=== PATIENT | female | born 1950 | race Caucasian/White ===

== ENCOUNTER → 2017-07-27 14:38 | Outpatient (CLI) | payer MEDICARE, BC, SELFPAY ==
--- NOTE | 2017-07-27 14:48 | XR_ITS ---
XR chest 2V HISTORY: ITS.REASON: ASTHMA,BRONCHITIS ORDERING PHYSICIAN: Nikia Jimenez PATIENT AGE: 66 years COMPARISON: 12/20/2016 FINDINGS: The cardiomediastinal silhouette and pulmonary vascularity are within normal limits. The lungs are clear without infiltrates, suspicious nodules, or pleural effusions. Calcified granuloma is present in the right lower lobe Mild lumbar scoliosis convex left. IMPRESSION: No change with no acute finding
== END ==
PROVIDERS: PCP Nurse Practitioner; Visit Provider Nurse Practitioner
DX: J45.909 Unspecified asthma, uncomplicated (principal)
CPT/HCPCS: 71046

== ENCOUNTER → 2018-07-05 14:35 | Outpatient (CLI) | payer MEDICARE, BC, SELFPAY ==
--- NOTE | 2018-07-05 14:43 | XR_ITS ---
XR knee LT 3V HISTORY: ITS.REASON: LT KNEE PAIN ORDERING PHYSICIAN: Nikia Jimenez PATIENT AGE: 67 years COMPARISON: None FINDINGS: No fracture or dislocation. No lytic or blastic change. Normal mineralization. No significant arthritic changes evident. There is a 4 mm calcific density in the posterior knee joint consistent with a loose body. IMPRESSION: Small loose body of the posterior knee joint otherwise negative
== END ==
PROVIDERS: PCP Nurse Practitioner; Visit Provider Nurse Practitioner
DX: M25.562 Pain in left knee (principal)
CPT/HCPCS: 73562

== ENCOUNTER → 2018-07-20 10:54 | Outpatient (CLI) | payer MEDICARE, BC, SELFPAY ==
--- NOTE | 2018-07-20 10:56 | MM_ITS ---
MM Dig screening mamm BI w/CAD ORDERING PHYSICIAN : Nikia Jimenez PATIENT AGE: 67 years GENDER: Female COMPARISON: Bilateral digital mammogram studies from June [id number] left mammogram from September 2015 INDICATION: ITS.Routine screening. No hormones. No new complaints. Noncontributory family history. TECHNIQUE: Standard CC and MLO images were obtained. R2 CAD reviewed. FINDINGS: Moderate density heterogeneous breast parenchymal pattern RIGHT BREAST: No discrete new areas of significant concern.. Previously seen area of density towards the superior breast again noted and similar to multiple previous studies thus continued follow-up adequate LEFT BREAST:No new areas of significant concern Areas of asymmetric density on the left appears similar to studies dating back to 2016 specifically noted area of slightly more evident density at the deep central breast slightly towards 12:00 unchanged since 2015 & 2013. IMPRESSION: . No new findings of significant concern. Adequate stable breast. Bilateral follow-up one year recommended & to be emphasized/encouraged, especially given this moderately dense heterogeneous pattern which slightly decreases sensitivity of mammography BI-RADS Category: 2 Benign Finding(s) RECOMMENDED FOLLOW-UP: 1YR 1 YEAR FOLLOW-UP (A letter has been sent to the patient regarding results of the study.)
== END ==
PROVIDERS: PCP Nurse Practitioner; Visit Provider Nurse Practitioner
DX: Z12.31 Encounter for screening mammogram for malignant neoplasm of breast (principal)
CPT/HCPCS: 77067

== ENCOUNTER → 2019-01-23 14:11 | Outpatient (POV) | payer MEDICARE, BC, SELFPAY | PROVIDERS: Visit Provider Dermatology | DX: Z00.00 Encounter for general adult medical examination without abnormal findings (principal) ==

== ENCOUNTER → 2019-05-22 14:06 | Outpatient (POV) | payer MEDICARE, BC, SELFPAY ==
[2019-05-22 16:39] LABS: Basophils # 0.1 K/mm3 (0-0.2); Basophils % 1.1 % (0.1-2.0); Eosinophils # 0.8 K/mm3 (0.0-0.4); Eosinophils % 6.9 % (0.1-12.0); Hematocrit 42.1 % (37.0-47.0); Lymphocytes # 2.5 K/mm3 (0.7-4.5); Lymphocytes % 22.9 % (10-50); Mean Corpuscular HGB Conc 33.2 g/dL (31.8-35.4); Mean Corpuscular Hemoglobin 29.3 pg (27.0-31.2); Mean Corpuscular Volume 88.3 fl (81-99); Monocytes # 0.5 K/mm3 (0.1-1.0); Monocytes % 4.7 % (1.7-9.3); Neutrophils # 7.1 K/mm3 (1.8-7.8); Neutrophils % 64.5 % (37.0-80.0); Platelet Count 303 K/mm3 (142-424); Red Blood Count 4.77 M/mm3 (4.20-5.40); Red Cell Distribution Width 13.4 % (11.5-17.5)
[2019-05-22 19:06] LABS: Alanine Aminotransferase 25 U/L (12-78); Albumin Level 3.5 gm/dL (3.4-5.0); Albumin/Globulin Ratio 1.3 (1.1-1.8); Alkaline Phosphatase 106 U/L (46-116); Anion Gap 11.8 mEq/L (5-15); Aspartate Amino Transferase 23 U/L (15-37); Bilirubin,Total 0.5 mg/dL (0.2-1.0); Blood Urea Nitrogen 9 mg/dL (7-18); Calcium 9.2 mg/dL (8.5-10.1); Carbon Dioxide 31 mmol/L (21.0-32.0); Chloride 105 mmol/L (98-107); Creatinine,Serum 0.85 mg/dL (0.55-1.02); Estimated Glomerular Filt Rate 66 ml/min (>60); GFR (African American) 80 ML/MIN (>60); Globulin 2.7 gm/dl (1.3-3.2); Glucose 175 mg/dL (74-106); Potassium 3.8 mmoL/L (3.5-5.1); Sodium 144 mmol/L (136-145); Total Protein,Serum 6.2 gm/dL (6.4-8.2)
[2019-05-24 09:11] LABS: Hep A Ab, IgM Negative (Negative); Hepatitis B Core Antibody IgM Negative (Negative); Hepatitis B Surface Antigen Negative (Negative)
[2019-05-24 15:52] LABS: Hepatitis C Antibody 0.1 s/co ratio (0.0-0.9)
[2019-05-26 15:29] LABS: QuantiFERON-TB Gold Plus Negative (Negative)
== END ==
PROVIDERS: Visit Provider Dermatology
DX: L40.0 Psoriasis vulgaris (principal); Z79.899 Other long term (current) drug therapy; R10.11 Right upper quadrant pain
CPT/HCPCS: 36415; 80053; 80074; 85025; 86480

== ENCOUNTER → 2019-07-18 15:43 | Outpatient (CLI) | payer MEDICARE, BC, SELFPAY ==
--- NOTE | 2019-07-18 15:50 | CT_ITS ---
PROCEDURE: CT HEAD/BRAIN WO CON CLINICAL INDICATION: HEADACHE, DIZZINESS COMPARISON: HDWO CT HEAD W/O CONTRAST from 08/21/2013 TECHNIQUE: Axial images obtained. All CT scans at the facility use one or more dose reduction, viz: automated exposure control, ma/kV adjustment per patient size (including targeted exams where dose is matched to indication, i.e. head), or iterative reconstruction technique. FINDINGS: No midline shift, mass effect, intracranial hemorrhage, hydrocephalus, or extra-axial fluid collection is evident. There is some white matter hypodensity consistent with small test deck supervisor vessel ischemic gliotic disease. Lucencies along the midline of the occipital region of the calvarium are similar to previous exam likely due to dilated vascular channels. The calvarium otherwise has an unremarkable appearance. No sinus air-fluid level. There is mild mucosal thickening of sinusitis in the bilateral maxillary sphenoid and ethmoid sinuses. A 4 millimeter sclerotic focus in the posterior right ethmoid air cell is likely a benign osteoma. There is opacification of an inferior right mastoid air cell consistent with inflammatory/congestive etiology. IMPRESSION: No acute intracranial finding Mild sinusitis and inflammatory/congestive changes right mastoid air cell. Dictated by: Anibal Breaux 07/18/2019 16:22 Electronically signed by Anibal Breaux in [place] 07/18/2019 16:22
== END ==
PROVIDERS: PCP Nurse Practitioner; Visit Provider Nurse Practitioner
DX: R51 Headache (principal); R42 Dizziness and giddiness
CPT/HCPCS: 70450

== ENCOUNTER → 2019-08-21 15:40 | Outpatient (POV) | payer MEDICARE, BC, SELFPAY | PROVIDERS: PCP Nurse Practitioner; Visit Provider Physician Assistant | DX: Z00.00 Encounter for general adult medical examination without abnormal findings (principal) ==

== ENCOUNTER → 2020-01-11 10:06 | Outpatient (CLI) | payer MEDICARE, BC, SELFPAY ==
--- NOTE | 2020-01-11 10:08 | MM_ITS ---
PROCEDURE: MM DIG SCREENING MAMM BI W/CAD Digital Breast Tomosynthesis Included CLINICAL INDICATION: SCREENING There is no personal or family history of breast cancer COMPARISON: MG DMDXUL DIG MAMM-DX UNI-LT from 03/17/2016 MG DMSB DIG MAMM-SCREEN VIOLET W/CAD from 12/09/2016 MG [facility] MM Dig screening mamm BI w/CAD from 07/20/2018 TECHNIQUE: Standard CC and MLO images and 3D Tomosynthesis was obtained. R2 CAD reviewed. FINDINGS: Scattered fibroglandular densities are seen in both breast. There are 3 mole markers right breast and a single mole marker left breast. There is faint arterial calcification in each breast. There are a few of benign-appearing calcifications in each breast. There is no suspicious lesion and no suspicious microcalcifications. IMPRESSION: Moderately dense parenchymal pattern with no suspicious lesions seen BI-RAD Category: 2 Benign Finding(s) FOLLOW-UP: 1YR 1 Year Follow-up (A letter has been sent to the patient regarding results of the study.) Dictated by: Dr. Eleazar Villa MD 01/18/2020 10:20 Dr. Eleazar Villa MD in [place] 01/18/2020 10:20
== END ==
PROVIDERS: PCP Nurse Practitioner; Visit Provider Nurse Practitioner
DX: Z12.31 Encounter for screening mammogram for malignant neoplasm of breast (principal)
CPT/HCPCS: 77063; 77067

== ENCOUNTER → 2020-05-20 14:23 | Outpatient (POV) | payer MEDICARE, BC, SELFPAY ==
[2020-05-20 15:09] LABS: Basophils # 0.1 K/mm3 (0-0.2); Basophils % 1.4 % (0.1-2.0); Eosinophils # 0.7 K/mm3 (0.0-0.4); Eosinophils % 7.6 % (0.1-12.0); Hematocrit 45.6 % (37.0-47.0); Hemoglobin 15.3 g/dL (12.2-16.2); Lymphocytes % 33.3 % (10-50); Mean Corpuscular HGB Conc 33.5 g/dL (31.8-35.4); Mean Corpuscular Hemoglobin 29.7 pg (27.0-31.2); Mean Corpuscular Volume 88.6 fl (81-99); Mean Platelet Volume 7.5 fl (7.4-10.4); Monocytes # 0.5 K/mm3 (0.1-1.0); Monocytes % 5.1 % (1.7-9.3); Neutrophils # 4.8 K/mm3 (1.8-7.8); Neutrophils % 52.7 % (37.0-80.0); Platelet Count 301 K/mm3 (142-424); Red Blood Count 5.14 M/mm3 (4.20-5.40)
[2020-05-24 04:19] LABS: QuantiFERON-TB Gold Plus Negative (Negative)
== END ==
PROVIDERS: Visit Provider Dermatology
DX: L40.0 Psoriasis vulgaris (principal); Z79.899 Other long term (current) drug therapy
CPT/HCPCS: 36415; 85025; 86480

== ENCOUNTER → 2020-11-20 13:41 | Outpatient (CLI) | payer MEDICARE, BC, SELFPAY ==
--- NOTE | 2020-11-20 13:46 | CA_ITS ---
APPROVED REPORT Assistant Import Manager: Sonja Orozco RVT Laterality: Bilateral Study Quality: Good Indications: DIZZINESS Risk Factors Hypertension: Smoking Doppler Spectral Velocity Analysis ECA (R) 142.10/18.10 cm/s ECA (L) 125.60/12.80 cm/s dICA (R) 76.60/19.50 cm/s dICA (L) 58.90/16.70 cm/s Carisa (R) 237.40/23.90 cm/s Carisa (L) 105.10/17.90 cm/s pICA (R) 266.50/47.80 cm/s pICA (L) 144.80/38.40 cm/s dCCA (R) 39.60/10.70 cm/s dCCA (L) 49.90/13.30 cm/s pCCA (R) 52.40/10.70 cm/s pCCA (L) 44.50/11.60 cm/s Vert (R) 35.40/8.70 cm/s Vert (L) 36.60/5.70 cm/s ICA/CCA 6.74 ICA/CCA 2.90 Findings Study suggests 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 Study suggests 20-49% stenosis of the left internal cartoid artery. Diffcult exam r/t plaque shadowing. Antegrade flow seen bilateral vertebral arteries. 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 Study suggests 20-49% stenosis of the left internal cartoid artery. Diffcult exam r/t plaque shadowing. Antegrade flow seen bilateral vertebral arteries. Electronically signed by : Cm Epps MD 11/20/2020 16:15:01
--- NOTE | 2020-11-20 14:56 | MR_ITS ---
PROCEDURE: MR HEAD/BRAIN WO CON CLINICAL INDICATION: DIZZINESS Dizziness [id number]. Headache and blurred vision. Prior CT 12/15/18. Prior MR 01/14/14. COMPARISON: MR [facility] MRI-BRAIN W/WO from 01/14/2014 TECHNIQUE: Routine multiplanar multi echo sequences are performed without gadolinium enhancement. FINDINGS: No midline shift, mass effect, intracranial hemorrhage, or hydrocephalus. No evidence of acute infarction. The cerebellopontine angles, cerebellum, and brainstem have an unremarkable appearance. There are few scattered T2 white matter hyperintensities which are nonspecific. These have slightly increased in number. The pituitary, optic chiasm, corpus callosum, and craniocervical junction have an unremarkable appearance. Right mastoid effusion is noted. Fluid signal noted in the left aspect of the sphenoid sinus. Small amount fluid is present in the maxillary sinuses. Mild mucosal thickening involves the paranasal sinuses. The orbits have an unremarkable appearance IMPRESSION: No acute intracranial findings. There are nonspecific small T2 white matter hyperintensities. These have slightly increased in number since 01/14/2014. These are most commonly related to ischemic gliotic foci from microvascular disease. Migraine headache would be included in the differential diagnosis. Dictated by: Cm Epps MD 11/21/2020 08:50 Cm Epps MD in [place] 11/21/2020 08:50
== END ==
PROVIDERS: PCP Nurse Practitioner Family; Visit Provider Nurse Practitioner Family
DX: R42 Dizziness and giddiness (principal)
CPT/HCPCS: 70551; 93880

== ENCOUNTER → 2020-11-26 10:52 | Outpatient (CLI) | payer MEDICARE, BC, SELFPAY ==
--- NOTE | 2020-11-26 | CA_ITS ---
APPROVED REPORT Exam: Pharmacologic Technologist: ,, Ht: 5 ft 5 in Wt: 155 lbs BSA: 1.77 m2 HR: 57 bpm BP: 171/63 mmHg Medical History Medications: Aspirin,,,,, Metformin,,,,, Atorvastatin,,,,, INSULIN,,,,, Prozac,,,,, Lisoinpril-HCTZ,,,,, Stress Test Details Test: LEXISCAN HR Resting HR: 55 bpm Max Heart Rate (APMHR): 150.268559 bpm Max HR Achieved: 94 bpm Target HR (85% APMHR): 127.629177 bpm % of APMHR: 62.67 Recovery HR: 63 bpm BP Resting BP: 171/63 mmHg Max BP: 199/68 mmHg Recovery BP: 186.0/80.0 mmHg ECG Resting ECG: NSR, NS ST abn inferiorly, 1.6 second sinus pause Clinical Exercise duration: 04:00 min Highest Stage Achieved: Exercise capacity: 1.0 METs Stress ECG Conclusion Symptoms: SOA, nausea, malaise, AGUILAR. No CP. Arrhythmias/Ectopy: None ST-T Changes: Exaggeration of baseline abns and other NSST-T changes. Conclusion: Non-dx Lexiscan stress- Myoview images reported separately. HTN. Test Summary REST 05:02 . . 55 . 171/ 63 . . Stage 1 01:00 . . 78 . . . . Stage 2 01:00 . . 91 . 182/ 77 . . Stage 3 01:00 . . 77 . 181/ 74 . . Stage 4 01:00 . . 74 . 166/ 75 . Stop exercise at 04:00 RECOVERY 01:00 . . 69 . 163/ 72 . . RECOVERY 02:00 . . 61 . 163/ 72 . . RECOVERY 03:00 . . 68 . 163/ 72 . . RECOVERY 04:00 . . 65 . 191/ 66 . . RECOVERY 05:00 . . 63 . 199/ 68 . . RECOVERY 05:15 . . 61 . 199/ 68 . . Electronically signed by : Hipolito Ayala MD 11/27/2020 13:22:14
--- NOTE | 2020-11-26 10:52 | CA_ITS ---
APPROVED REPORT EXAM: Comprehensive 2D, Doppler, and color-flow Echocardiogram Vault Teller: Batsheva Gudino RDCS Ht: 5 ft 5 in Wt: 155lbs BSA: 1.77 BP: 148/75 mmHg Indications: CP,SOA,EX SMOKER,DM,HTN,HLP 2D Dimensions LVOT 1.54 cm (M/F) 1.5-2.5 M-Mode Dimensions RVDd 2.21 cm (0.9-2.6) LA Diam 3.30 cm (1.9-4.0) LVDd 3.57 cm (3.5-5.7) Ao Diam 2.58 cm (2.0-3.7) LVDs 1.89 cm (3.5-5.7) IVSd 1.18 cm (0.6-1.1) PWd 0.93 cm (0.6-1.1) EF (Teich) 79.40% FS 47.10% EDV (Teich) 53.30 mL ESV (Teich) 11.00 mL LV Diastology E Decel Time 140.00 (160-240 msec) E/A Ratio 1.1 MED E' 5.60 (< 7 cm/sec) E'/MED E' Ratio 12.25 (>14) LAT E' 8.40 (<10 cm/sec) E/LAT E' Ratio 8.17 (>14) Mitral Valve MV E Max Orlando. 69.00 (40-130 cm/s) MV A Velocity 63.00 (40-130 cm/s) E/A Ratio 1.10 MV Decel. Time 140.00 (160-240 ms) MV PHT 41.00 ms Tricuspid Valve TR P. Velocity 276.00 cm/s RAP Estimate 10.00 mmHg RVSP 40.50 mmHg Left Ventricle Left atrium is mildly enlarged, left ventricle is normal size, mild concentric left ventricular hypertrophy, visually estimated ejection fraction 55% with no regional wall motion abnormality, grade 1 diastolic dysfunction seen without tissue Doppler evidence of raise left atrial pressure. Right Ventricle Right atrium and right ventricle are mildly enlarged with normal contractility. Aortic Valve Aortic valve is minimally thickened and fibrosed, there is no aortic stenosis or aortic insufficiency. Mitral Valve Mitral valve leaflets are minimally thickened, there is mild mitral regurgitation. Tricuspid Valve Tricuspid valve grossly normal, there is mild tricuspid regurgitation, calculated right ventricular systolic pressure is 41 mmHg. Pulmonic Valve Pulmonic valve is poorly visualized. Great Vessels Aortic root is normal size. Inferior vena cava is not well visualized. Pericardium No significant pericardial effusion noted Conclusion 1. Biatrial enlargement, normal left ventricular size, mild concentric left ventricular hypertrophy, visually estimated ejection fraction 55% with no regional wall motion abnormality, grade 1 diastolic dysfunction seen without tissue Doppler evidence of raise left atrial pressure. 2. Mildly enlarged right ventricle with normal contractility. 3. Mild mitral and tricuspid regurgitation. Calculated right ventricular systolic pressure is 41 mmHg. 4. No significant pericardial effusion noted. Electronically signed by : Hipolito Ayala MD 11/27/2020 15:54:51
--- NOTE | 2020-11-26 11:33 | NM_ITS ---
APPROVED REPORT Exam: Nuclear Stress Test Indication: HTN, D.M., HYPERLIPIDEMIA, FM HX, C.P., SOB, SUNCOPE, ABN EKG Patient Location: Outpatient Stress Tech: [facility] Tech:Naida Che, ARRT RT (R)(N)(M) Ht: 5 ft 4 in Wt: 150 lbs Bra Size: C HR: 57 bpm BP: 171/63 mmHg BSA: 1.73 m2 BMI: 25.7 History: HTN, D.M., HYPERLIPIDEMIA, FM HX, C.P., SOB, SUNCOPE, ABN EKG Procedure: Patient received a 0.4 mg of intravenous Lexiscan, resting heart rate 57 bpm, resting blood pressure 171/63 mmHg, with Lexiscan maximum heart rate achived was 86 bpm which is Less than 85 % of the maximum predicted heart rate and blood pressure was 182/77 mmHg. With Lexiscan, patient denied any complaint of chest pain. Electrocardiogram Resting electrocardiogram showed sinus rhythm, with Lexiscan there is less than 1.[address] segment depression noted from the baseline EKG. The EKG portion of the Lexiscan is nondiagnostic. Cardiac Stress and Resting SPECT Images: Cardiac Stress and Resting SPECT images were obtained using technetium 99m Myoview 32.1 mCi stress and 10.22 mCi at rest. Gated SPECT for analysis of segmental wall motion and calculation of the ejection fraction also done. Prone images were also obtained. Cardiac stress and resting SPECT images show uniform myocardial activity without segmental perfusion abnormality, computer derived ejection fraction is 52% with no regional wall motion abnormality, right ventricle is normal size and contractility. However there is transient ischemic dilatation of the left ventricle seen, raising the concern for presence of balanced ischemia, other causes for transient ischemic dilatation includes hypertensive heart disease, elevated left ventricular end-diastolic pressure, microvascular disease and diabetes mellitus. Conclusion: 1. The EKG portion of the Lexiscan is nondiagnostic. 2. No scintigraphic evidence of reversible ischemia seen, computer derived ejection fraction is 52% with no regional wall motion abnormality, right ventricle is normal size and contractility, there is transient ischemic dilatation of the left ventricle seen, raising the concerns for presence of balanced ischemia. Other causes of transient ischemic dilatation includes hypertensive heart disease, elevated left ventricular end-diastolic pressure, microvascular disease and diabetes mellitus. 3. Abnormal Lexiscan Myoview study. Electronically signed by : Hipolito Ayala MD 11/27/2020 13:25:53
== END ==
PROVIDERS: PCP Nurse Practitioner Family; Visit Provider Nurse Practitioner Family
DX: R94.31 Abnormal electrocardiogram [ECG] [EKG] (principal)
CPT/HCPCS: 78452; 93017; 93306; A9502; J2785

== ENCOUNTER → 2020-12-10 13:53 | Outpatient (CLI) | payer MEDICARE, BC, SELFPAY ==
[2020-12-10 14:33] LABS: Basophils # 0.1 K/mm3 (0-0.2); Basophils % 1.3 % (0.1-2.0); Eosinophils # 0.6 K/mm3 (0.0-0.4); Eosinophils % 6.4 % (0.1-12.0); Hematocrit 41.4 % (37.0-47.0); Hemoglobin 13.8 g/dL (12.2-16.2); Lymphocytes # 3.1 K/mm3 (0.7-4.5); Lymphocytes % 31.6 % (10-50); Mean Corpuscular HGB Conc 33.4 g/dL (31.8-35.4); Mean Corpuscular Hemoglobin 29.9 pg (27.0-31.2); Mean Corpuscular Volume 89.7 fl (81-99); Mean Platelet Volume 7.8 fl (7.4-10.4); Monocytes # 0.4 K/mm3 (0.1-1.0); Monocytes % 4.2 % (1.7-9.3); Neutrophils # 5.5 K/mm3 (1.8-7.8); Neutrophils % 56.5 % (37.0-80.0); Platelet Count 285 K/mm3 (142-424); Red Blood Count 4.61 M/mm3 (4.20-5.40); Red Cell Distribution Width 13.7 % (11.5-17.5); White Blood Count 9.7 K/mm3 (4.8-10.8)
[2020-12-10 15:30] LABS: Anion Gap 16.7 mEq/L (5-15); Blood Urea Nitrogen 8 mg/dl (7-17); Calcium 9.3 mg/dl (8.4-10.2); Carbon Dioxide 25 mmol/L (22.0-30.0); Chloride 100 mmol/L (98-107); Estimated Glomerular Filt Rate 122 ml/min (>60); GFR (African American) 148 ML/MIN (>60); Glucose 224 mg/dl (74-100); Potassium 3.7 mmoL/L (3.5-5.1); Sodium 138 mmol/L (136-145)
== END ==
PROVIDERS: Visit Provider Nurse Practitioner Family
DX: E78.5 Hyperlipidemia, unspecified (principal); I10 Essential (primary) hypertension; I20.9 Angina pectoris, unspecified; I27.21 Secondary pulmonary arterial hypertension; I65.29 Occlusion and stenosis of unspecified carotid artery; R06.00 Dyspnea, unspecified; R07.9 Chest pain, unspecified; R42 Dizziness and giddiness; R94.30 Abnormal result of cardiovascular function study, unspecified; R94.31 Abnormal electrocardiogram [ECG] [EKG]; Z01.812 Encounter for preprocedural laboratory examination; Z20.822 Contact with and (suspected) exposure to COVID-19
CPT/HCPCS: 36415; 80048; 85025; U0003

== ENCOUNTER 2020-12-11 08:31 | Day surgery (SDC) | payer MEDICARE, BC, SELFPAY ==
[2020-12-11] VITALS (19 sets, daily range): BP systolic 138–192; BP diastolic 60–91; PULSE 63–95; RESP 13–19; TEMP 36.8; O2SAT 90–99; BMI 26.2
--- NOTE | 2020-12-11 07:07 | IR_ITS ---
APPROVED REPORT Patient Location: Outpatient PROCEDURES Left heart catheterization Left ventriculogram Selective coronary angiogram Bilateral selective vertebral artery angiogram Selective engagement of the right carotid artery Right internal carotid artery selective angiogram Right carotid artery intracerebral angiogram Selective engagement left carotid artery Left internal carotid artery selective angiogram Left carotid artery intracerebral angiogram INDICATION Carotid artery disease, Coronary artery disease, Symptomatic carotid disease, Preoperative evaluation Informed consent was obtained prior to the procedure. COMPLICATIONS None Estimated Blood Loss: Less than 10 mls TECHNIQUE One percent lidocaine was used to anesthetize the right groin. The right femoral artery was accessed via the Seldinger technique. A 4-Portuguese sheath was placed in the right femoral artery. The JL-4 and JR-4 catheter was also used to perform left heart catheterization left ventriculogram and selective coronary angiogram. The JR4 catheter was then used to perform bilateral carotid artery selective angiogram and bilateral vertebral artery angiogram. At the end of the procedure the apparatus was removed the patient was transferred to the postop holding area stable condition for sheath removal ANGIOGRAPHIC RESULTS The left main artery Normal The left anterior descending artery Has proximal 10 to 20% stenoses with mid vessel tortuosity and diffuse 10 to 20% stenosis The circumflex artery Is a large dominant vessel with a mid vessel 10% stenosis The right coronary artery Nondominant small normal The EUCEDA ventriculogram reveals Hyperdynamic 75% The left ventricular end-diastolic pressure 15 mmHg The right common carotid artery is widely patent and gives rise to an external and internal iliac artery. The right internal iliac artery is severely calcified with a stenosis of at least 90%. There are no intracerebral aneurysms or atherosclerotic disease The left common carotid artery is widely patent and gives rise to the left internal and external iliac artery. The left internal iliac artery has a complex calcified 80% stenosis with a ruptured plaque and contrast staining within the plaque. Distally there are no intracerebral aneurysms or atherosclerotic disease The right vertebral artery is widely patent into the basilar artery The left vertebral artery is widely patent into the basilar artery IMPRESSION Mild coronary disease as described above Hyperdynamic ventricle consistent with diastolic dysfunction and/or hypertensive heart disease Borderline elevated LVEDP Severe to critical bilateral internal carotid artery disease as described above PLAN 1. Based on the severe calcified nature of the bilateral internal carotid arteries with ruptured plaques and ulcerations I would recommend patient be started on aspirin and Plavix along with maintaining the high intensity statin 2. Patient will be referred to Dr. Stewart at [facility] for consideration of carotid endarterectomy Electronically signed by : Tyler Sanchez MD 12/12/2020 14:03:34
== END 2020-12-11 14:29 | disposition home or self-care (01) ==
LOC: CATHLAB 08:33
PROVIDERS: PCP Nurse Practitioner Family; Visit Provider Internal Medicine
DX: I65.23 Occlusion and stenosis of bilateral carotid arteries (principal); E78.5 Hyperlipidemia, unspecified; I25.118 Atherosclerotic heart disease of native coronary artery with other forms of angina pectoris; I27.21 Secondary pulmonary arterial hypertension; I25.83 Coronary atherosclerosis due to lipid rich plaque; I10 Essential (primary) hypertension; R06.00 Dyspnea, unspecified; R42 Dizziness and giddiness; R07.9 Chest pain, unspecified; R94.30 Abnormal result of cardiovascular function study, unspecified; R94.31 Abnormal electrocardiogram [ECG] [EKG]; Z79.4 Long term (current) use of insulin; E11.9 Type 2 diabetes mellitus without complications; Z79.899 Other long term (current) drug therapy
CPT/HCPCS: 36224; 36226; 99152; C1725; C1769; J1644; Q9967

== ENCOUNTER → 2020-12-26 10:01 | Outpatient (CLI) | payer MEDICARE, BC, SELFPAY ==
--- NOTE | 2020-12-26 10:01 | US_ITS ---
APPROVED REPORT Exam Type: Lower Extremity Segmental Pressures Cake Decorator: ADRIANE Adams Claudication: Rest Pain: Risk Factors Hypertension Hyperlipidemia Diabetes Current Smoker Findings Rt. KAMI: 1.03 Lt. KAMI: 1.04 Rt. TBI: 0.53 Lt. TBI: 0.73 Normal pulses and waveforms noted at all levels bilaterally. Conclusion Rt. KAMI: 1.03 Lt. KAMI: 1.04 Rt. TBI: 0.53 Lt. TBI: 0.73 Normal pulses and waveforms noted at all levels bilaterally. Normal appearing resting noninvasive lower extremity arterial study. Electronically signed by : Cm Epps MD 12/26/2020 16:54:52
== END ==
PROVIDERS: PCP Nurse Practitioner Family; Visit Provider Nurse Practitioner Family
DX: I73.9 Peripheral vascular disease, unspecified (principal)
CPT/HCPCS: 93923

== ENCOUNTER → 2021-03-04 12:48 | Outpatient (CLI) | payer MEDICARE, BC, SELFPAY ==
--- NOTE | 2021-03-04 12:51 | MM_ITS ---
PROCEDURE INFORMATION: Exam: MG Bilateral Screening 3D Mammography Exam date and time: 03/04/2021 12:51 PM Age: 70 years old Clinical indication: Encounter for screening mammogram for malignant neoplasm of breast TECHNIQUE: Imaging protocol: Bilateral screening tomosynthesis and 2D mammography including computer-aided detection (CAD) when performed. COMPARISON: 1. MG MM DIG SCREENING MAMM BI W/CAD 01/11/2020 10:33 AM 2. MG [facility] MM Dig screening mamm BI w/CAD 07/20/2018 11:08 AM FINDINGS: MAMMOGRAPHY: Breast composition: The breast tissue is heterogeneously dense, which may obscure small masses. Mass: None. Architectural distortion: None. Calcifications: No suspicious calcifications. Asymmetric density: None. Skin thickening: None. Axillary adenopathy: None. IMPRESSION: No mammographic evidence of malignancy. Annual screening is recommended unless otherwise clinically indicated. ASSESSMENT: BI-RADS Category 1: Negative
== END ==
PROVIDERS: PCP Nurse Practitioner Family; Visit Provider Nurse Practitioner Family
DX: Z12.31 Encounter for screening mammogram for malignant neoplasm of breast (principal)
CPT/HCPCS: 77063; 77067

== ENCOUNTER → 2021-04-07 14:41 | Outpatient (POV) | payer MEDICARE, BC, SELFPAY ==
[2021-04-10 03:36] LABS: QuantiFERON-TB Gold Plus Negative (Negative)
== END ==
PROVIDERS: Visit Provider Dermatology
DX: L40.0 Psoriasis vulgaris (principal); Z79.899 Other long term (current) drug therapy
CPT/HCPCS: 36415; 86480

== ENCOUNTER 2021-05-06 13:17 | Emergency (ER) | payer MEDICARE, BC, SELFPAY ==
[2021-05-06 14:24] VITALS: BP 0/0; PULSE 0; RESP 0; TEMP -17.7; TEMP 0
== END 2021-05-06 16:05 | disposition left against medical advice (07) ==
PROVIDERS: Emergency Provider Nurse Practitioner Family; PCP Nurse Practitioner Family
DX: Z53.21 Procedure and treatment not carried out due to patient leaving prior to being seen by health care provider (principal)

== ENCOUNTER → 2021-05-06 14:02 | Outpatient (CLI) | payer MEDICARE, BC, SELFPAY | PROVIDERS: Visit Provider Nurse Practitioner | DX: U07.1 COVID-19 (principal) | CPT/HCPCS: C9803; U0003; U0005 ==

== ENCOUNTER 2021-07-24 14:10 | Emergency (ER) | payer MEDICARE, BC, SELFPAY ==
[2021-07-24 14:11] VITALS: BP 159/85; PULSE 77; RESP 16; TEMP 36.8; O2SAT 98; BMI 26.4
--- NOTE | 2021-07-24 14:14 | HMH.EDABDPAI ---
ED Disposition Clinical Impression: Abdominal pain Qualifiers: Abdominal location: lower abdomen, unspecified Qualified Code(s): R10.30 - Lower abdominal pain, unspecified Disposition: Home, Self-Care Condition on Discharge: Fair Instructions: Acute Abdominal Pain, DI for Acute Abdominal Pain Additional Instructions: Please follow-up with your primary care physician in 2 to 3 days if you do not improve. Return to the emergency department immediately if you feel worse in any way. Prescriptions: Dicyclomine HCl [Bentyl 10mg capsule] 10 mg PO QID PRN #24 cap PRN Reason: Abdominal Distention Transmission Status: Pending to [facility] Referrals: Rosita Jordan APRN [Primary Care Provider] - - Critical Care Critical Care Time: No Attestation: On , the high probability of a clinically significant, sudden or life threatening deterioration of the following system(s) required my full and direct attention, intervention and personal management. The time I documented below is in addition to time spent performing reported procedures but includes the following listed in this critical care notation. Medical Decision Making - Medical Records Medical records reviewed: Yes: I reviewed the patient's medical records. - Bart Inquiry Pt receiving controlled substance: No Vital Signs: 07/24/21 14:11 Temperature 98.2 F Temperature Source Oral Pulse Rate [Radial] 77 Respiratory Rate 16 Blood Pressure [Right Arm] 159/85 H Blood Pressure Mean [Right Arm] 109 Blood Pressure Position [Right Arm] Sitting 02 Sat by Pulse Oximetry 98 Oxygen Delivery Method Room Air - Lab Data Lab results reviewed: Yes: I reviewed the patient's lab results. Lab Results 07/24/21 14:21: Urine Color Yellow, Urine Appearance Clear, Urine pH 6.0, Ur Specific Wendell >= 1.030, Urine Protein Negative, Urine Glucose (UA) Negative, Urine Ketones Trace, Urine Blood Negative, Urine Nitrate Negative, Urine Bilirubin Negative, Urine Urobilinogen 1.0, Ur Leukocyte Esterase Negative, Urine WBC Occasional, Ur Squamous Epith Cells Occasional, Urine Bacteria Trace, Urine Mucus 1+ 07/24/21 14:30: WBC 8.5, RBC 4.75, Hgb 14.4, Hct 42.8, MCV 90.1, MCH 30.4, MCHC 33.7, RDW 14.3, Plt Count 261, MPV 7.6, Neut % (Auto) 62.2, Lymph % (Auto) 28.0, Crane % (Auto) 4.4, Eos % (Auto) 4.0, Baso % (Auto) 1.3, Neut # (Auto) 5.3, Lymph # (Auto) 2.4, Crane # (Auto) 0.4, Eos # (Auto) 0.3, Baso # (Auto) 0.1 07/24/21 14:30: Sodium 137, Potassium 3.8, Chloride 102, Carbon Dioxide 25, Anion Gap 13.8, BUN 7, Creatinine 0.50 L, Estimated Creat Clear 57, Estimated GFR 122, Est GFR ( Amer) 147, Glucose 180 H, Calcium 8.7, Total Bilirubin 0.6, AST 38 H, ALT 37, Alkaline Phosphatase 120, Total Protein 6.5, Albumin 4.0, Globulin 2.5, Albumin/Globulin Ratio 1.6 Result diagrams: 07/24/21 14:30 07/24/21 14:30 - CT Data CT Scan: Abdomen, Pelvis Time Received: 16:[address] Reviewed: Yes: I have reviewed the patient's CT results, I have viewed the radiologist's interpretation Preliminary Findings: Normal/NAD Medical Decision Narrative: The patient's work-up in the emergency department not reveal any life-threatening or dangerous causes for the patient's lower abdominal pain. The urinalysis is normal. She does have some mild hyperglycemia consistent with his prior diagnosis of diabetes for which she takes Metformin. A CT of the abdomen did not show any inflammatory changes. There is some sludge in the gallbladder but the patient's symptoms are far away from the right upper quadrant. The patient can be safely discharged home in stable condition with instructions to follow-up with her primary care physician if her symptoms do not improve. She will be written for some Bentyl for antispasmodic effect. Abdominal Pain HPI - General Stated Complaint: pelvic and abdominal pain, vomiting Time Seen by Provider: 07/24/21 14:14 Mode of Arrival: Ambulatory Source of Information: [facility]
[2021-07-24 14:38] LABS: Basophils # 0.1 K/mm3 (0-0.2); Basophils % 1.3 % (0.1-2.0); Eosinophils # 0.3 K/mm3 (0.0-0.4); Hematocrit 42.8 % (37.0-47.0); Hemoglobin 14.4 g/dL (12.2-16.2); Lymphocytes # 2.4 K/mm3 (0.7-4.5); Mean Corpuscular HGB Conc 33.7 g/dL (31.8-35.4); Mean Corpuscular Hemoglobin 30.4 pg (27.0-31.2); Mean Corpuscular Volume 90.1 fl (81-99); Mean Platelet Volume 7.6 fl (7.4-10.4); Monocytes # 0.4 K/mm3 (0.1-1.0); Monocytes % 4.4 % (1.7-9.3); Neutrophils # 5.3 K/mm3 (1.8-7.8); Neutrophils % 62.2 % (37.0-80.0); Platelet Count 261 K/mm3 (142-424); Red Blood Count 4.75 M/mm3 (4.20-5.40); Red Cell Distribution Width 14.3 % (11.5-17.5); White Blood Count 8.5 K/mm3 (4.8-10.8)
[2021-07-24 14:46] LABS: Chloride 102 mmol/L (98-107); Potassium 3.8 mmoL/L (3.5-5.1); Sodium 137 mmol/L (136-145)
[2021-07-24 14:49] LABS: Alanine Aminotransferase 37 U/L (12-78); Albumin/Globulin Ratio 1.6 (1.1-1.8); Alkaline Phosphatase 120 U/L (38-126); Anion Gap 13.8 mEq/L (5-15); Aspartate Amino Transferase 38 U/L (14-36); Bilirubin,Total 0.6 mg/dl (0.2-1.3); Blood Urea Nitrogen 7 mg/dl (7-17); Calcium 8.7 mg/dl (8.4-10.2); Carbon Dioxide 25 mmol/L (22.0-30.0); Creatinine Clearance Estimated 57 mL/min (50-200); Estimated Glomerular Filt Rate 122 ml/min (>60); GFR (African American) 147 ML/MIN (>60); Globulin 2.5 g/dL (1.3-3.2); Glucose 180 mg/dl (74-100); Total Protein,Serum 6.5 g/dl (6.3-8.2)
[2021-07-24 15:01] LABS: Microscopic, Urine URINE MICROSCOPIC (MICROSCOPIC)
[2021-07-24 15:08] LABS: Appearance,Urine CLEAR (Clear); Bilirubin,Urine Negative (Negative); Blood, Urine Negative (Negative); Color,Urine YELLOW (Yellow); Glucose,Urine (UA) Negative (Negative); Ketones,Urine TRACE (Negative); Leukocyte Esterase,Urine Negative (Negative); Nitrate,Urine Negative (Negative); Protein,Urine Negative (Negative); Specific Gravity, Urine >= 1.030 (1.005-1.030)
--- NOTE | 2021-07-24 15:11 | CT_ITS ---
FINAL REPORT CLINICAL HISTORY: abdominal/pelvic pain, lower abd and pelvic pain, nausea, difficulty urinating COMPARISON: December 15, 2018 FINDINGS: Axial CT images of the abdomen and pelvis were obtained without intravenous contrast. Coronal reformatted images were also obtained.This study was performed with techniques to keep radiation doses as low as reasonably achievable (ALARA). Individualized dose reduction techniques using automated exposure control or adjustment of mA and/or kV according to the patient's size were employed. Abdomen: The lung bases are clear. There is no evidence of renal stone or hydronephrosis. There is a questionable small stones or sludge within the gallbladder. There is a small umbilical hernia containing fat. The liver, spleen and pancreas have an unremarkable, unenhanced appearance. No mass or adenopathy is seen. No inflammatory process is identified. There are moderate vascular calcifications. There are postoperative and degenerative changes of the spine. Pelvis: The appendix is not visualized. Images of the pelvis reveal no evidence of ureteral dilation or ureteral stone.No mass or abnormal fluid collection is identified. There is sigmoid diverticulosis without evidence of diverticulitis. There are postoperative changes from hysterectomy. There is a presumed subchondral cyst in the right superior acetabulum which is stable. IMPRESSION: No renal or ureteral stone, or hydronephrosis. Questionable small stones or sludge within the gallbladder. Consider right upper quadrant ultrasound. Presumed subchondral cyst in the right superior acetabulum which is stable. Reviewed, Interpreted and Dictated by Donavan Tejada III, MD Transcribed by Sheba Davis Authenticated by Donavan Tejada III, MD on 07/24/2021 04:30:42 PM [facility]
--- NOTE | 2021-07-24 15:22 | PC.NURSE ---
Pt. going to CT
[2021-07-24 15:25] LABS: Bacteria,Urine Trace /lpf; Mucus,Urine 1+ /lpf; Squamous Epithelial Cell,Urine Occasional #/hpf (0-5); WBC,Urine Occasional #/hpf (0-3)
--- NOTE | 2021-07-24 16:16 | PC.NURSE ---
contacted radiology to check on status of CT result; spoke nate Sifuentes. States the images are in a lock status with [facility] which she states means they have it locked soon to read it. updated ER on the above.
[2021-07-24 17:12] VITALS: BP 132/89; PULSE 78; RESP 16; TEMP 36.6; O2SAT 98
== END 2021-07-24 17:13 | disposition home or self-care (01) ==
PROVIDERS: Emergency Provider Emergency Medicine; PCP Nurse Practitioner Family
DX: E11.65 Type 2 diabetes mellitus with hyperglycemia (principal); I10 Essential (primary) hypertension; E78.5 Hyperlipidemia, unspecified; Z87.891 Personal history of nicotine dependence; Z88.2 Allergy status to sulfonamides; Z79.899 Other long term (current) drug therapy
CPT/HCPCS: 74176; 80053; 81001; 85025; 99284

== ENCOUNTER → 2021-07-28 15:06 | Outpatient (POV) | payer MEDICARE, BC, SELFPAY | PROVIDERS: Visit Provider Dermatology | DX: Z00.00 Encounter for general adult medical examination without abnormal findings (principal) ==

== ENCOUNTER → 2021-12-15 11:03 | Outpatient (CLI) | payer MEDICARE, BC, SELFPAY ==
[2021-12-15 11:37] LABS: Basophils # 0.1 K/mm3 (0-0.2); Basophils % 1.4 % (0.1-2.0); Eosinophils # 0.4 K/mm3 (0.0-0.4); Eosinophils % 4.9 % (0.1-12.0); Hematocrit 45.9 % (37.0-47.0); Hemoglobin 13.8 g/dL (12.2-16.2); Lymphocytes # 1.7 K/mm3 (0.7-4.5); Lymphocytes % 20.7 % (10-50); Mean Corpuscular HGB Conc 30.1 g/dL (31.8-35.4); Mean Platelet Volume 7.1 fl (7.4-10.4); Monocytes # 0.4 K/mm3 (0.1-1.0); Monocytes % 5.2 % (1.7-9.3); Neutrophils # 5.7 K/mm3 (1.8-7.8); Neutrophils % 67.8 % (37.0-80.0); Platelet Count 229 K/mm3 (142-424); Red Blood Count 4.93 M/mm3 (4.20-5.40); Red Cell Distribution Width 13.1 % (11.5-17.5); White Blood Count 8.3 K/mm3 (4.8-10.8)
[2021-12-15 12:49] LABS: Alanine Aminotransferase 29 U/L (12-78); Albumin Level 3.9 g/dl (3.5-5.0); Albumin/Globulin Ratio 1.6 (1.1-1.8); Alkaline Phosphatase 164 U/L (38-126); Anion Gap 11.2 mEq/L (5-15); Aspartate Amino Transferase 35 U/L (14-36); Bilirubin,Total 0.6 mg/dl (0.2-1.3); Blood Urea Nitrogen 9 mg/dl (7-17); Calcium 9.3 mg/dl (8.4-10.2); Carbon Dioxide 25 mmol/L (22.0-30.0); Chloride 103 mmol/L (98-107); Estimated Glomerular Filt Rate 99 ml/min (>60); GFR (African American) 119 ML/MIN (>60); Globulin 2.4 g/dL (1.3-3.2); Potassium 4.2 mmoL/L (3.5-5.1); Sodium 135 mmol/L (136-145); Total Protein,Serum 6.3 g/dl (6.3-8.2)
[2021-12-15 14:39] LABS: Glucose 452 mg/dl (74-100)
[2021-12-18 16:46] LABS: QuantiFERON-TB Gold Plus Negative (Negative)
== END ==
PROVIDERS: PCP Nurse Practitioner Family; Visit Provider Dermatology
DX: L40.0 Psoriasis vulgaris (principal); Z79.899 Other long term (current) drug therapy
CPT/HCPCS: 36415; 80053; 85025; 86480

== ENCOUNTER → 2022-02-08 10:26 | Outpatient (CLI) | payer MEDICARE, BC, SELFPAY ==
--- NOTE | 2022-02-08 10:37 | XR_ITS ---
FINAL REPORT CLINICAL HISTORY: ACUTE MIDLINE LOW BACK PAIN, INJURY OF LOW BACK, FINDINGS: LUMBAR SPINE 5 views of the lumbar spine were obtained. There is fusion from L3 to the upper pelvis. There is no evidence of fracture or dislocation. The vertebral alignment is normal. There are moderate degenerative changes. There are moderate vascular calcifications. IMPRESSION: Postoperative and degenerative changes with no acute bony abnormality. Reviewed, Interpreted and Dictated by Donavan Tejada III, MD Transcribed by Sheba Davis Authenticated and [facility]
== END ==
PROVIDERS: PCP Nurse Practitioner Family; Visit Provider Nurse Practitioner Family
DX: E11.9 Type 2 diabetes mellitus without complications (principal); M54.50 Low back pain, unspecified; S39.92XA Unspecified injury of lower back, initial encounter; Z79.4 Long term (current) use of insulin
CPT/HCPCS: 72110

== ENCOUNTER → 2022-02-16 14:52 | Outpatient (POV) | payer MEDICARE, BC, SELFPAY | PROVIDERS: Visit Provider Dermatology | DX: Z00.00 Encounter for general adult medical examination without abnormal findings (principal) ==

== ENCOUNTER → 2022-05-26 15:42 | Outpatient (CLI) | payer MEDICARE, BC, SELFPAY ==
--- NOTE | 2022-05-26 15:48 | MR_ITS ---
PROCEDURE INFORMATION: Exam: MR Lumbar Spine Without Contrast Exam date and time: 05/26/2022 3:55 PM Age: 71 years old Clinical indication: Low back pain; Prior surgery; Additional info: Acute midline back pain TECHNIQUE: Imaging protocol: Magnetic resonance imaging of the lumbar spine without contrast. COMPARISON: CARPET JACK/O MRI-L-SPINE W/O 10/07/2015 1:02 PM FINDINGS: Bones/joints: Partial lumbarization of S1 unchanged. There are posterior spinal fusion changes present from L3-S1 with bilateral rods and pedicle screws resulting in susceptibility artifact. Spinal alignment is near anatomic. The vertebral body heights are maintained. There is discectomy and spacer interposition L3-S1 levels. Mild loss of disc space height is seen above the fusion at L2-L3 with anterior osteophytes. No acute osseous injury. No suspicious marrow signal. Spinal cord: Visualized cord, conus medullaris and cauda equina are unremarkable without compression. L1-L2: No significant disc bulge or herniation. No severe spinal canal stenosis. No significant neural foraminal narrowing. L2-L3: L2-L3 diffuse disc bulging and degenerative facet arthritis causes moderate narrowing of the spinal canal which is progressive since the comparison study in 2015. The neural foramina are patent. Anteriorly there are Modic type 1 endplate degenerative changes present. L3-L4: L3-L4 discectomy changes and laminectomy. No residual stenosis after surgery. L4-L5: L4-L5 discectomy laminectomy changes. No spinal canal narrowing after surgery. The right neural foramen is mildly narrowed due to facet joint degenerative changes. L5-S1: L5-S1 discectomy laminectomy changes. No spinal canal stenosis after surgery. There is severe left and mild right neural foraminal stenosis which appears improved after surgery. Soft tissues: Unremarkable. IMPRESSION: Status post L3 to sacrum posterior spinal fusion discectomy and laminectomy changes. Spinal alignment is near anatomic. Progressive adjacent segment degenerative disc disease at L2-L3 with moderate spinal canal stenosis as described.
== END ==
PROVIDERS: PCP Nurse Practitioner Family; Visit Provider Nurse Practitioner Family
DX: M54.41 Lumbago with sciatica, right side (principal); M51.36 Other intervertebral disc degeneration, lumbar region; Z98.890 Other specified postprocedural states
CPT/HCPCS: 72148; 76376

== ENCOUNTER → 2022-07-06 13:11 | Outpatient (CLI) | payer MEDICARE, BC, SELFPAY ==
--- NOTE | 2022-07-06 13:14 | MM_ITS ---
PROCEDURE INFORMATION: Exam: MG Bilateral Screening 3D Mammography Exam date and time: 07/06/2022 1:18 PM Age: 71 years old Clinical indication: Screening examination TECHNIQUE: Imaging protocol: Bilateral Screening tomosynthesis and 2D mammography including computer-aided detection (CAD) when performed. COMPARISON: 1. MG MM DIG SCREENING MAMM BI W/CAD 03/04/2021 1:01 PM 2. MG MM DIG SCREENING MAMM BI W/CAD 01/11/2020 10:33 AM 3. MG SCBI MM Dig screening mamm BI w/CAD 07/20/2018 11:08 AM FINDINGS: MAMMOGRAPHY: Breast composition: The breasts are heterogeneously dense, which may obscure small masses. Mass: No suspicious masses. Architectural distortion: No suspicious distortion. Calcifications: No suspicious calcifications. Asymmetric density: None. Skin thickening: None. Axillary adenopathy: None. IMPRESSION: No mammographic evidence of malignancy. Annual screening is recommended unless otherwise clinically indicated. ASSESSMENT: BI-RADS Category 1: Negative
== END ==
PROVIDERS: PCP Nurse Practitioner Family; Visit Provider Nurse Practitioner Family
DX: Z12.31 Encounter for screening mammogram for malignant neoplasm of breast (principal)
CPT/HCPCS: 77063; 77067

== ENCOUNTER → 2022-07-29 13:40 | Outpatient (CLI) | payer MEDICARE, BC, SELFPAY ==
--- NOTE | 2022-07-29 13:51 | CA_ITS ---
FINAL REPORT TECHNIQUE: Color Doppler, duplex Doppler and celestin scale sonography of the bilateral neck arterial vasculature was performed. Velocities were measured in the carotid arteries. Stenosis evaluation based on the validated velocity criteria. CLINICAL HISTORY: EDWIN DIZZINESS FINDINGS: The peak systolic velocity of the right common carotid artery is 42 cm/s. The peak systolic velocity of the right internal carotid artery is 275 cm/s and end diastolic velocity 42 cm/s. The ICA/CCA ratio is 6.8. A moderate to large amount of plaque is present. The right external carotid artery is patent. The right vertebral artery is patent with antegrade flow. The peak systolic velocity of the left common carotid artery is 54 cm/s. The peak systolic velocity of the left internal carotid artery is 137 cm/s and end diastolic velocity 29 cm/s. The ICA/CCA ratio is 3.1. A small amount of plaque is present. The left external carotid artery is patent.The left vertebral artery is patent with antegrade flow. IMPRESSION: Greater than 70% stenosis on the right. Left than 50% stenosis on the left. Bilateral patent vertebral arteries with antegrade flow. If indicated, CTA or MRA could further evaluate. Reviewed, Interpreted and Dictated by Donavan Tejada III, MD Transcribed by Isabelle Peralta Authenticated and . [facility]
== END ==
PROVIDERS: PCP Nurse Practitioner Family; Visit Provider Nurse Practitioner Family
DX: I77.9 Disorder of arteries and arterioles, unspecified (principal); I65.21 Occlusion and stenosis of right carotid artery
CPT/HCPCS: 93880

== ENCOUNTER → 2022-09-23 07:44 | Outpatient (CLI) | payer MEDICARE, BC, SELFPAY ==
--- NOTE | 2022-09-23 07:49 | CT_ITS ---
FINAL REPORT CLINICAL HISTORY: C/o diarrhea, occasional lwr abd pain, abnormal weight loss and urinary hesitancy x 3-4 mos. Occasional smoker. FINDINGS: CT ABDOMEN AND PELVIS WITH CONTRAST TECHNIQUE: IV contrast enhanced exam COMPARISON: None . FINDINGS: ABDOMEN: Solid organs are unremarkable. There is questionable wall thickening of the gastric antrum versus poor distention. There is streak artifact from lumbar hardware, which mildly obscures the intra-abdominal contents. No focal mass is identified. PELVIS: The appendix is not visualized and may have been removed at the time of hysterectomy. No pelvic masses are seen. IMPRESSION: Solid organs unremarkable and no focal mass identified in the abdomen or pelvis. Questionable wall thickening of the gastric antrum versus poor distention. Gastritis not excluded. This study was performed using automated techniques to achieve radiation exposure as low as reasonably achievable Reviewed, Interpreted and Dictated by Radha Egan MD Transcribed by Antonella Schultz Authenticated and [facility]
--- NOTE | 2022-09-23 08:36 | MR_ITS ---
FINAL REPORT TECHNIQUE: Multiplanar MR without contrast CLINICAL HISTORY: DIZZINESS, WEIGHT LOSS. BLURRED VISION COMPARISON: 11/20/2020 FINDINGS: Diffusion sequences show no signal abnormality to indicate acute infarct. Scattered periventricular white matter signal changes are seen compatible with mild chronic ischemic gliotic disease. These changes are minimally worse than the prior examination of 11/2020. Mild generalized atrophy is present. No mass, hemorrhage or edema is seen. Ventricles are normal. Major vascular flow voids are intact. The pituitary is unremarkable and the optic chiasm is normal. Mild pansinusitis is present. IMPRESSION: 1. No mass, acute infarct or hydrocephalus 2. Atrophy and chronic ischemic white matter changes Reviewed, Interpreted and Dictated by Radha Egan MD Transcribed by Antonella Schultz Authenticated and [facility]
== END ==
PROVIDERS: PCP Nurse Practitioner Family; Visit Provider Nurse Practitioner Family
DX: R42 Dizziness and giddiness (principal); R63.4 Abnormal weight loss; R39.11 Hesitancy of micturition
CPT/HCPCS: 70551; 74177; Q9967

== ENCOUNTER → 2023-02-22 09:03 | Outpatient (CLI) | payer MEDICARE, BC, SELFPAY ==
[2023-02-22 18:03] LABS: Basophils # 0.1 K/mm3 (0-0.2); Basophils % 0.9 % (0.1-2.0); Eosinophils # 0.5 K/mm3 (0.0-0.4); Eosinophils % 7.8 % (0.1-12.0); Hematocrit 38.2 % (37.0-47.0); Hemoglobin 13.1 g/dL (12.2-16.2); Lymphocytes # 1.5 K/mm3 (0.7-4.5); Lymphocytes % 23.3 % (10-50); Mean Corpuscular HGB Conc 34.3 g/dL (31.8-35.4); Mean Corpuscular Hemoglobin 30.6 pg (27.0-31.2); Mean Corpuscular Volume 89.3 fl (81-99); Mean Platelet Volume 8.2 fl (7.4-10.4); Monocytes # 0.3 K/mm3 (0.1-1.0); Monocytes % 4.8 % (1.7-9.3); Neutrophils # 4.1 K/mm3 (1.8-7.8); Neutrophils % 63.3 % (37.0-80.0); Platelet Count 215 K/mm3 (142-424); Red Blood Count 4.28 M/mm3 (4.20-5.40); Red Cell Distribution Width 14.3 % (11.5-17.5); White Blood Count 6.4 K/mm3 (4.8-10.8)
[2023-02-22 18:21] LABS: Alanine Aminotransferase 23 U/L (12-78); Albumin Level 4.1 g/dl (3.5-5.0); Albumin/Globulin Ratio 1.7 (1.1-1.8); Alkaline Phosphatase 175 U/L (38-126); Anion Gap 15.1 mEq/L (5-15); Aspartate Amino Transferase 34 U/L (14-36); Bilirubin,Total 0.5 mg/dl (0.2-1.3); Blood Urea Nitrogen 8 mg/dl (7-17); Calcium 9.4 mg/dl (8.4-10.2); Carbon Dioxide 29 mmol/L (22.0-30.0); Chloride 95 mmol/L (98-107); Estimated Glomerular Filt Rate 98 ml/min (>60); GFR (African American) 119 ML/MIN (>60); Globulin 2.4 g/dL (1.3-3.2); Glucose 341 mg/dl (74-100); Magnesium 1.4 mg/dl (1.6-2.3); Potassium 4.1 mmoL/L (3.5-5.1); Sodium 135 mmol/L (136-145); Total Protein,Serum 6.5 g/dl (6.3-8.2)
== END ==
PROVIDERS: PCP Nurse Practitioner Family; Visit Provider Nurse Practitioner Family
DX: R10.9 Unspecified abdominal pain (principal); M54.9 Dorsalgia, unspecified; E83.42 Hypomagnesemia; G89.29 Other chronic pain
CPT/HCPCS: 80053; 83735; 85025

== ENCOUNTER → 2023-03-09 15:52 | Outpatient (CLI) | payer MEDICARE, BC, SELFPAY ==
[2023-03-09 17:05] LABS: Magnesium 1.4 mg/dl (1.6-2.3)
[2023-03-14 12:12] LABS: Alkaline Phosphatase 182 IU/L (44-121); Bone Fraction: 40 % (14-68); Intestinal Frac.: 14 % (0-18); Liver Fraction: 46 % (18-85)
== END ==
PROVIDERS: PCP Nurse Practitioner Family; Visit Provider Nurse Practitioner Family
DX: E83.42 Hypomagnesemia (principal); R74.8 Abnormal levels of other serum enzymes
CPT/HCPCS: 83735; 84075; 84080

== ENCOUNTER → 2023-03-23 07:17 | Outpatient (CLI) | payer MEDICARE, BC, SELFPAY ==
--- NOTE | 2023-03-23 07:27 | CT_ITS ---
FINAL REPORT CLINICAL HISTORY: LUMBAR RADICULOPATHY COMPARISON: None FINDINGS: Axial imaging of the lumbar spine was obtained without contrast. Sagittal and coronal reformatted images were also obtained and reviewed.This study was performed with techniques to keep radiation doses as low as reasonably achievable (ALARA). Individualized dose reduction techniques using automated exposure control or adjustment of mA and/or kV according to the patient's size were employed. Prior fusion L2-S1. Kyphoplasty at L2 and L3. There is no acute fracture. The vertebral alignment is normal. There is moderate degenerative change. There is no evidence of significant central canal stenosis. T12-L1: Left foraminal disc protrusion. Moderate left neuroforaminal narrowing. L1-2: Annular disc bulge and facet arthropathy. Mild bilateral neuroforaminal narrowing. L2-3: Fusion. Mild left neuroforaminal narrowing. L3-4: Fusion. Mild bilateral neuroforaminal narrowing. L4-5: Fusion. L4 laminectomies. Moderate bilateral neuroforaminal narrowing. L5-S1: Fusion. Moderate bilateral neuroforaminal narrowing. IMPRESSION: Multilevel degenerative change without acute bony abnormality. Disc protrusion at T12-L1. Reviewed, Interpreted and Dictated by Donavan Tejada III, MD Transcribed by Heidi Lemon Authenticated and [facility]
== END ==
PROVIDERS: PCP Nurse Practitioner Family; Visit Provider Nurse Practitioner
DX: M54.50 Low back pain, unspecified (principal); M54.16 Radiculopathy, lumbar region
CPT/HCPCS: 72131

== ENCOUNTER 2023-04-20 08:49 | Outpatient (CLI) | payer MEDICARE, BC, SELFPAY ==
[2023-04-20 20:51] LABS: Amphetamine/Metha Screen,Urine Negative ng/ml (<1000); Barbiturates Screen,Urine Negative ng/ml (<200); Benzodiazepines Screen,Urine Negative ng/ml (<200); Cannabinoid Screen,Urine Negative ng/ml (<50); Cocaine Screen,Urine Negative ng/ml (<300); Methadone Screen,Urine Negative ng/ml (<300); Opiate Screen,Urine Negative ng/ml (<300); Phencyclidine Screen,Urine Negative ng/ml (<25)
== END 2023-04-20 23:59 ==
LOC: LAB.DROPOF 04-21 08:50
PROVIDERS: PCP Nurse Practitioner Family; Visit Provider Nurse Practitioner Family
DX: R05.9 Cough, unspecified (principal); J02.9 Acute pharyngitis, unspecified; Z79.899 Other long term (current) drug therapy
CPT/HCPCS: 80307; 87070; 87635

== ENCOUNTER 2023-05-31 16:17 | Outpatient (POV) | payer MEDICARE, BC, SELFPAY | END 2023-05-31 23:59 | disposition home or self-care (01) | LOC: SC 16:18 | PROVIDERS: PCP Nurse Practitioner Family; Visit Provider Dermatology | DX: Z00.00 Encounter for general adult medical examination without abnormal findings (principal) ==

== ENCOUNTER 2023-07-06 16:49 | Outpatient (CLI) | payer MEDICARE, BC, SELFPAY ==
--- NOTE | 2023-07-06 16:58 | XR_ITS ---
PROCEDURE INFORMATION: Exam: XR Right Hip Exam date and time: 07/06/2023 5:02 PM Age: 72 years old Clinical indication: Hip pain; Right hip; Additional info: Right lateral hip pain TECHNIQUE: Imaging protocol: Radiologic exam of the right hip. Views: 2 or 3 views hip with pelvis when performed. COMPARISON: CT ABDOMEN PELVIS W CON 09/23/2022 8:15 AM FINDINGS: Bones/joints: There is no evidence of acute fracture or dislocation. There are moderate osteoarthritic degenerative changes in the right hip joint manifest by superolateral joint space narrowing, subchondral sclerosis, marginal osteophytes and subchondral cyst formation. Milder osteoarthritic degenerative changes involve the left hip. Mild degenerative changes also involve the sacroiliac and symphyseal pubic joints. Postoperative orthopedic hardware involving the lower lumbosacral spine is stable. Soft tissues: No significant soft tissue edema. No subcutaneous emphysema or radiopaque foreign bodies. Vasculature: There are a few benign phleboliths in the pelvis. Soft tissue calcifications in the gluteal regions bilaterally likely reflect injection granulomas. IMPRESSION: 1. No acute posttraumatic osseous injury. 2. Moderate osteoarthritis involving the right hip.
--- NOTE | 2023-07-06 16:58 | XR_ITS ---
PROCEDURE INFORMATION: Exam: XR Left Finger(s) Exam date and time: 07/06/2023 5:02 PM Age: 72 years old Clinical indication: Pain; Finger(s); Left; Additional info: Left thumb base swelling, pain TECHNIQUE: Imaging protocol: Radiologic exam of the left fingers. Views: Minimum 2 views. COMPARISON: No relevant prior studies available. FINDINGS: Bones/joints: There is no evidence of acute fracture or dislocation. Yaji-vi-dfjhyoou osteoarthritis involves the 1st carpal/metacarpal joint with joint space narrowing, subchondral sclerosis and marginal osteophytes. Mild osteoarthritic degenerative changes also involve the radiocarpal, distal radioulnar and intercarpal joints. Milder osteoarthritic degenerative changes also involve the 1st DIP and PIP joints. There is mild diffuse osteopenia. Soft tissues: No significant soft tissue edema. No subcutaneous emphysema or radiopaque foreign bodies. IMPRESSION: 1. No acute posttraumatic osseous injury. 2. Icfi-hs-nwkcdkyo osteoarthritis involving the 1st carpal/metacarpal joint.
== END 2023-07-06 23:59 ==
PROVIDERS: PCP Nurse Practitioner Family; Visit Provider Nurse Practitioner Family
DX: M25.551 Pain in right hip; M79.645 Pain in left finger(s)
CPT/HCPCS: 73140; 73502

== ENCOUNTER 2023-07-12 14:10 | Outpatient (CLI) | payer MEDICARE, BC, SELFPAY ==
[2023-07-12 14:56] LABS: Alanine Aminotransferase 33 U/L (12-78); Albumin Level 3.9 g/dl (3.5-5.0); Albumin/Globulin Ratio 1.7 (1.1-1.8); Alkaline Phosphatase 143 U/L (38-126); Anion Gap 13.8 mEq/L (5-15); Aspartate Amino Transferase 40 U/L (14-36); Bilirubin,Total 0.6 mg/dl (0.2-1.3); Blood Urea Nitrogen 12 mg/dl (7-17); Calcium 9.7 mg/dl (8.4-10.2); Carbon Dioxide 26 mmol/L (22.0-30.0); Chloride 102 mmol/L (98-107); Chol/HDL Ratio 3.8 (1-3.5); Cholesterol 161 mg/dl (140-200); Estimated Glomerular Filt Rate 82 ml/min (>60); GFR (African American) 99 ML/MIN (>60); Globulin 2.3 g/dL (1.3-3.2); Glucose 294 mg/dl (74-100); HDL Cholesterol 42 mg/dl (40-60); Potassium 3.8 mmoL/L (3.5-5.1); Sodium 138 mmol/L (136-145); Total Protein,Serum 6.2 g/dl (6.3-8.2); Triglycerides 294 mg/dl (30-150); Uric Acid 7.3 mg/dl (2.5-6.2); VLDL Cholesterol 59 mg/dL (0-40)
[2023-07-12 15:07] LABS: Direct LDL Cholesterol 79.26 mg/dL (100-129)
[2023-07-12 15:11] LABS: Erythrocyte Sedimentation Rate 28 mm/hr (0-30)
[2023-07-12 15:27] LABS: Thyroid Stimulating Hormone 2.01 uIU/mL (0.465-4.68)
[2023-07-12 15:31] LABS: Hemoglobin A1C 11.4 % (4.0-6.0)
[2023-07-13 11:13] LABS: RA Latex Turbid. <10.0 IU/mL (<14.0)
[2023-07-14 12:33] LABS: Antinuclear Antibodies, IFA Positive
[2023-07-21 11:29] LABS: Antinuclear Antibodies (ANA) Negative
== END 2023-07-12 23:59 ==
PROVIDERS: PCP Nurse Practitioner Family; Visit Provider Nurse Practitioner Family
DX: E11.69 Type 2 diabetes mellitus with other specified complication; Z79.4 Long term (current) use of insulin; M25.50 Pain in unspecified joint; R76.8 Other specified abnormal immunological findings in serum; Z79.899 Other long term (current) drug therapy
CPT/HCPCS: 80053; 80061; 82043; 83036; 84443; 84550; 85651; 86038; 86431

== ENCOUNTER 2023-07-21 08:56 | Outpatient (CLI) | payer MEDICARE, BC, SELFPAY ==
--- NOTE | 2023-07-21 08:57 | US_ITS ---
FINAL REPORT CLINICAL HISTORY: left upper lateral soft tissue mass COMPARISON: None FINDINGS: Sonographic images of the right upper quadrant were obtained. The pancreas is partially obscured.The liver has an unremarkable appearance. A gallstone is noted in the gallbladder. There is no evidence of biliary ductal dilatation.The common duct measures 4mm. There is right renal cortical thinning. There is a 3.6 cm ovoid isoechoic mass in the left lateral abdomen favored to represent a lipoma. IMPRESSION: Gallstone in the gallbladder. Left lateral abdominal mass, favor lipoma. Reviewed, Interpreted and Dictated by Donavan Tejada III, MD Transcribed by Heidi Lemon Authenticated and [facility]
== END 2023-07-21 23:59 ==
LOC: RAD 08:57
PROVIDERS: PCP Nurse Practitioner Family; Visit Provider Nurse Practitioner Family
DX: R19.00 Intra-abdominal and pelvic swelling, mass and lump, unspecified site (principal)
CPT/HCPCS: 76705

== ENCOUNTER 2023-08-09 14:40 | Outpatient (POV) | payer MEDICARE, BC, SELFPAY | END 2023-08-09 23:59 | disposition home or self-care (01) | LOC: SC 14:41 | PROVIDERS: PCP Nurse Practitioner Family; Visit Provider Dermatology | DX: Z00.00 Encounter for general adult medical examination without abnormal findings (principal) ==

== ENCOUNTER 2023-08-23 13:57 | Outpatient (POV) | payer MEDICARE, BC, SELFPAY | END 2023-08-23 23:59 | disposition home or self-care (01) | LOC: SC 13:58 | PROVIDERS: PCP Nurse Practitioner Family; Visit Provider Dermatology | DX: Z00.00 Encounter for general adult medical examination without abnormal findings (principal) ==

== ENCOUNTER 2023-09-16 07:26 | Outpatient (CLI) | payer MEDICARE, BC, SELFPAY ==
--- NOTE | 2023-09-16 07:26 | CT_ITS ---
FINAL REPORT TECHNIQUE: Oral and IV contrast enhanced exam CLINICAL HISTORY: Abdominal pain, abdominal bloating, nausea FINDINGS: Abdomen: Lung bases are clear. The gallbladder is unremarkable. Liver has an unremarkable CT appearance. The spleen, pancreas and adrenal glands are unremarkable. Kidneys show no mass or obstruction. There is advanced calcified plaque disease, diffusely, of the aorta. No bowel obstruction or fluid collection is seen. Pelvis: The appendix is not visualized and was possibly removed at the time of hysterectomy.. Pelvic bowel loops are unremarkable. No fluid collection or adenopathy is seen. IMPRESSION: No bowel obstruction, ascites, or significant inflammatory changes. Reviewed, Interpreted and Dictated by Radha Egan MD Transcribed by Vaishali Ruiz Authenticated and [facility]
[2023-09-16 07:59] LABS: Blood Urea Nitrogen 16 mg/dl (7-17); Estimated Glomerular Filt Rate 70 ml/min (>60); GFR (African American) 85 ML/MIN (>60)
[2023-09-16] MEDS: IOPAMIDOL-370 (76%);100ML BOTTLE 75 ML IV (08:43)
[2023-09-16] MEDS: SODIUM CHLORIDE 0.9% 10ML SYR (RAD ONLY) 10 ML IV (08:43)
== END 2023-09-16 23:59 | disposition home or self-care (01) ==
PROVIDERS: PCP Nurse Practitioner Family; Visit Provider Nurse Practitioner Family
DX: R10.30 Lower abdominal pain, unspecified (principal); R11.0 Nausea; R14.0 Abdominal distension (gaseous); R10.9 Unspecified abdominal pain
CPT/HCPCS: 36415; 74177; 82565; 84520; Q9967

== ENCOUNTER 2023-11-21 17:20 | Outpatient (CLI) | payer MEDICARE, BC, SELFPAY ==
[2023-11-21 17:33] LABS: Basophils # 0.1 K/mm3 (0-0.2); Basophils % 1.1 % (0.1-2.0); Eosinophils # 0.4 K/mm3 (0.0-0.4); Eosinophils % 3.9 % (0.1-12.0); Hematocrit 41.2 % (37.0-47.0); Hemoglobin 13.3 g/dL (12.2-16.2); Lymphocytes # 2.7 K/mm3 (0.7-4.5); Lymphocytes % 28.3 % (10-50); Mean Corpuscular HGB Conc 32.3 g/dL (31.8-35.4); Mean Corpuscular Hemoglobin 29.3 pg (27.0-31.2); Mean Corpuscular Volume 90.8 fl (81-99); Mean Platelet Volume 8.1 fl (7.4-10.4); Monocytes # 0.5 K/mm3 (0.1-1.0); Monocytes % 5.1 % (1.7-9.3); Neutrophils # 5.8 K/mm3 (1.8-7.8); Neutrophils % 61.5 % (37.0-80.0); Platelet Count 300 K/mm3 (142-424); Red Blood Count 4.54 M/mm3 (4.20-5.40); White Blood Count 9.4 K/mm3 (4.8-10.8)
[2023-11-21 19:18] LABS: Alanine Aminotransferase 31 U/L (12-78); Albumin Level 3.9 g/dl (3.5-5.0); Albumin/Globulin Ratio 1.6 (1.1-1.8); Alkaline Phosphatase 117 U/L (38-126); Anion Gap 13.8 mEq/L (5-15); Aspartate Amino Transferase 37 U/L (14-36); Bilirubin,Total 0.5 mg/dl (0.2-1.3); Blood Urea Nitrogen 6 mg/dl (7-17); Calcium 9.6 mg/dl (8.4-10.2); Carbon Dioxide 26 mmol/L (22.0-30.0); Chloride 106 mmol/L (98-107); Estimated Glomerular Filt Rate 61 ml/min (>60); GFR (African American) 74 ML/MIN (>60); Globulin 2.5 g/dL (1.3-3.2); Glucose 114 mg/dl (74-100); Potassium 3.8 mmoL/L (3.5-5.1); Sodium 142 mmol/L (136-145); Total Protein,Serum 6.4 g/dl (6.3-8.2)
== END 2023-11-21 23:59 | disposition home or self-care (01) ==
LOC: LAB.DROPOF 17:21
PROVIDERS: PCP Nurse Practitioner Family; Visit Provider Nurse Practitioner Family
DX: R10.9 Unspecified abdominal pain (principal); R35.0 Frequency of micturition; R14.0 Abdominal distension (gaseous)
CPT/HCPCS: 80053; 85025; 87086

== ENCOUNTER 2023-12-15 13:48 | Outpatient (POV) | payer MEDICARE, BC, SELFPAY ==
--- NOTE | 2023-12-15 14:40 | A.OFFVIS_ITS ---
HPI Data of Consult Patient: new to practice Consult date: 12/15/23 Requesting Physician: Dolores Viveros APRN Primary Care Provider: Rosita Jordan APRN Consult Narrative Reason for consult: Low back pain, right hip pain, lower left leg numbness History of present illness: Ms. Henry is a 72 year old female who presents today as a new patient. She is a referral from Fariba Jordan's office. Today she rates her pain an 8 out of 10. Patient states her pain is primarily across her low back and does states she also has right hip pain and then on her lower left leg she has numbness from her knee down to her ankle. Patient states all of this has been going on for years except the hip pain really started last year after her last surgery. Patient has a total of 3 prior back surgeries including lumbar fusion. Patient states that her last surgery made no improvement. She does states she has a history of falls on top of it. Patient describes her pain as a aching, throbbing pain that is severe and constant and does interfere with her ability perform activities of daily living such as cooking and cleaning. Patient states that she has no quality of life and cannot do anything due to the pain. She states she is tired of the constant pain that is debilitating. Patient has tried injections in the past before her prior back surgeries and stated at that time they did not seem to help much. Patient does have a history of chiropractor therapy that she did when she was younger when she played sports fo r adjustments. Patient states that would give temporary relief. Patient has had physical therapy after her prior back surgeries and states that she noticed no additional improvement. Patient does try and stay active and move around and exercise on a daily basis however it can be very limited due to the worsening pain. Patient states that she has even gained weight due to the worsening pain. Patient does use a cane to help with ambulation. Patient is prescribed gabapentin and tramadol from an outside provider however she states this only gives temporary relief and takes the edge off. Patient is also on Flexeril however states that she has been on this for a while and does not really notice significant relief. Her Bart has been reviewed and is appropriate. CC: Dolores Viveros APRN [facility] Disclaimer: The information contained in this section may have been updated after the patient was seen, as this information can be updated by other users. Medical History (Updated 12/15/23 @ 14:44 by Dolores Viveros APRN) Right hip pain CAD (coronary artery disease) Type II diabetes mellitus HLD (hyperlipidemia) HTN (hypertension) Abnormal electrocardiography Dizziness Dyspnea Chest pain Surgical History (Updated 12/15/23 @ 14:44 by Dolores Viveros APRN) History of back surgery Family History (Updated 12/15/23 @ 14:42 by Lucille Mchugh RN) Other Unknown family medical history Social History Smoking Status: Former smoker years smoked: 5 second hand exposure: No alcohol intake: never substance use type: denies use current occupational status: retired Travel in the last 8 weeks: None household members: none housing: house current occupational exposures/hazards: No caffeine: Yes Review of Systems Review of Systems Review of systems:: pertinent systems reviewed and negative unless documented below Review of systems (narrative): Review of Systems: General: No recent weight changes, no fever, no sleep disturbances Respiratory: No cough, no shortness of air, no recurring pulmonary infections Cardiovascular/peripheral vascular: No chest pain, no palpitations, no edema, no shortness of breath Gastrointestinal: No new onset incontinence, normal bowel movements reported Genitourinary: No new onset incontinence Musculoskeletal: Low back pain, right hip pain, right lower leg numbness Psychiatric: [Normal mood/affect] Neurological: [Denies weakness in extremities], [denies balance issues] Meds Home Medications and Allergies Home Medications ?Medication ?Instructions ?Recorded ?Confirmed ?Type atorvastatin 80 mg tablet (Lipitor) 80 mg PO DAILY 90 days #90 tabs 12/21/22 11/21/23 Rx metformin 500 mg tablet 1,000 mg PO BID 12/21/22 11/21/23 History pen needle, diabetic 31 gauge x #1,200 ea 12/21/22 11/21/23 History 07/01 (TechLITE Pen Needle) pen needle, diabetic 32 gauge x #1,200 ea 12/21/22 11/21/23 History (BD Shweta 2nd Gen Pen Needle) cyclobenzaprine 10 mg tablet 10 mg PO TID PRN muscle spasm 30 02/22/23 11/21/23 Rx days #90 tabs ipratropium bromide 21 mcg (0.03 2 spray intranasal BID 03/09/23 11/21/23 History %) nasal spray clopidogrel 75 mg tablet (Plavix) 75 mg PO DAILY 90 days #90 tabs 07/06/23 11/21/23 Rx fluoxetine 40 mg capsule (Prozac) 40 mg PO DAILY gers 90 days #90 08/17/23 11/21/23 Rx caps amlodipine 5 mg tablet 5 mg PO DAILY 90 days #90 tabs 08/26/23 11/21/23 Rx lisinopril 20 1 tab PO DAILY bp 90 days #90 tabs 08/26/23 11/21/23 Rx mg-hydrochlorothiazide 12.5 mg tablet clonazepam 0.5 mg tablet 0.5 mg PO HS 30 days #30 tabs 11/21/23 11/21/23 Rx gabapentin 300 mg capsule 300 mg PO TID 30 days #90 caps 11/21/23 11/21/23 Rx insulin aspart 7 unit SQ TID 90 days #45 mL 11/21/23 11/21/23 Rx (niacinamide)(U-100) 100 unit/mL(3 mL) subcutaneous pen (Fiasp FlexTouch U-100 Insulin) insulin glargine 100 unit/mL (3 20 unit (0.2 mL) SQ DAILY #12 mL 11/21/23 11/21/23 Rx mL) subcutaneous pen (Basaglar KwikPen U-100 Insulin) nitrofurantoin 100 mg PO BID 10 days #20 caps 11/21/23 11/21/23 Rx monohydrate/macrocrystals 100 mg capsule (Macrobid) tramadol 50 mg tablet 50 mg PO BID PRN pain 30 days #60 11/21/23 11/21/23 Rx tabs insulin aspart U-100 100 unit/mL 3 unit (0.03 mL) SQ TID 90 days 11/28/23 Rx (3 mL) subcutaneous pen (Novolog #8.1 mL FlexPen U-100 Insulin aspart) New Prescriptions to Start Prescriptions: Allergies Allergy/AdvReac Type Severity Reaction Status Date / Time Sulfa (Sulfonamide Allergy Mild NA-NAUSEA/V Verified 11/21/23 15:59 Antibiotics) OMITING [SULFA (SULFONAMIDE ANTIBIOTICS)] Objective Narrative: Physical Exam: General: Alert and oriented x3, no acute distress, pleasant and cooperative Lungs: Respirations even and unlabored, symmetrical chest expansion Eyes: PERRL Musculoskeletal: Flexion and extension of lumbar [spine] somewhat guarded secondary to pain, [antalgic gait noted] Neurological: Speech clear, no gross sensory deficit Additional findings Additional findings: FINDINGS: Axial imaging of the lumbar spine was obtained without contrast. Sagittal and coronal reformatted images were also obtained and reviewed.This study was performed with techniques to keep radiation doses as low as reasonably achievable (ALARA). Individualized dose reduction techniques using automated exposure control or adjustment of mA and/or kV according to the patient's size were employed. Prior fusion L2-S1. Kyphoplasty at L2 and L3. There is no acute fracture. The vertebral alignment is normal. There is moderate degenerative change. There is no evidence of significant central canal stenosis. T12-L1: Left foraminal disc protrusion. Moderate left neuroforaminal narrowing. L1-2: Annular disc bulge and facet arthropathy. Mild bilateral neuroforaminal narrowing. L2-3: Fusion. Mild left neuroforaminal narrowing. L3-4: Fusion. Mild bilateral neuroforaminal narrowing. L4-5: Fusion. L4 laminectomies. Moderate bilateral neuroforaminal narrowing. L5-S1: Fusion. Moderate bilateral neuroforaminal narrowing. IMPRESSION: Multilevel degenerative change without acute bony abnormality. Disc protrusion at T12-L1. Reviewed, Interpreted and Dictated by Donavan Tejada III, MD Transcribed by Heidi Lemon Authenticated and [facility] Assessment and Plan *Assessment and plan (1) Degenerative disc disease, lumbar: Status: Acute Category: Medical Code(s): M51.36 - Other intervertebral disc degeneration, lumbar region (2) Right hip pain: Status: Acute Category: Medical Code(s): M25.551 - Pain in right hip (3) Chronic pain syndrome: Status: Acute Category: Medical Code(s): G89.4 - Chronic pain syndrome (4) History of lumbar fusion: Status: Acute Category: Surgical Code(s): Z98.1 - Arthrodesis status Plan Patient is experiencing worsening pain throughout her low back with limited range of motion. I did discuss with patient that she may benefit from intrathecal pain pump trial or additional injection therapy. Risk and benefits were discussed with the patient and she would like time to think on it. I did give her educational handouts on the intrathecal pump trial. I did discuss I will send in baclofen 10 mg 3 times daily with a 2-week supply of this medication. Patient will return to clinic in 2 weeks for reevaluation of symptoms and plan of care. Patient has been instructed to contact the clinic with any concerns before the next appointment. Dr. Seth has reviewed this note and agrees with this plan of care. This note was dictated using voice recognition software and make contain errors or omissions. All injections are used with Lidocaine or Bupivacaine and Depo Medrol.
[2023-12-15 14:41] VITALS: BP 154/60; PULSE 89; RESP 18; O2SAT 97; BMI 25.9
== END 2023-12-15 23:59 | disposition home or self-care (01) ==
PROVIDERS: PCP Nurse Practitioner Family; Visit Provider Nurse Practitioner Family
DX: M51.36 Other intervertebral disc degeneration, lumbar region (principal); M25.551 Pain in right hip; G89.4 Chronic pain syndrome; Z98.1 Arthrodesis status; Z73.89 Other problems related to life management difficulty; Z87.891 Personal history of nicotine dependence; I25.10 Atherosclerotic heart disease of native coronary artery without angina pectoris; I10 Essential (primary) hypertension; Z79.02 Long term (current) use of antithrombotics/antiplatelets; E11.9 Type 2 diabetes mellitus without complications; Z79.4 Long term (current) use of insulin
CPT/HCPCS: 99202; G0463

== ENCOUNTER 2024-01-04 14:33 | Outpatient (POV) | payer MEDICARE, BC, SELFPAY ==
--- NOTE | 2024-01-04 15:38 | A.OFFVIS_ITS ---
[facility] Disclaimer: The information contained in this section may have been updated after the patient was seen, as this information can be updated by other users. Medical History (Updated 12/15/23 @ 14:44 by Dolores Viveros APRN) Right hip pain CAD (coronary artery disease) Type II diabetes mellitus HLD (hyperlipidemia) HTN (hypertension) Abnormal electrocardiography Dizziness Dyspnea Chest pain Surgical History (Updated 12/15/23 @ 14:44 by Dolores Viveros APRN) History of back surgery Family History (Updated 12/15/23 @ 14:42 by Lucille Mchugh RN) Other Unknown family medical history Social History (Updated 12/15/23 @ 14:42 by Lucille Mchugh RN) Smoking Status: Former smoker years smoked: 5 second hand exposure: No alcohol intake: never substance use type: denies use current occupational status: retired Travel in the last 8 weeks: None household members: none housing: house current occupational exposures/hazards: No caffeine: Yes PM Subjective & Objective Subjective Subjective:: Patient is a pleasant 73-year-old female who presents today for follow-up. Today she rates her pain a 8 out of 10. Patient denies any new trauma or injury. Patient denies any new trauma or injury. She does state that she is just not feeling well today and feels like she has gotten sick and is hoping that it is not COVID. Patient at her last visit had discussed the pain pump option and she states right now she just got a lot on her plate and would like to hold off. Patient was prescribed baclofen 10 mg 3 times a day and she states this did really help her definitely sleep at night however during the day it did make her a little bit more drowsy. Her Bart has been reviewed and is appropriate. Review of Systems: General: No recent weight changes, no fever, no sleep disturbances Respiratory: No cough, no shortness of air, no recurring pulmonary infections Cardiovascular/peripheral vascular: No chest pain, no palpitations, no edema, no shortness of breath Gastrointestinal: No new onset incontinence, normal bowel movements reported Genitourinary: No new onset incontinence Musculoskeletal: Low back pain Psychiatric: [Normal mood/affect] Neurological: [Denies weakness in extremities], [denies balance issues] Pain at rest (0-10 scale): 8 Objective Objective:: Physical Exam: General: Alert and oriented x3, no acute distress, pleasant and cooperative Lungs: Respirations even and unlabored, symmetrical chest expansion Eyes: PERRL Musculoskeletal: Flexion and extension of lumbar [spine] somewhat guarded secondary to pain, [antalgic gait noted] Neurological: Speech clear, no gross sensory deficit Has patient had previous pain injection?: No Conservative treatment options previously tried: Home exercise plan Length of treatment: Longer than 6 weeks Meds Home Medications and Allergies Home Medications ?Medication ?Instructions ?Recorded ?Confirmed ?Type atorvastatin 80 mg tablet (Lipitor) 80 mg PO DAILY 90 days #90 tabs 12/21/22 12/15/23 Rx metformin 500 mg tablet 1,000 mg PO BID 12/21/22 12/15/23 History pen needle, diabetic 31 gauge x #1,200 ea 12/21/22 12/15/23 History 3/16 (TechLITE Pen Needle) pen needle, diabetic 32 gauge x #1,200 ea 12/21/22 12/15/23 History / (BD Shweta 2nd Gen Pen Needle) cyclobenzaprine 10 mg tablet 10 mg PO TID PRN muscle spasm 30 02/22/23 12/15/23 Rx days #90 tabs ipratropium bromide 21 mcg (0.03 2 spray intranasal BID 03/09/23 12/15/23 History %) nasal spray clopidogrel 75 mg tablet (Plavix) 75 mg PO DAILY 90 days #90 tabs 07/06/23 12/15/23 Rx fluoxetine 40 mg capsule (Prozac) 40 mg PO DAILY gers 90 days #90 08/17/23 12/15/23 Rx caps amlodipine 5 mg tablet 5 mg PO DAILY 90 days #90 tabs 08/26/23 12/15/23 Rx lisinopril 20 1 tab PO DAILY bp 90 days #90 tabs 08/26/23 12/15/23 Rx mg-hydrochlorothiazide 12.5 mg tablet clonazepam 0.5 mg tablet 0.5 mg PO HS 30 days #30 tabs 11/21/23 12/15/23 Rx gabapentin 300 mg capsule 300 mg PO TID 30 days #90 caps 11/21/23 12/15/23 Rx insulin aspart 7 unit SQ TID 90 days #45 mL 11/21/23 12/15/23 Rx (niacinamide)(U-100) 100 unit/mL(3 mL) subcutaneous pen (Fiasp FlexTouch U-100 Insulin) insulin glargine 100 unit/mL (3 20 unit (0.2 mL) SQ DAILY #12 mL 11/21/23 12/15/23 Rx mL) subcutaneous pen (Basaglar KwikPen U-100 Insulin) nitrofurantoin 100 mg PO BID 10 days #20 caps 11/21/23 12/15/23 Rx monohydrate/macrocrystals 100 mg capsule (Macrobid) tramadol 50 mg tablet 50 mg PO BID PRN pain 30 days #60 11/21/23 12/15/23 Rx tabs insulin aspart U-100 100 unit/mL 3 unit (0.03 mL) SQ TID 90 days 11/28/23 12/15/23 Rx (3 mL) subcutaneous pen (Novolog #8.1 mL FlexPen U-100 Insulin aspart) baclofen 10 mg tablet 10 mg PO TID #42 tabs 12/15/23 Rx New Prescriptions to Start Prescriptions: Allergies Allergy/AdvReac Type Severity Reaction Status Date / Time Sulfa (Sulfonamide Allergy Mild NA-NAUSEA/V Verified 11/21/23 15:59 Antibiotics) OMITING [SULFA (SULFONAMIDE ANTIBIOTICS)] Assessment and Plan *Assessment and plan (1) Degenerative disc disease, lumbar: Status: Acute Category: Medical Code(s): M51.36 - Other intervertebral disc degeneration, lumbar region (2) Chronic pain syndrome: Status: Acute Category: Medical Code(s): G89.4 - Chronic pain syndrome Plan I will send in a new prescription of baclofen 5 mg 3 times daily as needed and p suede a 30-day supply of this medication. Patient will return to clinic in 1 month for reevaluation of symptoms and plan of care. Patient has been instructed to contact the clinic with any concerns before the next appointment. Dr. Seth has reviewed this note and agrees with this plan of care. This note was dictated using voice recognition software and make contain errors or omissions. All injections are used with Lidocaine or Bupivacaine and Depo Medrol.
[2024-01-04 15:53] VITALS: BP 148/66; PULSE 69; RESP 16; O2SAT 100; BMI 27.4
== END 2024-01-04 23:59 | disposition home or self-care (01) ==
PROVIDERS: PCP Nurse Practitioner Family; Visit Provider Nurse Practitioner Family
DX: M51.36 Other intervertebral disc degeneration, lumbar region (principal); G89.4 Chronic pain syndrome; I25.10 Atherosclerotic heart disease of native coronary artery without angina pectoris; I10 Essential (primary) hypertension; Z87.891 Personal history of nicotine dependence; Z79.899 Other long term (current) drug therapy
CPT/HCPCS: 99212; G0463

== ENCOUNTER 2024-02-10 10:20 | Outpatient (POV) | payer MEDICARE, BC, SELFPAY ==
[2024-02-10 10:53] VITALS: BP 136/73; PULSE 95; RESP 18; O2SAT 93; BMI 26.6
--- NOTE | 2024-02-10 10:57 | EXP.PAIN.SOA ---
[facility] Disclaimer: The information contained in this section may have been updated after the patient was seen, as this information can be updated by other users. Medical History (Updated 12/15/23 @ 14:44 by Dolores Viveros APRN) Right hip pain CAD (coronary artery disease) Type II diabetes mellitus HLD (hyperlipidemia) HTN (hypertension) Abnormal electrocardiography Dizziness Dyspnea Chest pain Surgical History (Updated 12/15/23 @ 14:44 by Dolores Viveros APRN) History of back surgery Family History (Updated 12/15/23 @ 14:42 by Lucille Mchugh RN) Other Unknown family medical history Social History (Updated 12/15/23 @ 14:42 by Lucille Mchugh RN) Smoking Status: Former smoker years smoked: 5 second hand exposure: No alcohol intake: never substance use type: denies use current occupational status: other Travel in the last 8 weeks: None household members: none housing: house current occupational exposures/hazards: No caffeine: Yes PM Subjective & Objective Subjective Subjective:: Patient is a pleasant 73-year-old female who presents today for 1 month follow-up. Today she rates her pain a 5 out of 10. She does state that overall she is doing better at this visit than she was last visit. She states that the baclofen did really help and that she will still occasionally have pain in and around her low back that is worse with lifting and bending but right now it is manageable. Patient does state that she is going to see a specialist at on February 21 to follow-up regarding a carotid blockage on the right side. She states that they have been watching this for the last couple of years and initially she just went because she was having increased dizziness and headache. Patient states that she is wanting to make sure that he does not need to do anything before trying injection therapy or other interventions. Patient is currently managed with baclofen 5 mg 3 times daily as needed. She denies any side effects from this medication. Patient is prescribed clonazepam and tramadol from her PCP. Her Bart has been reviewed and is appropriate. Review of Systems: General: No recent weight changes, no fever, no sleep disturbances Respiratory: No cough, no shortness of air, no recurring pulmonary infections Cardiovascular/peripheral vascular: No chest pain, no palpitations, no edema, no shortness of breath Gastrointestinal: No new onset incontinence, normal bowel movements reported Genitourinary: No new onset incontinence Musculoskeletal: Low back pain Psychiatric: [Normal mood/affect] Neurological: [Denies weakness in extremities], [denies balance issues] Pain at rest (0-10 scale): 5 Objective Objective:: Physical Exam: General: Alert and oriented x3, no acute distress, pleasant and cooperative Lungs: Respirations even and unlabored, symmetrical chest expansion Eyes: PERRL Musculoskeletal: Flexion and extension of lumbar [spine] somewhat guarded secondary to pain, [antalgic gait noted] Neurological: Speech clear, no gross sensory deficit Has patient had previous pain injection?: No Conservative treatment options previously tried: Home exercise plan Length of treatment: Longer than 12 weeks Meds Home Medications and Allergies Home Medications ?Medication ?Instructions ?Recorded ?Confirmed ?Type atorvastatin 80 mg tablet (Lipitor) 80 mg PO DAILY 90 days #90 tabs 12/21/22 02/10/24 Rx metformin 500 mg tablet 1,000 mg PO BID 12/21/22 02/10/24 History pen needle, diabetic 31 gauge x #1,200 ea 12/21/22 02/10/24 History 3/16 (TechLITE Pen Needle) pen needle, diabetic 32 gauge x #1,200 ea 12/21/22 02/10/24 History / (BD Shweta 2nd Gen Pen Needle) cyclobenzaprine 10 mg tablet 10 mg PO TID PRN muscle spasm 30 02/22/23 02/10/24 Rx days #90 tabs ipratropium bromide 21 mcg (0.03 2 spray intranasal BID 03/09/23 02/10/24 History %) nasal spray clopidogrel 75 mg tablet (Plavix) 75 mg PO DAILY 90 days #90 tabs 07/06/23 02/10/24 Rx fluoxetine 40 mg capsule (Prozac) 40 mg PO DAILY gers 90 days #90 08/17/23 02/10/24 Rx caps amlodipine 5 mg tablet 5 mg PO DAILY 90 days #90 tabs 08/26/23 02/10/24 Rx lisinopril 20 1 tab PO DAILY bp 90 days #90 tabs 08/26/23 02/10/24 Rx mg-hydrochlorothiazide 12.5 mg tablet gabapentin 300 mg capsule 300 mg PO TID 30 days #90 caps 11/21/23 02/10/24 Rx insulin aspart 7 unit SQ TID 90 days #45 mL 11/21/23 02/10/24 Rx (niacinamide)(U-100) 100 unit/mL(3 mL) subcutaneous pen (Fiasp FlexTouch U-100 Insulin) insulin glargine 100 unit/mL (3 20 unit (0.2 mL) SQ DAILY #12 mL 11/21/23 02/10/24 Rx mL) subcutaneous pen (Basaglar KwikPen U-100 Insulin) nitrofurantoin 100 mg PO BID 10 days #20 caps 11/21/23 02/10/24 Rx monohydrate/macrocrystals 100 mg capsule (Macrobid) insulin aspart U-100 100 unit/mL 3 unit (0.03 mL) SQ TID 90 days 11/28/23 02/10/24 Rx (3 mL) subcutaneous pen (Novolog #8.1 mL FlexPen U-100 Insulin aspart) baclofen 10 mg tablet 10 mg PO TID #42 tabs 12/15/23 02/10/24 Rx baclofen 5 mg tablet 5 mg PO TID #90 tabs 01/04/24 02/10/24 Rx clonazepam 0.5 mg tablet 0.5 mg PO HS 30 days #30 tabs 01/24/24 02/10/24 Rx tramadol 50 mg tablet 50 mg PO BID PRN pain 30 days #60 01/24/24 02/10/24 Rx tabs baclofen 5 mg tablet 5 mg PO TID #90 tabs 02/02/24 02/10/24 Rx New Prescriptions to Start Prescriptions: Allergies Allergy/AdvReac Type Severity Reaction Status Date / Time Sulfa (Sulfonamide Allergy Mild NA-NAUSEA/V Verified 11/21/23 15:59 Antibiotics) OMITING [SULFA (SULFONAMIDE ANTIBIOTICS)] Assessment and Plan *Assessment and plan (1) Degenerative disc disease, lumbar: Status: Acute Category: Medical Code(s): M51.36 - Other intervertebral disc degeneration, lumbar region (2) Chronic pain syndrome: Status: Acute Category: Medical Code(s): G89.4 - Chronic pain syndrome Plan We will refill the patient's baclofen and provide a 3-month supply of this medication. Patient was counseled in future I do believe she benefit from a lumbar medial branch block. We will follow-up with this at future visits. Patient will return to clinic in 3 months for reevaluation of symptoms and plan of care. Patient was counseled if she needed us sooner than that she can always call and we can get her on the schedule. Patient acknowledges understanding. Patient has been instructed to contact the clinic with any concerns before the next appointment. Dr. Seth has reviewed this note and agrees with this plan of care. This note was dictated using voice recognition software and make contain errors or omissions. All injections are used with Lidocaine or Bupivacaine and Depo Medrol.
== END 2024-02-10 23:59 | disposition home or self-care (01) ==
PROVIDERS: PCP Nurse Practitioner Family; Visit Provider Nurse Practitioner Family
DX: G89.4 Chronic pain syndrome; M51.360 Other intervertebral disc degeneration, lumbar region with discogenic back pain only; Z87.891 Personal history of nicotine dependence; Z79.899 Other long term (current) drug therapy; Z79.02 Long term (current) use of antithrombotics/antiplatelets
CPT/HCPCS: 99212; G0463

== ENCOUNTER 2024-07-03 12:33 | Outpatient (CLI) | payer MEDICARE, BC, SELFPAY ==
--- NOTE | 2024-07-03 13:00 | CA_ITS ---
FINAL REPORT TECHNIQUE: Compression celestin scale and Doppler evaluation CLINICAL HISTORY: LLE edema and pain since last back surgery 10/22/22, Plavix, ASA 81mg FINDINGS: Femoral and popliteal veins show normal compressibility and flow. Visualized portion of the calf veins are patent by Doppler exam. IMPRESSION: No evidence of left lower extremity deep venous thrombosis Reviewed, Interpreted and Dictated by Radha Egan MD Transcribed by Heidi Lemon Authenticated and [facility]
[2024-07-03 14:13] LABS: Albumin Level 4.1 g/dl (3.5-5.0); Chloride 104 mmol/L (98-107); Sodium 139 mmol/L (136-145)
[2024-07-03 14:16] LABS: Alanine Aminotransferase 24 U/L (12-78); Albumin/Globulin Ratio 2.1 (1.1-1.8); Alkaline Phosphatase 124 U/L (38-126); Aspartate Amino Transferase 32 U/L (14-36); Bilirubin,Total 0.2 mg/dl (0.2-1.3); Blood Urea Nitrogen 4 mg/dl (7-17); Carbon Dioxide 30 mmol/L (22.0-30.0); Estimated Glomerular Filt Rate 82 ml/min (>60); GFR (African American) 99 ML/MIN (>60); Total Protein,Serum 6.1 g/dl (6.3-8.2)
[2024-07-03 14:17] LABS: Calcium 9.5 mg/dl (8.4-10.2); Chol/HDL Ratio 2.8 (1-3.5); Cholesterol 101 mg/dl (140-200); Glucose 291 mg/dl (74-100); HDL Cholesterol 36 mg/dl (40-60); Magnesium 1.3 mg/dl (1.6-2.3); Triglycerides 95 mg/dl (30-150); VLDL Cholesterol 19 mg/dL (0-40)
[2024-07-03 14:28] LABS: Direct LDL Cholesterol 47.18 mg/dL (100-129)
[2024-07-03 14:46] LABS: Thyroid Stimulating Hormone 3.15 uIU/mL (0.465-4.68)
[2024-07-03 14:48] LABS: Microalbumin/Creatinine Ratio 21.4
[2024-07-03 14:58] LABS: Creatinine,Urine Random 270 mg/dL (Not Estab.)
[2024-07-03 16:00] LABS: Hemoglobin A1C 8.3 % (4.0-6.0)
== END 2024-07-03 23:59 | disposition home or self-care (01) ==
PROVIDERS: PCP Nurse Practitioner Family; Visit Provider Nurse Practitioner Family
DX: M79.89 Other specified soft tissue disorders (principal); M79.662 Pain in left lower leg; E11.9 Type 2 diabetes mellitus without complications; Z79.4 Long term (current) use of insulin
CPT/HCPCS: 36415; 80053; 80061; 82043; 82570; 83036; 83735; 84443; 93971

== ENCOUNTER 2024-07-12 14:28 | Outpatient (CLI) | payer MEDICARE, BC, SELFPAY ==
--- NOTE | 2024-07-12 15:00 | MR_ITS ---
FINAL REPORT CLINICAL HISTORY: low back pain BACK PAIN PAST FEW MONTHS WITH RIGHT HIP PAIN HX OF 3 BACK SURGERIES LEFT KNEE TO ANKLE SWELLING 15 ML PROHANCE COMPARISON: CT of the lumbar spine 03/23/2023 FINDINGS: Multiplanar MR imaging of the lumbar spine was performed without and with contrast. There is extensive magnetic susceptibility artifact in the lumbar spine secondary to posterior fusion hardware from L2-S1. Kyphoplasty's have been performed at the L2 and L3 levels. There is an interbody fusion graft at the L2-3 level, as well as the L5-S1 level. The vertebral alignment is normal. There is no evidence of acute fracture. The conus is seen at approximately the L1 level and has an unremarkable appearance. T12-L1: No significant canal stenosis or neural foraminal narrowing is seen. L1-2: A small left paracentral disc protrusion/extrusion is noted, which extends inferiorly and mildly compromises the left lateral recess. This is best seen on image #8 of series 6 and image 12 of series 3. L2-3: No significant canal stenosis or neuroforaminal narrowing is seen. L3-4: Mild endplate hypertrophy is present, with mild bilateral neural foraminal narrowing. L4-5: Mild endplate hypertrophy is present. Visualization of the neural foramen is difficult at this level secondary to artifact, however there appears to be moderate bilateral neural foraminal narrowing. L5-S1: Moderate endplate hypertrophy is present, as well as an interbody fusion graft, severe left and moderate right neural foraminal narrowing. No abnormal contrast enhancement is identified. IMPRESSION: Exam is overall somewhat limited by posterior fusion hardware magnetic susceptibility artifact as described above. L1-2 left posterolateral disc protrusion/extrusion, that produces mild compromise of the left lateral recess. Lower lumbar multilevel degenerative change, most severe at the L5-S1 level, with severe left and moderate right neural foraminal narrowing. Reviewed, Interpreted and Dictated by Rogerio Andujar MD Transcribed by Antonella Schultz Authenticated and [facility]
[2024-07-12] MEDS: SODIUM CHLORIDE 0.9% 10ML SYR (RAD ONLY) 10 ML IV (15:57)
[2024-07-12] MEDS: GADOTERIDOL INJ 20ML SYRINGE 15 ML IV (15:57)
== END 2024-07-12 23:59 | disposition home or self-care (01) ==
LOC: RAD 14:29
PROVIDERS: PCP Nurse Practitioner Family; Visit Provider Nurse Practitioner Family
DX: M51.369 Other intervertebral disc degeneration, lumbar region without mention of lumbar back pain or lower extremity pain (principal); G89.4 Chronic pain syndrome; Z98.1 Arthrodesis status
CPT/HCPCS: 72158; A9576

== ENCOUNTER 2024-07-27 12:28 | Outpatient (CLI) | payer MEDICARE, BC, SELFPAY ==
--- NOTE | 2024-07-27 12:32 | XR_ITS ---
FINAL REPORT CLINICAL HISTORY: right hip pain post fall FINDINGS: Three views of the right hip demonstrate no acute fracture or dislocation. There are severe degenerative changes of the right hip. There are moderate degenerative changes of the left hip. Postoperative changes are seen in the lower lumbar spine and posterior pelvis. No acute soft tissue abnormality is seen. IMPRESSION: Severe degenerative changes. Reviewed, Interpreted and Dictated by Radha Egan MD Transcribed by Isabelle Peralta Authenticated and [facility]
== END 2024-07-27 23:59 | disposition home or self-care (01) ==
LOC: RAD 12:30
PROVIDERS: PCP Nurse Practitioner Family; Visit Provider Nurse Practitioner Family
DX: M25.551 Pain in right hip (principal)
CPT/HCPCS: 73502

== ENCOUNTER 2024-09-06 15:31 | Outpatient (CLI) | payer MEDICARE, BC, SELFPAY ==
--- NOTE | 2024-09-06 15:38 | XR_ITS ---
FINAL REPORT CLINICAL HISTORY: abd pain, probable renal stone FINDINGS: The visualized intestinal gas pattern appears normal without evidence to suggest obstruction. There are extensive surgical changes of the lumbosacral spine. No radiopaque renal stone is identified. Numerous pelvic calcifications are most likely phleboliths. IMPRESSION: No definite urinary tract stone. Reviewed, Interpreted and Dictated by Radha Egan MD Transcribed by Isabelle Peralta Authenticated and [facility]
[2024-09-06 16:49] LABS: Basophils # 0.1 K/mm3 (0-0.2); Basophils % 1.2 % (0.1-2.0); Eosinophils # 0.5 Kmm3 (0.0-0.4); Eosinophils % 4.4 % (0.1-12.0); Hematocrit 43.2 % (37.0-47.0); Immature Granulocytes # 0.03 10^3uL; Immature Granulocytes % 0.3 %; Lymphocytes # 2.7 K/mm3 (0.7-4.5); Lymphocytes % 25.9 % (10-50); Mean Corpuscular HGB Conc 32.4 g/dL (31.8-35.4); Mean Corpuscular Volume 86.4 fl (81-99); Monocytes # 0.5 K/mm3 (0.1-1.0); Monocytes % 5.2 % (1.7-9.3); Neutrophils # 6.5 K/mm3 (1.8-7.8); Nucleated Red Blood Cells # 0 10^3/uL; Nucleated Red Blood Cells % 0 %; Platelet Count 272 K/mm3 (142-424); Red Cell Distribution Width 13.6 % (11.5-17.5); Red Cell Distribution Width-SD 42.5 fL; White Blood Count 10.2 K/mm3 (4.8-10.8)
[2024-09-06 17:46] LABS: Albumin Level 4.2 g/dl (3.5-5.0); Chloride 105 mmol/L (98-107); Potassium 4.2 mmoL/L (3.5-5.1); Sodium 140 mmol/L (136-145)
[2024-09-06 17:48] LABS: Alanine Aminotransferase 19 U/L (12-78); Alkaline Phosphatase 125 U/L (38-126); Anion Gap 13.2 mEq/L (5-15); Aspartate Amino Transferase 30 U/L (14-36); Bilirubin,Total 0.7 mg/dl (0.2-1.3); Blood Urea Nitrogen 7 mg/dl (7-17); Carbon Dioxide 26 mmol/L (22.0-30.0); Estimated Glomerular Filt Rate 82 ml/min (>60); GFR (African American) 99 ML/MIN (>60)
[2024-09-06 17:49] LABS: Albumin/Globulin Ratio 1.8 (1.1-1.8); Calcium 9.6 mg/dl (8.4-10.2); Globulin 2.3 g/dL (1.3-3.2); Glucose 291 mg/dl (74-100); Magnesium 1.4 mg/dl (1.6-2.3); Total Protein,Serum 6.5 g/dl (6.3-8.2)
== END 2024-09-06 23:59 | disposition home or self-care (01) ==
LOC: LAB 15:33 → RAD 15:33
PROVIDERS: PCP Nurse Practitioner Family; Visit Provider Nurse Practitioner Family
DX: E83.42 Hypomagnesemia (principal); M54.50 Low back pain, unspecified; N39.0 Urinary tract infection, site not specified; R10.9 Unspecified abdominal pain; R53.83 Other fatigue; R31.9 Hematuria, unspecified; R14.0 Abdominal distension (gaseous); R10.30 Lower abdominal pain, unspecified; R30.0 Dysuria; R35.0 Frequency of micturition; R82.90 Unspecified abnormal findings in urine; R41.3 Other amnesia
CPT/HCPCS: 74018; 80053; 83735; 85025; 87086

== ENCOUNTER 2024-09-29 15:42 | Emergency (ER) | payer MEDICARE, BC, SELFPAY ==
--- OUTSIDE RECORDS SUMMARY | 2024-09-25 15:00 | XMS_ITS | Encounter Summary ---
Author Organization Healthcare Address [address] [place] [address] Care Team Providers Care Rear Admiral Name Role Phone Tyler Sanchez MD Unavailable [phone] Rosita Jordan APRN Primary Care Provider [phone] Reason for Referral * Consultation (Routine) - Authorized Specialty Diagnoses / Procedures Referred By Contac t Referred To Contact Infectious Diseases Diagnoses Nail lesion Mushtaq Arteaga MD [address] [address] Phone: tel: fax: Referral ID Status Reason Start Date Expiration Date Visits Requested Visits Authorized [id number] Authorized Specialty Services Required 09/28/2024 03/30/2026 1 1 Reason for Visit * Reason Comments Consult Possible melonma und er fingernal * Consultation (Routine) - Closed Specialty Diagnoses / Procedures Referred By Contact Referred To Contact Surgical Oncology / Hematology and Oncology Diagnoses Fingernail abnormalities Skyler Fallon MD [address] [place] [address] Phone: tel: fax:[phone] [facility] Multidisciplinary Oncology Clinic [address] [place] [address] Phone: tel: fax: Referral ID Status Reason Start Date Expiration Date V isits Requested Visits Authorized [id number] Closed Specialty Services Required 09/17/2024 03/19/2026 1 1 Encounter Details Date Type Department Care Team (Late st Contact Info) Description 09/25/2024 3:00 PM EDT Office Visit [facility] Multidisciplinary Oncology Clinic [address] [place] [address] Mushtaq Arteaga MD [address] [place] [address] Nail lesion (Primary Dx) Social History Tobacco Use Types Packs/Day Years Used Date Smoking Tobacco: Former Cigarettes 0.3 20 Smokeless Tobacco: Never Comments:Has quit smoking fo r about 1.5 years Alcohol Use Standard Drinks/Week Comments Not Currently 0 (1 standard drink = 0.6 oz pure alcohol) rarely 3 drinks or less per year PHQ-2 Answer Date Recorded Patient Health Questionnaire-2 Score 0 09/25/2024 Comments No Sex and Gender Information Value Date Recorded Sex Assigned at Not on file Legal Sex Female 8:01 PM EDT Gender Identity Not on file Sexual Orientation Not on file Occupation Industry Job Start Date Job End Date retired Not on file Not on file Not on file documented as of this encounter Last Filed Vital Signs Vital Sign Reading Time Taken Comments Blood Pressure 144/72 09/25/2024 3:35 PM EDT Pulse 71 09/25/2024 3:35 PM EDT Temperature 36.3 C (97.4 F) 09/25/2024 3:35 PM EDT Respiratory Rate 16 09/25/2024 3:35 PM EDT Oxygen Saturation 94% 09/25/2024 3:35 PM EDT Inhaled Oxygen Concentration - - Weight 72.2 kg (159 lb 2.8 oz) 09/25/2024 3:35 P M EDT Height - - Body Mass Index 27.32 02/22/2024 1:12 PM EST documented in this encounter Functional Status * Over the past 2 weeks, how often have you been bothered by any of the following problems? Question Answer Date of Assessment Author Little interest or pleasure in doing things Not at all 09/25/2024 3:37 PM EDT Malia Carlin Feeling down, depressed, or hopeless Not at all 09/25/2024 3:37 PM EDT Malia Carlin Patient Health Questionnaire -2 Score 0 09/25/2024 3:37 PM EDT Malia Carlin * Question Answer Date of Assessment Author Thoughts that you would be better off or hurting yourself in some way Not at all 09/25/2024 3:37 PM EDT Anika Carlin documented as of this encounter Miscellaneous Notes * Progress Notes - Ling Jaimes MD - 09/25/2024 3:00 PM EDT Images from the original note were not included. Subjective DOS: 09/25/2024 CC: Patient is seen in consultation from Skyler Fallon MD for possible subungual melanoma . HPI Patient is a 73 y/o female with PMHx significant for T2DM, HTN, CAD and carotid stenosis (on ASA/plavix) who presents in consultation for possible subungual melanoma. Patient states that she first noticed the discoloration in her left thumb a few weeks ago. She had just had a fall, and believed that she had injured her nail, however it did not go away. She saw dermatology, who suspected subungualmelanoma and referred her to surgical oncology. She denies prior history of melanoma or other malignancies. Skin Cancer Risk Factors: Normal reaction to the sun: deng, then tans History of blistering sunburns: No Natural hair color: blonde Eye color: blue UV tanning bed use: Yes, frequently as a young adult Sunscreen: No Tobacco Abuse: Yes, prior smoker, quit 2 years ago Immunosuppression: No ECO Life Expectancy: > 5 years TREATMENT HISTORY: -DIAGNOSIS: No pathologic diagnosis at this time Cancer Staging No matching staging information was found for the patient. --Medical Oncologist: Not yet assigned --Radiation Oncologist: Not yet assigned --Machine Silk Screen Printer: Skyler Fallon MD --Genetics: not indicated -TREATMENT: None PMHx: Past Medical History[1] PSHx: Surgical History[2] FHx: Family History[3] SHx: Social History[4] Employer: No address on file. Travel History Relevant International Travel History: Travel Screening Question Response Have you been in contact with someone who was sick? No / Unsure Do you have any of the following new or worsening symptoms? None of these Have you traveled internationally or domestically in the last month? No Travel History Travel since 08/25/24 No documented travel since 08/25/24 Relevant Domestic Travel History: N/A Immunizations Reviewed VACCINE / DOSE DATE DATE Flu 01/21/2016 01/18/2018 Tetanus Pneumovax 01/21/2016 Shingles Allergies Sulfa drugs Medications Current Medications[5] Review of Systems - Oncology A 14 point review of systems was completed and is negative except what is stated in HPI/interval history. Objective PE: Visit Vitals LMP (LMP Unknown) OB Status Hysterectomy Smoking Status Former Physical Exam Constitutional: General: She is not in acute distress. Appearance: She is not ill-appearing. HENT: Head: Normocephalic. Mouth/Throat: Mouth: Mucous membranes are moist. Pharynx: Oropharynx is clear. Eyes: Extraocular Movements: Extraocular movements intact. Conjunctiva/sclera: Conjunctivae normal. Cardiovascular: Rate and Rhythm: Normal rate. Pulmonary: Effort: Pulmonary effort is normal. No respiratory distress. Abdominal: General: Abdomen is flat. There is no distension. Musculoskeletal: General: No swelling or deformity. Skin: General: Skin is warm. Comments: Left thumb raised, brown lesion at the proximal nailbed. Biopsy performed Neurological: General: No focal deficit present. Mental Status: She is alert and oriented to person, place, and time. Psychiatric: Mood and Affect: Mood normal. Behavior: Behavior normal. Radiology: I personally and independently reviewed the patients imaging which showed: No relevant imaging to review Pathology: None Assessment/Plan Assessment/Plan: Patient is a 73 y.o. female presenting with left thumb lesion concerning for subungual melanoma. Noprior history of melanomas. 4mm punch biopsy of the nailbed performed today. See procedure note fordetails. Will call patient with biopsy results. Her chronic comorbid conditions that impact our treatment planning include: Hypertension (HTN) - reasonably well controlled, with a last BP of: BP Readings from Last 3 Encounters: 09/25/24 (!) 144/72 02/22/24 (!) 145/99 09/21/23 (!) 152/72 Diabetes (DM) - poorly controlled, with a last HbA1C of: No results found for requested labs withinlast 365 days. CAD Addendum: biopsy is consistent with onychomycosis. Referral placed to infectious disease for treatment. [1] Past Medical History: Diagnosis Date Carotid stenosis Chest tightness Diabetes mellitus (CMS/HCC) Dizziness Hyperlipidemia Hypertension SOB (shortness of breath) on exertion [2] Past Surgical History: Procedure Laterality Date BACK SURGERY x3 CARDIAC CATHETERIZATION 12/12/2019 [facility] SECTION, CLASSIC HYSTERECTOMY [3] Family History Problem Relation Name Age of Onset Dementia Mother Heart failure Father [4] Social History Tobacco Use Smoking status: Former Current packs/day: 0.25 Average packs/day: 0.3 packs/day for 20.0 years (5.0 ttl pk-yrs) Types: Cigarettes Smokeless tobacco: Never Tobacco comments: Has quit smoking for about 1.5 years Substance Use Topics Alcohol use: Not Currently Comment: rarely 3 drinks or less per year Drug use: Never [5] Current Outpatient Medications Medication Sig Dispense Refill amLODIPine (Norvasc) 5 MG tablet Take by mouth 1 (one) time each day. aspirin 81 MG EC tablet Take 1 tablet (81 mg) by mouth 1 (one) time each day. atorvastatin (Lipitor) 80 MG tablet 1 tablet (80 mg) 1 (one) time each day. Baclofen 5 MG tablet Take 1 tablet (5 mg) by mouth 3 (three) times a day. clonazePAM (KlonoPIN) 0.5 MG tablet Take 1 tablet (0.5 mg) by mouth 2 (two) times a day. Once at bedtime. clopidogrel (Plavix) 75 MG tablet 1 tablet (75 mg) 1 (one) time each day. Fiasp FlexTouch 100 UNIT/ML injection Inject 7 units before meals plus correction scale 1:50>150three times daily before meals, MDD 50 units 15 mL 5 FLUoxetine (PROzac) 40 MG capsule Take 0.5 capsules by mouth 1 (one) time each day. gabapentin (Neurontin) 300 MG capsule Take 1 capsule (300 mg) by mouth if needed. insulin glargine (Basaglar KwikPen) 100 UNIT/ML injection pen INJECT 20 UNITS UNDER THE SKIN ONCE DAILY. MAXIMUM DAILY DOSE IS 50 UNITS 15 mL 5 lisinopril-hydroCHLOROthiazide 20-12.5 MG tablet lisinopril 20 mg- hydrochlorothiazide 12.5 mg tablet Two times a day metFORMIN (Glucophage) 500 MG tablet Take 1 tablet (500 mg) by mouth 2 (two) times a day with meals. 180 tablet 3 methocarbamol (Robaxin) 500 MG tablet Take 1 tablet (500 mg) by mouth 3 (three) times a day. pen needle, diabetic (B-D UF III MINI PEN NEEDLES) 31G X 5 MM misc Inject 1-4x daily 200 each 11 traMADol (Ultram) 50 MG tablet Take 1 tablet (50 mg) by mouth every 6 (six) hours if needed for severe pain. No current facility-administered medications for this visit. Cosigned by Mushtaq Arteaga MD at 09/28/2024 10:56 AM EDT Associated attestation - Mushtaq Arteaga MD - 09/28/2024 10:56 AM EDT I saw and evaluated the patient with the resident/fellow. I discussed the case with the resident/fellow and agree with the findings and plan as documented. * Progress Notes - Ling Jaimes MD - 09/25/2024 3:00 PM EDTAssociated Order(s): Punch Biopsy Post-Procedure Diagnose(s): Nail lesion Patient ID: Marie Henry is a 73 y.o. female. Encounter Diagnosis Name Primary? Nail lesion Yes Punch Biopsy Date/Time: 09/25/2024 4:16 PM Performed by: Ling Jaimes MD Authorized by: Mushtaq Arteaga MD Consent: Consent obtained: Written Consent given by: Patient Risks, benefits, and alternatives were discussed: yes Risks discussed: Bleeding, infection, pain and poor cosmetic result Alternatives discussed: No treatment [place] protocol: Procedure explained and questions answered to patient or proxy's satisfaction: yes Relevant documents present and verified: yes Immediately prior to procedure, a time out was called: yes Patient identity confirmed: Verbally with patient, hospital-assigned identification number and arm band Indications: Indications: Nail lesion concerning for subungual melanoma Pre-procedure details: Procedure prep: alcohol. Preparation: Patient was prepped and draped in the usual sterile fashion Sedation: Sedation type: None Anesthesia: Anesthesia method: Nerve block Block location: Left thumb Block needle gauge: 25 G Block anesthetic: Lidocaine 1% w/o epi Block technique: The medial and lateral aspects of the thumb at the MCP joint were injected Block injection procedure: Anatomic landmarks identified, introduced needle and negative aspirationfor blood Block outcome: Anesthesia achieved Procedure specific details: The thumb was soaked in warm saline solution. The skin was sterilized with alcohol pad. A 4mm punchwas used to biopsy the nail bed lesion at the proximal aspect of the nail. The specimen was removedand placed into formalin. Hemostasis achieved with direct pressure and silver nitrate. A gauze and Coban dressing was applied. Hemostatic at conclusion. Post-procedure details: Procedure completion: Tolerated well, no immediate complications Cosigned by Mushtaq Arteaga MD at 09/28/2024 10:53 AM EDT Associated attestation - Mushtaq Arteaga MD - 09/28/2024 10:53 AM EDT I was present for the entirety of the procedure(s). documented in this encounter Plan of Treatment Upcoming Encounters Date Type Department Care Team (Late st Contact Info) Description 02/27/2025 1:00 PM EST Appointment [facility] [address] [facility] [address] [place] [address] 02/27/2025 2:30 PM EST Office Visit [facility] [place] [address] [facility] [place] [address] Feroz Elliott MD [address] [place] [address] Scheduled Referrals Name Type Priority Associated Diagnoses Order Schedule Ambulatory referral to Infectious Disease Outpatient Referral Routine Nail lesion Expected: 09/28/2024 (Approximate), Expires: 04/01/2026 documented as of this encounter Procedures Procedure Name Priority Date/Time Associated Diagnosis Comments SURGICAL PATHOLOGY EXAM Routine 09/25/2024 4:20 PM EDT Nail lesion PUNCH BIOPSY Routine 09/25/2024 4:16 PM EDT Nail lesion documented in this encounter Results * Surgical Pathology Exam (09/25/2024 4:20 PM EDT) Case Report Surgical Pathology Case: [id number] Authorizing Provider: Norma Sosa APRN Collected: 09/25/2024 1620 Ordering Location: [facility] Received: 09/26/2024 0807 [facility] Pathologist: Kierra Loomis MD Specimen: Hand, Digit Right, thumb 09/27/2024 2:13 PM EDT [facility] Final Diagnosis A. THUMBNAIL, BIOPSY: - ONYCHOMYCOSIS. - NAIL PLATE WITH ENTRAPPED PIGMENT-LADEN MACROPHAGES. - NO MALIGNANCY IDENTIFIED. 09/27/2024 2:13 PM EDT [facility] at 1413 EDT Clinical Information right hand thumb lesion L60.9 - Nail lesion [ICD-10-CM] 09/27/2024 2:13 PM EDT [facility] Gross Description A. THUMB Received in formalin labeled t humb , are 2 white-liu skin shaves that range from 0.4-0.5 cm in greatest dimension. Entirely submitted in cassette A1. Cold Time: 0 Sylvie B Pettey 09/27/2024 2:13 PM EDT [facility] Tissue Structure of digit of right hand / Unknown Non-blood Collection / Unknown 09/25/2024 4:20 PM EDT 09/26/2024 8:07 AM EDT Norma Sosa APRN LAB PATHOLOGY ORDERABLES Fin al Result [facility] [address] [place] [address] * PUNCH BIOPSY (09/25/2024 4:16 PM EDT) Narrative Mushtaq Arteaga MD - 09/25/2024 4:16 PM EDT Mushtaq Arteaga MD 09/28/2024 10:53 AM Punch Biopsy Date/Time: 09/25/2024 4:16 PM Performed by: Ling Jaimes MD Authorized by: Mushtaq Arteaga MD Consent: Consent obtained: Written Consent given by: Patient Risks, benefits, and alternatives were discussed: yes Risks discussed: Bleeding, infection, pain and poor cosmetic result Alternatives discussed: No treatment [place] protocol: Procedure explained and questions answered to patient or proxy's satisfaction: yes Relevant documents present and verified: yes Immediately prior to procedure, a time out was called: yes Patient identity confirmed: Verbally with patient, hospital-assigned identification number and arm band Indications: Indications: Nail lesion concerning for subungual melanoma Pre-procedure details: Procedure prep: alcohol. Preparation: Patient was prepped and draped in the usual sterile fashion Sedation: Sedation type: None Anesthesia: Anesthesia method: Nerve block Block location: Left thumb Block needle gauge: 25 G Block anesthetic: Lidocaine 1% w/o epi Block technique: The medial and lateral aspects of the thumb at the MCP joint were injected Block injection procedure: Anatomic landmarks identified, introduced needle and negative aspiration for blood Block outcome: Anesthesia achieved Procedure specific details: The thumb was soaked in warm saline solution. The skin was sterilized with alcohol pad. A 4mm punch was used to biopsy the nail bed lesion at the proximal aspect of the nail. The specimen was removed and placed into formalin. Hemostasis achieved with direct pressure and silver nitrate. A gauze and Coban dressing was applied. Hemostatic at conclusion. Post-procedure details: Procedure completion: Tolerated well, no immediate complications us Mushtaq Arteaga MD IN CLINIC/BEDSIDE ORDERABL ES Final Result documented in this encounter Visit Diagnoses Diagnosis Nail lesion- Primary documented in this encounter Additional Health Concerns Assessment Noted Time A fall risk assessment has been complete d for the patient 09/25/2024 3:37 PM EDT A Body Mass Index follow-up plan has been documented for the patient 09/28/2024 10:56 AM EDT documented as of this encounter Care Teams Rear Admiral Relationship Specialty Start Date End Date Rosita Jordan APRN [address] [place] [address] PCP - General 01/01/21 Tyler Sanchez MD [address] [facility] [address] [place], [place] [id number] Referring Physician 12/11/20 documented as of this encounter
[2024-09-29 15:49] VITALS: BP 182/70; PULSE 79; O2SAT 96
--- OUTSIDE RECORDS SUMMARY | 2024-09-29 15:51 | XMS_ITS | Encounter Summary ---
Author Organization [facility] Address [address] [id number] Care Team Providers Care Wash Driller Name Role Phone Tyler Sanchez MD Unavailable [phone] Rosita Jordan APRN Primary Care Provider [phone] Encounter Details Date Type Department Care Team ([facility] st Contact Info) Description 09/26/2024 Telephone [facility] [address] [place] [address] Mushtaq Arteaga MD [address] [address] Social History Tobacco Use Types Packs/Day Years [...] on file documented as of this encounter Miscellaneous Notes * Telephone Encounter - Charlie Lucille Claudia - 09/26/2024 11:28 AM EDT Patient Phone Message Reason for Call: Ms. Henry is calling to see if Dr. Burgess could give her something stronger than tylenol she said she had a biopsy yesterday and is in a lot of pain she said she was not able to sleep last night and pain is not any better today Best contact number and optimal time of day to reach caller: [phone] Note: Please do not reply to this message. Follow-up communication and further actions as a result of this message need to be communicated with the patient directly, if the patient is not active onMyChart. If the patient is active on MyChart, they will receive notification of the communication/outcome via MyChart. documented in this encounter Plan of Treatment Upcoming Encounters Date Type Department Care Team (Late st Contact Info) Description 02/27/2025 1:00 PM EST Appointment [facility] 800 [facility] [address] [place] [address] 02/27/2025 2:30 PM EST Office Visit [facility] [place] [address] [place] [address] Feroz Elliott MD [address] [place] [phone] documented as of this encounter Visit Diagnoses Not on filedocumented in this encounter Additional Health Concerns Assessment Noted Time A fall risk assessment has been complete d for the patient 09/25/2024 3:37 PM EDT A Body Mass Index follow-up plan has been documented for the patient 09/28/2024 10:56 AM EDT documented as of this encounter Care Teams Wash Driller Relationship Specialty Start Date End Date Rosita Jordan APRN [address] [place] [address] PCP - General 01/01/21 Tyler Sanchez MD [address] [facility] [address] [place] [address] Referring Physician 12/11/20 documented as of this encounter
--- OUTSIDE RECORDS SUMMARY | 2024-09-29 15:51 | XMS_ITS | Data Portability ---
Author Organization [facility] Address [address] [facility] [address] [place] [address] Care Team Providers Care Preschool Head Teacher Name Role Phone TOLEDO ROMANA Referring Provider Assessment Encounter Date Assessment Date Assessment LastModified by Organization Details LastModified Time 05/27/2022 05/27/2022 Imaging: L-spine MRI [facility] 05-26-2022 r adiology report and imaging reviewed by myself and Dr. Gill -L2-3 disc bulge, moderate stenosis Assessment and plan:Patient is a 71-year-old female who is taking Plavix for carotid stenosis ans is status post L3 to iliac to [place] [address] Gill presents today for midline coccyx pain and right lateral hip pain x 6m post fall. Findings of MRI correlate with patient's symptoms. We will further evaluate for instability with lumbar flexion-extension x-rays and lumbar CT without contrast to evaluate bony fusion And hardware of prior surgery. Dr. Gill offered a L2-3 PLIF extension. Patient has a walker at home and we discussed using walker to ambulate and prevent falls in the time being due to poor gait. We discussed risks of surgery and postsurgical restrictions. Patient would like to proceed with surgery and will speak with store lead. Patient will need a cardiac clearance due to carotid stenosis and is taking Plavix. Patient verbalized understanding of instructions and is agreeable to plan. [email or web address] Not available 05/28/2022 11:09:00 11/29/2022 11/29/2022 Mrs. Henry is a 71-year-old female status post L2-3 fusion extension. Her x-rays today look great. I plan on seeing her back in 2 to 3 months with repeat x-rays of the lumbar spine. She will continue to use her LSO for another month at least. I encouraged her to walk is much as possible. She will call if she has any further questions or concerns. I am going to refill her postop pain medication to [facility] in [place]. Not available 11/29/2022 13:31:19 03/07/2023 03/07/2023 ASSESSMENT: Ms. Henry is a 72-year-old female who returns to the office in follow-up extension of her lumbar fusion to L2-[address] Gill on 10/22/2022. She is accompanied by her friend, Cele. Her last office visit was November 29, 2022 and she reports at that time she was doing very well however over the last several weeks she has had significantly increased pain. She reports low back pain that radiates into her right hip and down the right lateral thigh across at her knee and into the top of her odonnell. She does report some pain into her left leg but not as severe as into her right. She has been using her back brace a lot but not on a daily basis as she says at times it is uncomfortable for her back to where it. She has tried heat and was given a prescription for tramadol from her PCP that she is taking in the morning and in the evening that she reports does help some. She was tearful throughout the interview as she reports that she had been doing very well and is concerned that there may be a significant problem given the amount of discomfort she is currently experiencing that started with no known cause. She does not report any bowel or bladder control issues. She is hopeful that something can be prescribed to help with the significant pain that she is experiencing as the tramadol does not provide her significant relief of her symptoms. IMAGING: Lumbar x-rays taken today at the clinic. I have reviewed the images personally however the radiologist report was not available. These reveal her instrumentation in stable position compared to her x-rays from 11/29/2022. Nurse practitioner visit Dr. Gill was unavailable at the time of her appointment. PLAN: Medrol Dosepak dispense 1 take as directed with no refills CT scan of the lumbar spine without contrast Lumbar MRI with and without contrast I spoke at length with Ms. Henry and her friend that it is normal to have these flareups occur after surgery and that she is only 4 months postop from her fusion extension. We will prescribe a steroid pack for her to take for the next several days. We did discuss that traditionally we would not continue prescribing pain medications after 3 months following surgery but I will discuss this with Dr. Gill. We also discussed it can take up to 12 months to get full resolution of her symptoms following a fusion and she is only 4 months postop. I will discuss this case with Dr. Gill when he is available in the office this afternoon to determine how he would like to move forward. Her and her friend verbalized understanding of these instructions and are agreeable with plan. They have no further questions or concerns at this time. They are satisfied with this plan of care. Dr. Gill did review Ms. Henry's updated x-rays and agree that these look stable compared to her previous x-rays with no signs of complications in her instrumentation. She does have straightening of her lumbar alignment but this was present preoperatively as well. He would like her to undergo a CT scan and an MRI of her lumbar spine for further evaluation of these worsening symptoms given how well she was feeling at her appointment in November. We will not be prescribing additional pain medication as she is over 3 months postop from her surgery. If she was to continue to need pain medication after completing the steroid pack we would need to refer her to pain management to evaluate and treat for medication management. I contacted Ms. Henry to let her know of the additional imaging that Dr. Gill would like her to complete and to notify us when she has completed the steroid pack to determine if we need to send a referral to pain management. She would like to have the imaging completed at [facility] as this is more convenient for her and she will bring a copy of the CD to our office for us to review the images. [email or web address] Not available 03/07/2023 16:24:14 Plan of Treatment Reminders Order Date Submit Date Provider Last Modified By Organization Details Last Modified Time Details Appointments None recorded. Lab None recorded. Referral None recorded. Procedures None recorded. Surgeries None recorded. Imaging None recorded. Medication Orders Medrol (Will) 4 mg tablets in a dose pack 023 023 [employer] #[id number], [address], [id number], 3 13:38:12 Patient TargetsNo targets recorded. Patient Instructions Encounter Date Encounter Id Patient Instructions Last Modified By Organization Details Last Modified Time 08/14/2018 [id number] Spent 15 total minutes with the patient today. Greater than 50% of this time was spent counseling/coordi nation of care as documented in my assessment and plan above. [email or web address] Not available 08/14/2018 13:35:52 Reason for Referral None Reported. Results Created Date Observation Date Name Description Value Unit Range Abnormal Flag Note LastModifiedBy Organization Detail LastModifiedTime 08/15/19 19 08/14/2018 XR, lumbo sacra l spine , 2 or [address] [address] Mansoor chirinos Name: GAYLA chirinos : [birth year] Mansoor chirinos Orderi ng Provid er: GREY GILL EXAM DATE: 2018 EXAM: XR LUMBAR AP/LAT CLINIC AL INFORM ATION: Postop erativ e. IMAGES PROVID ED: AP, latera l, and coned- down views of the lumbar spine. COMPAR MYNOR: None. FINDIN GS AND IMPRES AVELINO: Spinal fusion is noted at L3-S2 level with pedicu lar screws and connec ting rods. Surgic al hardwa re is satisf actori ly placed . No eviden ce of loosen ing or infect ion is seen. Other levels are normal . Interp reted By: Lanny Leary MD Electr onical ly Signed By: Lanny Leary MD on 019 2:22 PM [facility] Radiology [address], [phone], 09/04/2018 10:35:34 06/09/19 23 06/09/2022 CT, lumba r [facility] , [facility] [address] [place] [address] Patigertrude t Name: GAYLA chirinos : [birth year] Mansoor chirinos Orderi ng Provid er: MATTHE W DEBORAH EXAM DATE: 2022 EXAM: CT LUMBAR WITHOU T CONTRA ST HISTOR Y: 71-yea r-old female with low back pain and right hip pain. The patien t has had prior lumbar surger y. COMPAR MYNOR: Radiog raph dated 019 TECHNI QUE: 1 mm direct axial slices were obtain ed throug h the lumbar spine. Comput er-gen erated axial, sagitt al, and mcguire l recons tructi ons are also provid ed for interp retati on. FINDIN GS: There is transi tional anatom y at the lumbos acral juncti on with lumbar izatio n of the S1 verteb ral body. The patien t is status post discec gildardo, interb jennifer graft, bleach boiler packer ior fusion and kulwant ctomy from L3 throug h S1 with additi onal iliac screws in place. There is beam harden ing artifa ct from the pedicl e screws and bleach boiler packer ior fusion hardwa re. There is no eviden ce of loosen ing of the hardwa re. There is levocu rvatur e from L1 throug h L4, and mild dextro curvat ure from L4 throug h S1. There is mild bleach boiler packer ior listhe sis of L3 on L4. There is no eviden ce of fractu re. There is mild to modera te anteri or margin al osteop hytic spurri ng. No pathol ogic lesion is identi fied in the lumbar spine. T12-L1 : This interv ertebr al disc is normal in appear ance. L1-L2: There is a minima l disc bulge and minima l endpla te spurri ng. There is no centra l canal stenos is. There is no neural forami nal stenos is. L2-L3: There is a broad- based disc protru avelino, mild endpla te spurri ng and mild facet arthro mayra. There is mild centra l canal stenos is. There is minima l neural forami nal stenos is. L3-L4: There is prior fusion with residu al endpla te spurri ng. There is no centra l canal stenos is. There is mild bilate ral neural forami nal stenos is. L4-L5: There is prior fusion with residu al endpla te spurri ng. There is no centra l canal stenos is. There is mild bilate ral neural forami nal stenos is. L5-S1: There is prior fusion with endpla te spurri ng. There is no centra l canal stenos is. There is severe left and mild right neural forami nal stenos is. There are mild degene rative change s in the SI joints . IMPRES AVELINO: 1. The mansoor chirinos is status post PLIF from L3 throug h S1. There is no eviden ce of loosen ing of the hardwa re. 2. There is transi tional anatom y at the lumbos acral juncti on. 3. There is severe left and mild right neural forami nal narrow ing at L5-S1, mild neural forami nal narrow ing at L3-L4 and L4-L5, and mild centra l canal narrow ing at L2-L3. Interp reted By: Anel staples MD Electr onical ly Signed By: Anel staples MD on 023 1:55 PM [facility] Radiology [address], [place], [phone], 06/29/2022 14:16:55 06/09/19 23 06/09/2022 XR, lumbo sacra l spine , 2 or 3 view, bendi ng only [address] [place] [address] Mansoor chirinos Name: WHITNEYSEAN Holley CANALESToussaint : [birth year] Mansoor chirinos Orderi ng Provid er: GREY GILL EXAM DATE: 2022 EXAM: XR LUMBAR SPINE FLEX/E XT ONLY CLINIC AL INFORM ATION: Back pain. IMAGES PROVID ED: Latera l views of the lumbar spine in flexio n and extens ion. COMPAR MYNOR: None. FINDIN GS AND IMPRES AVELINO: Spinal fusion is noted at L3-S2 levels . Surgic al hardwa re is satisf actori ly. No abnorm al moveme nt is seen with extens ion. L2-L3 disc space shows approx imatel y 12 degree s angle in flexio n which disapp ears in extens ion, consis tent with angula r instab ility at L2-L3. No other signif icant abnorm ality is seen Interp reted By: Lanny Leary MD Electr onical ly Signed By: Lanny Leary MD on 023 2:58 PM [email or web address] [facility] Radiology [facility] [address] [place] [address], [phone], 06/29/2022 14:16:54 11/30/19 23 11/29/2022 XR, lumbo sacra l spine , 2 or 3 view [facility] [address] [place] [address] [place] [address] Patigertrude t Name: GAYLA chirinos : [birth year] Mansoor chirinos Orderi ng Provid er: GREY DUBOIST EXAM DATE: 2022 EXAM: XR LUMBAR AP/LAT CLINIC AL INFORM ATION: Postop erativ e. IMAGES PROVID ED: AP, latera l, and coned- down views of the lumbar spine. COMPAR MYNOR: None. FINDIN GS AND IMPRES AVELINO: Spinal fusion is noted at L2-S2 level. Surgic al hardwa re is satisf actori ly placed . No eviden ce of loosen ing or infect ion is seen. Minima l degene rative change s are seen at other levels . Interp reted By: Lanny Leary MD Electr onical ly Signed By: Lanny Leary MD on 023 1:56 PM [email or web address] [facility] Radiology [facility] [address] [place] [address], [phone], 12/16/2022 08:01:55 03/07/20 23 03/07/2023 XR, lumbo sacra l spine , compl ete [facility] [address] [place] [address] [place] [address] Mansoor t Name: AGYLA chirinos : [birth year] Mansoor chirinos Orderi ng Provid er: GREY DUBOIST EXAM DATE: 2022 EXAM: XR LUMBAR COMPLE TE WITH FLEX/E XT CLINIC AL INFORM ATION: Back pain. IMAGES PROVID ED: Comple te radiog raphic series of the lumbar spine with additi onal latera l views in flexio n and extens ion. COMPAR MYNOR: None. FINDIN GS AND IMPRES AVELINO: Kyphop lasty is seen at L2-L3 level. Spinal fusion is noted at L2-S2 and iliac levels . No abnorm al hardwa re moveme nt is seen in flexio n or extens ion. Degene rative change s are seen at other levels . There is no instab ility. Severe athero sclero tic calcif icatio ns of the abdomi nal aorta are seen withou t obviou s aneury sm. Interp reted By: Lanny Leary MD Electr onical ly Signed By: Lanny Leary MD on 2022 1:29 PM [email or web address] [facility] Radiology [address] [place], [phone], 03/28/2023 08:05:33 03/23/20 23 03/23/2023 CT, lumba r spine , w/o contr ast No observ ation record ed. [email or web address] [facility] (X-Ray) [address], [place], [address], 04/01/2023 16:59:23 05/30/19 24 05/26/2022 MRI, lumba r spine , w/o contr ast No observ ation record ed. [email or web address] [facility] (Scheduling) [address], [place], [address], 06/23/2023 09:50:03 08/17/19 25 07/12/2024 MRI, lumba r spine , w/o contr ast No observ ation record ed. BARCODE Not Available 2024 10:30:41 Result Notes Documentation Provider Name and Address Organization Details Recorded Time Xr, Lumbosacral Spine, 2 Or 3 View : [place] [id number] Patient Name: JENNIFER HENRY Patient : 1950 Patient Ordering Provider: OLGA GILL EXAM DATE: 08/14/2018 EXAM: XR LUMBAR AP/LAT CLINICAL INFORMATION: Postoperative. IMAGES PROVIDED: AP, lateral, and coned-down views of the lumbar spine. COMPARISON: None. FINDINGS AND IMPRESSION: Spinal fusion is noted at L3-S2 level with pedicular screws and connecting rods. Surgical hardware is satisfactorily placed. No evidence of loosening or infection is seen. Other levels are normal. Interpreted By: Corey Leary MD Rebecca Pennington [facility] 09/04/2018 10:35:35 Ct, Lumbar Spine, W/o Contrast : [place] [address] Patient Name: JENNIFER HENRY Patient : 1950 Patient Ordering Provider: OLGA GILL EXAM DATE: 06/09/2022 EXAM: CT LUMBAR WITHOUT CONTRAST HISTORY: 71-year-old female with low back pain and right hip pain. The patient has had prior lumbar surgery. COMPARISON: Radiograph dated 08/14/2018 TECHNIQUE: 1 mm direct axial slices were obtained through the lumbar spine. Computer-generated axial, sagittal, and coronal reconstructions are also provided for interpretation. FINDINGS: There is transitional anatomy at the lumbosacral junction with lumbarization of the S1 vertebral body. The patient is status post discectomy, interbody graft, posterior fusion and laminectomy from L3 through S1 with additional iliac screws in place. There is beam hardening artifact from the pedicle screws and posterior fusion hardware. There is no evidence of loosening of the hardware. There is levocurvature from L1 through L4, and mild dextrocurvature from L4 through S1. There is mild posterior listhesis of L3 on L4. There is no evidence of fracture. There is mild to moderate anterior marginal osteophytic spurring. No pathologic lesion is identified in the lumbar spine. T12-L1: This intervertebral disc is normal in appearance. L1-L2: There is a minimal disc bulge and minimal endplate spurring. There is no central canal stenosis. There is no neural foraminal stenosis. L2-L3: There is a broad-based disc protrusion, mild endplate spurring and mild facet arthropathy. There is mild central canal stenosis. There is minimal neural foraminal stenosis. L3-L4: There is prior fusion with residual endplate spurring. There is no central canal stenosis. There is mild bilateral neural foraminal stenosis. L4-L5: There is prior fusion with residual endplate spurring. There is no central canal stenosis. There is mild bilateral neural foraminal stenosis. L5-S1: There is prior fusion with endplate spurring. There is no central canal stenosis. There is severe left and mild right neural foraminal stenosis. There are mild degenerative changes in the SI joints. IMPRESSION: 1. The patient is status post PLIF from L3 through S1. There is no evidence of loosening of the hardware. 2. There is transitional anatomy at the lumbosacral junction. 3. There is severe left and mild right neural foraminal narrowing at L5-S1, mild neural foraminal narrowing at L3-L4 and L4-L5, and mild central canal narrowing at L2-L3. Interpreted By: Jason Singh MD [email or web address] 06/29/2022 14:16:55 Xr, Lumbosacral Spine, 2 Or 3 View, Bending Only : [facility] [address] [place] [address] Patient Name: JENNIFER HENRY Patient : 1950 Patient Ordering Provider: OLGA GILL EXAM DATE: 06/09/2022 EXAM: XR LUMBAR SPINE FLEX/EXT ONLY CLINICAL INFORMATION: Back pain. IMAGES PROVIDED: Lateral views of the lumbar spine in flexion and extension. COMPARISON: None. FINDINGS AND IMPRESSION: Spinal fusion is noted at L3-S2 levels. Surgical hardware is satisfactorily. No abnormal movement is seen with extension. L2-L3 disc space shows approximately 12 degrees angle in flexion which disappears in extension, consistent with angular instability at L2-L3. No other significant abnormality is seen Interpreted By: Corey Leary MD Diaz Bowling [facility] 06/29/2022 14:16:54 Xr, Lumbosacral Spine, 2 Or 3 View : [address] [address] Patient Name: JENNIFER HENRY Patient : 1950 Patient Ordering Provider: OLGA GILL EXAM DATE: 11/29/2022 EXAM: XR LUMBAR AP/LAT CLINICAL INFORMATION: Postoperative. IMAGES PROVIDED: AP, lateral, and coned-down views of the lumbar spine. COMPARISON: None. FINDINGS AND IMPRESSION: Spinal fusion is noted at L2-S2 level. Surgical hardware is satisfactorily placed. No evidence of loosening or infection is seen. Minimal degenerative changes are seen at other levels. Interpreted By: Corey Leary MD Char Bain [facility] 12/16/2022 08:01:55 Xr, Lumbosacral Spine, Complete : [address] [address] Patient Name: JENNIFER HENRY Patient : 1950 Patient Ordering Provider: OLGA GILL EXAM DATE: 03/07/2023 EXAM: XR LUMBAR COMPLETE WITH FLEX/EXT CLINICAL INFORMATION: Back pain. IMAGES PROVIDED: Complete radiographic series of the lumbar spine with additional lateral views in flexion and extension. COMPARISON: None. FINDINGS AND IMPRESSION: Kyphoplasty is seen at L2-L3 level. Spinal fusion is noted at L2-S2 and iliac levels. No abnormal hardware movement is seen in flexion or extension. Degenerative changes are seen at other levels. There is no instability. Severe atherosclerotic calcifications of the abdominal aorta are seen without obvious aneurysm. 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 3 08:02:40 Lumbosacr al radiculop athy 5657555 Active 2015 From Automated Load;Provi basilio: Olga Gill; atus: Active Not Available [facility] 6 03:15:57 Notes:Some problems listed i n Document: #[id number] could not be added to this patient's chart. Please review this document and add these problems to the patient's chart manually as needed. Problem Notes None recorded. Procedures Surgical History Date Name Laterality Status Provider Name and Address Organization Details Recorded Time 8 POSTERIOR LUMBAR INTERBODY FUSION, ADDITIONAL INTERSPACE (SURG) completed Rebecca Aditi [facility] 01/19/2018 11:15:41 Other completed [facility] 02/10/2017 15:08:32 Wrist arthroscopy/ricardo addie completed [facility] 02/10/2017 15:09:05 Back Surgery completed [facility] 02/10/2017 15:09:16 Imaging Results None recorded. Procedure Notes None recorded. Medical Equipment None Reported. Allergies Allergen ID Allergen Name Allergen Category Reaction Reaction Severity Criticality Documentation Date Start Date Code Code System Note Provider Name and Address Organization Details Recorded Time 232826 Substance with sulfonami de structure and antibacte rial mechanism of action (substanc e) medicatio n Not available Not available Not available 03/12/20162012 39392 8003 SNOMED Comme nt: Creat ed By: Clement dukesCre ated Date: 2012 2:37: 08 PM; Not Available [facility] 6 08:30:10 034191 shrimp allergeni c extract food Not available Not available Not available 10/28/20222022 81113 2 RxNorm Other react ions and sever ities : 'Naus ea And Vomit ing'. [facility] 3 08:02:39 Medications Name Sig Start Date Stop Date Status Note LastModified by Organization Details LastModified Time cyclobenz aprine 10 mg tablet Take 1 tablet 3 times a day by oral route. 2017 active Not Available Not Available Not Avai lable Percocet 7.5 mg-325 mg tablet Take 1 tablet 4 times a day by oral route as needed. 2017 active Not Available Not Available Not Avai lable Neurontin 300 mg capsule Take 1 tablet PO at bedtime x 2 days, then increase to BID x 2 days, then TID as tolerate d 2017 active Not Available Not Available Not Avai lable sulfasala zine 500 mg tablet Four times a day active Frequenc y: qid;Alt Frequenc y: as direct.; Medicati on Descript ion: sulfasal azine; Dosage:1 ; Route:or al; refills: 0 Not Available Not Available Not Available Glucophag e 500 mg tablet Two times a day active Duration : 30 days;Miky quency: bid;Medi cation Descript ion: metformi n; Dosage:1 ; Route:or al; refills: 0 Not Available Not Available Not Available lisinopri l 20 mg-hydroc hlorothia zide 12.5 mg tablet Two times a day active Frequenc y: bid;Medi cation Descript ion: hydrochl orothiaz olimpia-annabelle nopril; Dosage:1 ; Route:or al; refills: 0 Not Available Not Available Not Available Prozac 40 mg capsule Daily active Frequenc y: daily;Me dication Descript ion: fluoxeti ne; Dosage:1 ; Route:or al; refills: 0 Not Available Not Available Not Available tizanidin e 4 mg tablet Take 1 tablet every 6 hours by oral route as needed. 2018 active Not Available Not Available Not Avai lable Kenalog 0.1 % topical cream Two times a day active Duration : 30 days;Ins truction s: apply to affected area;Miky quency: bid;Medi cation Descript ion: triamcin olone topical; Dosage:a s directed ; Route:to pical; refills: 0; Quantity :15 cream Not Available Not Available Not Available Medrol (Will) 4 mg tablets in a dose pack Take 1 dose pk by oral route. 2022 active Not Available Not Available Not Avai lable clonazepa m 0.5 mg tablet Every night at bedtime active Duration : 10 days;Miky quency: qhs;Medi cation Descript ion: clonazep am; Route:or al; refills: 0 Not Available Not Available Not Available Lantus U-100 Insulin 100 unit/mL subcutane ous solution active Instruct ions: 20 units a=bid;Me dication Descript ion: insulin glargine ; Route:pires bcutaneo us; refills: 0 Not Available Not Available Not Available tramadol 50 mg tablet Take 1 tablet 3 times a day by oral route as needed. 2017 active Not Available Not Available Not Avai lable meloxicam 7.5 mg tablet Take 1 tablet every day by oral route as needed. 10/20 completed Not Available Not Available Not Available Lipitor 40 mg tablet Every night at bedtime active Frequenc y: qhs;Medi cation Descript ion: atorvast atin; Dosage:1 ; Route:or al; refills: 0 Not Available Not Available Not Available Norvasc 5 mg tablet Daily active Frequenc y: daily;Me dication Descript ion: amlodipi ne; Dosage:1 ; Route:or al; refills: 0 Not Available Not Available Not Available diclofena c sodium 50 mg tablet,de layed release Three times a day 10/20 completed Frequenc y: tid;Medi cation Descript ion: diclofen ac; Dosage:1 ; Route:or al; refills: 0 Not Available Not Available Not Available [place] 10 mg-325 mg tablet Take 1 tablet 3 times a day by oral route as needed. 2022 active Not Available Not Available Not Avai lable [place] 7.5 mg-325 mg tablet Three times a day active Frequenc y: tid;Medi cation Descript ion: acetamin ophen-hy drocodon e; Route:or al; refills: 0; Quantity :6 tablet Not Available Not Available Not Available Percocet 5 mg-325 mg tablet Take 1 tablet 3 times a day by oral route as needed. 2022 active Not Available Not Available Not Avai lable diazepam 5 mg tablet Take 2 tablets by oral route as directed . 2022 active NDC: [id number] 0-61 Not Available Not Available Not Available [place]-3 active Medicati on Descript ion: omega-3 polyunsa turated fatty acids; Route:or al; refills: 0 Not Available Not Available Not Available Vitals Date Recorded Body weight Systolic blood pressure Diastolic blood pressure Provider Name and Address Organization Details Last Updated DateTime 05/27/2022 51315.59 g 142 mm[Hg] 78 mm[Hg] [facility] 05/27/2022 14:40:35 Date Recorded Body height Body mass index (BMI) Body weight Systolic blood pressure Diastolic blood pressure Provider Name and Address Organization Details Last Updated DateTime 08/14/2018 162.56 cm 26.6 kg/m2 99549.82 g 130 mm[Hg] 80 mm[Hg] Huong Lavell [facility] 9 13:34:01 Date Recorded Body height Body mass index (BMI) Body weight Systolic blood pressure Diastolic blood pressure Provider Name and Address Organization Details Last Updated DateTime 11/29/2022 162.56 cm 27.3 kg/m2 89222.19 g 132 mm[Hg] 72 mm[Hg] Huong Valenciaholz [facility] 13:17:10 Date Recorded Body height Body mass index (BMI) Body weight Provider Name and Address Organization Details Last Updated DateTime 03/07/2023 162.56 cm 27.3 kg/m2 08858.19 g Jasiel Albright Chandler [facility] 03/07/2023 12:13:56 Social History Question Answer Notes LastModified by Organizat ion Details LastModified Time Tobacco Smoking Status Former Smoker Huong Lavell [facility] 02/10/2017 15:08:22 What Was The Date Of Your Most Recent Tobacco Screening? 08/14/2018 Information n ot available 06/05/2019 Sex: Unknown Functional Status None recorded. Mental Status None recorded. Family History Relationship Description Onset Age of this Age Resolved Age Notes LastModified by Organization Details LastModified Time Unspecified Relation Alcoholism [email or web address] Not available 15:07:13 Unspecified Relation Hyperlipidem ia [email or web address] Not available 02/10 15:07:25 Unspecified Relation Osteoporosis [email or web address] Not available 1 15:07:38 Unspecified Relation Diabetes mellitus [email or web address] Not available 02/10 15:07:46 Unspecified Relation Myocardial infarction [email or web address] Not available 01/17 15:07:52 Unspecified Relation Heart disease [email or web address] Not available 02/10 15:08:01 Unspecified Relation Hypertensive disorder [email or web address] Not available 02/10 15:08:07 Unspecified Relation Cerebrovascu lar accident [email or web address] Not available 15:08:12 Medical History Condition Response Diabetes Y Arthritis Y Hypertension Y High Cholesterol Y Kidney Disease Y Gynecological HistoryNo gynecological history recorded. Obstetrics History GPAL:G 0 P 0 0 0 0 Past Encounters Encounter ID Performer Location Encounter Start Date Encounter Closed Date Diagnosis/Indication Diagnosis SNOMED-CT Code Diagnosis ICD10 Code Diagnosis Note [id number] OLGA GILL MD [facility] [address] [place] [address] 02/10/2017 14:52:36 02/14/2017 09:07:33 Spinal stenosis of lumbar region 43163199 M48.169 [id number] SHENA ANTONIO PA-C [facility] [address] [place] [address] 10/20/2017 13:08:19 10/24/2017 15:24:00 Spondylosis without myelopathy 15301433 M47.9 [id number] OLGA GILL MD [facility] [address] [place] [address] 11/28/2017 14:49:44 12/13/2017 20:36:03 Spondylolisthesis [id number] M43.10 Minutes spent reviewing images, discussing the diagnosis and coordinati ng care: 25 min [id number] OLGA GILL MD [facility] [address] [place] [address] 01/30/2018 08:57:05 02/02/2018 13:11:45 [id number] OLGA GILL MD [facility] [address] [place] [address] 02/20/2018 10:24:33 02/20/2018 14:12:19 Postoperative care [id number] Z48.89 [id number] GORDY PEARSON PA-C [facility] [address] [place] [address] 08/14/2018 13:03:59 08/15/2018 14:58:33 Postoperative care [id number] Z48.89 Mrs. Henry follows up from a L3 to iliac fusion performed on January 17, 2018. She is been progressin g well. She has been walking, but does continue to have some postoperat pascual pain. She has some residual numbness and tingling in her left lower extremity from her knee to her ankle. She has been suffering with the recent of her daughter, is tearful on today's exam. X-rays reviewed showing stable placement of the surgical hardware without evidence of complicati on. She was provided with a printed copy. Reassured her that she will take about a year for her nerves to heal after surgery, but she does describe possible perineal entrapment at the knee. She is to call if she would like to undergo a left lower extremity EMG/nerve conduction study at any time. She will follow-up with us as needed. The patient was seen and examined by Dr. Gill and myself. He agrees with the plan as stated above. [id number] ALESIA TUTTLE PA-C [facility] [address] [place] [address] 05/27/2022 14:23:25 05/29/2022 04:33:18 Sacral back pain [id number] M54.50 [id number] OLGA GILL MD SURGERY SCHEDULE [address] [place] [address] 10/29/2022 13:45:08 11/01/2022 14:32:41 [id number] OLGA GILL MD [facility] [address] [place] [address] 11/29/2022 13:07:32 11/30/2022 04:17:18 Postoperative care [id number] Z48.89 [id number] MICHAEL PENN, INFORMATION MANAGEMENT SPECIALIST [facility] [address] [place] [address] 03/07/2023 11:37:16 03/08/2023 05:09:10 Lumbar radiculopathy 435605962 M54.16 Lumbar spondylosis 05273 0009 M47.896 History of lumbar fusion [id number] 9106 Z98.1 Health Concerns Section Related Observation LastModified by Organization Detai ls LastModified Time None Recorded Concern Status LastModified by Organization Details LastModified Time None Recorded Advance Directives Directive None Recorded Payers Insurance Date Sequence Insurance Name Policy Number Policy Loco Covered Member ID Loco Member ID Guarantor Name 05/27/2022 2 [place] [id number] Jennifer Henry [id number] Jennifer Henry 05/27/2022 2 [place] [id number] Jennifer Henry [id number] Jennifer Henry 08/16/2024 1 [place] Jennifer Henry [id number] Jennifer Henry 08/16/2024 2 [place] [id number] Jennifer Henry [id number] Jennifer Henry Notes Date Note Type Note Provider Name and Address Organization Details Recorded Time 08/14/2018 text/html Mrs. Henry follow s up from a L3 to iliac fusion performed on January 17, 2018. She is been progressing well. She has been walking, but does continue to have some postoperative pain. She has some residual numbness and tingling in her left lower extremity from her knee to her ankle. She states this can be painful at times and cause her to fall. She has not been on gabapentin recently. She presents today with lumbar films. GORDY PEARSON PA-C [address] [place], [address], [facility] 08/14/2018 13:46:34 05/27/2022 text/html Patient is a 71-year-old female who is taking Plavix for carotid stenosis ans is status post L3 to iliac [place] [address] Gill presents today for midline saccral pain and right lateral hip pain.Patient states pain started about 6 months ago after a fall. Pain has progressively worsened and she has been taking tramadol for pain control. Pain worsens upon standing. Patient states that his pain has greatly affected her walking and ADLs. Patient has new MRI today. She denies lower extremity weakness, numbness, radicular pain, loss of bowel or bladder control and saddle anesthesia. ALESIA TUTTLE PA-C [address] [place], [address], [facility] 05/28/2022 11:09:46 11/29/2022 text/html Mrs. Henry is a 71-year-old female status post extension of fusion to L2-3. She presents today for first postoperative visit. She has been doing well with expected incisional pain. She has been using her brace as instructed. She has been walking with the assistance of a walker. OLGA GILL MD [address] [place], [address], [facility] 11/29/2022 13:34:19 03/07/2023 text/html Ms. Henry is a 72-year-old female who returns to the office in follow-up of her fusion extension to L2-[address] Gill on 10/22/2022. MICHAEL PENN, SHAHANA [address] [place], [address], [facility] 03/07/2023 16:25:15 OBGyn Episode No OBEpisode recorded.
--- OUTSIDE RECORDS SUMMARY | 2024-09-29 15:51 | XMS_ITS | Clinical Summary ---
Author Organization [facility] Address [address] [place] [address] Care Team Providers Care Under Baster Name Role Phone Tyler Sanchez MD Unavailable [phone] Rosita Jordan APRN Primary Care Provider [phone] Allergies Active Allergy Reactions Criticality Noted Date Comments Sulfa Drugs Rash Low 12/16/2020 Medications FLUoxetine (PROzac) 40 MG capsule Take 0.5 capsules by mouth 1 (one) time each day. 1 Active lisinopril-hydr oCHLOROthiazide 20-12.5 MG tablet lisinopril 20 mg-hydrochlorot hiazide 12.5 mg tablet Two times a day Active atorvastatin (Lipitor) 80 MG tablet 1 tablet (80 mg) 1 (one) time each day. 1 Active clopidogrel (Plavix) 75 MG tablet 1 tablet (75 mg) 1 (one) time each day. 1 Active aspirin 81 MG EC tablet Take 1 tablet (81 mg) by mouth 1 (one) time each day. Active clonazePAM (KlonoPIN) 0.5 MG tablet Take 1 tablet (0.5 mg) by mouth 2 (two) times a day. Once at bedtime. Active traMADol (Ultram) 50 MG tablet Take 1 tablet (50 mg) by mouth every 6 (six) hours if needed for severe pain. Active amLODIPine (Norvasc) 5 MG tablet Take by mouth 1 (one) time each day. Active methocarbamol (Robaxin) 500 MG tablet Take 1 tablet (500 mg) by mouth 3 (three) times a day. 3 Active gabapentin (Neurontin) 300 MG capsule Take 1 capsule (300 mg) by mouth if needed. 4 Active metFORMIN (Glucophage) 500 MG tabletIndicatio ns:Type 2 diabetes mellitus with hyperglycemia, with long-term current use of insulin (CMS/HCC) Take 1 tablet (500 mg) by mouth 2 (two) times a day with meals. 180 tablet 3 4 Active Fiasp FlexTouch 100 UNIT/ML injectionIndica tions:Type 2 diabetes mellitus with hyperglycemia, with long-term current use of insulin (CMS/HCC) Inject 7 units before meals plus correction scale 1:50>150 three times daily before meals, MDD 50 units 15 mL 5 4 Active pen needle, diabetic (B-D UF III MINI PEN NEEDLES) 31G X 5 MM miscIndications :Type 2 diabetes mellitus with hyperglycemia, with long-term current use of insulin (CMS/HCC) Inject 1-4x daily 200 each 11 4 Active insulin glargine (Basaglar KwikPen) 100 UNIT/ML injection pen INJECT 20 UNITS UNDER THE SKIN ONCE DAILY. MAXIMUM DAILY DOSE IS 50 UNITS 15 mL 5 4 Active Baclofen 5 MG tablet Take 1 tablet (5 mg) by mouth 3 (three) times a day. 4 Active Active Problems Problem Noted Date Diagnosed Date Nail lesion 09/28/2024 ASCVD (arteriosclerotic cardiovascular disease) 02/22/2024 Overweight (BMI 25.0-29.9) 12/18/2020 Bilateral carotid artery disease 12/16/2020 Hypertension 12/16/2020 Hyperlipidemia 12/16/2020 Diabetes 12/16/2020 Biatrial enlargement 12/16/2020 Pulmonary artery hypertension 12/16/2020 Encounters Date Type Department Care Team Description 09/28/2024 Orders Only [facility] [address] [facility] [place] [address] Mushtaq Arteaga MD 09/26/2024 Telephone [facility] [address] [place] [address] Mushtaq Arteaga MD 09/25/2024 3:00 PM EDT Office Visit [facility] [address] [place] [address] Mushtaq Arteaga MD Nail lesion (Primary Dx) 09/25/2024 Travel 09/11/2024 Community [facility] [address] [place] [address] Skyler Fallon MD 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); Atypical nevus; Fungal infection of nail from Last 3 Months Immunizations Immunization Administration Dates Next Due Influenza, high-dose, quadrivalent 01/21/2016 Influenza, injectable, quadrivalent, preservativ e free 01/18/2018 Pneumococcal Polysaccharide PPV23 01/21/2016 Family History Medical History Relation Name Comments Heart failure Father Dementia Mother Relation Name Status Comments Father Mother Social History Tobacco Use Types Packs/Day Years Used Date Smoking Tobacco: Former Cigarettes 0.3 20 Smokeless Tobacco: Never Tobacco Cessation:Counseling Given: Not Answered Comments:Has quit smoking for about 1.5 years Alcohol Use Standard Drinks/Week [...] file Not on file Not on file Last Filed Vital Signs Vital Sign Reading [...] oz) 09/25/2024 3:35 P M EDT Height 162.6 cm (5' 4 ) 02/22/2024 1:12 PM EST Body Mass Index 27.32 02/22/2024 1:12 PM EST Plan of Treatment Upcoming Encounters Date Type Department Care Team (Late st Contact Info) Description 02/27/2025 1:00 PM EST Appointment [facility] [address] [place] [address] 02/27/2025 2:30 PM EST Office Visit [facility] [place] [address] [place] [address] Feroz Elliott MD [address] [place] [address] Health Maintenance Due Date Last Done Comments [facility]-Bone Density Scan 1950 [facility]-Diabetes: Hemoglobin A1C 1950 [facility]-Hepatitis C Screening 1950 [facility]-Medicare Annual Wellness (AWV) 1950 [facility]-/Child/Adol SDOH Screenings 1950 Diabetes: Dental Exam 12/25/1959 [facility]- SDOH Screenings 12/25/1967 [facility]-Adult SDOH Screenings 12/25/1967 [facility]-DTaP,Tdap,and Td Vaccines (1 - Tdap) 1968 [facility]-Zoster Vaccines (1 of 2) 1968 CT Colonography 1994 Colonoscopy 1994 FIT-DNA 1994 FIT 1994 FOBT 1994 Sigmoidoscopy 1994 [facility]-Colorectal Cancer Screening 1994 [facility]-Breast Cancer Screening 12/25/1999 [facility]-RSV Vaccine: 60+ Years or (1 - Risk 60-74 years 1-dose series) 2009 [facility]-Pneumococcal Vaccine: 50+ Years (2 of 2 - PCV) 01/20/2017 01/21/2016 [id number] Vaccine (3 - Moderna risk series) 07/23/2020 06/25/2020, 05/28/2020 [facility]-Influenza Vaccine (Season Ended) 2024 02/22/2023, 01/18/2018, 01/16/2018, Additional history exists [facility]-Depression Screening 09/25/2025 09/25/2024 [facility]-Obesity Intervention Completed 025, 02/22/2024, 09/21/2023, Additional history exists HPV Vaccines Aged Out No longer eligi ble based on patient's age to complete this topic [facility]-HIB Vaccines Aged Out No longer e ligible based on patient's age to complete this topic [facility]-Hepatitis A Vaccines Aged Out No longer eligible based on patient's age to complete this topic [facility]-IPV Vaccines Aged Out No longer e ligible based on patient's age to complete this topic [facility]-Rotavirus Vaccines Aged Out No lo nger eligible based on patient's age to complete this topic Procedures Procedure Name Priority Date/Time Associated Diagnosis Comments SURGICAL PATHOLOGY EXAM Routine 09/25/2024 4:20 PM EDT Nail lesion PUNCH BIOPSY Routine 09/25/2024 4:16 PM EDT Nail lesion from Last 3 Months Results * Surgical Pathology Exam (09/25/2024 4:20 PM EDT) Case Report Surgical Pathology Case: [id number] Authorizing Provider: Norma Sosa APRN Collected: 09/25/2024 1620 Ordering Location: [facility] Received: 09/26/2024 0807 Oncology Clinic Pathologist: Kierra [...] EDT Norma Sosa APRN LAB PATHOLOGY ORDERABLES Kalyan al Result Performing Organization Address City/State/[facility] Co de Phone Number [facility] [address] [place] [address] * PUNCH BIOPSY (09/25/2024 4:16 PM EDT) [...] poor cosmetic result Alternatives discussed: No treatment [place] protocol: Procedure explained and questions answered to [...] Procedure completion: Tolerated well, no immediate complications Mushtaq Arteaga MD IN CLINIC/BEDSIDE ORDERABL ES Final Result from Last 3 Months Insurance MEDICARE ANTH Care Teams Under Baster Relationship Specialty Start Date End Date Rosita Jordan APRN [address] [place] [address] PCP - General 01/01/21 Tyler Sanchez MD [address] [address] Referring Physician 12/11/20
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
--- OUTSIDE RECORDS SUMMARY | 2024-09-29 15:51 | XMS_ITS | Encounter Summary ---
Author Organization Healthcare Address [address] [id number] Care Team Providers Care Microwave Technician Name Role Phone Tyler Sanchez MD Unavailable [phone] Rosita Jordan APRN Primary Care Provider [phone] Encounter Details Date Type Department Care Team (Late Contact Info) Description 09/28/2024 Orders Only [facility] [address] [place] [address] Mushtaq Arteaga MD [address] [place] [address] Social History Tobacco Use Types Packs/Day [...] on file documented as of this encounter Plan of Treatment Upcoming Encounters Date Type Department Care Team (Late Contact Info) Description 02/27/2025 1:00 PM EST Appointment [facility] [address] [place] [address] 02/27/2025 2:30 PM EST Office Visit [facility] George [address] [place] [address] Feroz Elliott MD [address] [place] [address] documented as of this encounter Visit Diagnoses Not on filedocumented in this encounter Additional Health Concerns Assessment Noted Time A fall risk assessment has been complete d for the patient 09/25/2024 3:37 PM EDT A Body Mass Index follow-up plan has been documented for the patient 09/28/2024 10:56 AM EDT documented as of this encounter Care Teams Microwave Technician Relationship Specialty Start Date End Date Rosita Jordan APRN [address] [place] [address] PCP - General 01/01/21 Tyler Sanchez MD [address] [facility] [address] [place] [address] Referring Physician 12/11/20 documented as of this encounter
--- OUTSIDE RECORDS SUMMARY | 2024-09-29 15:51 | XMS_ITS | Encounter Summary ---
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); Atypical nevus; Fungal infection of nail Social History Tobacco Use Types Packs/Day Years Used Date Smoking Tobacco: Former Cigarettes 0.3 20 Smokeless Tobacco: Never Comments:Has quit smoking fo r about 1.5 years Alcohol Use Standard Drinks/Week Comments Not Currently 0 (1 standard drink = 0.6 oz pure alcohol) rarely 3 drinks or less per year PHQ-2 Answer Date Recorded Patient Health Questionnaire-2 Score 1 02/22/2024 Comments No Sex and Gender Information Value [...] EST Appointment [facility] [address] [facility] [address] [place] [address] 02/27/2025 2:30 PM EST Office Visit [facility] [place] [address] [place] [address] Feroz Elliott MD [address] [place] [address] documented as of this encounter Visit Diagnoses Diagnosis Malignant melanoma of nail bed (CMS/HCC)- Primary Atypical nevus Benign neoplasm of skin, site unspecified Fungal infection of nail Dermatophytosis of nail documented in this encounter Additional Health Concerns Assessment Noted Time A fall risk assessment has been complete d for the patient 02/22/2024 1:22 PM EST A Body Mass Index follow-up plan has been documented for the patient 02/22/2024 2:37 PM EST documented as of this encounter Care Teams Firearms Model Maker Relationship Specialty Start Date End Date Rosita Jordan APRN [address] [place] [address] PCP - General 01/01/21 Tyler Sanchez MD [address] [address] Referring Physician 12/11/20 documented as of this encounter
--- OUTSIDE RECORDS SUMMARY | 2024-09-29 15:51 | XMS_ITS | Encounter Summary ---
Author Organization Healthcare Address [facility] [place] [id number] Care Team Providers Care Extract Operator Name Role Phone Tyler Sanchez MD Unavailable [phone] Rosita Jordan APRN Primary Care Provider [phone] Encounter Details Date Type Department Care Team (Latest Contact Info) Description 09/25/2024 Travel Social History Tobacco Use Types Packs/Day Years [...] on file documented as of this encounter Functional Status * Over the [...] Anika Carlin documented as of this encounter Plan of Treatment Upcoming Encounters Date Type Department Care Team (Late st Contact Info) Description 02/27/2025 1:00 PM EST Appointment [facility] [address] [place] [address] 02/27/2025 2:30 PM EST Office Visit [facility] [place] [address] [place] [address] Feroz Elliott MD [address] [place] [address] documented as of this encounter Visit Diagnoses Not on filedocumented in this encounter Additional Health Concerns Assessment Noted Time A fall risk assessment has been complete d for the patient 09/25/2024 3:37 PM EDT A Body Mass Index follow-up plan has been documented for the patient 09/28/2024 10:56 AM EDT documented as of this encounter Care Teams Extract Operator Relationship Specialty Start Date End Date Rosita Jordan APRN [address] [place] [address] PCP - General 01/01/21 Tyler Sanchez MD [address] [address] Referring Physician 12/11/20 documented as of this encounter
--- OUTSIDE RECORDS SUMMARY | 2024-09-29 15:52 | XMS_ITS | Data Portability ---
Author Organization [place] - Dr. José Miguel Cortés, [facility], [employer] Address [address] [facility] [address] [place] [address] Assessment No assessment recorded. Plan of Treatment Reminders Order Date Submit Date Provider Last Modified By Organization Details Last Modified Time Details Appointments None recorded. Lab None recorded. Referral None recorded. Procedures None recorded. Surgeries None recorded. Imaging None recorded. Medication Orders ondansetro n 8 mg disintegra ting tablet 2018 019 INTERFACE [facility] [address], [id number], 9 11:30:24 clonazepam 0.5 mg tablet 2018 019 [email or web address] 39 [facility] [address], [id number], 9 11:45:12 metformin 500 mg tablet 2018 019 INTERFACE [facility] [address], [id number], 9 11:30:24 Levemir U-100 Insulin 100 unit/mL subcutaneo us solution 2018 019 INTERFACE [facility] [address], [id number], 9 11:30:23 Admelog SoloStar U-100 Insulin lispro 100 unit/mL subcutaneo us pen 2018 019 [email or web address] 39 [facility] [address], [id number], 9 15:08:32 azithromyc in 250 mg tablet 2018 INTERFACE [facility] [address], [id number], 9 11:30:26 atorvastat in 20 mg tablet 2018 INTERFACE [facility] [address], [id number], 9 11:30:23 lisinopril 20 mg-hydroch lorothiazi de 12.5 mg tablet 2018 INTERFACE [facility] [address], [id number], 9 11:30:26 amlodipine 5 mg tablet 2018 INTERFACE [facility] [address], [id number], 9 11:30:25 fluoxetine 40 mg capsule 2018 INTERFACE [facility] [address], [id number], 9 11:30:25 Patient TargetsNo targets recorded. Patient InstructionsNo instructions recorded. Reason for Referral None Reported. Problems Name Problem SNOMED Code Status Onset Date Resolution Date Notes Provider Name and Address Organization Details Recorded Time Hypertensive disorder 38350100 Active 2018 [place], [place] - Dr. José Miguel Cortés, [facility] 9 10:31:42 Type 2 diabetes mellitus 29100210 Active 2018 [place], [place] - Dr. José Miguel Cortés, [facility] 9 10:31:51 Depressive disorder 50838065 Active 2018 [place] k[place] - Dr. José Miguel Cortés, [facility] 9 11:25:20 Insomnia 498456332 Active 2018 [place] kim - Dr. José Miguel Cortés, [facility] 9 11:26:51 Benign essential hypertension 5633935 Active 2018 [place] kim - Dr. José Miguel Cortés, [facility] 9 11:26:54 Nausea 945961194 Active 2018 laz jessica, [place] - Dr. José Miguel Cortés, [facility] 9 11:29:12 Hypercholester olemia 60440693 Active [address] [facility] 9 11:29:14 Acute sinusitis 65660297 Active 2018 [place] k[place] - Dr. José Miguel Cortés, [facility] 9 11:29:47 Migraine 47591485 Active 2018 laz jessica, [place] - Dr. José Miguel Cortés, [facility] 9 15:00:16 Problem Notes None recorded. Procedures Surgical History Date Name Laterality Status Provider Name and Address Organization Details Recorded Time 04/18/19 10 [address]oscopy [address] [facility] [address] [address] [facility] 05/02/2018 10:28:07 04/18/18 95 [address] completed [facility] [address] [address] [facility] 05/02/2018 10:27:07 section completed [address] [facility] 05/02/2018 10:27:26 Imaging Results None recorded. Procedure Notes None recorded. Medical Equipment None Reported. Allergies No known drug allergies Medications Name Sig Start Date Stop Date Status Note LastModified by Organization Details LastModified Time fluoxetine 40 mg capsule Take 1 capsule every day by oral route for 90 days. 2018 active Not Available Not Available Not Avai lable metformin 500 mg tablet Take 2 tablets twice a day by oral route for 90 days. 2018 active Not Available Not Available Not Avai lable atorvastati n 20 mg tablet Take 1 tablet every day by oral route for 90 days. 2018 active Not Available Not Available Not Avai lable lisinopril 20 mg-hydrochl orothiazide 12.5 mg tablet Take 1 tablet every day by oral route for 90 days. 2018 active Not Available Not Available Not Avai lable azithromyci n 250 mg tablet TAKE 2 TABLETS (500 MG) BY ORAL ROUTE ONCE DAILY FOR 1 DAY THEN 1 TABLET (250 MG) BY ORAL ROUTE ONCE DAILY FOR 4 DAYS 2018 active Not Available Not Available Not Avai lable clonazepam 0.5 mg tablet Take 1 tablet every day by oral route at bedtime for 30 days. 2018 active Not Available Not Available Not Avai lable Zyrtec 10 mg tablet Take 1 tablet every day by oral route for 90 days. 2018 active Not Available Not Available Not Avai lable amlodipine 5 mg tablet Take 1 tablet every day by oral route for 90 days. 2018 active Not Available Not Available Not Avai lable butalbital- acetaminoph en-caffeine 50 mg-325 mg-40 mg tablet Take 1 tablet every 4 hours by oral route for 15 days. 2018 active Not Available Not Available Not Avai lable ondansetron 8 mg disintegrat ing tablet Place 1 tablet every 8 hours by transling ual route for 5 days. 2018 active Not Available Not Available Not Avai lable amoxicillin 875 mg-potassiu m clavulanate 125 mg tablet Take 1 tablet every 12 hours by oral route for 7 days. 2018 active Not Available Not Available Not Avai lable Novolog PenFill U-100 Insulin aspart 100 unit/mL subcutaneou s cartridg Inject subcutane ously per sliding scale 3 times a day 2018 active Not Available Not Available Not Avai lable Levemir U-100 Insulin 100 unit/mL subcutaneou s solution Inject 20 units twice a day by subcutane ous route for 90 days. 2018 active Not Available Not Available Not Avai lable Admelog SoloStar U-100 Insulin lispro 100 unit/mL subcutaneou s pen INJECT SUBCUTANE OUSLY PER SLIDING SCALE 3 TIMES DAILY 05/05 completed Not Available Not Available Not Available Vitals Date Recorded Heart rate Respiratory rate Body temperature Body weight Systolic blood pressure Diastolic blood pressure Provider Name and Address Organization Details Last Updated DateTime 9 113 /min 17 /min 98.1 [degF] 02300.8 4 g 139 mm[Hg] 90 mm[Hg] daniel Cortés, [facility] 9 10:35:44 Social History Question Answer Notes LastModified by Organizat ion Details LastModified Time Tobacco Smoking Status Former [facility]oker Not [facility] 03:15:16 Marital Status Informat ion not available 05/02/2018 What Was The Date Of Your Most Recent Tobacco Screening? 05/02/2018 [id number] Information not available 02/12/2020 At What Age Did You Start Smoking Tobacco? 34 [id number] Information not available 02/12/2020 How Many Years Have You Smoked Tobacco? 24 [id number] Information not available 02/12/2020 Sex: Unknown Functional Status Question Answer Note LastModified by Organizat ion Details LastModified Time What is your level of alcohol consumption? Occasional [id number] Information not available 02/12/2020 Are you currently employed? No [id number] Information not available 02/12/2020 What is your occupation? retired [id number] Information not available 02/12/2020 Mental Status None recorded. Family History Relationship Description Onset Age of this Age Resolved Age Notes LastModified by Organization Details LastModified Time Unspecified Relation Depressive disorder [email or web address] Not available 10:29:36 Unspecified Relation Type 2 diabetes mellitus [email or web address] Not available 10:29:49 Unspecified Relation Hypertensive disorder [email or web address] Not available 10:30:00 Unspecified Relation Osteoarthrit is [email or web address] Not available 10:30:13 Unspecified Relation Alzheimer's disease [email or web address] Not available 10:30:22 Unspecified Relation Coronary arterioscler osis [email or web address] Not available 10:30:36 Unspecified Relation Hypercholest erolemia [email or web address] Not available 10:31:14 Father Cerebrovascu lar accident [email or web address] Not available 05/02/2018 10:31:23 Medical History Condition Response Hives or Eczema N Coronary Artery Disease N Other N Gout N High Blood Pressure Y Back trouble N Blood Diseases N Respiratory Problem - Other N Kidney Stones N Hyperthyroidism N Blood Transfusion N Urinary Incontinence N Veneral Disease N ADD N Depression Y COPD N Prostate Problems N Migraine Headaches N Sinusitis N Anxiety Disorder N Hemorrhoids N Muscle, Joint, or Bone Problems N Obesity N Vision or Eye Problems N Arthritis Y Infertility N Polyps N IBS N Stroke N Varicosities N Polio N Fibromyalgia N Headaches N other neurological condition N Kidney Disease N RSV N Heart Problems N Menorrhagia N Ear or Hearing Problems N Hospitalizations N Gallstones N Hypogonadism N Low Blood Sugar N Bleeding tendency N Acne N Skin Problems N Eating Disorder N MRSA exposure N Constipation N Bladder Problems Y Rheumatic Fever N Tuberculosis N AIDS/HIV N Asthma N Mitral Valve Prolapse N Hepatitis N Neuropathy N Pulmonary Embolism N Stomach Ulcer N Chronic Ear Infections N Chicken Pox N Autism Spectrum Disorder (ASD) N Thrombophilias N Hernia N Menopause N Lung Disease N Hypothyroidism N Glaucoma N Developmental or Behavioral Disorders N Defects or Inherited Disease N Breast Problem N Bipolar N Measles N Difficulty Swallowing N Cancer (type) N Breathing Problems N Anesthesia Complications N Skin Ulcer N Other Sleep Problem N Infectious [place] N Meniere's disease N Shingles N ADHD N Endometriosis N High Cholesterol N Liver Disease N Allergies/Hayfever N Mumps N Thyroid Problems N GI Problems N Allergic Reaction to Medications N Anemia N Diabetes (type) Y Mental Illness N Ovarian Cancer N Bedwetting N Seizures/Epilepsy N Congestive Heart Failure (CHF) N Insomnia N Eczema N Chronic Pain N Low Blood Pressure N Diverticulitis N Abuse/Domestic Violence N Chronic Back Pain N Epilepsy N Reflux/GERD N Sleep Apnea N Plasma transfusion N Heart Disease N Bronchitis N Pre-Eclampsia N Osteoporosis N Gynecological HistoryNo gynecological history recorded. Obstetrics History GPAL:G 0 P 0 0 0 0 Immunizations Vaccine Type Date Status Note Provider Nam e and Address Organization Details Recorded Time Influenza, high-dose, trivalent, PF 01/16/2018 completed [facility] [place], [place] - Dr. José Miguel Cortés, [facility] 05/02/2018 10:27:52 Past Encounters Encounter ID Performer Location Encounter Start Date Encounter Closed Date Diagnosis/Indication Diagnosis SNOMED-CT Code Diagnosis ICD10 Code Diagnosis Note [id number] José Miguel Cortés, Main Office [address] [place] [address] 05/02/2018 10:03:12 05/03/2018 10:33:42 Type 2 diabetes mellitus 30869215 E11.37X1 Depressive disorder 3548 9007 F32.9 Insomnia 660110118 G47.0 0 Benign ess ential hypertension 9411384 I10 Hypercholesterolemia 136 29861 E78.00 Nausea 718125984 R11.0 Acute sinusitis 02808971 J01.90 Health Concerns Section Related Observation LastModified by Organization Detai ls LastModified Time None Recorded Concern Status LastModified by Organization Details LastModified Time None Recorded Advance Directives Directive None Recorded Payers Insurance Date Sequence Insurance Name Policy Number Policy Loco Covered Member ID Loco Member ID Guarantor Name 03/26/2020 1 [place] Marie Henry [id number] Marie Henry 05/03/2018 2 [place] [id number] Marie Henry [id number] Marie Henry 05/20/2018 2 [place] Marie Henry Notes Date Note Type Note Provider Name and Address Organization Details Recorded Time 05/02/2018 text/html Generic HPI TemplateReported bypatient.Notes:Patigertrude t is here for medication refills. [place] k[place] - Dr. José Miguel Cortés, [facility] 05/02/2018 12:47:31 OBGyn Episode No OBEpisode recorded.
--- OUTSIDE RECORDS SUMMARY | 2024-09-29 15:52 | XMS_ITS | Clinical Summary ---
Author Organization [facility] Address [address] [place] [id number] Care Team Providers Care Traffic Analyst Name Role Phone Unavailable Primary Care Provider Unavailabl e Allergies Active Allergy Reactions Criticality Noted Date Comments Shrimp Nausea And Vomiting 10/11/2022 Sulfa (Sulfonamide Antibiotics) Other (See Comments) Low 11/27/2012 Unsure of reaction - happened years ago and cannot recall Medications amLODIPine (NORVASC) 5 MG tablet Take 1 tablet (5 mg total) by mouth daily. 3 Active clonazePAM (KlonoPIN) 0.5 MG tablet Take 1 tablet (0.5 mg total) by mouth daily as needed Takes 1/2 tab at bedtime. 3 Active FLUoxetine (PROzac) 40 MG capsule Take 1 capsule (40 mg total) by mouth every morning. 3 Active insulin detemir U-100 (LEVEMIR) 100 unit/mL injection Inject 15 Units subcutaneously nightly. Active NovoLOG FlexPen U-100 Insulin 100 unit/mL (3 mL) InPn Inject 0.1 mLs (10 Units total) subcutaneously 3 (three) times daily. 3 Active metFORMIN (GLUCOPHAGE) 500 MG tablet Take 1 tablet (500 mg total) by mouth 2 (two) times daily. 3 Active lisinopril-hyd roCHLOROthiazi de (PRINZIDE,ZEST ORETIC) 20-12.5 mg per tablet Take 1 tablet by mouth 2 (two) times daily. 3 Active cetirizine (ZyrTEC) 10 MG tablet Take 1 tablet (10 mg total) by mouth daily. Active atorvastatin (LIPITOR) 80 MG tablet Take 1 tablet (80 mg total) by mouth nightly. Active oxyCODONE-acet aminophen (PERCOCET) 7.5-325 mg per tablet Take 1 tablet by mouth 4 (four) times daily as needed for Pain . Max Daily Amount: 4 tablets 50 tablet 3 Active aspirin 81 MG EC tablet Take 1 tablet (81 mg total) by mouth nightly RESTART 5 days POSTOP on 10/27/2022. 0 3 Active clopidogreL (PLAVIX) 75 mg tablet Take 1 tablet (75 mg total) by mouth daily RESTART 5 days POSTOP on 10/27/2022. 0 3 Active Active Problems Problem Noted Date Diagnosed Date Lumbar radiculopathy 10/22/2022 Diabetes 12/16/2020 Hyperlipidemia 12/16/2020 Hypertension 12/16/2020 Pulmonary artery hypertension 12/16/2020 Lumbosacral radiculopathy 12/01/2015 Family History Medical History Relation Name Comments Heart disease Father No Known Problem Mother Relation Name Status Comments Father Mother Social History Tobacco Use Types Packs/Day Years Used Date Smoking Tobacco: Some Days Cigarettes 1 10 Passive Smoke Exposure: Past Smokeless Tobacco: Never Tobacco Cessation:Ready to Q uit: Not Asked; Counseling Given: Not Answered Comments:Occasional cigarette now if stressed out Hx of regular use until 2019 Alcohol Use Standard Drinks/Week Comments Not Currently 0 (1 standard drink = 0.6 oz pur e alcohol) rarely a beer Humiliation, Afraid, Rape, and Kick questionnair e Answer Date Recorded Within the last year, have y ou been afraid of your partner or ex-partner? No 10/12/2022 Within the last year, have y ou been humiliated or emotionally abused in other ways by your partner or ex-partner? No Within the last year, have y ou been kicked, hit, slapped, or otherwise physically hurt by your partner or ex-partner? No 10/12/2022 Within the last year, have y ou been raped or forced to have any kind of sexual activity by your partner or ex-partner? No 10/12/2022 PHQ-2 Answer Date Recorded Patient Health Questionnaire-2 Score 2 10/12/2022 [facility] Intimate Partner Violence Answer Da te Recorded Within the last year, have y ou been afraid of your partner or ex-partner? No 10/12/2022 Within the last year, have y ou been humiliated or emotionally abused in other ways by your partner or ex-partner? No Within the last year, have y ou been kicked, hit, slapped, or otherwise physically hurt by your partner or ex-partner? No 10/12/2022 Within the last year, have y ou been raped or forced to have any kind of sexual activity by your partner or ex-partner? No 10/12/2022 Interpersonal Safety Answer Date Record ed Family or friends hurt you Not on file 05/06 Family or friends insult you Not on file Family or friends threaten you Not on file 0 05/06/2023 Family or friends scream or curse at you Not on file 05/06/2023 Housing Stability Answer Date Recorded Living situation today Not on file Living situation problems Not on file 2023 Food Insecurity Answer Date Recorded Food run out past 12 months Not on file 04/18 Food did not last past 12 months Not on file 05/06/2023 Employment Answer Date Recorded Help finding and keeping a job Not on file 0 05/06/2023 Family and Community Support Answer Adithya e Recorded Help with Day to Day Activities Not on file 05/06/2023 Feeling Lonely or Isolated Not on file 05/06 Educational Attainment Answer Date Cali rded Speak language other than Macedonian at home Not on file 05/06/2023 Want help with school or training Not on file 05/06/2023 Depression Answer Date Recorded PHQ-2 Risk Not on file 05/06/2023 Disabilities Answer Date Recorded Difficulty concentrating Not on file 024 Difficulty doing errands alone Not on file 0 05/06/2023 Substance Use Answer Date Recorded Used prescription meds for non-medical reasons N ot on file 05/06/2023 Used illegal drugs past 12 months Not on file 05/06/2023 Comments No Sex and Gender Information Value Date Recorded Sex Assigned at Not on file Legal Sex Female 3:28 PM CDT Gender Identity Not on file Sexual Orientation Not on file Last Filed Vital Signs Vital Sign Reading Time Taken Comments Blood Pressure 149/61 10/27/2022 2:35 PM EDT Pulse 76 10/27/2022 2:35 PM EDT Temperature 37.2 C (99 F) 10/27/2022 2:35 PM EDT Respiratory Rate 17 10/27/2022 2:35 PM EDT Oxygen Saturation 100% 10/27/2022 10:40 AM EDT Inhaled Oxygen Concentration - - Weight 72.6 kg (160 lb) 10/22/2022 12:15 PM EDT Height 162.6 cm (5' 4 ) 10/12/2022 3:11 PM EDT Body Mass Index 27.46 10/12/2022 3:11 PM EDT Plan of Treatment Health Maintenance Due Date Last Done Comments CT Colonography 1949 Colonoscopy 1949 Colorectal Cancer Screening 1949 DXA SCAN 1949 Diabetic Kidney Health Evaluation (KED) 1949 FOBT/FIT 1949 Fit-DNA (Cologuard) 1949 Sigmoidoscopy 1949 Diabetic Eye Exam 12/25/1959 Diabetic foot exam 12/25/1959 Depression Screening (12+) 1961 Hepatitis C Screening 12/25/1967 DTAP/TDAP/TD VACCINES (1 - Tdap) 1968 Breast Cancer Screening 1989 Shingles Vaccine (Zoster) (1 of 2) 12/25/1999 Respiratory Syncytial Virus (RSV) Adult or (1 - Risk 60-74 years 1-dose series) 2009 Medicare Initial AWV G0438 07/19/2011 Pneumococcal 50+ years (2 of 2 - PCV) 01/20/201708/2015 Hemoglobin A1C 10/12/2022 Tobacco Cessation Counseling and Screening (12+) 10/25/2023 10/24/2022 COVID-19 VACCINE (3 - season) 12/18/202301/2021, 05/28/2020 Falls Risk Screening 04/18/2024 Influenza Vaccine (Season Ended) 2024 01/21/20 16, 01/21/2016 Medical Devices Implanted Type Area Chlorine Cells Operator Device Identifier Shelf Expiration Date Model / Serial / Lot Cage T/Plif 10mm [id number] - [id number] Implanted:Qty: 1 on 10/22/2022 by Tyler Gill MD at [facility] IMPLANTS N/A: Spine Lumbar J &J:DEPUY:DEPUY SPINE [id number] / / [id number] Bone Vivigen Frmble Cell 10cc Bl-1600-003 - [id number] Implanted:Qty: 1 on 10/22/2022 by Tyler Gill MD at [facility] IMPLANTS N/A: Spine Lumbar LIFENET:LIFENET TRANSPLANT SRV 09/17/2023 BL-1600-0 03 / [id number] / Scr Spne Radhames Fix Fen 5x50mm - - [id number] Implanted:Qty: 2 on 10/22/2022 by Tyler Gill MD at [facility] IMPLANTS N/A: Spine Lumbar J &J:DEPUY:DEPUY SPINE 5 50 / 50 / Jordin Conn Expedium 200mm Ti 1796-76-555 - [id number] Implanted:Qty: 1 on 10/22/2022 by Tyler Gill MD at [facility] IMPLANTS N/A: Spine Lumbar J &J:DEPUY:DEPUY SPINE -5 55 / 5 55 / Mis Ambar Ply Scrw Set Ti - [id number] Implanted:Qty: 4 on 10/22/2022 by Tyler Gill MD at [facility] IMPLANTS N/A: Spine Lumbar J &J:DEPUY:DEPUY SPINE 15-0 00 / 15-0 00 / Cement Spinal Confidence 2839-10-000 - [id number] Implanted:Qty: 1 on 10/22/2022 by Tyler Gill MD at [facility] IMPLANTS N/A: Spine Lumbar J &J:DEPUY:DEPUY SPINE 07/16/2024 2839-10-0 00 / / [id number] Bone Putty Stimulan 5cc 620-005 - [id number] Implanted:Qty: 1 on 10/22/2022 by Tyler Gill MD at [facility] IMPLANTS N/A: Spine Lumbar BIOCOMPOSITES 09/15/2025 620-005 / / [id number] Connector End 5.5x5.5 1797-77-555 - [id number] Implanted:Qty: 1 on 10/22/2022 by Tyler Gill MD at [facility] IMPLANTS N/A: Spine Lumbar J &J:DEPUY:DEPUY SPINE 17977-5 55 / [id number] / Insurance MEDICARE PART [place] [address] [address] Advance Directives For more information, please contact: [phone] * Full Code (Latest Code Status on File) Date Activated Date Inactivated Comments 10/22/2022 11:49 AM 10/27/2022 6:34 PM
--- OUTSIDE RECORDS SUMMARY | 2024-09-29 15:52 | XMS_ITS | Encounter Summary ---
Author Organization Healthcare Address [address] [place] [address] Care Team Providers Care Piccolo Mechanic Name Role Phone Yair Donahue MD Primary Care Provider [phone] Tyler Sanchez MD Unavailable [phone] Rosita Jordan APRN Primary Care Provider [phone] Encounter Details Date Type Department Care Team (Late st Contact Info) Description 12/01/2020 Community [facility] [address] [place] [address] Rosita Jordan, STADIUM ATTENDANT [address] [place] [address] Bilateral carotid artery stenosis (Primary Dx) Social History Tobacco Use Types Packs/Day Years Used Date Smoking Tobacco: Never Assessed Comments Unknown Sex and Gender Information Value Date Recorded Sex Assigned at Not on file Legal Sex Female 8:01 PM EDT Gender Identity Not on file Sexual Orientation Not on file documented as of this encounter Plan of Treatment Upcoming Encounters Date Type Department Care Team (Late st Contact Info) Description 02/27/2025 1:00 PM EST Appointment [facility] [address] [place] [address] 02/27/2025 2:30 PM EST Office Visit [facility] [address] [place] [phone] Feroz Elliott MD [address] [place] [address] documented as of this encounter Visit Diagnoses Diagnosis Bilateral carotid artery stenosis- Primary Occlusion and stenosis of carotid artery without mention of cerebral infarction documented in this encounter Care Teams Piccolo Mechanic Relationship Specialty Start Date End Date Yair Donahue MD [address] [place] [address] PCP - General 08/29/20 12/31/20 Rosita Jordan APRN [address] [place] [address] PCP - General 01/01/21 Tyler Sanchez MD [address] [address] Referring Physician 12/11/20 documented as of this encounter
--- OUTSIDE RECORDS SUMMARY | 2024-09-29 15:52 | XMS_ITS | Referral Summary ---
Author Organization [facility] Address [address] [place] [address] Care Team Providers Care Business Continuity Coordinator Name Role Phone Unavailable Primary Care Provider [...] Pulmonary artery hypertension 12/16/2020 Lumbosacral radiculopathy 12/01/2015 Social History Tobacco Use Types Packs/Day Years [...] Date Cali rded Speak language other than Samoan at home Not on file 05/06/2023 Want [...] 10/12/2022 3:11 PM EDT Plan of Treatment Not on file Medical Devices Implanted Type Area Hazmat Tanker Driver Device Identifier Shelf Expiration Date Model / Serial / Lot Cage T/Plif 10mm [id number] - [id number] Implanted:Qty: 1 on 10/22/2022 by Tyler Gill MD at [facility] IMPLANTS N/A: Spine Lumbar J &J:DEPUY:DEPUY SPINE [id number] / / [id number] Bone Vivigen Frmble Cell 10cc Bl-1600-003 - [id number] Implanted:Qty: 1 on 10/22/2022 by Tyler Gill MD at [facility] IMPLANTS N/A: Spine Lumbar LIFENET:LIFENET TRANSPLANT SRV 09/17/2023 BL-1600-0 03 / [id number] / Scr Spne Radhames Fix Fen 5x50mm - [id number] Implanted:Qty: 2 on 10/22/2022 by Tyler Gill MD at [facility] IMPLANTS N/A: Spine Lumbar J &J:DEPUY:DEPUY SPINE 50 / 50 / Jordin Conn Expedium 200mm Ti -555 - [id number] Implanted:Qty: 1 on 10/22/2022 by Tyler Gill MD at [facility] IMPLANTS N/A: Spine Lumbar J &J:DEPUY:DEPUY SPINE 55 / 55 / Mis Ambar Ply Scrw Set Ti 1867-15-000 - [id number] Implanted:Qty: 4 on 10/22/2022 by Tyler Gill MD at [facility] IMPLANTS N/A: Spine Lumbar J &J:DEPUY:DEPUY SPINE 15-0 00 / 15-0 00 / Cement Spinal Confidence 2839-10-000 - [id number] Implanted:Qty: 1 on 10/22/2022 by Tyler Gill MD at [facility] IMPLANTS N/A: Spine Lumbar J &J:DEPUY:DEPUY SPINE 07/16/2024 2839-10-0 00 / / [id number] Bone Putty Stimulan 5cc 620-005 - [id number] Implanted:Qty: 1 on 10/22/2022 by Tyler Gill MD at [facility] IMPLANTS N/A: Spine Lumbar BIOCOMPOSITES 09/15/2025 620-005 / / [id number] Connector End 5.5x5.5 1797-77-555 - [id number] Implanted:Qty: 1 on 10/22/2022 by Tyler Gill MD at [facility] IMPLANTS N/A: Spine Lumbar J &J:DEPUY:DEPUY SPINE -5 55 / -5 55 / Insurance MEDICARE PART A B Advance Directives For more information, please contact: [phone] * Full Code (Latest Code Status on File) Date Activated Date Inactivated Comments 10/22/2022 11:49 AM 10/27/2022 6:34 PM
[2024-09-29 15:59] VITALS: BP 182/70; PULSE 76; RESP 18; TEMP 36.6; O2SAT 96; BMI 26.4
[2024-09-29 16:00] VITALS: BP 124/82; PULSE 83; O2SAT 97
--- NOTE | 2024-09-29 16:04 | HMH.EDGENADL ---
Discharge Plan Disposition Patient Disposition: Home, Self-Care Prescriptions Prescriptions: New doxycycline hyclate 100 mg capsule 100 mg PO BID 7 Days Qty: 14 0RF No Action fluoxetine 40 mg capsule 40 mg PO DAILY azelastine 137 mcg (0.1 %) spray,non-aerosol 2 spray intranasal BID Qty: 30 2RF Rx Instructions: administer into each nostril levocetirizine 5 mg tablet 5 mg PO DAILY Qty: 120 4RF Fiasp FlexTouch U-100 Insulin 100 unit/mL (3 mL) insulin pen 7 unit SQ TID 90 Days Qty: 45 3RF tramadol 50 mg tablet 50 mg PO Q6H PRN (Reason: pain disc protrusion) 30 Days Qty: 120 0RF clotrimazole-betamethasone 1-0.05 % cream 1 applic topical BID 14 Days Qty: 45 0RF clonazepam 0.5 mg tablet 0.25 mg PO HS Rx Instructions: administer 30 minutes before bedtime promethazine-DM 6.25-15 mg/5 mL syrup 5 ml PO Q4-6H PRN (Reason: cough) Qty: 118 0RF insulin glargine [Basaglar KwikPen U-100 Insulin] 100 unit/mL (3 mL) insulin pen 20 unit SQ DAILY Qty: 12 4RF (DME) pen needle, diabetic [BD Shweta 2nd Gen Pen Needle] 32 gauge x 5/32 needle See Rx Instructions .ROUTE .MEDSUPPLY Qty: 1200 0RF Rx Instructions: As directed (DME) pen needle, diabetic [TechLITE Pen Needle] 31 gauge x 3/16 needle See Rx Instructions .ROUTE .MEDSUPPLY Qty: 1200 0RF Rx Instructions: As directed amlodipine 5 mg tablet See Rx Instructions .ROUTE .COMPLEX Qty: 90 0RF Dose Instruction: TAKE 1 TABLET BY MOUTH DAILY Rx Instructions: TAKE 1 TABLET BY MOUTH DAILY atorvastatin 80 mg tablet See Rx Instructions .ROUTE .COMPLEX Qty: 90 0RF Dose Instruction: TAKE 1 TABLET BY MOUTH DAILY Rx Instructions: TAKE 1 TABLET BY MOUTH DAILY methocarbamol 500 mg tablet See Rx Instructions .ROUTE .COMPLEX Qty: 270 0RF Dose Instruction: TAKE 1 TABLET BY MOUTH THREE TIMES DAILY NEEDED FOR MUSCLE SPASM Rx Instructions: TAKE 1 TABLET BY MOUTH THREE TIMES DAILY NEEDED FOR MUSCLE SPASM magnesium oxide 400 mg magnesium tablet 400 mg PO DAILY Qty: 90 3RF clopidogrel 75 mg tablet See Rx Instructions .ROUTE .COMPLEX Qty: 90 0RF Dose Instruction: TAKE 1 TABLET BY MOUTH DAILY Rx Instructions: TAKE 1 TABLET BY MOUTH DAILY metformin 500 mg tablet 500 mg PO BID Qty: 180 1RF baclofen 5 mg tablet 5 mg PO TID Qty: 90 0RF Referrals Follow up/Referrals: Rosita Jordan APRN [Primary Care Provider, Medical] - See instructions Activity Restrictions/Add. Instructions Additional Instructions/Restrictions: Take Tylenol 1000 mg every 6 hours (4 times daily) and ibuprofen 400 mg every 6 hours (4 times daily) as needed with food and water to prevent GI upset and kidney damage. Doxycycline twice daily for 7 days. While taking doxycycline, limit sunlight exposure. It can cause severe sunburns even if you do not typically get sunburn. Be sure to wear hats, long sleeves, sunscreen if you are out in the sun for prolonged periods of time while taking doxycycline. Today, white blood cell count was normal, but markers of inflammation were mildly elevated (ESR 53, CRP 7.3) this likely represents the infection in the end of your thumb. Ultrasound demonstrated subungual abscess as well as fluid collection just proximal to nail plate under the eponychial fold. Both of these were drained. Follow-up with dermatology for further definitive management. Clinical Impressions Clinical Impression: Paronychia, Postoperative abscess Instructions Patient Instructions: DI for Skin Abscess Print Language Print Language: Beninese Discharge ED Provider: Leon Victoria General Adult HPI General Chief complaint: Skin/Abscess/Foreign Body Stated complaint: Sent by [facility] R Thumb Infection Time Seen by Provider: 09/29/24 15:46 History of Present Illness HPI narrative: Please note that above description of symptoms, in this electronic medical record under categorization of recalled from ER triage doctor by RN are reflective of an initial nursing assessment, however, is not reflective of my full history and physical exam that was personally taken and clarified. Consequentially, this preceding description of symptoms, which may include the patient's categorized chief complaint in the EMR, do not reflect my personal clinical impression, and the ultimate description of history of present illness and patient stated complaints should be deferred to this section of the note. Unless stated otherwise or congruent with this section of the note, additional signs, symptoms, or incongruence should be interpreted as inaccurate with my clinical impression. Related Data Home Medications ?Medication ?Instructions ?Recorded ?Confirmed fluoxetine 40 mg capsule 40 mg PO DAILY 07/24/24 09/06/24 clonazepam 0.5 mg tablet 0.25 mg PO HS 09/06/24 09/06/24 Previous Rx's ?Medication ?Instructions ?Recorded insulin glargine 100 unit/mL (3 20 unit (0.2 mL) SQ DAILY #12 mL 04/24/24 mL) subcutaneous pen (Basaglar KwikPen U-100 Insulin) pen needle, diabetic 31 gauge x #1,200 ea 04/24/2407/01 (TechLITE Pen Needle) pen needle, diabetic 32 gauge x #1,200 ea 04/24/24 (BD Shweta 2nd Gen Pen Needle) baclofen 5 mg tablet 5 mg PO TID #90 tabs 05/10/24 amlodipine 5 mg tablet See Rx Instructions .Route 05/23/24 .COMPLEX #90 tabs atorvastatin 80 mg tablet See Rx Instructions .Route 06/13/24 .COMPLEX #90 tabs azelastine 137 mcg (0.1 %) nasal 2 spray intranasal BID #30 mL 07/24/24 spray levocetirizine 5 mg tablet 5 mg PO DAILY #120 tabs 07/24/24 methocarbamol 500 mg tablet See Rx Instructions .Route 08/15/24 .COMPLEX #270 tabs clotrimazole-betamethasone 1 1 applic topical BID 2 weeks #45 08/27/24 %-0.05 % topical cream grams insulin aspart 7 unit SQ TID 90 days #45 mL 08/27/24 (niacinamide)(U-100) 100 unit/mL(3 mL) subcutaneous pen (Fiasp FlexTouch U-100 Insulin) tramadol 50 mg tablet 50 mg PO Q6H PRN pain disc 08/27/24 protrusion 30 days #120 tabs promethazine-DM 6.25 mg-15 mg/5 mL 5 ml PO Q4-6H PRN cough #118 mL 09/06/24 oral syrup magnesium oxide 400 mg PO DAILY #90 tabs 09/11/24 clopidogrel 75 mg tablet See Rx Instructions .Route 09/12/24 .COMPLEX #90 tabs metformin 500 mg tablet 500 mg PO BID #180 tabs 09/28/24 doxycycline hyclate 100 mg capsule 100 mg PO BID 7 days #14 caps 09/29/24 Allergies Allergy/AdvReac Type Severity Reaction Status Date / Time Sulfa (Sulfonamide Allergy Mild NA-NAUSEA/V Verified 09/29/24 16:07 Antibiotics) (SULFA OMITING (SULFONAMIDE ANTIBIOTICS)) [facility] Disclaimer: The information contained in this section may have been updated after the patient was seen, as this information can be updated by other users. Medical History (Updated 09/29/24 @ 17:35 by Leon Victoria MD) Chronic sinusitis Allergies Dizziness Hearing loss Ear pain Right hip pain CAD (coronary artery disease) Type II diabetes mellitus HLD (hyperlipidemia) HTN (hypertension) Abnormal electrocardiography Dizziness Dyspnea Chest pain Surgical History History of back surgery Family History Other Unknown family medical history Social History Smoking Status: Current every day smoker years smoked: 5 smoking status stop date: 10/2022 second hand exposure: No alcohol intake: never substance use type: denies use current occupational status: retired Travel in the last 8 weeks?: None household members: none housing: house current occupational exposures/hazards: No caffeine: Yes Have you lived/traveled outside US in past 30 days?: No Contact w/someone who lives/traveled outside US past 30 days?: No Exposure to someone with infectious disease in past 14 days?: No Do you have a fever (greater than 100.4 F or 38 C)?: No Have you tested positive for COVID-19?: No Exposed to someone with COVID-19 in past 14 days?: No Do you have a sore throat?: No Do you have a cough?: No Do you have any weakness?: No Do you have any diarrhea?: No Are you experiencing any unusual bleeding?: No Do you have any muscle aches/pain?: No Do you have any abdominal pain?: No Are you experiencing loss of taste or smell?: No Other Medical History Have you received the Flu Vaccine for this season: Yes Have you received the Pneumonia Vaccine: No ROS Obtained: Yes All systems reviewed & no additional complaints except as documented Physical Exam General General appearance: alert Head Head exam: atraumatic and normocephalic Eye Eye exam: Present normal appearance, PERRL and EOMI Neck Neck exam: Present normal inspection, full ROM and trachea midline Respiratory Respiratory exam: Absent respiratory distress, wheezes, stridor, accessory muscle use or prolonged expiratory phase Cardiovascular Cardiovascular exam: Present other (Pulses equal symmetric in upper and lower extremities) Abdominal Exam Abdominal exam: Present soft; Absent distention, tenderness or pulsatile mass Extremities Exam Extremities exam: Present other (erythema, swelling DIP to end of right thumb); Absent edema Neurological Exam Neurological exam: Present alert, oriented X3 and CN II-XII intact; Absent motor sensory deficit Skin Skin exam: Present warm and dry; Absent diaphoresis or erythema Medical Decision Making Medical Records Medical records reviewed: Yes I reviewed the patient's medical records. Screening: Per USPSTF and CDC recommendations, given the prevalence of disease in our region, it is our hospital?s policy to screen for HIV and viral Hepatitis for all patients aged 18 and over and those with ongoing risk factors. Bart Inquiry Pt receiving controlled substance: No Bart was queried for this patient: No Vital Signs: 09/29/24 15:49 09/29/24 15:59 09/29/24 16:00 Temperature 97.9 F Temperature Source Oral Pulse Rate 79 83 Pulse Rate [Left Radial] 76 Respiratory Rate 18 Blood Pressure 182/70 H 124/82 Blood Pressure [Left Arm] 182/70 H Blood Pressure Mean [Left Arm] 107 Blood Pressure Source [Left Arm] Automatic Cuff Blood Pressure Position [Left Arm] Sitting 02 Sat by Pulse Oximetry 96 96 97 Oxygen Delivery Method Room Air Room Air Room Air Lab Data Lab Results 09/29/24 16:10: WBC 10.0, RBC 4.61, Hgb 13.2, Hct 39.3, MCV 85.2, MCH 28.6, MCHC 33.6, RDW 13.4, Plt Count 264, MPV 9.4, Neut % (Auto) 59.5, Lymph % (Auto) 29.2, [place] % (Auto) 6.1, Eos % (Auto) 3.9, Baso % (Auto) 1.0, Neut # (Auto) 6.0, Lymph # (Auto) 2.9, [place] # (Auto) 0.6, Eos # (Auto) 0.4, Baso # (Auto) 0.1, ESR 53 H, Sodium 136, Potassium 4.1, Chloride 102, Carbon Dioxide 28, Anion Gap 10.1, BUN 12, Creatinine 0.80, Estimated Creat Clear 54, Estimated GFR 70, Est GFR ( Amer) 85, Glucose 225 H, Calcium 10.8 H, Total Bilirubin 0.8, AST 32, ALT 19, Alkaline Phosphatase 116, C-Reactive Protein 7.3 H, Total Protein 6.9, Albumin 4.1, Globulin 2.8, Albumin/Globulin Ratio 1.5 09/29/24 16:10 09/29/24 16:10 Orders (Tests/Meds): ED MEDICATIONS Discontinued Medications Generic Name Dose Route Start Last Admin Trade Name Freq PRN Reason Stop Dose Admin Bupivacaine HCl 15 mg 09/29/24 16:47 09/29/24 16:58 Bupivacaine 0.5% 30ml Vial IJ 09/29/24 16:48 15 mg ONCE ONE Administration Doxycycline Hyclate 100 mg 09/29/24 15:57 09/29/24 16:17 Doxycycline Hycl 100 Mg Tablet PO 09/29/24 15:58 100 mg ONCE ONE Administration Ketorolac Tromethamine 15 mg 09/29/24 15:56 09/29/24 16:17 Ketorolac 30mg/Ml Vial IV 09/29/24 15:57 15 mg ONCE ONE Administration Morphine Sulfate 4 mg 09/29/24 15:56 09/29/24 16:18 Morphine 4mg/Ml Syringe IV 09/29/24 15:57 4 mg ONCE ONE Administration Ondansetron HCl 4 mg 09/29/24 15:56 09/29/24 16:17 Ondansetron 4mg/2ml Vial IV 09/29/24 15:57 4 mg ONCE ONE Administration ORDERS Category Date Time Status POCUS Point of Care (ER Only) Stat Exams 09/29/24 15:56 Completed CBC w/Auto Diff [Complete Blood Count Auto Diff] Stat Lab 09/29/24 16:10 Completed CMP [Comprehensive Metabolic Panel] Stat Lab 09/29/24 16:10 Completed CRP [C-Reactive Protein] Stat Lab 09/29/24 16:10 Completed ESR [Erythrocyte Sedimentation Rate] Stat Lab 09/29/24 16:10 Completed Medical Decision Narrative: 73-year-old female presenting with right thumb pain. She states that she had a biopsy on her thumb done about 5 days prior to this by dermatology at the base of her nail plate out of concern for melanoma. Since that time, its become red, swollen, tender with any movement or any touch. Called office, they recommended she come to the emergency department out of concern for infection versus sepsis. Patient presents today. States that the pain is severe in intensity, 10 out of 10, especially when being touched or manipulated. No fevers or chills or systemic signs or symptoms. No drainage from the area. Patient does have a history of diabetes. History was obtained via conversation with patient and daughter. On arrival, patient hemodynamically stable, alert, oriented x4, appropriate, GCS 15, moving all extremities spontaneously, pupils equal and reactive to light. Full physical exam performed and significant for uncomfortable appearing female in no acute distress, she has erythematous, swollen, tender, warm dorsal aspect of her right thumb from the DIP onward. Biopsy site lower corner of nail plate also significantly tender. No obvious drainage on application of pressure. Patient largely intolerant to physical exam prior to numbing. Differential includes cellulitis, abscess, among others. Patient given Zofran, morphine, Toradol, doxycycline. Labs obtained. On independent interpretation, normal white count, but mildly elevated inflammatory markers. Digital nerve block was performed using bupivacaine 0.5%. Eponychial fold was elevated using a #10 scalpel and about 0.5 cc of fluid that was frankly purulent was expressed. Biopsy site was unroofed and approximately 2 cc of frankly purulent fluid was expressed with direct application of pressure. Deloculated and a little more fluid was obtained. Patient tolerated procedure well. Cleaned extensively and dressed with Xeroform dressing. Given patient presentation, workup, history, this most likely represents postoperative abscess, paronychia. Because patient at baseline without signs or symptoms of clinical decompensation, deemed appropriate for discharge. Results were relayed to patient who voiced understanding and were agreeable to outpatient management and follow up. I discussed my clinical impression with patient and answered all questions. At this time, the evidence for any other entities in the differential is insufficient to warrant any further testing or ED observation. This was explained as well. Advisory was given that persistent or worsening symptoms require further evaluation. I confirmed the understanding of this discussion. 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 Electronic carpet yarn winder operator of the spoken language may permit errors. Although I have reviewed the note, some errors may still exist. Procedures Abscess I/D Site: hand Side (if applicable): right Local Anesthetic: bupivacaine 0.5% Amount of anesthesia used (mL): 5 Technique: other (eponychial fold elevated with #10 scalpel, 0.5 CC purulent fluid expressed. biopsy site unroofed and deloculated, 2 CC fluid expressed.) Amount of fluid expressed (mL): 2.5 Irrigation: Yes Packing used?: none Limited Ultrasound Indication:: Limited soft tissue ultrasound Indication: Soft tissue swelling, redness, fluctuance after procedure Identified structures: Location: Right thumb musculoskeletal structures Findings: Cellulitis and abscess with associated subungual abscess Impression: Soft tissue and subungual abscess of the right thumb Images were saved to permanent archive The study was technically adequate Soft Tissue CPT Codes: CPT Neck: 95222-75 CPT Upper extremity: 91120-87 CPT Axilla: 89572-17 CPT Chest wall: 16744-34 CPT Breast: 71266-40-SX/LT (complete), 44851-49-DE/LT (limited), CPT Upper Back: 10917-36 CPT Lower Back: 84969-82 CPT Abdominal Wall: 70660-08 CPT Pelvic Wall: 30164-31 CPT Lower Extremity: 63351-41 CPT Other Soft Tissue: 41138-25 This study was performed by me, and I personally interpreted all images/videos. Based on my clinical judgement, these images were adequate and did not necessitate further imaging. Critical Care Critical Care Time Critical Care Time: No
[2024-09-29] MEDS: ONDANSETRON 4MG/2ML VIAL 4 MG IV (16:17)
[2024-09-29] MEDS: DOXYCYCLINE HYCL 100 MG TABLET PO (16:17)
[2024-09-29] MEDS: KETOROLAC 30MG/ML VIAL 15 MG IV (16:17)
[2024-09-29] MEDS: MORPHINE 4MG/ML SYRINGE 4 MG IV (16:18)
[2024-09-29 16:21] LABS: Basophils # 0.1 K/mm3 (0-0.2); Eosinophils # 0.4 Kmm3 (0.0-0.4); Eosinophils % 3.9 % (0.1-12.0); Hematocrit 39.3 % (37.0-47.0); Hemoglobin 13.2 g/dL (12.2-16.2); Immature Granulocytes # 0.03 10^3uL; Immature Granulocytes % 0.3 %; Lymphocytes # 2.9 K/mm3 (0.7-4.5); Lymphocytes % 29.2 % (10-50); Mean Corpuscular HGB Conc 33.6 g/dL (31.8-35.4); Mean Corpuscular Hemoglobin 28.6 pg (27.0-31.2); Mean Corpuscular Volume 85.2 fl (81-99); Mean Platelet Volume 9.4 fl (7.4-10.4); Monocytes # 0.6 K/mm3 (0.1-1.0); Monocytes % 6.1 % (1.7-9.3); Neutrophils % 59.5 % (37.0-80.0); Nucleated Red Blood Cells # 0 10^3/uL; Nucleated Red Blood Cells % 0 %; Platelet Count 264 K/mm3 (142-424); Red Blood Count 4.61 M/mm3 (4.20-5.40); Red Cell Distribution Width 13.4 % (11.5-17.5); Red Cell Distribution Width-SD 41.6 fL
[2024-09-29 16:26] LABS: Chloride 102 mmol/L (98-107)
[2024-09-29 16:27] LABS: Albumin Level 4.1 g/dl (3.5-5.0); Potassium 4.1 mmoL/L (3.5-5.1); Sodium 136 mmol/L (136-145)
[2024-09-29 16:29] LABS: Blood Urea Nitrogen 12 mg/dl (7-17); Creatinine Clearance Estimated 54 mL/min (50-200); Estimated Glomerular Filt Rate 70 ml/min (>60); GFR (African American) 85 ML/MIN (>60)
[2024-09-29 16:30] LABS: Alanine Aminotransferase 19 U/L (12-78); Albumin/Globulin Ratio 1.5 (1.1-1.8); Alkaline Phosphatase 116 U/L (38-126); Anion Gap 10.1 mEq/L (5-15); Aspartate Amino Transferase 32 U/L (14-36); Bilirubin,Total 0.8 mg/dl (0.2-1.3); Calcium 10.8 mg/dl (8.4-10.2); Carbon Dioxide 28 mmol/L (22.0-30.0); Globulin 2.8 g/dL (1.3-3.2); Glucose 225 mg/dl (74-100); Total Protein,Serum 6.9 g/dl (6.3-8.2)
[2024-09-29 16:35] LABS: C-Reactive Protein 7.3 mg/L (0-4)
[2024-09-29] MEDS: BUPIVACAINE 0.5% 30ML VIAL 15 MG IJ (16:58)
[2024-09-29 17:00] LABS: Erythrocyte Sedimentation Rate 53 mm/hr (0-30)
[2024-09-29 17:37] VITALS: BP 154/81; O2SAT 98
[2024-09-29 17:41] VITALS: BP 154/61; PULSE 62; RESP 20; TEMP 36.8; O2SAT 97
== END 2024-09-29 17:49 | disposition home or self-care (01) ==
PROVIDERS: Emergency Provider Emergency Medicine; PCP Nurse Practitioner Family
DX: L02.511 Cutaneous abscess of right hand (principal); L03.011 Cellulitis of right finger; T81.41XA Infection following a procedure, superficial incisional surgical site, initial encounter
CPT/HCPCS: 10060; 10061; 80053; 85025; 85651; 86140; 96374; 96375; 99284; J0665; J1885; J2270; J2405

== ENCOUNTER 2024-10-17 09:23 | Outpatient (CLI) | payer MEDICARE, BC, SELFPAY ==
--- OUTSIDE RECORDS SUMMARY | 2024-09-25 15:00 | XMS_ITS | Encounter Summary ---
Author Organization Healthcare Address [address] [place] [address] Care Team Providers Care Community Development Director Name Role Phone Tyler Sanchez MD Unavailable [phone] Rosita Jordan APRN Primary Care Provider [phone] Reason for Referral * Consultation (Routine) - Authorized Specialty Diagnoses / Procedures Referred By Contac t Referred To Contact Infectious Diseases Diagnoses Nail lesion Mushtaq Arteaga MD [address] [address] Phone: tel: fax: Referral ID Status Reason Start Date Expiration Date Visits Requested Visits Authorized [id number] Authorized Specialty Services Required 09/28/2024 03/30/2026 1 1 Reason for Visit * Reason Comments Consult Possible melonma und er fingernal * Consultation (Routine) - Closed Specialty Diagnoses / Procedures Referred By Contact Referred To Contact Surgical Oncology / Hematology and Oncology Diagnoses Fingernail abnormalities Skyler Fallon MD [address] [place] [address] Phone: tel: fax:[phone] [facility] Mult[facility] On[facility] [address] [place] [address] Phone: tel: fax: Referral ID Status Reason Start Date Expiration Date V isits Requested Visits Authorized [id number] Closed Specialty Services Required 09/17/2024 03/19/2026 1 1 Encounter Details Date Type Department Care Team (Late st Contact Info) Description 09/25/2024 3:00 PM EDT Office Visit [facility] Multidisciplinary Oncology Clinic [address] [place] [address] Mushtaq Arteaga MD [address] [place] [address] Nail lesion (Primary Dx) Social [...] yet assigned --Radiation Oncologist: Not yet assigned --Map Mounter: Skyler Fallon MD --Genetics: not indicated -TREATMENT: [...] Date BACK SURGERY x3 CARDIAC CATHETERIZATION 12/12/2019 [facility] SECTION, CLASSIC HYSTERECTOMY [3] Family History [...] poor cosmetic result Alternatives discussed: No treatment [place] protocol: Procedure explained and questions answered to [...] EST Appointment [facility] 800 [facility] [address] [place] [address] 02/27/2025 2:30 PM EST Office Visit [facility] [place] [address] [facility] [place] [address] Feroz Elliott MD [address] [place] [address] Scheduled Referrals Name Type Priority Associated Diagnoses [...] PM EDT) Case Report Surgical Pathology Case: [id number] Authorizing Provider: Norma Sosa APRN Collected: 09/25/2024 1620 Ordering Location: [facility] Received: 09/26/2024 0807 Oncology Clinic Pathologist: Kierra Loomis MD Specimen: Hand, Digit Right, thumb 09/27/2024 2:13 PM EDT [facility] Final Diagnosis A. THUMBNAIL, BIOPSY: - ONYCHOMYCOSIS. - NAIL PLATE WITH ENTRAPPED PIGMENT-LADEN MACROPHAGES. - NO MALIGNANCY IDENTIFIED. 09/27/2024 2:13 PM EDT [facility] at 1413 EDT Clinical Information right hand thumb lesion L60.9 - Nail lesion [ICD-10-CM] 09/27/2024 2:13 PM EDT [facility] Gross Description A. THUMB Received in formalin labeled t humb , are 2 white-liu skin shaves that range from 0.4-0.5 cm in greatest dimension. Entirely submitted in cassette A1. Cold Time: 0 Sylvie B Pettey 09/27/2024 2:13 PM EDT [facility] Tissue Structure of digit of right hand / Unknown Non-blood Collection / Unknown 09/25/2024 4:20 PM EDT 09/26/2024 8:07 AM EDT Norma Sosa APRN LAB PATHOLOGY ORDERABLES Fin al Result [facility] [address] [place] [address] * PUNCH BIOPSY (09/25/2024 4:16 PM EDT) [...] poor cosmetic result Alternatives discussed: No treatment [place] protocol: Procedure explained and questions answered to [...] documented as of this encounter Care Teams Community Development Director Relationship Specialty Start Date End Date Rosita Jordan APRN [address] [place] [address] PCP - General 01/01/21 Tyler Sanchez MD [address] [facility] [address] [place], [place] [id number] Referring Physician 12/11/20 documented as of this encounter
[2024-10-17 14:47] LABS: Hematocrit 43.5 % (37.0-47.0); Hemoglobin 14.0 g/dL (12.2-16.2); Immature Granulocytes % 0.5 %; Mean Corpuscular HGB Conc 32.2 g/dL (31.8-35.4); Mean Corpuscular Hemoglobin 28.7 pg (27.0-31.2); Mean Corpuscular Volume 89.1 fl (81-99); Nucleated Red Blood Cells % 0 %; Platelet Count 322 K/mm3 (142-424); Red Blood Count 4.88 M/mm3 (4.20-5.40); Red Cell Distribution Width-SD 43.1 fL; White Blood Count 12.7 K/mm3 (4.8-10.8)
[2024-10-17 14:55] LABS: Hemoglobin A1C 10.1 % (4.0-6.0)
[2024-10-17 15:23] LABS: Alanine Aminotransferase 22 U/L (12-78); Albumin Level 4.8 g/dl (3.5-5.0); Albumin/Globulin Ratio 1.8 (1.1-1.8); Alkaline Phosphatase 130 U/L (38-126); Anion Gap 17.0 mEq/L (5-15); Aspartate Amino Transferase 35 U/L (14-36); Bilirubin,Total 0.8 mg/dl (0.2-1.3); Blood Urea Nitrogen 9 mg/dl (7-17); Calcium 10.0 mg/dl (8.4-10.2); Carbon Dioxide 29 mmol/L (22.0-30.0); Chloride 97 mmol/L (98-107); Cholesterol 120 mg/dl (140-200); Creatinine,Serum 0.70 mg/dl (0.52-1.04); Estimated Glomerular Filt Rate 82 ml/min (>60); GFR (African American) 99 ML/MIN (>60); Globulin 2.7 g/dL (1.3-3.2); Glucose 82 mg/dl (74-100); HDL Cholesterol 44 mg/dl (40-60); Potassium 4.0 mmoL/L (3.5-5.1); Sodium 139 mmol/L (136-145); Total Protein,Serum 7.5 g/dl (6.3-8.2); Triglycerides 143 mg/dl (30-150)
--- OUTSIDE RECORDS SUMMARY | 2024-10-22 09:28 | XMS_ITS | Encounter Summary ---
Author Organization Healthcare Address [facility] [place] [id number] Care Team Providers Care County Home Demonstrator Name Role Phone Tyler Sanchez MD Unavailable [phone] Rosita Jordan APRN Primary Care Provider [phone] Encounter Details Date Type Department Care Team [...] Vascular Lab [address] [place] [id number] 02/27/2025 2:30 PM EST Office Visit [facility] [place] [address] [place] [address] Feroz Elliott MD [address] [place] [address] documented as of this encounter Visit Diagnoses Not on filedocumented in this encounter Additional Health Concerns Assessment Noted Time A fall risk assessment has been complete d for the patient 09/25/2024 3:37 PM EDT A Body Mass Index follow-up plan has been documented for the patient 09/28/2024 10:56 AM EDT documented as of this encounter Care Teams County Home Demonstrator Relationship Specialty Start Date End Date Rosita Jordan APRN [address] [place] [address] PCP - General 01/01/21 Tyler Sanchez MD [address] [address] Referring Physician 12/11/20 documented as of this encounter
--- OUTSIDE RECORDS SUMMARY | 2024-10-22 09:28 | XMS_ITS | Encounter Summary ---
Author Organization Healthcare Address [address] [place] [address] Care Team Providers Care Fuel Oil Truck Driver Name Role Phone Yair Donahue MD Primary Care Provider [phone] Tyler Sanchez MD Unavailable [phone] Rosita Jordan APRN Primary Care Provider [phone] Encounter Details Date Type Department Care Team (Late st Contact Info) Description 12/01/2020 Community [facility] [address] [place] [address] Rosita Jordan, ELECTRONICS SCALE TESTER [address] [place] [address] Bilateral carotid artery stenosis (Primary Dx) Social [...] EST Appointment [facility] [address] [facility] [address] [place] [address] 02/27/2025 2:30 PM EST Office Visit [facility] [place] [address] [facility] [place] [address] Feroz Elliott MD [address] [place] [address] documented as of this encounter Visit Diagnoses Diagnosis Bilateral carotid artery stenosis- Primary Occlusion and stenosis of carotid artery without mention of cerebral infarction documented in this encounter Care Teams Fuel Oil Truck Driver Relationship Specialty Start Date End Date Yair Donahue MD [address] [place] [id number] PCP - General 08/29/20 12/31/20 Rosita Jordan APRN [address] [place] [address] PCP - General 01/01/21 Tyler Sanchez MD [address] [address] Referring Physician 12/11/20 documented as of this encounter
--- OUTSIDE RECORDS SUMMARY | 2024-10-22 09:28 | XMS_ITS | Referral Summary ---
Author Organization [employer] ([place], [place], [place], [place]) Address [address] [place] [address] Care Team Providers Care Chancery Clerk Name Role Phone Unavailable Primary Care Provider [...] oz pur e alcohol) rarely a beer Food Insecurity Answer Date Recorded Food run [...] school or training Not on file 05/06/2023 Substance Use Answer Date Recorded Used [...] on file Medical Devices Implanted Type Area Night Clerk Auditor Device Identifier Shelf Expiration Date Model / Serial / Lot Cage T/Plif 10mm [id number] - [id number] Implanted:Qty: 1 on 10/22/2022 by Tyler Gill MD at [facility] IMPLANTS N/A: Spine Lumbar J &J:DEPUY:DEPUY SPINE [id number] / / [id number] Bone Vivigen Frmble Cell 10 Bl-1600-003 - [id number] Implanted:Qty: 1 on 10/22/2022 by Tyler Gill MD at [facility] IMPLANTS N/A: Spine Lumbar LIFENET:LIFENET TRANSPLANT SRV 09/17/2023 BL-1600-0 [id number] / Scr Spne Radhames Fix Fen 5x50mm -550 - [id number] Implanted:Qty: 2 on 10/22/2022 by Tylre Gill MD at [facility] IMPLANTS N/A: Spine Lumbar J &J:DEPUY:DEPUY SPINE 50 / 50 / Jordin Conn Expedium 200mm Ti 1797-76-555 - [id number] Implanted:Qty: 1 on 10/22/2022 by Tyler Gill MD at [facility] IMPLANTS N/A: Spine Lumbar J &J:DEPUY:DEPUY SPINE 1797-76-5 55 / [id number] 55 / Mis Ambar Ply Scrw Set Ti 1867-15-000 - [id number] Implanted:Qty: 4 on 10/22/2022 by Tyler Gill MD at [facility] IMPLANTS N/A: Spine Lumbar J &J:DEPUY:DEPUY SPINE -0 00 / -0 00 / Cement Spinal Confidence 2839-10-000 - [id number] Implanted:Qty: 1 on 10/22/2022 by Tyler Gill MD at [facility] IMPLANTS N/A: Spine Lumbar J &J:DEPUY:DEPUY SPINE 07/16/2024 2839-10-0 00 / / [id number] Bone Putty Stimulan 5cc 620-005 - [id number] Implanted:Qty: 1 on 10/22/2022 by Tyler Gill MD at [facility] IMPLANTS N/A: Spine Lumbar BIOCOMPOSITES 09/15/2025 620-005 / / [id number] Connector End 5.5x5.5 1797-77-555 - [id number] Implanted:Qty: 1 on 10/22/2022 by Tyler Gill MD at [facility] IMPLANTS N/A: Spine Lumbar J &J:DEPUY:DEPUY SPINE 77-5 55 / [id number] / Insurance MEDICARE PART A B [facility] SUPP Advance Directives For more information, please contact: [phone] * Full Code (Latest Code Status on File) Date Activated Date Inactivated Comments 10/22/2022 11:49 AM 10/27/2022 6:34 PM
--- OUTSIDE RECORDS SUMMARY | 2024-10-22 09:28 | XMS_ITS | Clinical Summary ---
Author Organization [employer] ([place], [place], [place], [place]) Address [address] [place] [address] Care Team Providers Care Rand Butting Machine Operator Name Role Phone Unavailable Primary Care Provider [...] Date Cali rded Speak language other than Lithuanian at home Not on file 05/06/2023 Want [...] 1950 Sigmoidoscopy 1949 Diabetic Eye Exam 12/25/1959 Depression Screening (12+) 1961 Hepatitis C [...] 05/28/2020 Falls Risk Screening 04/18/2024 Influenza Vaccine (#1) 2024 01/21/2016, 2015 Medical Devices Implanted Type Area Supervisor Show Operations Device Identifier Shelf Expiration Date Model / Serial / Lot Cage T/Plif 10mm [id number] - [id number] Implanted:Qty: 1 on 10/22/2022 by Tyler Gill MD at [facility] IMPLANTS N/A: Spine Lumbar J &J:DEPUY:DEPUY SPINE [id number] / / [id number] Bone Vivigen Frmble Cell 10 Bl-1600-003 - [id number] Implanted:Qty: 1 on 10/22/2022 by Tyler Gill MD at [facility] IMPLANTS N/A: Spine Lumbar LIFENET:LIFENET TRANSPLANT SRV 09/17/2023 BL-1600-0 03 / [id number] / Scr Spne Radhames Fix Fen 5x50mm -550 - [id number] Implanted:Qty: 2 on 10/22/2022 by Tyler Gill MD at [facility] IMPLANTS N/A: Spine Lumbar J &J:DEPUY:DEPUY SPINE -5 50 / 50 / Jordin Conn Expedium 200mm Ti 179-76-555 - [id number] Implanted:Qty: 1 on 10/22/2022 by Tyler Gill MD at [facility] IMPLANTS N/A: Spine Lumbar J &J:DEPUY:DEPUY SPINE -5 55 / -5 55 / Mis Ambar Ply Scrw Set Ti 1866--000 - [id number] Implanted:Qty: 4 on 10/22/2022 by Tyler Gill MD at [facility] IMPLANTS N/A: Spine Lumbar J &J:DEPUY:DEPUY SPINE 15-0 00 / 15-0 00 / Cement Spinal Confidence 2839-10-000 - [id number] Implanted:Qty: 1 on 10/22/2022 by Tyler Gill MD at [facility] IMPLANTS N/A: Spine Lumbar J &J:DEPUY:DEPUY SPINE 07/16/2024 2839-10-0 00 / / [id number] Bone Putty Stimulan [facility] 620-005 - [id number] Implanted:Qty: 1 on 10/22/2022 by Tyler Gill MD at [facility] IMPLANTS N/A: Spine Lumbar BIOCOMPOSITES 09/15/2025 620-005 / / [id number] Connector End 5.5x5.5 1797-77-555 - [id number] Implanted:Qty: 1 on 10/22/2022 by Tyler Gill MD at [facility] IMPLANTS N/A: Spine Lumbar J &J:DEPUY:DEPUY SPINE 17977-5 55 / 179-5 55 / Insurance MEDICARE PART A B Advance Directives For more information, please contact: [phone] * Full Code (Latest Code Status on File) Date Activated Date Inactivated Comments 10/22/2022 11:49 AM 10/27/2022 6:34 PM
--- OUTSIDE RECORDS SUMMARY | 2024-10-22 09:28 | XMS_ITS | Encounter Summary ---
Author Organization Healthcare Address [address] [place] [address] Care Team Providers Care Radiologic Technologist Name Role Phone Tyler Sanchez MD Unavailable [phone] Rosita Jordan PLODDING MACHINE OPERATOR Primary Care Provider [phone] Encounter Details Date Type Department Care Team (Latest Contact Info) Description 10/02/2024 Orders Only [facility] [address] [place] [address] Norma Sosa, PLODDING MACHINE OPERATOR [address] [place] [address] Onychomycosis of nail of digit of hand (Primary Dx) Social History Tobacco Use Types [...] encounter Miscellaneous Notes * Progress Notes - Norma Sosa APRN - 10/02/2024 2:40 PM EDT I called the patient to discuss her nail biopsy results which showed onychomycosis of the nail. I discussed with Dr. Burgess recommended referral to Infectious Disease. Patient states that she is having trouble with transportation and does not own the car, therefore it is very hard for her to get to [facility]. Patient stated that she has seen her house worker general already and has startedthe treatment with terbinafine 250 mg daily for 6 weeks. She has a follow-up appointment with her house worker general in 3 weeks. Patient will call us if she decides to make a visit to infectious disease or if her condition does not improve. documented in this encounter Plan of Treatment Upcoming Encounters Date Type Department Care Team (Late st Contact Info) Description 02/27/2025 1:00 PM EST Appointment [facility] [address] [facility] [address] [place] [address] 02/27/2025 2:30 PM EST Office Visit [facility] [place] [address] [place] [address] Feroz Elliott MD [address] [place] [address] documented as of this encounter Visit Diagnoses Diagnosis Onychomycosis of nail of digit of hand- Primary documented in this encounter Additional Health Concerns Assessment Noted Time A fall risk assessment has been complete d for the patient 09/25/2024 3:37 PM EDT A Body Mass Index follow-up plan has been documented for the patient 09/28/2024 10:56 AM EDT documented as of this encounter Care Teams Radiologic Technologist Relationship Specialty Start Date End Date Rosita Jordan APRN [address] [place] [address] PCP - General 01/01/21 Tyler Sanchez MD [address] [facility] [address] [place] [address] Referring Physician 12/11/20 documented as of this encounter
--- OUTSIDE RECORDS SUMMARY | 2024-10-22 09:28 | XMS_ITS | Data Portability ---
Author Organization [facility] ADMIN Address [address] [place] [address] Assessment No assessment recorded. Plan of Treatment Reminders Order Date Submit Date Provider Last Modified By Organization Details Last Modified Time Details Appointments None recorded. Lab urinalysis, dipstick 2022 023 [email or web address] [facility], [address] [facility], [address], [place], [address], 11:42:37 Referral None recorded. Procedures None recorded. Surgeries None recorded. Imaging None recorded. Medication Orders doxazosin 2 mg tablet 2022 023 [facility][id number], [address], [id number], 3 11:45:00 Flonase Allergy Relief 50 mcg/actuati on nasal spray,suspe nsion 2022 023 [id number], [address], [id number], 3 15:10:58 ipratropium bromide 21 mcg (0.03 %) nasal spray 2022 023 [email or web address][id number], [address], [id number], 3 11:12:28 Patient TargetsNo targets recorded. Patient Instructions Encounter Date Encounter Id Patient Instructions Last Modified By Organization Details Last Modified Time 10/06/2022 [id number] 1-Discussed findings with Ms. Henry and Dr. Polanco. 2-F/u with Dr. Polanco this date. 3-F/u hearing testing as directed. [email or web address] Not available 10/06/2022 11:05:43 Reason for Referral None Reported. Results Created Date Observation Date Name Description Value Unit Range Abnormal Flag Note LastModifiedBy Organization Detail LastModifiedTime 06/24/19 23 06/23/2022 urina lysis , dipst ick Leukocytes (reference range) negati ve Not Available [address], [address], 06/23/2022 14:45:47 06/24/19 23 06/23/2022 urina lysis , dipst ick Nitrite (reference range:) negati ve Not Available [address], [address], 06/23/2022 14:45:47 06/24/19 23 06/23/2022 urina lysis , dipst ick Urobilinogen (reference range) 0.2 Not Available [address], [address], 06/23/2022 14:45:47 06/24/19 23 06/23/2022 urina lysis , dipst ick Protein (reference range) negati ve Not Available [address], [address], 06/23/2022 14:45:47 06/24/19 23 06/23/2022 urina lysis , dipst ick pH (reference range 5-8.5) 7.5 Not Available [address], [address], 06/23/2022 14:45:47 06/24/19 23 06/23/2022 urina lysis , dipst ick Blood (reference range:) negati ve Not Available [address], [address], 06/23/2022 14:45:47 06/24/19 23 06/23/2022 urina lysis , dipst ick Specific [place] (reference range) 1.015 Not Available [address], [address], 06/23/2022 14:45:47 06/24/19 23 06/23/2022 urina lysis , dipst ick Ketone (reference range) trace Not Available [address], [address], 06/23/2022 14:45:47 06/24/19 23 06/23/2022 urina lysis , dipst ick Bilirubin (reference range) small Not Available [address], [address], 06/23/2022 14:45:47 06/24/19 23 06/23/2022 urina lysis , dipst ick Glucose (reference range) negati ve Not Available [address], [address], 06/23/2022 14:45:47 03/16/20 23 03/16/2023 urina lysis , dipst ick Leukocytes (reference range) negati ve Not Available [address], [address], 03/16/2023 11:19:44 03/16/20 23 03/16/2023 urina lysis , dipst ick Nitrite (reference range:) negati ve Not Available [address], [address], 03/16/2023 11:19:44 03/16/20 23 03/16/2023 urina lysis , dipst ick Urobilinogen (reference range) 0.2 Not Available [facility] [address] [place] [address] [address], [place], [address], 03/16/2023 11:19:44 03/16/20 23 03/16/2023 urina lysis , dipst ick Protein (reference range) negati ve Not Available [facility] [address] [place] [address] [address], [place], [address], 03/16/2023 11:19:44 03/16/2003/16/2023 urina lysis , dipst ick pH (reference range 5-8.5) 5.0 Not Available [facility] [address] [place] [address] [address], [place], [address], 03/16/2023 11:19:44 03/16/20 23 03/16/2023 urina lysis , dipst ick Blood (reference range:) negati ve Not Available [facility] [address] [place] [address] [address], [place], [address], 03/16/2023 11:19:44 03/16/2003/16/2023 urina lysis , dipst ick Specific [place] (reference range) 1.010 Not Available [facility] [address] [place] [address] [address], [place], [address], 03/16/2023 11:19:44 03/16/2003/16/2023 urina lysis , dipst ick Ketone (reference range) negati ve Not Available [facility] [address] [place] [address] [address], [place], [address], 03/16/2023 11:19:44 03/16/20 23 03/16/2023 urina lysis , dipst ick Bilirubin (reference range) negati ve Not Available [facility] [address] [place] [address] [address], [place], [address], 03/16/2023 11:19:44 03/16/20 23 03/16/2023 urina lysis , dipst ick Glucose (reference range) 2000+ Not Available [facility] [address] [facility] [address], [place], [address], 03/16/2023 11:19:44 03/16/20 23 03/16/2023 urina lysis , dipst ick Color (reference range: yellow-brown ) Yellow Not Available [facility] [address] [facility] [address], [place], [address], 03/16/2023 11:19:44 10/05/19 23 09/23/2022 CT, abdom en + pelvi s, w/ contr ast No observ ation record ed. [address] (Med Record) [address], [place], [address], 10/04/2022 15:40:55 10/07/19 23 09/23/2022 MRI, brain + brain stem, w/o contr ast No observ ation record ed. BARCODE Not Available 2022 10:22:37 10/07/19 23 10/06/2022 audio gram No observ ation record ed. [email or web address] Not Available 2022 13:30:16 Result Notes None recorded. Problems Name Problem SNOMED Code Status Onset Date Resolution Date Notes Provider Name and Address Organization Details Recorded Time Hypertensive disorder 67229954 Active 2022 BRADLEY Mendoza - LPNT [facility] [place] 3 12:58:14 Diabetes mellitus 14131859 Active 2022 BRADLEY Mendoza LPNT [facility] [place] 3 12:58:23 Kidney stone 44362467 Active 2022 BRADLEY Mendoza LPNT [facility] [place] 3 12:58:32 Dizziness 673930206 Active 2022 ARNOLD LIM, AUD [address] [facility], [place], [address] , [facility] & [place] 3 11:05:25 Problem Notes None recorded. Procedures Surgical History Date Name Laterality Status Provider Name and Address Organization Details Recorded Time 3 Urethral Dilation (female) completed Jaciel Torrez Jr, MD [address] [place] [address], [address], [place], [address], [facility] & [place] 07/16/2022 12:48:07 Imaging Results None recorded. Procedure Notes None recorded. Medical Equipment None Reported. Allergies Allergen ID Allergen Name Allergen Category Reaction Reaction Severity Criticality Documentation Date Start Date Code Code System Note Provider Name and Address Organization Details Recorded Time 42136 sulfameth oxazole / trimethop rim medicatio n Not available Not available Not available 01/04/2023 57730 RxNorm Sonja Grajeda NP, S [address] [facility], [place], [address], [facility] & [place] 3 11:05:05 Medications Name Sig Start Date [...] Updated DateTime 07/16/2022 162.56 cm 26.6 kg/m2 13067.82 g Praveena Papo [facility] & [place] 07/16/2022 11:41:34 Date Recorded Body height Body mass index (BMI) Body weight Body temperature Heart rate Systolic And Diastolic Provider Name and Address Organization Details Last Updated DateTime 3 162.56 cm 26 kg/m2 47781.8 8 g 97.3 [degF] 85 /min 124/83 mm[Hg] Jenna Davis [facility] & [place] 3 10:27:03 Date Recorded Body height Body mass index (BMI) Body weight Systolic And Diastolic Provider Name and Address Organization Details Last Updated DateTime 01/25/2023 162.56 cm 26.1 kg/m2 11376.04 g 120/68 mm[Hg] Jenna Davis [facility] [place] 01/25/2023 13:42:29 Date Recorded Body height Body mass index (BMI) Body weight Body temperature Systolic And Diastolic Provider Name and Address Organization Details Last Updated DateTime 03/16/2023 162.56 cm 27 kg/m2 73074.7 2 g 97.3 [degF] 186/84 mm[Hg] Loreta Melvin [facility] [place] 11:17:30 Social History None recorded. Functional Status [...] Time Father No current problems or disability [email or web address] Not available 11/2022 12:57:54 Mother No current problems or disability [email or web address] Not available 11/2022 12:57:54 Notes:Mother- Fathe r- Medical History Condition Response Diabetes Y Hearing Loss Y Hypertension Y Gynecological HistoryNo gynecological history recorded. Obstetrics History GPAL:G 0 P 0 0 0 0 Past Encounters Encounter ID Performer Location Encounter Start Date Encounter Closed Date Diagnosis/Indication Diagnosis SNOMED-CT Code Diagnosis ICD10 Code Diagnosis Note [id number] Jaciel Torrez Jr, MD [facility] [address] [address] 06/23/2022 12:51:16 06/23/2022 13:55:05 Nocturia 070564391 R35.1 Patient with increased lower urinary tract symptoms. She has a history of urethral stenosis and has benefitted from urethral dilations in the past. Unfortunat berenice we do not have any urethral dilators at the [facility] office today. I am going to place her on a 2 week course of Gemtesa for her symptoms and will bring her back in 2 weeks for dilation. [id number] Jaciel Torrez Jr, MD [facility] [place] [address] 07/16/2022 11:40:34 07/16/2022 11:55:20 Urethral stenosis 528518873 N35.82 patient with history of urethral stenosis. He is having lower urinary tract symptoms and has benefitted from urethral dilations in the past and requests urethral dilation today. Urethral dilation was performed under local anesthetic with a 22, 24, 26 and 28 Kyrgyz female sound. There was some mild resistance to passage. Patient tolerated the procedure well. Neosporin instilled afterwards she is return on an as-needed basis. [id number] Michelle Polanco MD [facility] [place] [address] 10/06/2022 10:12:39 10/06/2022 11:00:45 Dizziness and giddiness 136885911 R42 Explained to the patient given her upcoming back surgery we are limited in what we can do in regards to her dizziness as this involves maneuverin g that she couldn't tolerate at this time. Will get her an audiogram for further evaluation and baseline. Will follow up with her after her surgery, sooner if needed. [id number] FRANKIE ROMANO [facility] [address], [facility] [place] [address] 10/06/2022 10:50:58 10/06/2022 11:01:01 Dizziness 988143193 R42 [id number] Michelle Polanco MD [facility] [address], [facility] [place] [id number] 01/25/2023 13:19:07 01/25/2023 14:18:13 Dizziness 900323021 R42 Posterior rhinorrhea 758 28470 R09.82 Pleased with improvemen t on patient's dizziness. Would like for her to try flonase and ipratropiu m bromide to see if this alleviates her rhinorrhea . Should she not see any improvemen t in the next couple of months, I will see her back. Otherwise, I will see her back as needed. Anterior rhinorrhea 2772 [address]882 J34.89 [id number] Sonja Grajeda NP, S [facility] [address] [place] [address] 03/16/2023 11:00:41 03/16/2023 11:46:11 Slowing of urinary stream 08005212 R39.12 UA negative for infectionB ladder scan 18mlDiscus sed blood sugar management Start Doxazosin 2mg dailyRTC in 8 weeks for f/u of Doxazosin treatment Nocturia 447361065 R35.1 History of calculus of kidney 467734624 Z87.442 History of diabetes mellitus type 2 973822930 Z86.39 Long-term current use of anticoagulant 188433941 Z79.01 Increased frequency of urination 753550388 R35.0 Urgent denita marixa to urinate 54859539 R39.15 Health Concerns Section Related Observation LastModified by Organization Detai ls LastModified Time None Recorded Concern Status LastModified by Organization Details LastModified Time None Recorded Advance Directives Directive None Recorded Payers Insurance Date Sequence Insurance Name Policy Number Policy Loco Covered Member ID Loco Member ID Guarantor Name 11/05/2023 1 [place] Marie Henry [id number] Marie Henry 11/05/2023 2 [place] [id number] Marie Henry [id number] Marie Henry Notes Date Note Type [...] years with relief. Jaciel Torrez Jr, MD [address] [place] [address], [address], [place], [address], [facility] [place] [facility] [place] 07/16/2022 14:24:07 10/06/2022 text/html 71yo female in t he office today to discuss dizziness and [...] She will be following up with her educational therapy teacher soon. She is schedule for a revision back surgery in the next few weeks. It has been several years since having a hearing test. Michelle Polanco MD [address], [place], [address] 10/08/2022 09:42:51 10/06/2022 text/html Ms. Henry was see n today for an audiologic evaluation due to recent symptoms of dizziness/vertigo, aural fullness/pressure, and ear pain per Dr. Michelle Polanco MD. Ms. Henry denies any sense of hearing loss, drainage, tinnitus, and excessive noise exposure. Otoscopic inspection was unremarkable bilaterally. FRANKIE ROMANO [address], [place], [address], [facility] 10/06/2022 11:05:59 01/25/2023 text/html 72 yo here [...] nasal. Michelle Polanco MD [address], [place], [address], [facility] & [place] 01/25/2023 14:33:04 03/16/2023 text/html 72 yowf presents [...] has been followed per Dr. Sanchez. Sonja Grajeda NP, S [address] [facility], [place], [address], [facility] - [place] & [place] 03/16/2023 11:45:47 OBGyn Episode No OBEpisode recorded.
--- OUTSIDE RECORDS SUMMARY | 2024-10-22 09:28 | XMS_ITS | Encounter Summary ---
Author Organization Healthcare Address [address] [place] [address] Care Team Providers Care Cargo Service Agent Name Role Phone Tyler Sanchez MD Unavailable [phone] Rosita Jordan APRN Primary Care Provider [phone] Encounter Details Date Type Department Care Team (Late st Contact Info) Description 09/11/2024 Community [facility] [address] [place] [address] Skyler Fallon MD [address] [place] [address] Malignant melanoma of nail bed (CMS/HCC) (Primary [...] EST Appointment [facility] [address] [facility] [address] [place] [address] 02/27/2025 2:30 PM EST Office Visit [facility] [place] [address] [place] [address] Feroz Elliott MD [address] [place] [address] documented as of this encounter Visit Diagnoses [...] documented as of this encounter Care Teams Cargo Service Agent Relationship Specialty Start Date End Date Rosita Jordan APRN [address] [place] [address] PCP - General 01/01/21 Tyler Sanchez MD [address] [address] Referring Physician 12/11/20 documented as of this encounter
--- OUTSIDE RECORDS SUMMARY | 2024-10-22 09:28 | XMS_ITS | Encounter Summary ---
Author Organization Healthcare Address [address] [place] [id number] Care Team Providers Care Enrichment Assistant Name Role Phone Tyler Sanchez MD Unavailable [phone] Rosita Jordan APRN Primary Care Provider [phone] Encounter Details Date Type Department Care Team (Late st Contact Info) Description 09/28/2024 Orders Only [facility] [address] [place] [address] Mushtaq Arteaga MD [address] [facility] [address] [place] [address] Social History Tobacco Use Types [...] encounter Miscellaneous Notes * Progress Notes - Mushtaq Arteaga MD - 09/28/2024 9:00 AM EDT mario documented in this encounter Plan of Treatment Upcoming Encounters Date Type Department Care Team (Late st Contact Info) Description 02/27/2025 1:00 PM EST Appointment [facility] [address] [place] [address] 02/27/2025 2:30 PM EST Office Visit [facility] [place] [address] [place] [address] Feroz Elliott MD [address] [place] [address] documented as of this encounter Visit Diagnoses Not on filedocumented in this encounter Additional Health Concerns Assessment Noted Time A fall risk assessment has been complete d for the patient 09/25/2024 3:37 PM EDT A Body Mass Index follow-up plan has been documented for the patient 09/28/2024 10:56 AM EDT documented as of this encounter Care Teams Enrichment Assistant Relationship Specialty Start Date End Date Rosita Jordan APRN [address] [place] [address] PCP - General 01/01/21 Tyler Sanchez MD [address] [address] Referring Physician 12/11/20 documented as of this encounter
--- OUTSIDE RECORDS SUMMARY | 2024-10-22 09:28 | XMS_ITS | Data Portability ---
Author Organization [place] - Dr. José Miguel Cortés, [facility], [employer] Address [address] [facility] [address] [place] [address] Assessment No assessment recorded. Plan of Treatment Reminders Order Date Submit Date Provider Last Modified By Organization Details Last Modified Time Details Appointments None recorded. Lab None recorded. Referral None recorded. Procedures None recorded. Surgeries None recorded. Imaging None recorded. Medication Orders ondansetro n 8 mg disintegra ting tablet 2018 [address] [facility] [address], [id number], 9 11:30:24 clonazepam 0.5 mg tablet 2018 019 [email or web address] [facility] [address], [id number], 9 11:45:12 metformin 500 mg tablet 2018 [address] [facility] [address], [id number], 9 11:30:24 Levemir U-100 Insulin 100 unit/mL subcutaneo us solution 2018 [address] [facility] [address], [id number], 9 11:30:23 Admelog SoloStar U-100 Insulin lispro 100 unit/mL subcutaneo us pen 2018 019 [address] [facility] [address], [id number], 9 15:08:32 azithromyc in 250 mg tablet [address] [facility] [address], [id number], 9 11:30:26 atorvastat in 20 mg tablet [address] [facility] [address], [id number], 9 11:30:23 lisinopril 20 mg-hydroch lorothiazi de 12.5 mg tablet [address] [facility] [address], [id number], 9 11:30:26 amlodipine 5 mg tablet [address] [facility] [address], [id number], 9 11:30:25 fluoxetine 40 mg capsule [address] [facility] [address], [id number], 9 11:30:25 Patient TargetsNo targets recorded. Patient InstructionsNo instructions recorded. Reason for Referral None Reported. Problems Name Problem SNOMED Code Status Onset Date Resolution Date Notes Provider Name and Address Organization Details Recorded Time Hypertensive disorder 63001232 Active 2018 [place] - Dr. José Miguel Cortés, [facility] 9 10:31:42 Type 2 diabetes mellitus 41785094 Active 2018 [place] - Dr. José Miguel Cortés, [facility] 9 10:31:51 Depressive disorder 58775886 Active 2018 [place] kim - Dr. José Miguel Cortés, [facility] 9 11:25:20 Insomnia 966511049 Active [address] [facility] 9 11:26:51 Benign essential hypertension 7228326 Active [address] [facility] 9 11:26:54 Nausea 988630038 Active 2018 [place] kim - Dr. José Miguel Cortés, [facility] 9 11:29:12 Hypercholester olemia 10372728 Active [address] [facility] 9 11:29:14 Acute sinusitis 64518267 Active [address] [facility] 9 11:29:47 Migraine 11237902 Active [address] [facility] 9 15:00:16 Problem Notes None recorded. Procedures Surgical History Date Name Laterality Status Provider Name and Address Organization Details Recorded Time 04/18/19 [address] [place] [address] [facility] 05/02/2018 10:28:07 04/18/18 [address] [facility] 05/02/2018 10:27:07 [address] [address] [facility] 05/02/2018 10:27:26 Imaging Results None recorded. [...] Respiratory rate Body temperature Body weight Systolic And Diastolic Provider Name and Address Organization Details Last Updated DateTime 9 113 /min 17 /min 98.1 [degF] 66363.8 4 g 139/90 mm[Hg] daniel Cortés, [facility] 9 10:35:44 Social History Question Answer Notes LastModified by Organizat ion Details LastModified Time Tobacco Smoking Status [facility]oker Not [facility]/12[facility]2020 03:15:16 Marital Status [email or web address] Informat ion not available 05/02/2018 What Was The Date Of Your Most Recent Tobacco Screening? 05/02/2018 [id number] Information not available 02/12/2020 At What Age Did You Start Smoking Tobacco? 34 [id number] Information not available 02/12/2020 How Many Years Have You Smoked Tobacco? 24 [id number] Information not available 02/12/2020 Sex: Unknown Functional Status Question Answer Note LastModified by Organizat ion Details LastModified Time What is your level of alcohol consumption? Occasional [id number] Information not available 02/12/2020 Are you currently employed? No [id number] Information not available 02/12/2020 What is your occupation? retired [id number] Information not available 02/12/2020 Mental Status None recorded. Family History Relationship Description Onset Age of this Age Resolved Age Notes LastModified by Organization Details LastModified Time Unspecified Relation Depressive disorder [email or web address] Not available 10:29:36 Unspecified Relation Type 2 diabetes mellitus [email or web address] Not available 10:29:49 Unspecified Relation Hypertensive disorder [email or web address] Not available 10:30:00 Unspecified Relation Osteoarthrit is [email or web address] Not available 10:30:13 Unspecified Relation Alzheimer's disease [email or web address] Not available 10:30:22 Unspecified Relation Coronary arterioscler osis [email or web address] Not available 10:30:36 Unspecified Relation Hypercholest erolemia [email or web address] Not available 10:31:14 Father Cerebrovascu lar accident [email or web address] Not available 05/02/2018 10:31:23 Medical History Condition Response Hives or Eczema N Coronary Artery Disease N Other N Gout N High Blood Pressure Y Back trouble N Respiratory Problem - Other N Blood Diseases N Kidney Stones N Hyperthyroidism N Blood Transfusion N Urinary Incontinence N Veneral Disease N ADD N COPD N Depression Y Prostate Problems N Migraine Headaches N Sinusitis N Anxiety Disorder N Muscle, Joint, or Bone Problems N Hemorrhoids N Obesity N Vision or Eye Problems [...] Hepatitis N Neuropathy N Pulmonary Embolism N Chronic Ear Infections N Stomach Ulcer N Chicken Pox N Autism Spectrum Disorder (ASD) N Thrombophilias N Hernia N Menopause N Hypothyroidism N Glaucoma N Lung Disease N Developmental or Behavioral Disorders N Defects or Inherited Disease N Breast Problem N Bipolar N Measles N Difficulty Swallowing N Cancer (type) N Breathing Problems N Anesthesia Complications N Skin Ulcer N Infectious [place] N Other Sleep Problem N Meniere's disease N Shingles N ADHD N Endometriosis N High Cholesterol N Liver Disease N Allergies/Hayfever N Mumps N Thyroid Problems N GI Problems N Allergic Reaction to Medications N Anemia N Diabetes (type) Y Mental Illness N Ovarian Cancer N Bedwetting N Seizures/Epilepsy N Congestive Heart Failure (CHF) N Insomnia N Eczema N Chronic Pain N Abuse/Domestic Violence N Low Blood Pressure N Diverticulitis N Chronic Back Pain N Epilepsy N Reflux/GERD N Sleep Apnea N Bronchitis N Heart Disease N Plasma transfusion N Pre-Eclampsia N Osteoporosis N Gynecological HistoryNo gynecological history recorded. Obstetrics History GPAL:G 0 P 0 0 0 0 Immunizations Vaccine Type Date Status Note Provider Nam e and Address Organization Details Recorded Time Influenza, high-dose, trivalent, PF 01/16/2018 completed [facility] [place] - Dr. José Miguel Cortés, [facility] 05/02/2018 10:27:52 Past Encounters Encounter ID Performer Location Encounter Start Date Encounter Closed Date Diagnosis/Indication Diagnosis SNOMED-CT Code Diagnosis ICD10 Code Diagnosis Note [id number] José Miguel Cortés, Main Office [address] [facility] [place] [address] 05/02/2018 10:03:12 05/03/2018 10:33:42 Type 2 diabetes mellitus 86181034 E11.37X1 Depressive disorder 3548 9007 F32.9 Insomnia 484071417 G47.0 0 Benign ess ential hypertension 2842108 I10 Hypercholesterolemia 136 66421 E78.00 Nausea 051104418 R11.0 Acute sinusitis 54906269 J01.90 Health Concerns Section Related Observation LastModified by Organization Detai ls LastModified Time None Recorded Concern Status LastModified by Organization Details LastModified Time None Recorded Advance Directives Directive None Recorded Payers Insurance Date Sequence Insurance Name Policy Number Policy Loco Covered Member ID Loco Member ID Guarantor Name 03/26/2020 1 [place] Marie Henry [id number] Marie Henry 05/03/2018 2 [place] [id number] Marie Henry [id number] Marie Henry 05/20/2018 2 [place] Marie Henry Notes Date Note Type Note Provider Name and Address Organization Details Recorded Time 05/02/2018 text/html Generic HPI TemplateReported bypatient.Notes:Michelle t is here for medication refills. [place] kim - Dr. José Miguel Cortés, [facility] 05/02/2018 12:47:31 OBGyn Episode No OBEpisode recorded.
--- OUTSIDE RECORDS SUMMARY | 2024-10-22 09:28 | XMS_ITS | Encounter Summary ---
Author Organization [facility] Address [address] [id number] Care Team Providers Care Underwriting Director Name Role Phone Tyler Sanchez MD Unavailable [phone] Rosita Jordan APRN Primary Care Provider [phone] Encounter Details Date Type Department Care Team ([facility] st Contact Info) Description 09/26/2024 Telephone [facility] [address] [place] [address] Mushtaq Arteaga MD [address] [address] Social History Tobacco Use Types [...] encounter Miscellaneous Notes * Telephone Encounter - Lucille Guerra Claudia - 09/26/2024 11:28 AM EDT Patient [...] optimal time of day to reach caller: [phone] Note: Please do not reply to this [...] EST Appointment [facility] H Vascular Lab [address] [facility] [address] [place] [address] 02/27/2025 2:30 PM EST Office Visit [facility] [place] [address] [place] [address] Feroz Elliott MD 800 [place] [address] documented as of this encounter Visit Diagnoses Not on filedocumented in this encounter Additional Health Concerns Assessment Noted Time A fall risk assessment has been complete d for the patient 09/25/2024 3:37 PM EDT A Body Mass Index follow-up plan has been documented for the patient 09/28/2024 10:56 AM EDT documented as of this encounter Care Teams Underwriting Director Relationship Specialty Start Date End Date Rosita Jordan APRN [address] [place] [address] PCP - General 01/01/21 Tyler Sanchez MD [address] [facility] [address] [place] [address] Referring Physician 12/11/20 documented as of this encounter
--- OUTSIDE RECORDS SUMMARY | 2024-10-22 09:28 | XMS_ITS | Clinical Summary ---
Author Organization [facility] Address [address] [place] [address] Care Team Providers Care Administrative Assistant Coordinator Name Role Phone Tyler Sanchez MD Unavailable [phone] Rosita Jordan APRN Primary Care Provider [phone] Allergies Active Allergy Reactions Criticality Noted Date [...] Encounters Date Type Department Care Team Description 10/02/2024 Orders Only [facility] [address] [place] [address] Norma Sosa APRN Onychomycosis of nail of digit of hand (Primary Dx) 09/28/2024 Orders Only Pav CC Head, Neck & Respiratory [address] [facility], 2nd [place] [address] Mushtaq Arteaga MD 09/26/2024 Telephone [facility] [address] [place] [address] Mushtaq Arteaga MD 09/25/2024 3:00 PM EDT Office Visit [facility] [address] [place] [address] Mushtaq Arteaga MD Nail lesion (Primary Dx) 09/25/2024 Travel 09/11/2024 Community Orders Community Practice [address] [place] [address] Skyler Fallon MD Malignant melanoma of nail [...] Vascular Lab [address] [place] [address] 02/27/2025 2:30 PM EST Office Visit [facility] [place] [address] [place] [address] Feroz Elliott MD [address] [place] [address] Health Maintenance Due Date Last Done Comments [facility]-Bone Density Scan 1950 [facility]-Diabetes: Hemoglobin A1C 1950 [facility]-Hepatitis C Screening 1950 [facility]-Medicare Annual Wellness (AWV) 1950 [facility]-/Child/Adol SDOH Screenings [...] (2 of 2 - PCV) 01/20/2017 01/21/2016 [id number] Vaccine (3 - Moderna risk series) 07/23/2020 06/25/2020, 05/28/2020 [facility]-Influenza Vaccine (#1) 12/17/202402/223, 01/18/2018, 01/16/2018, Additional history exists [facility]-Depression Screening [...] PM EDT) Case Report Surgical Pathology Case: [id number] Authorizing Provider: Norma Sosa APRN Collected: 09/25/2024 1620 Ordering Location: [facility] Received: 09/26/2024 0807 Oncology Clinic Pathologist: Kierra Loomis MD Specimen: Hand, Digit Right, thumb 09/27/2024 2:13 PM EDT [facility] Final Diagnosis A. THUMBNAIL, BIOPSY: - ONYCHOMYCOSIS. - NAIL PLATE WITH ENTRAPPED PIGMENT-LADEN MACROPHAGES. - NO MALIGNANCY IDENTIFIED. 09/27/2024 2:13 PM EDT [facility] at 1413 EDT Clinical Information right hand thumb lesion L60.9 - Nail lesion [ICD-10-CM] 09/27/2024 2:13 PM EDT [facility] Gross Description A. THUMB Received in formalin labeled t humb , are 2 white-liu skin shaves that range from 0.4-0.5 cm in greatest dimension. Entirely submitted in cassette A1. Cold Time: 0 Sylvie Mendoza 09/27/2024 2:13 PM EDT [facility] Tissue Structure of digit of right hand / Unknown Non-blood Collection / Unknown 09/25/2024 4:20 PM EDT 09/26/2024 8:07 AM EDT us Norma Sosa APRN LAB PATHOLOGY ORDERABLES Fin al Result [facility] [address] [place] [address] * PUNCH BIOPSY (09/25/2024 4:16 PM EDT) Narrative Mushtaq Arteaga MD - 09/25/2024 4:16 PM EDT Mushtaq Artaega MD 09/28/2024 10:53 AM Punch Biopsy Date/Time: 09/25/2024 4:16 PM Performed by: Ling Jaimes MD Authorized by: Mushtaq Arteaga MD Consent: Consent obtained: Written Consent given by: Patient Risks, benefits, and alternatives were discussed: yes Risks discussed: Bleeding, infection, pain and poor cosmetic result Alternatives discussed: No treatment [place] protocol: Procedure explained and questions answered to [...] Result from Last 3 Months Insurance MEDICARE [facility] Care Teams Administrative Assistant Coordinator Relationship Specialty Start Date End Date Rosita Jrodan APRN [address] [place] [address] PCP - General 01/01/21 Tyler Sanchez MD [address] [place] [address] Referring Physician 12/11/20
== END 2024-10-17 23:59 | disposition home or self-care (01) ==
LOC: LAB.DROPOF 10-22 09:24
PROVIDERS: PCP Nurse Practitioner Family; Visit Provider Nurse Practitioner Family
DX: E11.69 Type 2 diabetes mellitus with other specified complication (principal); R41.3 Other amnesia; R35.0 Frequency of micturition; E78.2 Mixed hyperlipidemia; I10 Essential (primary) hypertension; R53.83 Other fatigue; Z79.4 Long term (current) use of insulin
CPT/HCPCS: 80053; 80061; 82043; 82570; 83036; 85025; 87086

== ENCOUNTER 2024-10-23 14:43 | Outpatient (CLI) | payer MEDICARE, BC, SELFPAY ==
--- OUTSIDE RECORDS SUMMARY | 2024-09-25 15:00 | XMS_ITS | Encounter Summary ---
Author Organization Healthcare Address [address] [place] [address] Care Team Providers Care Physician Extender Name Role Phone Tyler Sanchez MD Unavailable [phone] Rosita Jordan APRN Primary Care Provider [phone] Reason for Referral * Consultation (Routine) - Authorized Specialty Diagnoses / Procedures Referred By Contac t Referred To Contact Infectious Diseases Diagnoses Nail lesion Mushtaq Arteaga MD [address] [address] Phone: tel: fax: Referral ID Status Reason Start Date Expiration Date Visits Requested Visits Authorized [id number] Authorized Specialty Services Required 09/28/2024 03/30/2026 1 1 Reason for Visit * Reason Comments Consult Possible melonma und er fingernal * Consultation (Routine) - Closed Specialty Diagnoses / Procedures Referred By Contact Referred To Contact Surgical Oncology / Hematology and Oncology Diagnoses Fingernail abnormalities Skyler Fallon MD [address] [place] [address] Phone: tel:[phone] fax:[phone] [facility] Multidisciplinary Oncology Clinic [address] [place] [address] Phone: tel: fax: Referral ID Status Reason Start Date Expiration Date V isits Requested Visits Authorized [id number] Closed Specialty Services Required 09/17/2024 03/19/2026 1 1 Encounter Details Date Type Department Care Team (Late st Contact Info) Description 09/25/2024 3:00 PM EDT Office Visit [facility] Multidisciplinary Oncology Clinic [address] [place] [address] Mushtaq Arteaga MD [address] [place] [address] Nail lesion (Primary Dx) Social [...] yet assigned --Radiation Oncologist: Not yet assigned --Tariff Expert: Skyler Fallon MD --Genetics: not indicated -TREATMENT: [...] Date BACK SURGERY x3 CARDIAC CATHETERIZATION 12/12/2019 [facility] SECTION, CLASSIC HYSTERECTOMY [3] Family History [...] poor cosmetic result Alternatives discussed: No treatment [place] protocol: Procedure explained and questions answered to [...] EST Appointment [facility] [address] [facility] [address] [place] [address] 02/27/2025 2:30 PM EST Office Visit [facility] [place] [address] [facility] [place] [address] Feroz Elliott MD [address] [place] [address] Scheduled Referrals Name Type Priority Associated Diagnoses [...] PM EDT) Case Report Surgical Pathology Case: [id number] Authorizing Provider: Norma Sosa APRN Collected: 09/25/2024 1620 Ordering Location: [facility] Received: 09/26/2024 0807 Oncology Clinic Pathologist: Kierra Loomis MD Specimen: Hand, Digit Right, thumb 09/27/2024 2:13 PM EDT [facility] Final Diagnosis A. THUMBNAIL, BIOPSY: - ONYCHOMYCOSIS. - NAIL PLATE WITH ENTRAPPED PIGMENT-LADEN MACROPHAGES. - NO MALIGNANCY IDENTIFIED. 09/27/2024 2:13 PM EDT [facility] at 1413 EDT Clinical Information right hand thumb lesion L60.9 - Nail lesion [ICD-10-CM] 09/27/2024 2:13 PM EDT [facility] Gross Description A. THUMB Received in formalin labeled t humb , are 2 white-liu skin shaves that range from 0.4-0.5 cm in greatest dimension. Entirely submitted in cassette A1. Cold Time: 0 Sylvie B Pettey 09/27/2024 2:13 PM EDT [facility] Tissue Structure of digit of right hand / Unknown Non-blood Collection / Unknown 09/25/2024 4:20 PM EDT 09/26/2024 8:07 AM EDT Norma Sosa APRN LAB PATHOLOGY ORDERABLES Fin al Result [facility] [address] [place] [address] * PUNCH BIOPSY (09/25/2024 4:16 PM EDT) [...] poor cosmetic result Alternatives discussed: No treatment [place] protocol: Procedure explained and questions answered to [...] documented as of this encounter Care Teams Physician Extender Relationship Specialty Start Date End Date Rosita Jordan APRN [address] [place] [address] PCP - General 01/01/21 Tyler Sanchez MD [address] [facility] [address] [place], [place] [id number] Referring Physician 12/11/20 documented as of this encounter
--- OUTSIDE RECORDS SUMMARY | 2024-10-23 14:47 | XMS_ITS | Encounter Summary ---
Author Organization Healthcare Address [facility] [place] [id number] Care Team Providers Care Dredge Lever Operator Name Role Phone Tyler Sanchez MD Unavailable [phone] Rosita Jordan APRN Primary Care Provider [phone] Encounter Details Date Type Department Care Team [...] Vascular Lab [address] [place] [address] 02/27/2025 2:30 PM EST Office Visit [facility] [place] [address] [place] [address] Feroz Elliott MD [address] [place] [address] documented as of this encounter Visit Diagnoses Not on filedocumented in this encounter Additional Health Concerns Assessment Noted Time A fall risk assessment has been complete d for the patient 09/25/2024 3:37 PM EDT A Body Mass Index follow-up plan has been documented for the patient 09/28/2024 10:56 AM EDT documented as of this encounter Care Teams Dredge Lever Operator Relationship Specialty Start Date End Date Rosita Jordan APRN [address] [place] [address] PCP - General 01/01/21 Tyler Sanchez MD [address] [address] Referring Physician 12/11/20 documented as of this encounter
--- OUTSIDE RECORDS SUMMARY | 2024-10-23 14:47 | XMS_ITS | Encounter Summary ---
Author Organization [facility] Address [address] [id number] Care Team Providers Care Materials Director Name Role Phone Tyler Sanchez MD Unavailable [phone] Rosita Jordan APRN Primary Care Provider [phone] Encounter Details Date Type Department Care Team ([facility] st Contact Info) Description 09/26/2024 Telephone [facility] 800 [place] [address] Mushtaq Arteaga MD [address] [address] Social History Tobacco Use Types [...] optimal time of day to reach caller: [phone] Note: Please do not reply to this [...] EST Appointment [facility] 800 [facility] [address] [place] [address] 02/27/2025 2:30 PM EST Office Visit [facility] [place] [address] [place] [address] Feroz Elliott MD 800 [place] [address] documented as of this encounter Visit Diagnoses Not on filedocumented in this encounter Additional Health Concerns Assessment Noted Time A fall risk assessment has been complete d for the patient 09/25/2024 3:37 PM EDT A Body Mass Index follow-up plan has been documented for the patient 09/28/2024 10:56 AM EDT documented as of this encounter Care Teams Materials Director Relationship Specialty Start Date End Date Rosita Jordan APRN [address] [place] [address] PCP - General 01/01/21 Tyler Sanchez MD [address] [facility] [place] [address] Referring Physician 12/11/20 documented as of this encounter
--- OUTSIDE RECORDS SUMMARY | 2024-10-23 14:47 | XMS_ITS | Encounter Summary ---
Author Organization Healthcare Address [address] [id number] Care Team Providers Care Bottom Painter Name Role Phone Tyler Sanchez MD Unavailable [phone] Rosita Jordan APRN Primary Care Provider [phone] Encounter Details Date Type Department Care Team (Late st Contact Info) Description 09/28/2024 Orders Only Pav CC Head, Neck & Respiratory [address] [place] [address] Mushtaq Arteaga MD [address] [facility] [address] [place] [address] Social History Tobacco Use Types [...] Vascular Lab [address] [place] [address] 02/27/2025 2:30 PM EST Office Visit [facility] [place] [address] [place] [address] Feroz Elliott MD [address] [place] [address] documented as of this encounter Visit Diagnoses Not on filedocumented in this encounter Additional Health Concerns Assessment Noted Time A fall risk assessment has been complete d for the patient 09/25/2024 3:37 PM EDT A Body Mass Index follow-up plan has been documented for the patient 09/28/2024 10:56 AM EDT documented as of this encounter Care Teams Bottom Painter Relationship Specialty Start Date End Date Rosita Jordan APRN [address] [place] [address] PCP - General 01/01/21 Tyler Sanchez MD [address] [address] Referring Physician 12/11/20 documented as of this encounter
--- OUTSIDE RECORDS SUMMARY | 2024-10-23 14:47 | XMS_ITS | Encounter Summary ---
Author Organization Healthcare Address [address] [place] [address] Care Team Providers Care Raw Scales Operator Name Role Phone Tyler Sanchez MD Unavailable [phone] Rosita Jordan APRN Primary Care Provider [phone] Encounter Details Date Type Department Care Team (Late st Contact Info) Description 09/11/2024 Community [facility] [address] [place] [address] Skyler Fallon MD [address] [place] [address] Malignant melanoma of nail bed (CMS/HCC) (Primary [...] EST Appointment [facility] Lab 800 [facility] [address] [place] [address] 02/27/2025 2:30 PM EST Office Visit [facility] [place] [address] [place] [address] Feroz Elliott MD 800 [place] [address] documented as of this encounter Visit Diagnoses [...] documented as of this encounter Care Teams Raw Scales Operator Relationship Specialty Start Date End Date Rosita Jordan APRN [address] [place] [address] PCP - General 01/01/21 Tyler Sanchez MD [address] [address] Referring Physician 12/11/20 documented as of this encounter
--- OUTSIDE RECORDS SUMMARY | 2024-10-23 14:47 | XMS_ITS | Encounter Summary ---
Author Organization Healthcare Address [address] [place] [address] Care Team Providers Care Asphalt Heater Operator Name Role Phone Tyler Sanchez MD Unavailable [phone] Rosita Jordan SCHOOL COMMUNITY RELATIONS COORDINATOR Primary Care Provider [phone] Encounter Details Date Type Department Care Team (Latest Contact Info) Description 10/02/2024 Orders Only [facility] [address] [place] [address] Norma Sosa, SCHOOL COMMUNITY RELATIONS COORDINATOR [address] [place] [address] Onychomycosis of nail of digit of hand [...] very hard for her to get to [facility]. Patient stated that she has seen her emulsification operator already and has startedthe treatment with terbinafine 250 mg daily for 6 weeks. She has a follow-up appointment with her emulsification operator in 3 weeks. Patient will call us if she decides to make a visit to infectious disease or if her condition does not improve. documented in this encounter Plan of Treatment Upcoming Encounters Date Type Department Care Team (Late st Contact Info) Description 02/27/2025 1:00 PM EST Appointment [facility] V[facility] Lab 800 [facility] [address] [place] [address] 02/27/2025 2:30 PM EST Office Visit [facility] [place] [address] [place] [address] Feroz Elliott MD 800 [place] [address] documented as of this encounter Visit Diagnoses [...] documented as of this encounter Care Teams Asphalt Heater Operator Relationship Specialty Start Date End Date Rosita Jordan APRN [address] [place] [address] PCP - General 01/01/21 Tyler Sanchez MD [address] [facility] [address] [place] [address] Referring Physician 12/11/20 documented as of this encounter
--- OUTSIDE RECORDS SUMMARY | 2024-10-23 14:47 | XMS_ITS | Clinical Summary ---
Author Organization [facility] Address [address] [place] [address] Care Team Providers Care Lay Out Machine Operator Name Role Phone Tyler Sanchez MD Unavailable [phone] Rosita Jordan APRN Primary Care Provider [phone] Allergies Active Allergy Reactions Criticality Noted Date [...] Orders Only [facility] [address] [place] [address] Norma Sosa APRN Onychomycosis of nail of digit of hand (Primary Dx) 09/28/2024 Orders Only [facility] [address] [facility], [address]nd [place] [address] Mushtaq Arteaga MD 09/26/2024 Telephone [facility] [address] [place] [address] Mushtaq Arteaga MD 09/25/2024 3:00 PM EDT Office Visit [facility] [address] [place] [address] Mushtaq Arteaga MD Nail lesion (Primary Dx) 09/25/2024 Travel 09/11/2024 Community Orders Community Practice [address] [place] [address] Skyler Fallon MD Malignant melanoma of nail [...] Vascular Lab [address] [place] [address] 02/27/2025 2:30 PM EST Office Visit [facility] [place] [address] [place] [address] Feroz Elliott MD [address] [place] [address] Health Maintenance Due Date Last [...] (2 of 2 - PCV) 01/20/2017 01/21/2016 [id number] Vaccine (3 - Moderna risk series) 07/23/2020 [...] PM EDT) Case Report Surgical Pathology Case: [id number] Authorizing Provider: Norma Sosa APRN Collected: 09/25/2024 1620 Ordering Location: [facility] Received: 09/26/2024 0807 Oncology Clinic Pathologist: Kierra Loomis MD Specimen: Hand, Digit Right, thumb 09/27/2024 2:13 PM EDT [facility] Final Diagnosis A. THUMBNAIL, BIOPSY: - ONYCHOMYCOSIS. - NAIL PLATE WITH ENTRAPPED PIGMENT-LADEN MACROPHAGES. - NO MALIGNANCY IDENTIFIED. 09/27/2024 2:13 PM EDT [facility] at 1413 EDT Clinical Information right hand thumb lesion L60.9 - Nail lesion [ICD-10-CM] 09/27/2024 2:13 PM EDT [facility] Gross Description A. THUMB Received in formalin labeled t humb , are 2 white-liu skin shaves that range from 0.4-0.5 cm in greatest dimension. Entirely submitted in cassette A1. Cold Time: 0 Sylvie Mendoza 09/27/2024 2:13 PM EDT [facility] Tissue Structure of digit of right hand / Unknown Non-blood Collection / Unknown 09/25/2024 4:20 PM EDT 09/26/2024 8:07 AM EDT us Norma Sosa APRN LAB PATHOLOGY ORDERABLES Fin al Result [facility] [address] [place] [address] * PUNCH BIOPSY (09/25/2024 4:16 PM EDT) [...] poor cosmetic result Alternatives discussed: No treatment [place] protocol: Procedure explained and questions answered to [...] Result from Last 3 Months Insurance [facility]ICARE [facility] Care Teams Lay Out Machine Operator Relationship Specialty Start Date End Date Rosita Jordan APRN [address] [place] [address] PCP - General 01/01/21 Tyler Sanchez MD [address] [place] [address] Referring Physician 12/11/20
[2024-10-23 14:48] LABS: Microscopic, Urine URINE MICROSCOPIC (MICROSCOPIC)
--- OUTSIDE RECORDS SUMMARY | 2024-10-23 14:48 | XMS_ITS | Referral Summary ---
Author Organization [employer] ([place], [place], [place], [place]) Address [address] [place] [address] Care Team Providers Care Studio Producer Name Role Phone Unavailable Primary Care Provider [...] Date Cali rded Speak language other than Turkmen at home Not on file 05/06/2023 Want [...] on file Medical Devices Implanted Type Area Waybill Clerk Device Identifier Shelf Expiration Date Model / Serial / Lot Cage T/Plif 10mm [id number] - [id number] Implanted:Qty: 1 on 10/22/2022 by Tyler Gill MD at [facility] IMPLANTS N/A: Spine Lumbar J &J:DEPUY:DEPUY SPINE [id number] / / [id number] Bone Vivigen Frmble Cell 10 Bl-1600-003 - [id number] Implanted:Qty: 1 on 10/22/2022 by Tyler Gill MD at [facility] IMPLANTS N/A: Spine Lumbar LIFENET:LIFENET TRANSPLANT SRV 09/17/2023 BL-1600-0 [id number] / Scr Spne Radhames Fix Fen 5x50mm -550 - [id number] Implanted:Qty: 2 on 10/22/2022 by Tyler Gill MD at [facility] IMPLANTS N/A: Spine Lumbar J &J:DEPUY:DEPUY SPINE 50 / 50 / Jordin Conn Expedium 200mm Ti 1797-76-555 - [id number] Implanted:Qty: 1 on 10/22/2022 by Tyler Gill MD at [facility] IMPLANTS N/A: Spine Lumbar J &J:DEPUY:DEPUY SPINE 1797-76-5 55 / [id number] / Mis Ambar Ply Scrw Set Ti 1867-15-000 - [id number] Implanted:Qty: 4 on 10/22/2022 by Tyler Gill MD at [facility] IMPLANTS N/A: Spine Lumbar J &J:DEPUY:DEPUY SPINE -0 00 / -0 00 / Cement Spinal Confidence 2839-10-000 - [id number] Implanted:Qty: 1 on 10/22/2022 by Tyler Gill MD at [facility] IMPLANTS N/A: Spine Lumbar J &J:DEPUY:DEPUY SPINE 07/16/2024 2839-10-0 00 / / [id number] Bone Putty Stimulan 5cc 620-005 - [id number] Implanted:Qty: 1 on 10/22/2022 by Tyler Gill MD at [facility] IMPLANTS N/A: Spine Lumbar BIOCOMPOSITES 09/15/2025 620-005 / / [id number] Connector End 5.5x5.5 1797-77-555 - [id number] Implanted:Qty: 1 on 10/22/2022 by Tyler Gill MD at [facility] IMPLANTS N/A: Spine Lumbar J &J:DEPUY:DEPUY SPINE 77-5 55 / [id number] / Insurance MEDICARE PART A B [facility] SUPP Advance Directives For more information, please contact: [phone] * Full Code (Latest Code Status on File) Date Activated Date Inactivated Comments 10/22/2022 11:49 AM 10/27/2022 6:34 PM
--- OUTSIDE RECORDS SUMMARY | 2024-10-23 14:48 | XMS_ITS | Clinical Summary ---
Author Organization [email or web address] ([place], [place], [place], [place]) Address [address] [place] [address] Care Team Providers Care Degreasing Wheel Operator Name Role Phone Unavailable Primary Care [...] Date Cali rded Speak language other than Amharic at home Not on file 05/06/2023 Want [...] 01/21/2016, 2015 Medical Devices Implanted Type Area Informatics Spec Device Identifier Shelf Expiration Date Model / Serial / Lot Cage T/Plif 10mm [id number] - [id number] Implanted:Qty: 1 on 10/22/2022 by Tyler Gill MD at [facility] IMPLANTS N/A: Spine Lumbar J &J:DEPUY:DEPUY SPINE [id number] / / [id number] Bone Vivigen Frmble Cell 10 Bl-1600-003 - [id number] Implanted:Qty: 1 on 10/22/2022 by Tyler Gill MD at [facility] IMPLANTS N/A: Spine Lumbar LIFENET:LIFENET TRANSPLANT SRV 09/17/2023 BL-1600-0 03 / [id number] / Scr Spne Radhames Fix Fen 5x50mm -550 - [id number] Implanted:Qty: 2 on 10/22/2022 by Tyler Gill MD at [facility] IMPLANTS N/A: Spine Lumbar J &J:DEPUY:DEPUY SPINE -5 50 / 50 / Jordin Conn Expedium 200mm Ti 179-76-555 - [id number] Implanted:Qty: 1 on 10/22/2022 by Tyler Gill MD at [facility] IMPLANTS N/A: Spine Lumbar J &J:DEPUY:DEPUY SPINE -5 55 / -5 55 / Mis Ambar Ply Scrw Set Ti 1866--000 - [id number] Implanted:Qty: 4 on 10/22/2022 by Tyler Gill MD at [facility] IMPLANTS N/A: Spine Lumbar J &J:DEPUY:DEPUY SPINE 15-0 00 / 15-0 00 / Cement Spinal Confidence 2839-10-000 - [id number] Implanted:Qty: 1 on 10/22/2022 by Tyler Gill MD at [facility] IMPLANTS N/A: Spine Lumbar J &J:DEPUY:DEPUY SPINE 07/16/2024 2839-10-0 00 / / [id number] Bone Putty Stimulan [facility] 620-005 - [id number] Implanted:Qty: 1 on 10/22/2022 by Tyler Gill MD at [facility] IMPLANTS N/A: Spine Lumbar BIOCOMPOSITES 09/15/2025 620-005 / / [id number] Connector End 5.5x5.5 1797-77-555 - [id number] Implanted:Qty: 1 on 10/22/2022 by Tyler Gill MD at [facility] IMPLANTS N/A: Spine Lumbar J &J:DEPUY:DEPUY SPINE 17977-5 55 / [id number] / Insurance MEDICARE PART A B Advance Directives For more information, please contact: [phone] * Full Code (Latest Code Status on File) Date Activated Date Inactivated Comments 10/22/2022 11:49 AM 10/27/2022 6:34 PM
--- OUTSIDE RECORDS SUMMARY | 2024-10-23 14:48 | XMS_ITS | Encounter Summary ---
Author Organization [facility] Address [address] [place] [address] Care Team Providers Care Filer Metal Patterns Name Role Phone Yair Donahue MD Primary Care Provider [phone] Tyler Sanchez MD Unavailable [phone] Rosita Jordan APRN Primary Care Provider [phone] Encounter Details Date Type Department Care Team (Late st Contact Info) Description 12/01/2020 Community [facility] Community [facility] [address] [place] [address] Rosita Jordan, RESERVATIONS MANAGER [address] [place] [address] Bilateral carotid artery stenosis (Primary Dx) Social [...] EST Appointment [facility] [address] [facility] [address] [place] [address] 02/27/2025 2:30 PM EST Office Visit [facility] [place] [address] [facility] [place] [address] Feroz Elliott MD [address] [place] [address] documented as of this encounter Visit Diagnoses Diagnosis Bilateral carotid artery stenosis- Primary Occlusion and stenosis of carotid artery without mention of cerebral infarction documented in this encounter Care Teams Filer Metal Patterns Relationship Specialty Start Date End Date Yair Donahue MD [address] [place] [address] PCP - General 08/29/20 12/31/20 Rosita Jordan APRN [address] [place] [address] PCP - General 01/01/21 Tyler Sanchez MD [address] [address] Referring Physician 12/11/20 documented as of this encounter
--- NOTE | 2024-10-23 15:00 | US_ITS ---
FINAL REPORT CLINICAL HISTORY: gross hematuria FINDINGS: ULTRASOUND BLADDER WITH POST VOID RESIDUAL Bladder volumes were estimated based on 3 dimensional measurements, pre- and postvoid. Prevoid bladder volume: 55 mls Postvoid bladder volume: 3.5 mls Bilateral ureteral jets are visualized. IMPRESSION: Estimated bladder volumes as above with small postvoid residual . Reviewed, Interpreted and Dictated by Rogerio Andujar MD Transcribed by Heidi Lemon Authenticated and [facility]
[2024-10-23 15:06] LABS: Hematocrit 39.6 % (37.0-47.0); Hemoglobin 13.1 g/dL (12.2-16.2); Immature Granulocytes % 0.2 %; Mean Corpuscular HGB Conc 33.1 g/dL (31.8-35.4); Mean Corpuscular Hemoglobin 28.9 pg (27.0-31.2); Mean Corpuscular Volume 87.2 fl (81-99); Nucleated Red Blood Cells % 0 %; Platelet Count 241 K/mm3 (142-424); Red Blood Count 4.54 M/mm3 (4.20-5.40); Red Cell Distribution Width-SD 42.5 fL; White Blood Count 9.1 K/mm3 (4.8-10.8)
--- NOTE | 2024-10-23 15:15 | US_ITS ---
FINAL REPORT TECHNIQUE: Multiple sonographic images of the kidneys were obtained in the longitudinal and transverse planes. CLINICAL HISTORY: .GROSS HEMATURIA / ABD/PELVIC PAIN // PAINFUL URINATION FINDINGS: The right kidney measures 10.7 cm in lged-ze-bulz length. There is no hydronephrosis, mass or stone. Cortical echogenicity and cortical thickness are within normal limits. The left kidney measures 10.9 cm in fqbx-hd-ebog length. There is no hydronephrosis, mass or stone. Cortical echogenicity and cortical thickness are within normal limits. IMPRESSION: Morphologically normal kidneys bilaterally. Reviewed, Interpreted and Dictated by Rogerio Andujar MD Transcribed by Betty Vu Authenticated and [facility]
[2024-10-23 15:18] LABS: Alanine Aminotransferase 20 U/L (12-78); Albumin Level 4.4 g/dl (3.5-5.0); Albumin/Globulin Ratio 1.7 (1.1-1.8); Alkaline Phosphatase 118 U/L (38-126); Anion Gap 17.5 mEq/L (5-15); Aspartate Amino Transferase 31 U/L (14-36); Bilirubin,Total 0.4 mg/dl (0.2-1.3); Blood Urea Nitrogen 7 mg/dl (7-17); Calcium 9.3 mg/dl (8.4-10.2); Carbon Dioxide 28 mmol/L (22.0-30.0); Chloride 99 mmol/L (98-107); Creatinine,Serum 0.60 mg/dl (0.52-1.04); Estimated Glomerular Filt Rate 98 ml/min (>60); GFR (African American) 118 ML/MIN (>60); Globulin 2.6 g/dL (1.3-3.2); Glucose 269 mg/dl (74-100); Potassium 4.5 mmoL/L (3.5-5.1); Sodium 140 mmol/L (136-145); Total Protein,Serum 7.0 g/dl (6.3-8.2)
[2024-10-23 15:31] LABS: Color,Urine YELLOW (Yellow); Glucose,Urine (UA) Negative (Negative); Ketones,Urine TRACE (Negative); Leukocyte Esterase,Urine Negative (Negative); PH,Urine 5.5 (5.0-8.5); Protein,Urine 1+ (Negative); Urobilinogen,Urine 0.2 EU/dl (0.2)
[2024-10-23 15:39] LABS: Bilirubin,Urine Negative (Negative)
[2024-10-23 15:41] LABS: Specific Gravity, Urine 1.021 (1.005-1.030)
[2024-10-23 19:32] LABS: Bacteria,Urine 2+ /lpf; RBC,Urine TNTC #/hpf (0-3)
== END 2024-10-23 23:59 | disposition home or self-care (01) ==
LOC: RAD 14:45
PROVIDERS: PCP Nurse Practitioner Family; Visit Provider Nurse Practitioner Family
DX: R39.198 Other difficulties with micturition (principal); R31.0 Gross hematuria; R39.9 Unspecified symptoms and signs involving the genitourinary system
CPT/HCPCS: 36415; 76770; 76857; 80053; 81001; 85025; 87086

== ENCOUNTER 2024-11-02 19:00 | Emergency (ER) | payer MEDICARE, BC, SELFPAY ==
--- OUTSIDE RECORDS SUMMARY | 2024-09-25 15:00 | XMS_ITS | Encounter Summary ---
Author Organization Healthcare Address [address] [place] [address] Care Team Providers Care Admin Dir Name Role Phone Tylre Sanchez MD Unavailable [phone] Rosita Jordan APRN Primary Care Provider [phone] Reason for Referral * Consultation (Routine) - Authorized Specialty Diagnoses / Procedures Referred By Contac t Referred To Contact Infectious Diseases Diagnoses Nail lesion Mushtaq Arteaga MD [address] [address] Phone: tel: fax: Referral ID Status Reason Start Date Expiration Date Visits Requested Visits Authorized [id number] Authorized Specialty Services Required 09/28/2024 03/30/2026 1 1 Reason for Visit * Reason Comments Consult Possible melonma und er fingernal * Consultation (Routine) - Closed Specialty Diagnoses / Procedures Referred By Contact Referred To Contact Surgical Oncology / Hematology and Oncology Diagnoses Fingernail abnormalities Skyler Fallon MD [address] [place] [address] Phone: tel: fax:[phone] [facility] Multidisciplinary Oncology Clinic [address] [place] [address] Phone: tel: fax: Referral ID Status Reason Start Date Expiration Date V isits Requested Visits Authorized [id number] Closed Specialty Services Required 09/17/2024 03/19/2026 1 1 Encounter Details Date Type Department Care Team (Late st Contact Info) Description 09/25/2024 3:00 PM EDT Office Visit [facility] Multidisciplinary Oncology Clinic [address] [place] [address] Mushtaq Arteaga MD [address] [place] [address] Nail lesion (Primary Dx) Social [...] yet assigned --Radiation Oncologist: Not yet assigned --Store Consultant: Skyler Fallon MD --Genetics: not indicated -TREATMENT: [...] Date BACK SURGERY x3 CARDIAC CATHETERIZATION 12/12/2019 [facility] SECTION, CLASSIC HYSTERECTOMY [3] Family History Problem [...] poor cosmetic result Alternatives discussed: No treatment [place] protocol: Procedure explained and questions answered to [...] EST Appointment [facility] [address] [facility] [address] [place] [address] 02/27/2025 2:30 PM EST Office Visit [facility] [place] [address] [facility] [place] [address] Feroz Elliott MD [address] [place] [address] Scheduled Referrals Name Type Priority Associated Diagnoses [...] PM EDT) Case Report Surgical Pathology Case: [id number] Authorizing Provider: Norma Sosa APRN Collected: 09/25/2024 1620 Ordering Location: [facility] Received: 09/26/2024 0807 Oncology Clinic Pathologist: Kierra Loomis MD Specimen: Hand, Digit Right, thumb 09/27/2024 2:13 PM EDT [facility] Final Diagnosis A. THUMBNAIL, BIOPSY: - ONYCHOMYCOSIS. - NAIL PLATE WITH ENTRAPPED PIGMENT-LADEN MACROPHAGES. - NO MALIGNANCY IDENTIFIED. 09/27/2024 2:13 PM EDT [facility] at 1413 EDT Clinical Information right hand thumb lesion L60.9 - Nail lesion [ICD-10-CM] 09/27/2024 2:13 PM EDT [facility] Gross Description A. THUMB Received in formalin labeled t humb , are 2 white-liu skin shaves that range from 0.4-0.5 cm in greatest dimension. Entirely submitted in cassette A1. Cold Time: 0 Sylvie B Pettey 09/27/2024 2:13 PM EDT [facility] Tissue Structure of digit of right hand / Unknown Non-blood Collection / Unknown 09/25/2024 4:20 PM EDT 09/26/2024 8:07 AM EDT Norma Sosa APRN LAB PATHOLOGY ORDERABLES Fin al Result [facility] [address] [place] [address] * PUNCH BIOPSY (09/25/2024 4:16 PM EDT) [...] poor cosmetic result Alternatives discussed: No treatment [place] protocol: Procedure explained and questions answered to [...] Tolerated well, no immediate complications us Mushtaq Arteaag MD IN CLINIC/BEDSIDE ORDERABL ES Final Result [...] documented as of this encounter Care Teams Admin Dir Relationship Specialty Start Date End Date Rosita Jordan APRN [address] [place] [address] PCP - General 01/01/21 Tyler Sanchez MD [address] [facility] [address] [place], [place] [id number] Referring Physician 12/11/20 documented as of this encounter
[2024-11-02] VITALS (7 sets, daily range): BP systolic 153–208; BP diastolic 61–92; PULSE 66–77; RESP 16; TEMP 36.6–37.1; O2SAT 95–99; BMI 26.6
--- OUTSIDE RECORDS SUMMARY | 2024-11-02 20:06 | XMS_ITS | Encounter Summary ---
Author Organization Healthcare Address [facility] [place] [id number] Care Team Providers Care Provider Relations Representative Name Role Phone Tyler Sanchez MD Unavailable [phone] Rosita Jordan APRN Primary Care Provider [phone] Encounter Details Date Type Department Care Team [...] Vascular Lab [address] [place] [address] 02/27/2025 2:30 PM EST Office Visit [facility] [place] [address] [place] [address] Feroz Elliott MD [address] [place] [address] documented as of this encounter Visit Diagnoses Not on filedocumented in this encounter Additional Health Concerns Assessment Noted Time A fall risk assessment has been complete d for the patient 09/25/2024 3:37 PM EDT A Body Mass Index follow-up plan has been documented for the patient 09/28/2024 10:56 AM EDT documented as of this encounter Care Teams Provider Relations Representative Relationship Specialty Start Date End Date Rosita Jordan APRN [address] [place] [address] PCP - General 01/01/21 Tyler Sanchez MD [address] [address] Referring Physician 12/11/20 documented as of this encounter
--- OUTSIDE RECORDS SUMMARY | 2024-11-02 20:06 | XMS_ITS | Encounter Summary ---
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 [place] [address] Feroz Elliott MD [address] [place] [address] documented as of this encounter Visit Diagnoses [...] documented as of this encounter Care Teams Veneer Stock Grader Relationship Specialty Start Date End Date Rosita Jordan APRN [address] [place] [address] PCP - General 01/01/21 Tyler Sanchez MD [address] [address] Referring Physician 12/11/20 documented as of this encounter
--- OUTSIDE RECORDS SUMMARY | 2024-11-02 20:06 | XMS_ITS | Clinical Summary ---
Author Organization [facility] Address [address] [place] [address] Care Team Providers Care Director Music Name Role Phone Rosita Jordan APRN Primary Care Provider [phone] Social History Tobacco Use Types Packs/Day Years Used Date Smoking Tobacco: Never Assessed Abuse Screen Answer Date Recorded Unsafe at Home or Work/School Not on file Feels Threatened by Someone? Not on file 12/2022 Does Anyone Keep You from Co ntacting Others or Doint Things Outside the Home? Not on file 01/24/2023 Physical Sign of Abuse Present Not on file 1 Housing Stability Answer Date Recorded Current Living Arrangements Not on file 12/2022 Potentially Unsafe Housing Conditions Not on rommel e 01/24/2023 Family and Community Support Answer Adithya e Recorded Help with Day-to-Day Activities Not on file 01/24/2023 Lonely or Isolated Not on file 01/24/2023 Employment Answer Date Recorded Do you want help finding or keeping work or a ty b? Not on file 01/24/2023 Disabilities Answer Date Recorded Concentrating, Remembering, or Making Decisions Difficulty Not on file 01/24/2023 Doing Errands Independently Difficulty Not on fi le 01/24/2023 Education Answer Date Recorded Help with school or training? Not on file Preferred Language Not on file 01/24/2023 Comments Unknown Sex and Gender Information Value Date Recorded Sex Assigned at Not on file Legal Sex Female 12:43 PM EDT Gender Identity Not on file Sexual Orientation Not on file Plan of Treatment Health Maintenance Due Date Last Done Comments DXA SCAN 1949 TDAP/TD VACCINES (1 - Tdap) 1968 MAMMOGRAM 1989 COLOGUARD 1994 COLON CANCER SCREENING 5 YEAR SIGMOIDOSCOPY 1994 COLONOSCOPY 1994 [address] CANCER SCREENING 1994 CT COLONOGRAPHY 1994 FECAL OCCULT BLOOD TEST 1994 FIT Testing (1 year) 1994 Pneumococcal Vaccine 50+ (1 of 1 - PCV) 12/25/1999 ZOSTER VACCINE (1 of 2) 12/25/1999 ANNUAL PHYSICAL 08/13/2021 HEPATITIS C SCREENING 08/13/2021 COVID-19 Vaccine (1 - 2023- season) 2023 INFLUENZA VACCINE 01/16/2025 Insurance MEDICARE A & B [facility] Care Teams Director Music Relationship Specialty Start Date End Date Rosita Jordan APRN PCP - General Internal Medicine 08/27/21
--- OUTSIDE RECORDS SUMMARY | 2024-11-02 20:06 | XMS_ITS | Data Portability ---
Author Organization [facility] ADMIN Address [address] [place] [address] Assessment No assessment recorded. Plan of Treatment Reminders Order Date Submit Date Provider Last Modified By Organization Details Last Modified Time Details Appointments None recorded. Lab urinalysis, dipstick 2022 023 [email or web address] [facility], [address], [address], [place], [address], 11:42:37 Referral None recorded. Procedures None recorded. Surgeries None recorded. Imaging None recorded. Medication Orders doxazosin 2 mg tablet 2022 023 [place] [facility] #[id number], [address], [id number], 3 11:45:00 Flonase Allergy Relief 50 mcg/actuati on nasal spray,suspe nsion 2022 023 [address] [id number], [address], [id number], 3 15:10:58 ipratropium bromide 21 mcg (0.03 %) nasal spray 2022 023 [facility] #[id number], [address], [id number], 3 11:12:28 Patient TargetsNo targets recorded. Patient Instructions Encounter Date Encounter Id Patient Instructions Last Modified By Organization Details Last Modified Time 10/06/2022 [id number] 1-Discussed findings with Ms. Henry and Dr. Polanco. 2-F/u with Dr. Polanco this date. 3-F/u hearing testing as directed. [email or web address] Not available 10/06/2022 11:05:43 Reason for Referral None Reported. Results Created Date Observation Date Name Description Value Unit Range Abnormal Flag Note LastModifiedBy Organization Detail LastModifiedTime 06/24/19 23 06/23/2022 urina lysis , dipst ick Leukocytes (reference range) negati ve Not Available [address], [address], 06/23/2022 14:45:47 06/24/19 23 06/23/2022 urina lysis , dipst ick Nitrite (reference range:) negati ve Not Available [address], [address], 06/23/2022 14:45:47 06/24/19 23 06/23/2022 urina lysis , dipst ick Urobilinogen (reference range) 0.2 Not Available [address], [address], 06/23/2022 14:45:47 06/24/19 23 06/23/2022 urina lysis , dipst ick Protein (reference range) negati ve Not Available [address], [address], 06/23/2022 14:45:47 06/24/19 23 06/23/2022 urina lysis , dipst ick pH (reference range 5-8.5) 7.5 Not Available [address], [address], 06/23/2022 14:45:47 06/24/19 23 06/23/2022 urina lysis , dipst ick Blood (reference range:) negati ve Not Available [address], [address], 06/23/2022 14:45:47 06/24/19 23 06/23/2022 urina lysis , dipst ick Specific [place] (reference range) 1.015 Not Available [address], [address], 06/23/2022 14:45:47 06/24/19 23 06/23/2022 urina lysis , dipst ick Ketone (reference range) trace Not Available [address], [address], 06/23/2022 14:45:47 06/24/19 23 06/23/2022 urina lysis , dipst ick Bilirubin (reference range) small Not Available [address], [address], 06/23/2022 14:45:47 06/24/19 23 06/23/2022 urina lysis , dipst ick Glucose (reference range) negati ve Not Available [address], [address], 06/23/2022 14:45:47 03/16/20 23 03/16/2023 urina lysis , dipst ick Leukocytes (reference range) negati ve Not Available [address], [address], 03/16/2023 11:19:44 03/16/20 23 03/16/2023 urina lysis , dipst ick Nitrite (reference range:) negati ve Not Available [address], [address], 03/16/2023 11:19:44 03/16/20 23 03/16/2023 urina lysis , dipst ick Urobilinogen (reference range) 0.2 Not Available [facility] [address] [place] [address] [address], [place], [address], 03/16/2023 11:19:44 03/16/20 23 03/16/2023 urina lysis , dipst ick Protein (reference range) negati ve Not Available [facility] [address] [place] [address] [address], [place], [address], 03/16/2023 11:19:44 03/16/2003/16/2023 urina lysis , dipst ick pH (reference range 5-8.5) 5.0 Not Available [facility] [address] [place] [address] [address], [place], [address], 03/16/2023 11:19:44 03/16/20 23 03/16/2023 urina lysis , dipst ick Blood (reference range:) negati ve Not Available [facility] [address] [place] [address] [address], [place], [address], 03/16/2023 11:19:44 03/16/2003/16/2023 urina lysis , dipst ick Specific [place] (reference range) 1.010 Not Available [facility] [address] [place] [address] [address], [place], [address], 03/16/2023 11:19:44 03/16/2003/16/2023 urina lysis , dipst ick Ketone (reference range) negati ve Not Available [facility] [address] [place] [address] [address], [place], [address], 03/16/2023 11:19:44 03/16/20 23 03/16/2023 urina lysis , dipst ick Bilirubin (reference range) negati ve Not Available [facility] [address] [place] [address] [address], [place], [address], 03/16/2023 11:19:44 03/16/20 23 03/16/2023 urina lysis , dipst ick Glucose (reference range) 2000+ Not Available [facility] [address], [place], [address], 03/16/2023 11:19:44 03/16/20 23 03/16/2023 urina lysis , dipst ick Color (reference range: yellow-brown ) Yellow Not Available [facility] [address], [place], [address], 03/16/2023 11:19:44 10/05/19 23 09/23/2022 CT, abdom en + pelvi s, w/ contr ast No observ ation record ed. [address] (Med Record) [address], [place], [address], 10/04/2022 15:40:55 10/07/19 23 09/23/2022 MRI, brain + brain stem, w/o contr ast No observ ation record ed. [email or web address] Not Available 2022 10:22:37 10/07/19 23 10/06/2022 audio gram No observ ation record ed. [email or web address] Not Available 2022 13:30:16 Result Notes None recorded. Problems Name Problem SNOMED Code Status Onset Date Resolution Date Notes Provider Name and Address Organization Details Recorded Time Hypertensive disorder 39411746 Active 2022 BRADLEY Mendoza - LPNT [facility] [place] 3 12:58:14 Diabetes mellitus 75231061 Active 2022 BRADLEY Mendoza LPNT [facility] [place] 3 12:58:23 Kidney stone 30397391 Active 2022 BRADLEY Mendoza LPNT [facility] [place] 3 12:58:32 Dizziness 206628894 Active 2022 ARNOLD LIM, AUD [address] [facility], [place], [address] , [facility] & [place] 3 11:05:25 Problem Notes None recorded. Procedures Surgical History Date Name Laterality Status Provider Name and Address Organization Details Recorded Time 3 Urethral Dilation (female) completed Jaciel Torrez Jr, MD [address] [place] [address], [address], [place], [address], [facility] & [place] 07/16/2022 12:48:07 Imaging Results None recorded. Procedure Notes None recorded. Medical Equipment None Reported. Allergies Allergen ID Allergen Name Allergen Category Reaction Reaction Severity Criticality Documentation Date Start Date Code Code System Note Provider Name and Address Organization Details Recorded Time 73300 sulfameth oxazole / trimethop rim medicatio n Not available Not available Not available 01/04/2023 53930 RxNorm Sonja Grajeda NP, S [address] [facility], [place], [address], [facility] & [place] 3 11:05:05 Medications Name Sig Start Date [...] Updated DateTime 07/16/2022 162.56 cm 26.6 kg/m2 53764.82 g Praveena Papo [facility] & [place] 07/16/2022 11:41:34 Date Recorded Body height Body mass index (BMI) Body weight Body temperature Heart rate Systolic And Diastolic Provider Name and Address Organization Details Last Updated DateTime 3 162.56 cm 26 kg/m2 24216.8 8 g 97.3 [degF] 85 /min 124/83 mm[Hg] Jenna Davis [facility] & [place] 3 10:27:03 Date Recorded Body height Body mass index (BMI) Body weight Systolic And Diastolic Provider Name and Address Organization Details Last Updated DateTime 01/25/2023 162.56 cm 26.1 kg/m2 87799.04 g 120/68 mm[Hg] Jenna Davis [facility] & [place] 01/25/2023 13:42:29 Date Recorded Body height Body mass index (BMI) Body weight Body temperature Systolic And Diastolic Provider Name and Address Organization Details Last Updated DateTime 03/16/2023 162.56 cm 27 kg/m2 09162.7 2 g 97.3 [degF] 186/84 mm[Hg] Loreta Melvin [facility] & [place] 11:17:30 Social History None recorded. Functional Status [...] Time Father No current problems or disability [email or web address] Not available 11/2022 12:57:54 Mother No current problems or disability [email or web address] Not available 11/2022 12:57:54 Notes:Mother- Fathe r- Medical History Condition Response Diabetes Y Hearing Loss Y Hypertension Y Gynecological HistoryNo gynecological history recorded. Obstetrics History GPAL:G 0 P 0 0 0 0 Past Encounters Encounter ID Performer Location Encounter Start Date Encounter Closed Date Diagnosis/Indication Diagnosis SNOMED-CT Code Diagnosis ICD10 Code Diagnosis Note [id number] Jaciel Torrez Jr, MD [facility] [address] [address] 06/23/2022 12:51:16 06/23/2022 13:55:05 Nocturia 811991184 R35.1 Patient with increased lower urinary tract symptoms. She has a history of urethral stenosis and has benefitted from urethral dilations in the past. Unfortunat berenice we do not have any urethral dilators at the [facility] office today. I am going to place her on a 2 week course of Gemtesa for her symptoms and will bring her back in 2 weeks for dilation. [id number] aJciel Torrez Jr, MD [facility] [place] [address] 07/16/2022 11:40:34 07/16/2022 11:55:20 Urethral stenosis 861756054 N35.82 patient with history of urethral stenosis. He is having lower urinary tract symptoms and has benefitted from urethral dilations in the past and requests urethral dilation today. Urethral dilation was performed under local anesthetic with a 22, 24, 26 and 28 Iranian female sound. There was some mild resistance to passage. Patient tolerated the procedure well. Neosporin instilled afterwards she is return on an as-needed basis. [id number] Michelle Polanco MD [facility] [place] [address] 10/06/2022 10:12:39 10/06/2022 11:00:45 Dizziness and giddiness 289353669 R42 Explained to the patient given her upcoming back surgery we are limited in what we can do in regards to her dizziness as this involves maneuverin g that she couldn't tolerate at this time. Will get her an audiogram for further evaluation and baseline. Will follow up with her after her surgery, sooner if needed. [id number] FRANKIE ROMANO [facility] [address], [facility] [place] [id number] 10/06/2022 10:50:58 10/06/2022 11:01:01 Dizziness 096459967 R42 [id number] Michelle Polanco MD [facility] [address], [facility] [place] [id number] 01/25/2023 13:19:07 01/25/2023 14:18:13 Dizziness 697708186 R42 Posterior rhinorrhea 758 [address]1360 R09.82 Pleased with improvemen t on patient's dizziness. Would like for her to try flonase and ipratropiu m bromide to see if this alleviates her rhinorrhea . Should she not see any improvemen t in the next couple of months, I will see her back. Otherwise, I will see her back as needed. Anterior rhinorrhea 2772 [address]372 J34.89 [id number] Sonja Grajeda NP, S [facility] [address] [place] [address] 03/16/2023 11:00:41 03/16/2023 11:46:11 Slowing of urinary stream 60154127 R39.12 UA negative for infectionB ladder scan 18mlDiscus sed blood sugar management Start Doxazosin 2mg dailyRTC in 8 weeks for f/u of Doxazosin treatment Nocturia 717166350 R35.1 History of calculus of kidney 358938137 Z87.442 History of diabetes mellitus type 2 880100766 Z86.39 Long-term current use of anticoagulant 967888593 Z79.01 Increased frequency of urination 525870436 R35.0 Urgent denita marixa to urinate 54701525 R39.15 Health Concerns Section Related Observation LastModified by Organization Detai ls LastModified Time None Recorded Concern Status LastModified by Organization Details LastModified Time None Recorded Advance Directives Directive None Recorded Payers Insurance Date Sequence Insurance Name Policy Number Policy Loco Covered Member ID Loco Member ID Guarantor Name 11/05/2023 1 [place] Marie Henry [id number] Marie Henry 11/05/2023 2 [place] [id number] Marie Henry [id number] Marie Henry Notes Date Note Type [...] years with relief. 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 She is schedule for a revision back surgery in the next few weeks. It has been several years since having a hearing test. Michelle Polanco MD [address], [place], [address] 10/08/2022 09:42:51 10/06/2022 text/html Ms. Henry was see n today for an audiologic evaluation due to recent symptoms of dizziness/vertigo, aural fullness/pressure, and ear pain per Dr. Michelle Polanco MD. Ms. Henry denies any sense of hearing loss, drainage, tinnitus, and excessive noise exposure. Otoscopic inspection was unremarkable bilaterally. FRANKIE ROMANO [address], [place], [address], [facility] 10/06/2022 11:05:59 01/25/2023 text/html 72 yo [...] nasal. Michelle Polanco MD [address], [place], [address], [facility] & [place] 01/25/2023 14:33:04 03/16/2023 text/html 72 yowf presents [...] Dr. Sanchez. Sonja Grajeda NP, S [address] [facility], [place], [address], [facility] - [place] & [place] 03/16/2023 11:45:47 OBGyn Episode No OBEpisode recorded.
--- OUTSIDE RECORDS SUMMARY | 2024-11-02 20:06 | XMS_ITS | Clinical Summary ---
Author Organization [employer] ([place], [place], [place], [place]) Address [address] [place] [address] Care Team Providers Care Movie Theater Usher Name Role Phone Unavailable Primary Care Provider [...] Date Cali rded Speak language other than Bolivian at home Not on file 05/06/2023 Want [...] 01/21/2016, 2015 Medical Devices Implanted Type Area Wall Attendant Device Identifier Shelf Expiration Date Model / Serial / Lot Cage T/Plif 10mm [id number] - [id number] Implanted:Qty: 1 on 10/22/2022 by Tyler Gill MD at [facility] IMPLANTS N/A: Spine Lumbar J &J:DEPUY:DEPUY SPINE [id number] / / [id number] Bone Vivigen Frmble Cell 10 Bl-1600-003 - [id number] Implanted:Qty: 1 on 10/22/2022 by Tyler Gill MD at [facility] IMPLANTS N/A: Spine Lumbar LIFENET:LIFENET TRANSPLANT SRV 09/17/2023 BL-1600-0 03 / [id number] / Scr Spne Radhames Fix Fen 5x50mm -550 - [id number] Implanted:Qty: 2 on 10/22/2022 by Tyler Gill MD at [facility] IMPLANTS N/A: Spine Lumbar J &J:DEPUY:DEPUY SPINE -5 50 / 50 / Jordin Conn Expedium 200mm Ti 179-76-555 - [id number] Implanted:Qty: 1 on 10/22/2022 by Tyler Gill MD at [facility] IMPLANTS N/A: Spine Lumbar J &J:DEPUY:DEPUY SPINE -5 55 / -5 55 / Mis Ambar Ply Scrw Set Ti 1866--000 - [id number] Implanted:Qty: 4 on 10/22/2022 by Tyler Gill MD at [facility] IMPLANTS N/A: Spine Lumbar J &J:DEPUY:DEPUY SPINE 15-0 00 / 15-0 00 / Cement Spinal Confidence 2839-10-000 - [id number] Implanted:Qty: 1 on 10/22/2022 by Tyler Gill MD at [facility] IMPLANTS N/A: Spine Lumbar J &J:DEPUY:DEPUY SPINE 07/16/2024 2839-10-0 00 / / [id number] Bone Putty Stimulan [facility] 620-005 - [id number] Implanted:Qty: 1 on 10/22/2022 by Tyler Gill MD at [facility] IMPLANTS N/A: Spine Lumbar BIOCOMPOSITES 09/15/2025 620-005 / / [id number] Connector End 5.5x5.5 1797-77-555 - [id number] Implanted:Qty: 1 on 10/22/2022 by Tyler Gill MD at [facility] IMPLANTS N/A: Spine Lumbar J &J:DEPUY:DEPUY SPINE 17977-5 55 / 179-5 55 / Insurance MEDICARE PART A B Advance Directives For more information, please contact: [phone] * Full Code (Latest Code Status on File) Date Activated Date Inactivated Comments 10/22/2022 11:49 AM 10/27/2022 6:34 PM
--- OUTSIDE RECORDS SUMMARY | 2024-11-02 20:06 | XMS_ITS | Clinical Summary ---
Author Organization [facility] Address [address] [place] [address] Care Team Providers Care Material Man Name Role Phone Tyler Sanchez MD Unavailable [phone] Rosita Jordan APRN Primary Care Provider [phone] Allergies Active Allergy Reactions Criticality Noted Date [...] Orders Only [facility] [address] [place] [address] Norma Sosa APRN Onychomycosis of nail of digit of hand (Primary Dx) 09/28/2024 Orders Only [facility] [address] [facility], [address]nd [place] [address] Mushtaq Arteaga MD 09/26/2024 Telephone [facility] [address] [place] [address] Mushtaq Arteaga MD 09/25/2024 3:00 PM EDT Office Visit [facility] [address] [place] [address] Mushtaq Arteaga MD Nail lesion (Primary Dx) 09/25/2024 Travel 09/11/2024 Community Orders [facility] [address] [place] [address] Skyler Fallon MD Malignant melanoma of nail [...] [address] [place] [address] 02/27/2025 2:30 PM EST Office Visit [facility] [place] [address] [place] [address] Feroz Elliott MD [address] [place] [address] Health Maintenance Due Date Last [...] (2 of 2 - PCV) 01/20/2017 01/21/2016 [id number] Vaccine (3 - Moderna risk series) 07/23/2020 [...] PM EDT) Case Report Surgical Pathology Case: [id number] Authorizing Provider: Norma Sosa APRN Collected: 09/25/2024 1620 Ordering Location: [facility] Received: 09/26/2024 0807 Oncology Clinic Pathologist: Kierra Loomis MD Specimen: Hand, Digit Right, thumb 09/27/2024 2:13 PM EDT [facility] Final Diagnosis A. THUMBNAIL, BIOPSY: - ONYCHOMYCOSIS. - NAIL PLATE WITH ENTRAPPED PIGMENT-LADEN MACROPHAGES. - NO MALIGNANCY IDENTIFIED. 09/27/2024 2:13 PM EDT [facility] at 1413 EDT Clinical Information right hand thumb lesion L60.9 - Nail lesion [ICD-10-CM] 09/27/2024 2:13 PM EDT [facility] Gross Description A. THUMB Received in formalin labeled t humb , are 2 white-liu skin shaves that range from 0.4-0.5 cm in greatest dimension. Entirely submitted in cassette A1. Cold Time: 0 Sylvie eMndoza 09/27/2024 2:13 PM EDT [facility] Tissue Structure of digit of right hand / Unknown Non-blood Collection / Unknown 09/25/2024 4:20 PM EDT 09/26/2024 8:07 AM EDT us Norma Sosa APRN LAB PATHOLOGY ORDERABLES Fin al Result [facility] [address] [place] [address] * PUNCH BIOPSY (09/25/2024 4:16 PM EDT) [...] poor cosmetic result Alternatives discussed: No treatment [place] protocol: Procedure explained and questions answered to [...] Result from Last 3 Months Insurance MEDICARE [facility] Care Teams Material Man Relationship Specialty Start Date End Date Rosita Jordan APRN [address] [place] [address] PCP - General 01/01/21 Tyler Sanchez MD [address] [place] [address] Referring Physician 12/11/20
--- OUTSIDE RECORDS SUMMARY | 2024-11-02 20:06 | XMS_ITS | Encounter Summary ---
Author Organization Healthcare Address [address] [place] [address] Care Team Providers Care Slag Worker Name Role Phone Tyler Sanchez MD Unavailable [phone] Rosita Jordan GERENTOLOGICAL PHYSIOTHERAPIST Primary Care Provider [phone] Encounter Details Date Type Department Care Team (Latest Contact Info) Description 10/02/2024 Orders Only [facility] [address] [place] [address] Norma Sosa, GERENTOLOGICAL PHYSIOTHERAPIST [address] [place] [address] Onychomycosis of nail of digit of hand [...] very hard for her to get to [facility]. Patient stated that she has seen her drawer in already and has startedthe treatment with terbinafine 250 mg daily for 6 weeks. She has a follow-up appointment with her drawer in in 3 weeks. Patient will call us if she decides to make a visit to infectious disease or if her condition does not improve. documented in this encounter Plan of Treatment Upcoming Encounters Date Type Department Care Team (Late st Contact Info) Description 02/27/2025 1:00 PM EST Appointment [facility] [address] [facility] [address] [place] [address] 02/27/2025 2:30 PM EST Office Visit [facility] [place] [address] [place] [address] Feroz Elliott MD [address] [place] [address] documented as of this encounter Visit Diagnoses [...] documented as of this encounter Care Teams Slag Worker Relationship Specialty Start Date End Date Rosita Jordan APRN [address] [place] [address] PCP - General 01/01/21 Tyler Sanchez MD [address] [facility] [address] [place] [address] Referring Physician 12/11/20 documented as of this encounter
--- OUTSIDE RECORDS SUMMARY | 2024-11-02 20:06 | XMS_ITS | Data Portability ---
Author Organization [facility] Address [address] [place] [address] Care Team Providers Care Elevator Constructor Helper Name Role Phone ROMANA TOLEDO Referring Provider Assessment Encounter Date Assessment Date Assessment LastModified by Organization Details LastModified Time 05/27/2022 05/27/2022 Imaging: L-spine MRI [facility] 05-26-2022 radiology report and imaging reviewed by myself and [...] proceed with surgery and will speak with surgery aide. Patient will need a cardiac clearance due to carotid stenosis and is taking Plavix. Patient verbalized understanding of instructions and is agreeable to plan. Not available 05/28/2022 11:09:00 11/29/2022 11/29/2022 Mrs. [...] her postop pain medication to [facility] in [place]. Not available 11/29/2022 13:31:19 03/07/2023 03/07/2023 ASSESSMENT: [...] like to have the imaging completed at [facility] as this is more convenient for her and she will bring a copy of the CD to our office for us to review the images. [email or web address] Not available 03/07/2023 16:24:14 Plan of Treatment Reminders Order Date Submit Date Provider Last Modified By Organization Details Last Modified Time Details Appointments NEW PATIENT UROLOGY 2024 01:00P M JASON AGUILAR MD Not available Not available Not available Lab None recorded . Referral None recorded . Procedures None recorded . Surgeries None recorded . Imaging None recorded . Medication Orders Medrol (Will) 4 mg tablets in a dose pack 2022 023 MELV[id number], [address] [address] [place], [id number], 03/07/2023 13:38:12 Patient TargetsNo targets recorded. Patient Instructions Encounter Date Encounter Id Patient Instructions Last Modified By Organization Details Last Modified Time 08/14/2018 [id number] Spent 15 total minutes with the patient today. Greater than 50% of this time was spent counseling/coordi nation of care as documented in my assessment and plan above. [email or web address] Not available 08/14/2018 13:35:52 Reason for Referral None Reported. Results Created Date Observation Date Name Description Value Unit Range Abnormal Flag Note LastModifiedBy Organization Detail LastModifiedTime 08/15/1908/14/2018 XR, lumbo sacra l spine , 2 or [address] [place] [address] Patigertrude t Name: GAYLA chirinos : [birth year] 49 Patigertrude t Orderi ng Provid er: GREY GILL EXAM [...] Lanny Leary MD on 019 2:22 PM [facility] Radiology [facility] [address] [place] [address], [phone], 09/04/2018 10:35:34 06/09/19 23 06/09/2022 CT, lumba r spine , w/o contr ast [facility] [address] [place] [address] Patigertrude t Name: GAYLA chirinos : [birth year] 49 Patigertrude t Orderi ng Provid er: GREY Vinson DEBORAH EXAM DATE: 2022 EXAM: CT LUMBAR [...] status post discec gildardo, interb jennifer graft, laundry machine operator ior fusion and kulwant ctomy from L3 throug h S1 with additi onal iliac screws in place. There is beam harden ing artifa ct from the pedicl e screws and laundry machine operator ior fusion hardwa re. There is no eviden ce of loosen ing of the hardwa re. There is levocu rvatur e from L1 throug h L4, and mild dextro curvat ure from L4 throug h S1. There is mild laundry machine operator ior listhe sis of L3 on L4. [...] SI joints . IMPRES AVELINO: 1. The patigertrude t is status post PLIF from L3 throug [...] Anel staples MD on 023 1:55 PM [email or web address] [facility] Radiology [address], [address], 06/29/2022 14:16:55 06/09/19 23 06/09/2022 XR, lumbo sacra l spine , 2 or 3 view, bendi ng only [address] [address] Michelle chirinos Name: GAYLA chirinos : [birth year] 49 Patigertrude t Orderi ng Provid er: GREY GILL EXAM [...] Lanny Leary MD on 023 2:58 PM [email or web address] [facility] Radiology [facility] [address] [place] [address], [phone], 06/29/2022 14:16:54 11/30/1911/29/2022 XR, lumbo sacra l spine , 2 or 3 view [facility] [address] [place] [address] [place] [address] Patigertrude t Name: GAYLA chirinos : [birth year] 49 Patigertrude t Orderi ng Provid er: GREY GILL EXAM DATE: 2022 EXAM: XR LUMBAR AP/LAT [...] Lanny Leary MD on 023 1:56 PM [email or web address] [facility] Radiology [facility] [address] [place] [address], [phone], 12/16/2022 08:01:55 03/07/20 23 03/07/2023 XR, lumbo sacra l spine , compl ete [facility] [address] [place] [address] [place] [address] Patigertrude t Name: GAYLA chirinos : [birth year] 49 Patigertrude t Orderi ng Provid er: GREY Vinson DEBORAH EXAM DATE: 2022 EXAM: XR LUMBAR COMPLE [...] Lanny Leary MD on 2022 1:29 PM [facility] Radiology [facility] [address] [facility], [place], [address], 03/28/2023 08:05:33 03/23/20 23 03/23/2023 CT, lumba r spine , w/o contr ast No observ ation record ed. [email or web address] [facility] (X-Ray) [address] [place] [address] [address], [place], [address], 04/01/2023 16:59:23 05/30/19 24 05/26/2022 MRI, lumba r spine , w/o contr ast No observ ation record ed. [email or web address] [facility] (Scheduling) [address], [place], [address], 06/23/2023 09:50:03 08/17/19 25 07/12/2024 MRI, lumba r spine , w/o contr ast No observ ation record ed. BARCODE Not Available 2024 10:30:41 Result Notes Documentation Provider Name and Address Organization Details Recorded Time Xr, Lumbosacral Spine, 2 Or 3 View : [facility] [address] [place] [address] Patient Name: JENNIFER HENRY Patient : 1950 [...] Interpreted By: Corey Leary MD Rebecca [facility] 09/04/2018 10:35:35 Ct, Lumbar Spine, W/o Contrast : [address] [address] Patient Name: JENNIFER HENRY Patient : 1950 [...] L2-L3. Interpreted By: Jason Singh MD [facility] 06/29/2022 14:16:55 Xr, Lumbosacral Spine, 2 Or 3 View, Bending Only : [facility] [address] [place] [address] Patient Name: JENNIFER HENRY Patient : 1950 [...] is seen Interpreted By: Corey Leary MD [facility] 06/29/2022 14:16:54 Xr, Lumbosacral Spine, 2 Or 3 View : [address] [address] Patient Name: JENNIFER HENRY Patient : 1950 [...] are seen at other levels. Interpreted By: Croey Leary MD [facility] 12/16/2022 08:01:55 Xr, Lumbosacral Spine, Complete : [address] [address] Patient Name: JENNIFER HENRY Patient : 1950 [...] seen without obvious aneurysm. Interpreted By: Corey Laery MD [facility] 03/28/2023 08:05:33 Problems Name Problem SNOMED Code Status Onset Date Resolution Date Notes Provider Name and Address Organization Details Recorded Time Greater trochante nevin pain syndrome 0696052 Active 2015 From Automated Load;Provi basilio: Susana Crawford;Statu s: Active [facility] 3 08:02:40 Low back pain 347756438 Active 2015 From Automated Load;Provi basilio: Olga Gill; atus: Active [facility] 3 08:02:40 Lumbosacr al radiculop athy 3725296 Active 2015 From Automated Load;Provi basilio: Olga Gill;St atus: Active Not Available [facility] 6 03:15:57 Notes:Some problems listed i n Document: #[id number] could not be added to this patient's chart. Please review this document and add these problems to the patient's chart manually as needed. Problem Notes None recorded. Procedures Surgical History Date Name Laterality Status Provider Name and Address Organization Details Recorded Time 8 POSTERIOR LUMBAR INTERBODY FUSION, ADDITIONAL INTERSPACE (SURG) completed Rebecca Pennington [facility] 01/19/2018 11:15:41 Other completed [facility] 02/10/2017 15:08:32 Wrist arthroscopy/ricardo addie completed [facility] 02/10/2017 15:09:05 Back Surgery completed [facility] 02/10/2017 15:09:16 Imaging Results None recorded. Procedure Notes None recorded. Medical Equipment None Reported. Allergies Allergen ID Allergen Name Allergen Category Reaction Reaction Severity Criticality Documentation Date Start Date Code Code System Note Provider Name and Address Organization Details Recorded Time 174104 Substance with sulfonami de structure and antibacte rial mechanism of action (substanc e) medicatio n Not available Not available Not available 03/12/20162012 88679 8003 SNOMED Comme nt: Creat ed By: Clement Fatima ated Date: 2012 2:37: 08 PM; Not Available [facility] 6 08:30:10 785373 shrimp allergeni c extract food Not available Not available Not available 10/28/20222022 08783 2 RxNorm Other react ions and sever ities : 'Naus ea And Vomit ing'. Lien Maloney [facility] 3 08:02:39 Medications Name Sig Start [...] 0 Not Available Not Available Not Available [place] 10 mg-325 mg tablet Take 1 tablet 3 times a day by oral route as needed. 2022 active Not Available Not Available Not Avai lable [place] 7.5 mg-325 mg tablet Three times a [...] oral route as directed . 2022 active [facility]: [phone] 0-61 Not Available Not Available Not Available Mills-3 active Medicati on Descript ion: omega-3 polyunsa turated fatty acids; Route:or al; refills: 0 Not Available Not Available Not Available Vitals Date Recorded Body weight Systolic And Diastolic Provider Name and Address Organization Details Last Updated DateTime 05/27/2022 12526.59 g 142/78 mm[Hg] [facility] 05/27/2022 14:40:35 Date Recorded Body height Body mass index (BMI) Body weight Systolic And Diastolic Provider Name and Address Organization Details Last Updated DateTime 08/14/2018 162.56 cm 26.6 kg/m2 47860.82 g 130/80 mm[Hg] Huong Valenciaholz [facility] 08/14/2018 13:34:01 Date Recorded Body height Body mass index (BMI) Body weight Systolic And Diastolic Provider Name and Address Organization Details Last Updated DateTime 11/29/2022 162.56 cm 27.3 kg/m2 39923.19 g 132/72 mm[Hg] Huong Valenciaholz [facility] 11/29/2022 13:17:10 Date Recorded Body height Body mass index (BMI) Body weight Provider Name and Address Organization Details Last Updated DateTime 03/07/2023 162.56 cm 27.3 kg/m2 97426.19 g Jasiel Albright Chandler [facility] 03/07/2023 12:13:56 Social History Question Answer Notes LastModified by Organizat ion Details LastModified Time Tobacco Smoking Status Former Smoker Huong Valenciaholz [facility] 02/10/2017 15:08:22 What Was The Date Of [...] Response Diabetes Y Arthritis Y Hypertension Y Kidney Disease Y High Cholesterol Y Gynecological HistoryNo gynecological history recorded. Obstetrics History GPAL:G 0 P 0 0 0 0 Past Encounters Encounter ID Performer Location Encounter Start Date Encounter Closed Date Diagnosis/Indication Diagnosis SNOMED-CT Code Diagnosis ICD10 Code Diagnosis Note [id number] OLGA GILL MD [facility] [address] [place] [address] 0 02/10/2017 14:52:36 02/14/2017 09:07:33 Spinal stenosis of lumbar region 52695083 M48.307 [id number] SHENA ANTONIO PA-C [facility] [address] [place] [address] 0 10/20/2017 13:08:19 10/24/2017 15:24:00 Spondylosis without myelopathy 14005008 M47.9 [id number] OLGA GILL MD [facility] [address] [place] [address] 11/28/2017 14:49:44 12/13/2017 20:36:03 Spondylolisthesis 343466351 M43.10 Minutes spent reviewing images, discussing the diagnosis and coordinati ng care: 25 min [id number] OLGA GILL MD [facility] [address] [place] [address] 01/30/2018 08:57:05 02/02/2018 13:11:45 [id number] OLGA GILL MD [facility] [address] [place] [address] 02/20/2018 10:24:33 02/20/2018 14:12:19 Postoperative care 179585757 Z48.89 [id number] GORDY PEARSON PA-C [facility] [address] [place] [address] 08/14/2018 13:03:59 08/15/2018 14:58:33 Postoperative care 928548502 Z48.89 Mrs. Henry follows up from a [...] agrees with the plan as stated above. [id number] ALESIA TUTTLE PA-C [facility] [address] [place] [address] 05/27/2022 14:23:25 05/29/2022 04:33:18 Sacral back pain 27657834 M54.50 [id number] OLGA GILL MD SURGERY SCHEDULE [address] [place] [address] 10/29/2022 13:45:08 11/01/2022 14:32:41 [id number] OLGA GILL MD [facility] [address] [place] [address] 11/29/2022 13:07:32 11/30/2022 04:17:18 Postoperative care 172793579 Z48.89 [id number] MICHAEL PENN, WATER JET OPERATOR [facility] [address] [place] [address] 03/07/2023 11:37:16 03/08/2023 05:09:10 Lumbar radiculopathy 392652511 M54.16 Lumbar spondylosis 74862 0009 M47.896 History of lumbar fusion 0162580269 9106 Z98.1 Health Concerns Section Related Observation LastModified by Organization Detai ls LastModified Time None Recorded Concern Status LastModified by Organization Details LastModified Time None Recorded Advance Directives Directive None Recorded Payers Insurance Date Sequence Insurance Name Policy Number Policy Loco Covered Member ID Loco Member ID Guarantor Name 05/27/2022 2 [place] [id number] Jennifer Henry [id number] Jennifer Henry 05/27/2022 2 [place] [id number] Jennifer Henry [id number] Jennifer Henry 08/16/2024 1 [place] (MEDICARE) Jennifer Henry [id number] Jennifer Henry 08/16/2024 2 [place] [id number] Jennifer Henry [id number] Jennifer Henry Notes Date Note Type [...] with lumbar films. GORDY PEARSON PA-C [address] [place], [address], [facility] 08/14/2018 13:46:34 05/27/2022 text/html Patient is a [...] and saddle anesthesia. ALESIA TUTTLE PA-C [address] [place], [address], [facility] 05/28/2022 11:09:46 11/29/2022 text/html Mrs. Henry is a 71-year-old female status post extension of fusion to L2-3. She presents today for first postoperative visit. She has been doing well with expected incisional pain. She has been using her brace as instructed. She has been walking with the assistance of a walker. OLGA GILL MD [address] [place], [address], [facility] 11/29/2022 13:34:19 03/07/2023 text/html Ms. Henry is a 72-year-old female who returns to the office in follow-up of her fusion extension to L2-[address] Gill on 10/22/2022. MICHAEL PENN APRN [facility] [place], [address], [facility] 03/07/2023 16:25:15 OBGyn Episode No OBEpisode recorded.
--- OUTSIDE RECORDS SUMMARY | 2024-11-02 20:06 | XMS_ITS | Referral Summary ---
Author Organization [facility] ([place], [place], [place], [place]) Address [address] [place] [address] Care Team Providers Care Eyelet Riveter Name Role Phone Unavailable Primary Care Provider [...] Date Cali rded Speak language other than Mexican at home Not on file 05/06/2023 Want [...] on file Medical Devices Implanted Type Area Shuttle Filler Device Identifier Shelf Expiration Date Model / Serial / Lot Cage T/Plif 10mm [id number] - [id number] Implanted:Qty: 1 on 10/22/2022 by Tyler Gill MD at [facility] IMPLANTS N/A: Spine Lumbar J &J:DEPUY:DEPUY SPINE [id number] / / [id number] Bone Vivigen Frmble Cell 10 Bl-1600-003 - [id number] Implanted:Qty: 1 on 10/22/2022 by Tyler Gill MD at [facility] IMPLANTS N/A: Spine Lumbar LIFENET:LIFENET TRANSPLANT SRV 09/17/2023 BL-1600-0 [id number] / Scr Spne Radhames Fix Fen 5x50mm -550 - [id number] Implanted:Qty: 2 on 10/22/2022 by Tyler Gill MD at [facility] IMPLANTS N/A: Spine Lumbar J &J:DEPUY:DEPUY SPINE 50 / 50 / Jordin Conn Expedium 200mm Ti 1797-76-555 - [id number] Implanted:Qty: 1 on 10/22/2022 by Tyler Gill MD at [facility] IMPLANTS N/A: Spine Lumbar J &J:DEPUY:DEPUY SPINE 1797-76-5 55 / [id number] / Mis Ambar Ply Scrw Set Ti 1867-15-000 - [id number] Implanted:Qty: 4 on 10/22/2022 by Tyler Gill MD at [facility] IMPLANTS N/A: Spine Lumbar J &J:DEPUY:DEPUY SPINE -0 00 / -0 00 / Cement Spinal Confidence 2839-10-000 - [id number] Implanted:Qty: 1 on 10/22/2022 by Tyler Gill MD at [facility] IMPLANTS N/A: Spine Lumbar J &J:DEPUY:DEPUY SPINE 07/16/2024 2839-10-0 00 / / [id number] Bone Putty Stimulan 5cc 620-005 - [id number] Implanted:Qty: 1 on 10/22/2022 by Tyler Gill MD at [facility] IMPLANTS N/A: Spine Lumbar BIOCOMPOSITES 09/15/2025 620-005 / / [id number] Connector End 5.5x5.5 1797-77-555 - [id number] Implanted:Qty: 1 on 10/22/2022 by Tyler Gill MD at [facility] IMPLANTS N/A: Spine Lumbar J &J:DEPUY:DEPUY SPINE 77-5 55 / [id number] / Insurance MEDICARE PART A B [facility] SUPP Advance Directives For more information, please contact: [phone] * Full Code (Latest Code Status on File) Date Activated Date Inactivated Comments 10/22/2022 11:49 AM 10/27/2022 6:34 PM
--- OUTSIDE RECORDS SUMMARY | 2024-11-02 20:06 | XMS_ITS | Data Portability ---
Author Organization [place] - Dr. José Miguel Cortés, [facility], [employer] Address [address] [place] [address] Assessment No assessment recorded. Plan of Treatment Reminders Order Date Submit Date Provider Last Modified By Organization Details Last Modified Time Details Appointments None recorded. Lab None recorded. Referral None recorded. Procedures None recorded. Surgeries None recorded. Imaging None recorded. Medication Orders ondansetro n 8 mg disintegra ting tablet [address] [facility] [address], [id number], 9 11:30:24 clonazepam 0.5 mg tablet 2018 [address] [facility] [address], [id number], 9 11:45:12 metformin 500 mg tablet [address] [facility] [address], [id number], 9 11:30:24 Levemir U-100 Insulin 100 unit/mL subcutaneo us solution [address] [facility] [address], [id number], 9 11:30:23 Admelog SoloStar U-100 Insulin lispro 100 unit/mL subcutaneo us pen 2018 [address] [facility] [address], [id number], 9 15:08:32 azithromyc in 250 mg tablet [address] [facility] [address], [id number], 9 11:30:26 atorvastat in 20 mg tablet [address] [facility] [address], [id number], 9 11:30:23 lisinopril 20 mg-hydroch lorothiazi de 12.5 mg tablet [address] [facility] [address], [id number], 9 11:30:26 amlodipine 5 mg tablet [address] [facility] [address], [id number], 9 11:30:25 fluoxetine 40 mg capsule [address] [facility] [address], [id number], 9 11:30:25 Patient TargetsNo targets recorded. Patient InstructionsNo instructions recorded. Reason for Referral None Reported. Problems Name Problem SNOMED Code Status Onset Date Resolution Date Notes Provider Name and Address Organization Details Recorded Time Hypertensive disorder 64701506 Active 2018 [place] - Dr. José Miguel Cortés, [facility] 9 10:31:42 Type 2 diabetes mellitus 22372145 Active 2018 [place] - Dr. José Miguel Cortés, [facility] 9 10:31:51 Depressive disorder 86003505 Active 2018 [place] k[place] - Dr. José Miguel Cortés, [facility] 9 11:25:20 Insomnia 195361377 Active [address] [facility] 9 11:26:51 Benign essential hypertension 9942765 Active [address] [facility] 9 11:26:54 Nausea 357751502 Active 2018 [place] k[place] - Dr. José Miguel Cortés, [facility] 9 11:29:12 Hypercholester olemia 02797972 Active [address] [facility] 9 11:29:14 Acute sinusitis 34569988 Active [address] [facility] 9 11:29:47 Migraine 86831759 Active [address] [facility] 9 15:00:16 Problem Notes None recorded. Procedures Surgical History Date Name Laterality Status Provider Name and Address Organization Details Recorded Time 04/18/19 10 [address] [address] [facility] 05/02/2018 10:28:07 04/18/18 [address] [facility] 05/02/2018 10:27:[address] [facility] 05/02/2018 10:27:26 Imaging Results None recorded. Procedure [...] 9 113 /min 17 /min 98.1 [degF] 05364.8 4 g 139/90 mm[Hg] daniel Cortés, [facility] 9 10:35:44 Social History Question Answer Notes LastModified by Organizat ion Details LastModified Time Tobacco Smoking Status Former [facility]oker Not [facility]/12/2020 03:15:16 Marital Status [email or web address] Informat ion not available 05/02/2018 What Was The Date Of Your Most Recent Tobacco Screening? 05/02/2018 [id number] Information not available 02/12/2020 At What Age Did You Start Smoking Tobacco? 34 [id number] Information not available 02/12/2020 How Many Years Have You Smoked Tobacco? 24 [id number] Information not available 02/12/2020 Sex: Unknown Functional Status Question Answer Note LastModified by Organizat ion Details LastModified Time What is your level of alcohol consumption? Occasional [id number] Information not available 02/12/2020 Are you currently employed? No [id number] Information not available 02/12/2020 What is your occupation? retired [id number] Information not available 02/12/2020 Mental Status None recorded. Family History Relationship Description Onset Age of this Age Resolved Age Notes LastModified by Organization Details LastModified Time Unspecified Relation Depressive disorder [email or web address] Not available 10:29:36 Unspecified Relation Type 2 diabetes mellitus [id number] Not available 10:29:49 Unspecified Relation Hypertensive disorder [email or web address] Not available 10:30:00 Unspecified Relation Osteoarthrit is [email or web address] Not available 10:30:13 Unspecified Relation Alzheimer's disease [email or web address] Not available 10:30:22 Unspecified Relation Coronary arterioscler osis [id number] Not available 10:30:36 Unspecified Relation Hypercholest erolemia [id number] Not available 10:31:14 Father Cerebrovascu lar accident [email or web address] Not available 05/02/2018 10:31:23 Medical History Condition [...] N Thrombophilias N Hernia N Menopause N Glaucoma N Hypothyroidism N Lung Disease N Defects or Inherited Disease N Developmental or Behavioral Disorders N Bipolar N Breast Problem N Measles N Difficulty Swallowing N Cancer (type) N Anesthesia Complications N Breathing Problems N Skin Ulcer N Infectious [place] N Other Sleep Problem N Meniere's disease [...] N Chronic Pain N Abuse/Domestic Violence N Diverticulitis N Low Blood Pressure N Chronic Back Pain N Epilepsy N Reflux/GERD N Sleep Apnea N Plasma transfusion N Bronchitis N Heart Disease N Pre-Eclampsia N Osteoporosis N Gynecological HistoryNo gynecological history recorded. Obstetrics History GPAL:G 0 P 0 0 0 0 Immunizations Vaccine Type Date Status Note Provider Nam e and Address Organization Details Recorded Time Influenza, high-dose, trivalent, PF 01/16/2018 completed [place], [place] - Dr. José Miguel Cortés, [facility] 05/02/2018 10:27:52 Past Encounters Encounter ID Performer Location Encounter Start Date Encounter Closed Date Diagnosis/Indication Diagnosis SNOMED-CT Code Diagnosis ICD10 Code Diagnosis Note [id number] José Miguel Cortés, Main Office [address] [facility] [place] [address] 05/02/2018 10:03:12 05/03/2018 10:33:42 Type 2 diabetes mellitus 63875547 E11.37X1 Depressive disorder 3548 9007 F32.9 Insomnia 131845595 G47.0 0 Benign ess ential hypertension 6436119 I10 Hypercholesterolemia 136 99729 E78.00 Nausea 052434403 R11.0 Acute sinusitis 35297207 J01.90 Health Concerns Section Related Observation LastModified by Organization Detai ls LastModified Time None Recorded Concern Status LastModified by Organization Details LastModified Time None Recorded Advance Directives Directive None Recorded Payers Insurance Date Sequence Insurance Name Policy Number Policy Loco Covered Member ID Loco Member ID Guarantor Name 03/26/2020 1 [place] Marie Henry [id number] Marie Henry 05/03/2018 2 [place] [id number] Marie Henry [id number] Marie Henry 05/20/2018 2 [place] Marie Henry Notes Date Note Type Note Provider Name and Address Organization Details Recorded Time 05/02/2018 text/html Generic HPI TemplateReported bypatient.Notes:Michelle t is here for medication refills. [place] k[place] - Dr. José Miguel Cortés, [facility] 05/02/2018 12:47:31 OBGyn Episode No OBEpisode recorded.
--- OUTSIDE RECORDS SUMMARY | 2024-11-02 20:06 | XMS_ITS | Encounter Summary ---
Author Organization [facility] Address [address] [id number] Care Team Providers Care Chain Person Name Role Phone Tyler Sanchez MD Unavailable [phone] Rosita Jordan APRN Primary Care Provider [phone] Encounter Details Date Type Department Care Team ([facility] st Contact Info) Description 09/26/2024 Telephone [facility] [address] [place] [address] Mushtaq Arteaga MD [address] [address] Social History Tobacco Use Types [...] optimal time of day to reach caller: [phone] Note: Please do not reply to this [...] Lab [address] [facility] [address] [place] [address] 02/27/2025 2:30 PM EST Office Visit [facility] [place] [address] [place] [address] Feroz Elliott MD [address] [place] [address] documented as of this encounter Visit Diagnoses Not on filedocumented in this encounter Additional Health Concerns Assessment Noted Time A fall risk assessment has been complete d for the patient 09/25/2024 3:37 PM EDT A Body Mass Index follow-up plan has been documented for the patient 09/28/2024 10:56 AM EDT documented as of this encounter Care Teams Chain Person Relationship Specialty Start Date End Date Rosita Jordan APRN [address] [place] [address] PCP - General 01/01/21 Tyler Sanchez MD [address] [facility] [address] [place] [address] Referring Physician 12/11/20 documented as of this encounter
--- OUTSIDE RECORDS SUMMARY | 2024-11-02 20:06 | XMS_ITS | Encounter Summary ---
Author Organization Healthcare Address [address] [place] [address] Care Team Providers Care Supervisor Shop Name Role Phone Yair Donahue MD Primary Care Provider [phone] Tyler Sanchez MD Unavailable [phone] Rosita Jordan APRN Primary Care Provider [phone] Encounter Details Date Type Department Care Team (Late st Contact Info) Description 12/01/2020 Community [facility] [address] [place] [address] Rosita Jordan, SILVERSMITH APPRENTICE [address] [place] [address] Bilateral carotid artery stenosis (Primary Dx) Social [...] EST Appointment [facility] V[facility] [address] [facility] [address] [place] [address] 02/27/2025 2:30 PM EST Office Visit [facility] [place] [address] [facility] [place] [address] Feroz Elliott MD [address] [place] [address] documented as of this encounter Visit Diagnoses Diagnosis Bilateral carotid artery stenosis- Primary Occlusion and stenosis of carotid artery without mention of cerebral infarction documented in this encounter Care Teams Supervisor Shop Relationship Specialty Start Date End Date Yair Donahue MD [address] [place] [address] PCP - General 08/29/20 12/31/20 oRsita Jordan APRN [address] [place] [address] PCP - General 01/01/21 Tyler Sanchez MD [address] [address] Referring Physician 12/11/20 documented as of this encounter
--- OUTSIDE RECORDS SUMMARY | 2024-11-02 20:06 | XMS_ITS | Encounter Summary ---
Author Organization Healthcare Address [address] [id number] Care Team Providers Care Refueling Rampman Name Role Phone Tyler Sanchez MD Unavailable [phone] Rosita Jordan APRN Primary Care Provider [phone] Encounter Details Date Type Department Care Team (Late st Contact Info) Description 09/28/2024 Orders Only [facility] [address] [place] [address] Mushtaq Arteaga MD [address] [facility] [address] [place] [address] Social History Tobacco Use Types [...] Vascular Lab [address] [place] [address] 02/27/2025 2:30 PM EST Office Visit [facility] [address] [place] [address] Feroz Elliott MD [address] [place] [address] documented as of this encounter Visit Diagnoses Not on filedocumented in this encounter Additional Health Concerns Assessment Noted Time A fall risk assessment has been complete d for the patient 09/25/2024 3:37 PM EDT A Body Mass Index follow-up plan has been documented for the patient 09/28/2024 10:56 AM EDT documented as of this encounter Care Teams Refueling Rampman Relationship Specialty Start Date End Date Rosita Jordan APRN [address] [place] [address] PCP - General 01/01/21 Tyler Sanchez MD [address] [address] Referring Physician 12/11/20 documented as of this encounter
--- NOTE | 2024-11-02 20:20 | XR_ITS ---
PROCEDURE INFORMATION: Exam: XR Chest Exam date and time: 11/02/2024 8:59 PM Age: 73 years old Clinical indication: Shortness of breath; Additional info: Short of breath TECHNIQUE: Imaging protocol: Radiologic exam of the chest. Views: 1 view. Total images: 1 COMPARISON: CT ABDOMEN PELVIS W CON 11/02/2024 8:56 PM FINDINGS: Lungs: Unremarkable. No consolidation. No pulmonary vascular congestion or edema. Pleural spaces: Unremarkable. No pleural effusion. No pneumothorax. Heart/Mediastinum: Unremarkable. No cardiomegaly. No mediastinal widening or hilar enlargement. Vasculature: Mildly atherosclerotic aortic arch. Bones/joints: Partially visualized surgical hardware in the lumbar spine. Osteopenia. Mild degenerative changes thoracic spine. Moderate degenerative changes bilateral AC joints. IMPRESSION: No radiographically acute cardiopulmonary process.
--- NOTE | 2024-11-02 20:20 | CT_ITS ---
PROCEDURE INFORMATION: Exam: CT Abdomen And Pelvis With Contrast Exam date and time: 11/02/2024 8:56 PM Age: 73 years old Clinical indication: Abdominal pain; Additional info: Abdominal pain. Painful knot on left side. TECHNIQUE: Imaging protocol: Computed tomography of the abdomen and pelvis with contrast. Total images: 300 Radiation optimization: All CT scans at this facility use at least one of these dose optimization techniques: automated exposure control; mA and/or kV adjustment per patient size (includes targeted exams where dose is matched to clinical indication); or iterative reconstruction. Contrast material: ISOVUE; Contrast volume: 75 ml; Contrast route: IV; COMPARISON: CT ABDOMEN PELVIS W CON 09/16/2023 8:24 AM FINDINGS: Lungs: Minor bibasilar dependent atelectasis. Heart: Normal heart size. Diaphragm: Small sliding hiatal hernia. Liver: Normal. No mass. Gallbladder and biliary ducts: Punctate calcified gallstone. No secondary signs for acute cholecystitis. No bile duct dilatation. Pancreas: Normal. No ductal dilation. Spleen: Calcified splenic granuloma. No splenomegaly. Adrenal glands: Normal. No mass. Kidneys and ureters: No hydronephrosis, nephrolithiasis, or renal mass. 4 mm nonobstructing distal left ureteral calculus, axial image 89 series 3. Stomach and bowel: Unremarkable stomach and duodenum. No ileus or bowel obstruction. Small bowel appears within normal limits. Unremarkable terminal ileum. Mild sigmoid diverticulosis without acute diverticulitis. Unremarkable rectum. Appendix: Nonvisualized appendix. No secondary signs for appendicitis. Intraperitoneal space: No ascites. No free air. Vasculature: Severe atherosclerotic vascular disease. Nonaneurysmal abdominal aorta. Common origin of the celiac artery and superior mesenteric artery with moderate atherosclerotic stenosis. No downstream occlusion. Numerous pelvic phleboliths. Lymph nodes: Unremarkable. No enlarged lymph nodes. Urinary bladder: Partially collapsed bladder. No bladder stones. Reproductive: Status post hysterectomy. No pelvic mass. Bones/joints: Osteopenia. Extensive postsurgical changes of the lumbosacral spine. Severe degenerative changes lumbar spine. Vertebroplasty changes upper lumbar spine. Severe degenerative change right hip. Soft tissues: Diastasis of the rectus fascia. Small fat containing umbilical hernia. Calcified bilateral gluteal injection granulomas. Mild skin thickening anterior abdominal wall. No fluid collection or mass. IMPRESSION: 1. 4 mm nonobstructing distal left ureteral stone, axial image 89 series 3. No proximal hydronephrosis. 2. Mild sigmoid diverticulosis without acute diverticulitis. 3. Small fat containing umbilical hernia. 4. Additional chronic and incidental findings
--- NOTE | 2024-11-02 20:24 | ED_ITS ---
<Statement entered by Rebecca Levy DO - 11/03/24 01:53> I was consulted by the CHEY, and we discussed the complexity of problems being addressed. I approve the treatment and management plan for this patient's care in the emergency department, thus performing a substantial portion of the medical decision making. Rebecca Levy DO Discharge Plan Disposition Patient Disposition: Home, Self-Care Prescriptions Prescriptions: No Action mupirocin 2 % ointment kit 1 applic topical BID terbinafine-hydroxypr.chitosan 250-1 mg-% kit 1 ea miscellaneous BID tramadol 50 mg tablet 50 mg PO Q6H PRN (Reason: pain disc protrusion) 30 Days Qty: 120 0RF terbinafine HCl 250 mg tablet 250 mg PO DAILY Patient Comments: TAKE 1 TABLET BY MOUTH DAILY FOR 6 WEEKS Mounjaro 2.5 mg/0.5 mL pen injector 2.5 mg SQ WEEKLY 30 Days Qty: 2.5 0RF Rx Instructions: for 4 weeks insulin glargine [Basaglar KwikPen U-100 Insulin] 100 unit/mL (3 mL) insulin pen 20 unit SQ DAILY Qty: 12 4RF (DME) pen needle, diabetic [BD Shweta 2nd Gen Pen Needle] 32 gauge x 5/32 needle See Rx Instructions .ROUTE .MEDSUPPLY Qty: 1200 0RF Rx Instructions: As directed (DME) pen needle, diabetic [TechLITE Pen Needle] 31 gauge x 3/16 needle See Rx Instructions .ROUTE .MEDSUPPLY Qty: 1200 0RF Rx Instructions: As directed amlodipine 5 mg tablet See Rx Instructions .ROUTE .COMPLEX Qty: 90 0RF Dose Instruction: TAKE 1 TABLET BY MOUTH DAILY Rx Instructions: TAKE 1 TABLET BY MOUTH DAILY atorvastatin 80 mg tablet See Rx Instructions .ROUTE .COMPLEX Qty: 90 0RF Dose Instruction: TAKE 1 TABLET BY MOUTH DAILY Rx Instructions: TAKE 1 TABLET BY MOUTH DAILY magnesium oxide 400 mg magnesium tablet 400 mg PO DAILY Qty: 90 3RF clopidogrel 75 mg tablet See Rx Instructions .ROUTE .COMPLEX Qty: 90 0RF Dose Instruction: TAKE 1 TABLET BY MOUTH DAILY Rx Instructions: TAKE 1 TABLET BY MOUTH DAILY clonazepam 0.5 mg tablet 0.25 mg PO HS Qty: 30 1RF Rx Instructions: administer 30 minutes before bedtime metformin 1,000 mg tablet 1,000 mg PO BID Qty: 180 3RF insulin aspart U-100 [Novolog FlexPen U-100 Insulin] 100 unit/mL (3 mL) insulin pen 10 unit SQ TID Qty: 30 2RF baclofen 5 mg tablet 5 mg PO TID Qty: 90 0RF Referrals Follow up/Referrals: Kev Combs II, MD [Staff Physician, Gastroenterology] - See instructions Rosita Jordan APRN [Primary Care Provider, Medical] - See instructions Activity Restrictions/Add. Instructions Additional Instructions/Restrictions: Follow-up with your PCP for further workup. Also see Dr. Combs for a colonoscopy. Clinical Impressions Clinical Impression: Nausea and vomiting Instructions Patient Instructions: DI for Acute Abdominal Pain Print Language Print Language: Guinean Discharge ED Provider: Rebecca Levy Adult HPI General Chief complaint: Abdominal Pain Stated complaint: High sugar,dizzy,weak,bloating,pain,bloating Time Seen by Provider: 11/02/24 20:02 Mode of Arrival: Ambulatory Source of Information: Patient Description of Symptoms (Recalled from ER Triage Doc. by RN): C/o abdominal pain and bloating x [address] scan ordered next week. C/o dizziness, poor appetite and not feeling well and high glucose of 200-300. Reports started on uro on Tuesday History of Present Illness HPI narrative: 73-year-old female presents to the ED today for complaint of abdominal pain with bloating, weakness, dizziness and nausea. States that she did start Mounjaro last week on Tuesday. Says that she became weak after that. She started bloating more than usual. Her last A1c was 11. She does 2 types of insulin, metformin and now started Mounjaro to try to keep her sugar under control. She says she is struggling with UTIs and does not have an appointment with Susan until the end of this month. She says she just feels tired. Related Data Home Medications ?Medication ?Instructions ?Recorded ?Confirmed mupirocin 2 % ointment topical kit 1 applic topical BI D 10/17/24 11/02/24 terbinafine 250 mg oral 1 ea miscellaneous BID 10/1711/02/24 tablet-hydroxypropyl chitosan 1 % topical kit terbinafine HCl 250 mg tablet 250 mg PO DAILY 10/26/24 11/02/24 Previous Rx's ?Medication ?Instructions ?Recorded insulin glargine 100 unit/mL (3 20 unit (0.2 mL) SQ DA BESSIE #12 mL 04/24/24 mL) subcutaneous pen (Basaglar KwikPen U-100 Insulin) pen needle, diabetic 31 gauge x #1,200 ea 04/24/2407/01 (TechLITE Pen Needle) pen needle, diabetic 32 gauge x #1,200 ea 04/24/24 (BD Shweta 2nd Gen Pen Needle) baclofen 5 mg tablet 5 mg PO TID #90 tabs 5 amlodipine 5 mg tablet See Rx Instructions .Route 0 05/23/24 .COMPLEX #90 tabs atorvastatin 80 mg tablet See Rx Instructions .Route 0 06/13/24 .COMPLEX #90 tabs magnesium oxide 400 mg PO DAILY #90 tabs clopidogrel 75 mg tablet See Rx Instructions .Route 0 09/12/24 .COMPLEX #90 tabs clonazepam 0.5 mg tablet 0.25 mg (1/2 x 0.5 mg) PO HS #30 10/10/24 tabs tramadol 50 mg tablet 50 mg PO Q6H PRN pain disc 0 10/17/24 protrusion 30 days #120 tabs tirzepatide 2.5 mg/0.5 mL 2.5 mg (0.5 mL) SQ WEEKLY 30 days 10/26/24 subcutaneous pen injector #2.5 mL (Darian) insulin aspart U-100 100 unit/mL 10 unit (0.1 mL) SQ T ID #30 mL 10/29/24 (3 mL) subcutaneous pen (Novolog FlexPen U-100 Insulin aspart) metformin 1,000 mg tablet 1,000 mg PO BID #180 tabs Allergies Allergy/AdvReac Type Severity Reaction Status Date / Time Sulfa (Sulfonamide Allergy Mild NA-NAUSEA/V Verified 10/26/24 13:04 Antibiotics) (SULFA OMITING (SULFONAMIDE ANTIBIOTICS)) [facility] Disclaimer: The information contained in this section may have been updated after the patient was seen, as this information can be updated by other users. Medical History (Updated 11/02/24 @ 22:11 by Fariba Jimenez (ED), BOBBIN MARKER) Abdominal bloating Groin pain Flank pain Abdominal pain Patient left without being seen Acute bronchitis Acute pharyngitis Abscess of sternal region Nausea Dysuria Urinary tract infection Scalp lesion Postoperative abscess Dermatitis of left foot BOM (bilateral otitis media) Left flank pain Acute maxillary sinusitis Chronic sinusitis Allergies Dizziness Hearing loss Ear pain Right hip pain CAD (coronary artery disease) Type II diabetes mellitus HLD (hyperlipidemia) HTN (hypertension) Abnormal electrocardiography Dizziness Dyspnea Chest pain Surgical History History of back surgery Family History Other Unknown family medical history Social History Smoking Status: Never smoker years smoked: 5 smoking status stop date: 10/2022 second hand exposure: No alcohol intake: never substance use type: denies use current occupational status: retired Travel in the last 8 weeks?: None household members: none housing: house current occupational exposures/hazards: No caffeine: Yes Have you lived/traveled outside [place] in past 30 days?: No Contact w/someone who lives/traveled outside US past 30 days?: No Exposure to someone with infectious disease in past 14 days?: No Do you have a fever (greater than 100.4 F or 38 C)?: No Have you tested positive for COVID-19?: No Exposed to someone with COVID-19 in past 14 days?: No Do you have a sore throat?: No Do you have a cough?: No Do you have any weakness?: No Do you have any diarrhea?: No Are you experiencing any unusual bleeding?: No Do you have any muscle aches/pain?: No Do you have any abdominal pain?: No Are you experiencing loss of taste or smell?: No Other Medical History Have you received the Flu Vaccine for this season: Yes Have you received the Pneumonia Vaccine: No ROS Obtained: Yes Systems reviewed as appropriate & no additional complaints except as documented Constitutional Constitutional: Reports as per HPI Physical Exam General General appearance: alert, anxious and in distress Head Head exam: normocephalic Eye Eye exam: Present PERRL and EOMI ENT ENT exam: Present normal oropharynx and mucous membranes moist Neck Neck exam: Present full ROM and trachea midline Respiratory Respiratory exam: Present normal lung sounds bilaterally Cardiovascular Cardiovascular exam: Present regular rate, normal rhythm, normal heart sounds, +S1 and +S2 Abdominal Exam Abdominal exam: Present soft, distention, tenderness and normal bowel sounds Abdominal tenderness: Present diffuse Extremities Exam Extremities exam: Present normal inspection, full ROM and normal capillary refill Neurological Exam Neurological exam: Present alert, oriented X3 and normal gait Skin Skin exam: Present warm, dry and intact Medical Decision Making Medical Records Medical records reviewed: Yes I reviewed the patient's medical records. Screening: Per USPSTF and CDC recommendations, given the prevalence of disease in our region, it is our hospital?s policy to screen for HIV and viral Hepatitis for all patients aged 18 and over and those with ongoing risk factors. Bart Inquiry Pt receiving controlled substance: No Bart was queried for this patient: No Vital Signs: 11/02/24 20:07 11/02/24 20:15 11/02/24 20:31 Temperature 98.7 F Temperature Source Oral Pulse Rate 67 66 Pulse Rate [Right Brachial] 74 Respiratory Rate 16 16 Blood Pressure 159/82 H Blood Pressure [Right Arm] 189/77 H Blood Pressure Mean 107 Blood Pressure Mean [Right Arm] 114 Blood Pressure Source [Right Arm] Automatic Cuff Blood Pressure Position [Right Arm] Supine 02 Sat by Pulse Oximetry 98 98 99 Oxygen Delivery Method Room Air 11/02/24 21:31 11/02/24 21:47 11/02/24 22:01 Temperature Temperature Source Pulse Rate 77 68 68 Pulse Rate [Right Brachial] Respiratory Rate 16 16 16 Blood Pressure 208/92 H 195/75 H 153/61 H Blood Pressure [Right Arm] Blood Pressure Mean 130 115 113 Blood Pressure Mean [Right Arm] Blood Pressure Source [Right Arm] Blood Pressure Position [Right Arm] 02 Sat by Pulse Oximetry 96 95 95 Oxygen Delivery Method Lab Data Lab Results 11/02/24 20:07: WBC 8.2, RBC 4.62, Hgb 13.5, Hct 40.0, MCV 86.6, MCH 29.2, MCHC 33.8, RDW 13.3, Plt Count 248, MPV 9.5, Neut % (Auto) 52.9, Lymph % (Auto) 36.1, Dewitt % (Auto) 5.9, Eos % (Auto) 4.0, Baso % (Auto) 1.0, Neut # (Auto) 4.3, Lymph # (Auto) 2.9, Dewitt # (Auto) 0.5, Eos # (Auto) 0.3, Baso # (Auto) 0.1, Sodium 138, Potassium 4.1, Chloride 104, Carbon Dioxide 26, Anion Gap 12.1, BUN 9, Creatinine 0.60, Estimated Creat Clear 55, Estimated GFR 98, Est GFR ( Amer) 118, Glucose 230 H, Calcium 9.8, Magnesium 1.5 L, Total Bilirubin 0.4, AST 28, ALT 17, Alkaline Phosphatase 94, Troponin I < 0.01, Total Protein 6.6, Albumin 4.2, Globulin 2.4, Albumin/Globulin Ratio 1.8, Amylase 46, Lipase 46 11/02/24 20:07 11/02/24 20:07 Orders (Tests/Meds): ED MEDICATIONS Generic Name Dose Route Start Last Admin Trade Name Freq PRN Reason Stop Dose Admin Sodium Chloride 8 ml 11/02/24 20:19 Sodium Chloride 0.9% 10ml Vial IV 12/02/24 20:18 NEEDED PRN dilute pepcid Discontinued Medications Generic Name Dose Route Start Last Admin Trade Name Freq PRN Reason Stop Dose Admin Famotidine 20 mg 11/02/24 20:19 11/02/24 20:31 Famotidine 20mg/2ml Vial IV 11/02/24 20:20 20 mg ONCE ONE Administration Sodium Chloride 1,000 mls @ 999 mls/hr 11/02/24 20:19 11/02/24 20:31 Sod Chlor 0.9% 1000ml Bag IV 11/02/24 21:19 999 mls/hr .Q1H1M ONE Administration Iopamidol 75 ml 11/02/24 20:54 11/02/24 20:55 Iopamidol-370 (76%);100ml Bottle IV 11/02/24 20:55 75 ml ONCE ONE Administration Ondansetron HCl 4 mg 11/02/24 20:19 11/02/24 20:32 Ondansetron 4mg/2ml Vial IV 11/02/24 20:20 4 mg ONCE ONE Administration Sodium Chloride 10 ml 11/02/24 20:54 11/02/24 20:55 Sodium Chloride 0.9% 10ml Syr (Rad Only) IV 11/02/24 20:55 10 ml ONCE ONE Administration ORDERS Category Date Time Status CT abdomen pelvis w con Stat Cat Scan 11/02/24 20:20 Completed Chest XR -- portable [XR chest portable] Stat Exams 11/02/24 20:20 Completed Amylase Stat Lab 11/02/24 20:07 Completed CBC [Complete Blood Count Auto Diff] Stat Lab 11/02/24 20:07 Completed Comprehensive Metabolic Panel Stat Lab 11/02/24 20:07 Completed Lactic Acid Stat Lab 11/02/24 20:19 Ordered Lipase Stat Lab 11/02/24 20:07 Completed Magnesium Stat Lab 11/02/24 20:07 Completed Trop I [Troponin I] Stat Lab 11/02/24 20:07 Completed Troponin I Q3H Lab 11/02/24 23:30 Ordered Troponin I Q3H Lab 11/03/24 02:30 Ordered Urinalysis and Microscopic Stat Lab 11/02/24 20:19 Ordered HEART Score History (anamnesis): Slightly suspicious ECG: Normal Age: >65 years Risk factors: No known risk factors Troponin: </= normal limit HEART Score: 2 Medical Decision Narrative: patient is a 73-year-old female presenting to the emergency department for evaluation of bloating and abdominal pain. Patient is hemodynamically stable and nontoxic-appearing upon arrival, afebrile. Differential diagnosis includes side effects from Mounjaro, pancreatitis, gastritis, viral illness among others. Workup will be conducted with hematologic labs, specific imaging. Initial inventions include crystalloid bolus, analgesics. Initial workup reviewed by me hematologic labs are remarkable for no white count, elevated glucose. Imaging informally interpreted by me and remarkable for nothing acute. Formal imaging read remarkable for nothing acute. Please see formal radiology report for the read. Upon repeat evaluation patient's pain is improved. Patient will follow- up with primary care for further problems and concerns. She also has an appointment with Dr. Davis for chronic UTIs. Patient will be safe for discharge home. Critical Care Critical Care Time Critical Care Time: No
[2024-11-02 20:27] LABS: Hematocrit 40.0 % (37.0-47.0); Hemoglobin 13.5 g/dL (12.2-16.2); Immature Granulocytes % 0.1 %; Mean Corpuscular HGB Conc 33.8 g/dL (31.8-35.4); Mean Corpuscular Hemoglobin 29.2 pg (27.0-31.2); Mean Corpuscular Volume 86.6 fl (81-99); Nucleated Red Blood Cells % 0 %; Platelet Count 248 K/mm3 (142-424); Red Blood Count 4.62 M/mm3 (4.20-5.40); Red Cell Distribution Width-SD 41.9 fL; White Blood Count 8.2 K/mm3 (4.8-10.8)
[2024-11-02] MEDS: 0.9 % SODIUM CHLORIDE 1000ML 1,000 ML 999 ML IV (20:31)
[2024-11-02] MEDS: FAMOTIDINE 20MG/2ML VIAL 20 MG IV (20:31)
[2024-11-02] MEDS: ONDANSETRON 4MG/2ML VIAL 4 MG IV (20:32)
[2024-11-02 20:36] LABS: Alanine Aminotransferase 17 U/L (12-78); Albumin Level 4.2 g/dl (3.5-5.0); Albumin/Globulin Ratio 1.8 (1.1-1.8); Alkaline Phosphatase 94 U/L (38-126); Amylase 46 U/L (30-110); Anion Gap 12.1 mEq/L (5-15); Aspartate Amino Transferase 28 U/L (14-36); Bilirubin,Total 0.4 mg/dl (0.2-1.3); Blood Urea Nitrogen 9 mg/dl (7-17); Calcium 9.8 mg/dl (8.4-10.2); Carbon Dioxide 26 mmol/L (22.0-30.0); Chloride 104 mmol/L (98-107); Creatinine Clearance Estimated 55 mL/min (50-200); Creatinine,Serum 0.60 mg/dl (0.52-1.04); Estimated Glomerular Filt Rate 98 ml/min (>60); GFR (African American) 118 ML/MIN (>60); Globulin 2.4 g/dL (1.3-3.2); Glucose 230 mg/dl (74-100); Lipase 46 U/L (23-300); Magnesium 1.5 mg/dl (1.6-2.3); Potassium 4.1 mmoL/L (3.5-5.1); Sodium 138 mmol/L (136-145); Total Protein,Serum 6.6 g/dl (6.3-8.2)
--- NOTE | 2024-11-02 20:40 | ECG_ITS ---
APPROVED REPORT Exam: Resting ECG HR:60 bpm ECG Measurements Heart Rate 60 AXES WV 137 P 74 QRSd 83 QRS 11 QT 425 T 38 QTc 426 Conclusion Normal sinus rhythm at [address] or T wave changes concerning for ischemia Electronically signed by : Rebecca Levy, 11/03/2024 02:25:08
[2024-11-02 20:50] LABS: Troponin I < 0.01 ng/ml (0.00-0.034)
[2024-11-02] MEDS: IOPAMIDOL-370 (76%);100ML BOTTLE 75 ML IV (20:55)
[2024-11-02] MEDS: SODIUM CHLORIDE 0.9% 10ML SYR (RAD ONLY) 10 ML IV (20:55)
== END 2024-11-02 22:58 | disposition home or self-care (01) ==
PROVIDERS: Nurse Practitioner; Emergency Provider Student in an Organized Health Care Education/Training Program; PCP Nurse Practitioner Family
DX: R11.2 Nausea with vomiting, unspecified (principal); E11.9 Type 2 diabetes mellitus without complications; E78.5 Hyperlipidemia, unspecified; I10 Essential (primary) hypertension
CPT/HCPCS: 71045; 74177; 80053; 82150; 83690; 83735; 84484; 85025; 93005; 96361; 96374; 96375; 99285; J2405; J7030; Q9967

== ENCOUNTER 2025-01-21 09:09 | Outpatient (CLI) | payer MEDICARE, BC, SELFPAY ==
--- NOTE | 2025-01-21 09:15 | CT_ITS ---
FINAL REPORT TECHNIQUE: Thin section axial images were obtained from skull base to vertex without contrast. Coronal reconstruction images were obtained from the axial data. Exam was performed using dose reduction techniques such as automated exposure control, adjustment of the mA and kV according to patient size, and use of iterative reconstruction technique. CLINICAL HISTORY: Paresthesias right arm and hand, weak right hand COMPARISON: FINDINGS: There is no mass effect or midline shift. There is no hydrocephalus. There is no intracranial hemorrhage. The posterior fossa is without acute abnormality. The basilar cisterns are preserved. There is mucoperiosteal thickening of the bilateral maxillary sinuses and bilateral ethmoid air cells. No air-fluid levels are seen. No acute osseous abnormality is identified. IMPRESSION: No acute intracranial hemorrhage or acute infarct. Sinusitis, likely chronic. Reviewed, Interpreted and Dictated by Megan Pereira MD Transcribed by Betty Vu Authenticated and [facility]
--- OUTSIDE RECORDS SUMMARY | 2025-01-21 09:18 | XMS_ITS | Clinical Summary ---
Author Organization [employer] ([place], [place], [place], [place]) Address [address] [place] [address] Care Team Providers Care Fur Finisher Seamstress Name Role Phone Unavailable Primary Care Provider [...] Date Cali rded Speak language other than Croatian at home Not on file 05/06/2023 Want [...] 12/25/1967 DTAP/TDAP/TD VACCINES (1 - Tdap) 1968 Shingles Vaccine (Zoster) (1 of 2) 12/25/1999 Medicare Initial AWV G0438 07/19/2011 Pneumococcal 50+ years (2 of 2 - PCV) 01/20/201708/2015 Hemoglobin A1C 10/12/2022 Tobacco Cessation Counseling and Screening (12+) 10/25/2023 10/24/2022 Falls Risk Screening 04/18/2024 COVID-19 VACCINE (3 - season) 12/17/202401/2021, 05/28/2020 Influenza Vaccine (#1) 2024 01/21/2016, 2015 Respiratory Syncytial Virus (RSV) Adult or (1 - 1-dose 75+ series) 2024 Medical Devices Implanted Type Area Large Engine Assembler Device Identifier Shelf Expiration Date Model / Serial / Lot Cage T/Plif 10mm [id number] - [id number] Implanted:Qty: 1 on 10/22/2022 by Tlyer Gill MD at [facility] IMPLANTS N/A: Spine Lumbar J &J:DEPUY:DEPUY SPINE [id number] / / [id number] Bone Vivigen Frmble Cell 10cc -1600-003 - [id number] Implanted:Qty: 1 on 10/22/2022 by Tyler Gill MD at [facility] IMPLANTS N/A: Spine Lumbar LIFENET:LIFENET TRANSPLANT SRV 09/17/2023 BL-1600-0 03 / [id number] / Scr Spne Radhames Fix Fen 5x50mm 550 - [id number] Implanted:Qty: 2 on 10/22/2022 by Tyler Gill MD at [facility] IMPLANTS N/A: Spine Lumbar J &J:DEPUY:DEPUY SPINE 50 / 50 / Jordin Conn Expedium 200mm Ti [id number] - [id number] Implanted:Qty: 1 on 10/22/2022 by Tyler Gill MD at [facility] IMPLANTS N/A: Spine Lumbar J &J:DEPUY:DEPUY SPINE -5 55 / 5 55 / Mis Ambar Ply Scrw Set Ti - - [id number] Implanted:Qty: 4 on 10/22/2022 by Tyler Gill MD at [facility] IMPLANTS N/A: Spine Lumbar J &J:DEPUY:DEPUY SPINE -0 00 / 0 00 / Cement Spinal Confidence 2839-10-000 - [id number] Implanted:Qty: 1 on 10/22/2022 by Tyler Gill MD at [facility] IMPLANTS N/A: Spine Lumbar J &J:DEPUY:DEPUY SPINE 07/16/2024 2839-10-0 00 / / [id number] Bone Putty Stim[facility]an [facility] 620-005 - [id number] Implanted:Qty: 1 on 10/22/2022 by Tyler Gill MD at [facility] IMPLANTS N/A: Spine Lumbar BIOCOMPOSITES 09/15/2025 620-005 / / [id number] Connector End 5.5x5.5 1797-77-555 - [id number] Implanted:Qty: 1 on 10/22/2022 by Tyler Gill MD at [facility] IMPLANTS N/A: Spine Lumbar J &J:DEPUY:DEPUY SPINE 17977-5 55 / [id number] / Insurance MEDICARE PART A B [facility] Advance Directives For more information, please contact: [phone] * Full Code (Latest Code Status on File) Date Activated Date Inactivated Comments 10/22/2022 11:49 AM 10/27/2022 6:34 PM
--- OUTSIDE RECORDS SUMMARY | 2025-01-21 09:18 | XMS_ITS | Continuity of Care Document ---
Author Organization [facility] Laury roblero [facility] Address [address] [facility] [address] [place] [address] Care Team Providers Care Advice Clerk Name Role Phone ROMANA TOLEDO Primary Care Provider [phone] Assessment No assessment recorded. Plan of Treatment Reminders Order Date Submit Date Provider Last Modified By Organization Details Last Modified Time Details Appointments RECHECK 2024 03:00P M HOLLEY AGUILAR MD Not available Not available Not available Lab urinalysi s panel, auto 2024 025 [email or web address] [facility], [address], [place], [address], 01/05/2025 18:33:54 Referral None recorded. Procedures None recorded. Surgeries None recorded. Imaging None recorded. Medication Orders None recorded. Patient TargetsNo targets recorded. Patient InstructionsNo instructions recorded. Reason for Referral None Reported. Results Created Date Observation Date Name Description Value Unit Range Abnormal Flag Note LastModifiedBy Organization Detail LastModifiedTime 12/27/1912/26/2024 urina lysis panel , auto Unknown Analyte Clean Catch Not Available [facility] [address], [place], [address], 12/26/2024 13:13:02 12/27/1912/26/2024 urina lysis panel , auto Unknown Analyte Straw Not Available [facility] [address], [place], [address], 12/26/2024 13:13:02 12/27/1912/26/2024 urina lysis panel , auto Unknown Analyte Clear Not Available [facility] [address], [place], [address], 12/26/2024 13:13:02 12/27/1912/26/2024 urina lysis panel , auto Unknown Analyte 1.025 Not Available [facility] [address] [place] [address] [address], [place], [address], 12/26/2024 13:13:02 12/27/1912/26/2024 urina lysis panel , auto Unknown Analyte 1.003 - 1.030 Not Available [facility] [address], [place], [address], 12/26/2024 13:13:02 12/27/1912/26/2024 urina lysis panel , auto Unknown Analyte 5.0 Not Available [facility] [address], [place], [address], 12/26/2024 13:13:02 12/27/1912/26/2024 urina lysis panel , auto Unknown Analyte 5.0 - 8.0 Not Available [facility] [address] [place] [address] [address], [place], [address], 12/26/2024 13:13:02 12/27/1912/26/2024 urina lysis panel , auto Unknown Analyte 75 Alejandro/uL Not Available [facility] [address], [place], [address], 12/26/2024 13:13:02 12/27/1912/26/2024 urina lysis panel , auto Unknown Analyte Negati ve Not Available [facility] [address], [place], [address], 12/26/2024 13:13:02 12/27/1912/26/2024 urina lysis panel , auto Unknown Analyte Negati ve Not Available [facility] [address], [place], [address], 12/26/2024 13:13:02 12/27/1912/26/2024 urina lysis panel , auto Unknown Analyte Negati ve Not Available [facility] [address], [place], [address], 12/26/2024 13:13:02 12/27/1912/26/2024 urina lysis panel , auto Unknown Analyte 30 mg/dL Not Available [facility] [address], [place], [address], 12/26/2024 13:13:02 12/27/1912/26/2024 urina lysis panel , auto Unknown Analyte Negati ve Not Available [facility] [address], [place], [address], 12/26/2024 13:13:02 12/27/1912/26/2024 urina lysis panel , auto Unknown Analyte Normal Not Available [facility] [address], [place], [address], 12/26/2024 13:13:02 12/27/1912/26/2024 urina lysis panel , auto Unknown Analyte Normal Not Available [facility] [address], [place], [address], 12/26/2024 13:13:02 12/27/1912/26/2024 urina lysis panel , auto Unknown Analyte 15 mg/dL Not Available [facility] [address], [place], [address], 12/26/2024 13:13:02 12/27/1912/26/2024 urina lysis panel , auto Unknown Analyte Negati ve Not Available [facility] [address], [place], [address], 12/26/2024 13:13:02 12/27/1912/26/2024 urina lysis panel , auto Unknown Analyte 1 mg/dL Not Available [facility] [address], [place], [address], 12/26/2024 13:13:02 12/27/1912/26/2024 urina lysis panel , auto Unknown Analyte Normal Not Available [facility] [address], [place], [address], 12/26/2024 13:13:02 12/27/1912/26/2024 urina lysis panel , auto Unknown Analyte 1 mg/dL Not Available [facility] [address], [place], [address], 12/26/2024 13:13:02 12/27/19 25 12/26/2024 urina lysis panel , auto Unknown Analyte Negati ve Not Available [facility] [address], [place], [address], 12/26/2024 13:13:02 12/27/1912/26/2024 urina lysis panel , auto Unknown Analyte 50 Tal/uL Not Available [facility] [address], [place], [address], 12/26/2024 13:13:02 12/27/1912/26/2024 urina lysis panel , auto Unknown Analyte Negati ve Not Available [facility] [address], [place], [address], 12/26/2024 13:13:02 Result Notes None recorded. 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 Please review this document and add these problems to the patient's chart manually as needed. Problem Notes None recorded. Procedures Surgical History Date Name Laterality Status Provider Name and Address Organization Details Recorded Time 8 POSTERIOR LUMBAR INTERBODY FUSION, ADDITIONAL INTERSPACE (SURG) completed Rebecca Pennington [facility] 01/19/2018 11:15:41 Other completed [facility] 02/10/2017 15:08:32 Wrist arthroscopy/ricardo addie completed [facility] 02/10/2017 15:09:05 Back Surgery completed [facility] 02/10/2017 15:09:16 section completed Krista Vaughan [facility] 11/19/2024 14:49:13 Imaging Results None recorded. Procedure Notes None recorded. Medical Equipment None Reported. Allergies Allergen ID Allergen Name Allergen Category Reaction Reaction Severity Criticality Documentation Date Start Date Code Code System Note Provider Name and Address Organization Details Recorded Time 204991 Substance with sulfonami de structure and antibacte rial mechanism of action (substanc e) medicatio n Not available Not available Not available 03/12/20162012 79918 8003 SNOMED Comme nt: Creat ed By: Clement johnson;Cre ated Date: 2012 2:37: 08 PM; Not Available [facility] 6 08:30:10 875105 shrimp allergeni c extract food Not available Not available Not available 10/28/20222022 81900 2 RxNorm Other react ions and sever ities : 'Naus ea And Vomit ing'. [facility] 08:02:39 Medications Name Sig Start Date [...] 30 days;Ins truction s: apply to affected area;Mkiy quency: bid;Medi cation Descript ion: triamcin olone [...] 0 Not Available Not Available Not Available [place] 10 mg-325 mg tablet Take 1 tablet 3 times a day by oral route as needed. 2022 active Not Available Not Available Not Avai lable cefuroxim e axetil 500 mg tablet Take 1 tablet every 12 hours by oral route. 2024 active Not Available Not Available Not Avai lable [place] 7.5 mg-325 mg tablet Three times a [...] oral route as directed . 2022 active [facility]: 0904-588 0-61 Not Available Not Available Not Available [place]-3 active Medicati on Descript ion: omega-3 polyunsa turated fatty acids; Route:or al; refills: 0 Not Available Not Available Not Available Vitals Date Recorded Body height Body mass index (BMI) Body weight Provider Name and Address Organization Details Last Updated DateTime 12/26/2024 162.56 cm 26.6 kg/m2 43847.82 g Krista Vaughan [facility] 12/26/2024 13:15:35 Social History Question Answer Notes LastModified by Organizat ion Details LastModified Time Tobacco Smoking Status Former Smoker Huong Monte aracely, [facility] 02/10/2017 15:08:22 When Did You Quit Smoking? 1-5yearssince lastcigarette [email or web address] Information not available 11/19/2024 What Was The Date Of Your Most Recent Tobacco Screening? 11/19/2024 [email or web address] Information not available 11/19/2024 What Is Your Current Pack Years? 10packyears [email or web address] Information not available 11/19/2024 What Is Your Relationship Status? [email or web address] Information not available 11/19/2024 At What Age Did You Start Smoking Tobacco? 34 [email or web address] Information not available 11/19/2024 Has Tobacco Cessation Counseling Been Provided? No [email or web address] Information not available 11/19/2024 How Many Years Have You Smoked Tobacco? 20 [email or web address] Information not available 11/19/2024 Sex: Unknown Functional Status Question Answer Note LastModified by Organizat ion Details LastModified Time Do you use any illicit or recreational drugs? No [email or web address] Information not available 11/19/2024 Do you or have you ever used any other forms of tobacco or nicotine? Yes [email or web address] Information not available 11/19/2024 What is your level of alcohol consumption? None [email or web address] Information not available 11/19/2024 Do you or have you ever used smokeless tobacco? Never used smokeless tobacco [email or web address] Information not available 11/19/2024 Are you currently employed? No [email or web address] Information not available 11/19/2024 Mental Status None recorded. Family History Relationship Description Onset Age of this Age Resolved Age Notes LastModified by Organization Details LastModified Time Unspecified Relation Alcoholism [email or web address] Not available 2024 13:43:56 Unspecified Relation Hyperlipidem ia [email or web address] Not available 2024 13:43:56 Unspecified Relation Osteoporosis [email or web address] Not available 07/2024 13:43:56 Unspecified Relation Myocardial infarction [email or web address] Not available 11/19 13:43:56 Unspecified Relation Heart disease [email or web address] Not available 2024 13:43:56 Unspecified Relation Hypertensive disorder [email or web address] Not available 2024 13:43:56 Unspecified Relation Cerebrovascu lar accident [email or web address] Not available 07/2024 13:43:56 Brother Diabetes mellitus [email or web address] Not available 2024 14:49:28 Brother Type 2 diabetes mellitus [email or web address] Not available 2024 13:43:56 Brother Kidney stone [email or web address] Not availa ble 11/19/2024 13:43:56 Father Kidney stone [email or web address] Not availab le 11/19/2024 13:43:56 Medical History Condition Response Diabetes Y Arthritis Y Kidney Stones N High Cholesterol Y Urinary Tract Infection N If you get up at night to urinate, how m any times? N Hypertension Y Kidney Disease Y Do you get up at night to urinate? N Gynecological History Statement/Question Response # of Pregnancies 2 # of Births 2 Obstetrics History GPAL:G 0 P 0 0 0 0 Immunizations Vaccine Type Date Status Note Provider Nam e and Address Organization Details Recorded Time Influenza, high-dose, trivalent, PF 6 completed Not Available [facility] 12/26/2024 12:59:53 pneumococcal polysaccharide PPV23 6 completed Not Available [facility] 12/26/2024 12:59:53 Influenza, split virus, quadrivalent, PF 8 completed Not Available [facility] 12/26/2024 12:59:53 COVID-19, mRNA, LNP-S, PF, 100 mcg/0.5mL dose or 50 mcg/0.25mL dose 1 completed Not Available [facility] 12/26/2024 12:59:53 COVID-19, mRNA, LNP-S, PF, 100 mcg/0.5mL dose or 50 mcg/0.25mL dose 1 completed Not Available [facility] 12/26/2024 12:59:53 Influenza, high-dose, quadrivalent, PF 3 completed Not Available [facility] 12/26/2024 12:59:53 Past Encounters Encounter ID Performer Location Encounter Start Date Encounter Closed Date Diagnosis/Indication Diagnosis SNOMED-CT Code Diagnosis ICD10 Code Diagnosis IMO Codes Diagnosis Note [id number] HOLLEY AGUILAR MD [facility] [address] [place] [address] 12/26/2024 12:58:55 12/26/2024 13:53:00 Chronic cystitis 71229992 N30.20 35303 Plan as above follow-up 2 months, earlier if necessary Health Concerns Section Related Observation LastModified by Organization Detai ls LastModified Time None Recorded Concern Status LastModified by Organization Details LastModified Time None Recorded Payers Encounter Date Sequence Insurance Name Policy Number Policy Loco Covered Member ID Loco Member ID Guarantor Name 12/26/2024 1 [place] Marie Henry [id number] Marie Henry 12/26/2024 2 [place] [id number] Marie Henry [id number] Marie Henry Notes Date Note Type Note Provider Name and Address Organization Details Recorded Time 12/26/2024 text/html Patient is here to follow-up after initial visit 1 month ago. I had seen her for several years for chronic urethritis and urethral stenosis. At her last visit we placed her on cefuroxime for 1 month. She is completing her therapy and is considerably improved. She does not feel she needs dilation today. I suggest she complete her medication and follow-up in 2 months. HOLLEY AGUILAR MD [facility] [place], [address], [facility] 01/05/2025 18:34:30 OBGyn Episode No OBEpisode recorded.
--- OUTSIDE RECORDS SUMMARY | 2025-01-21 09:18 | XMS_ITS | Clinical Summary ---
[facility] Organization [facility] Address [address] [place] [address] Care Team Providers Care Carpenter'S Assistant Name Role Phone Rosita Jordan APRN Primary Care Provider [phone] Social History Tobacco Use Types Packs/Day Years [...] 1949 TDAP/TD VACCINES (1 - Tdap) 1968 COLOGUARD 1994 COLON CANCER SCREENING 5 YEAR SIGMOIDOSCOPY 1994 COLONOSCOPY 1994 [address] CANCER SCREENING 1994 CT COLONOGRAPHY 1994 FECAL OCCULT BLOOD TEST 1994 FIT Testing (1 year) 1994 Pneumococcal Vaccine 50+ (1 of 1 - PCV) 12/25/1999 ZOSTER VACCINE (1 of 2) 12/25/1999 ANNUAL PHYSICAL 08/13/2021 HEPATITIS C SCREENING 08/13/2021 INFLUENZA VACCINE 11/16/2024 COVID-19 Vaccine (1 - 2023-25 season) 2024 RSV Vaccine - Adults (1 - 1-dose 75+ series) 5 Insurance MEDICARE A & B [facility] Care Teams Carpenter'S Assistant Relationship Specialty Start Date End Date Rosita Jordan APRN PCP - General Internal Medicine 08/27/21
--- OUTSIDE RECORDS SUMMARY | 2025-01-21 09:18 | XMS_ITS | Clinical Summary ---
Author Organization [facility] Address [address] [place] [address] Care Team Providers Care Sewing Machine Repairer Name Role Phone Tyler Sanchez MD Unavailable [phone] Rosita Jordan APRN Primary Care Provider [phone] Allergies Active Allergy Reactions Criticality Noted Date [...] hyperglycemia, with long-term current use of insulin Take 1 tablet (500 mg) by mouth 2 (two) times a day with meals. 180 tablet 3 4 Active Fiasp FlexTouch 100 UNIT/ML injectionIndica tions:Type 2 diabetes mellitus with hyperglycemia, with long-term current use of insulin Inject 7 units before meals plus correction scale 1:50>150 three times daily before meals, MDD 50 units 15 mL 5 4 Active pen needle, diabetic (B-D UF III MINI PEN NEEDLES) 31G X 5 MM miscIndications :Type 2 diabetes mellitus with hyperglycemia, with long-term current use of insulin Inject 1-4x daily 200 each 11 4 [...] lesion 09/28/2024 ASCVD (arteriosclerotic cardiovascular disease) 02/22/2024 Bilateral carotid artery disease 12/16/2020 Hypertension 12/16/2020 Hyperlipidemia 12/16/2020 Diabetes 12/16/2020 Pulmonary artery hypertension 12/16/2020 Resolved Problems Problem Noted Date Diagnosed Date Resolved Date Overweight (BMI 25.0-29.9) 12/18/2020 0 01/06/2025 Biatrial enlargement 12/16/2020 025 Immunizations Immunization Administration Dates Next Due Influenza, [...] Lab [address] [facility] [address] [place] [address] 02/27/2025 2:30 PM EST Office Visit [facility] [place] [address] [facility] [place] [address] Feroz Elliott MD [address] [place] [address] Health Maintenance Due Date Last Done Comments [facility]-Bone Density Scan 1950 [facility]-Diabetes: Hemoglobin A1C 1949 [facility]-Hepatitis C Screening 1950 [facility]-Medicare Annual Wellness (AWV) 1950 [facility]-Infant/Child/Adol SDOH Screenings 1949 Diabetes: Dental Exam 12/25/1959 [facility]- SDOH Screenings 12/25/1967 [facility]-Adult SDOH Screenings 12/25/1967 [facility]-DTaP,Tdap,and Td Vaccines (1 - Tdap) 1968 [facility]-Zoster Vaccines (1 of 2) 1968 CT Colonography 1994 Colonoscopy 1994 FIT-DNA 1994 FIT 1994 FOBT 1994 Sigmoidoscopy 1994 [facility]-Colorectal Cancer Screening 1994 [facility]-Pneumococcal Vaccine: 50+ Years (2 of 2 - PCV) 01/20/2017 01/21/2016 [id number] Vaccine (3 - Moderna risk series) 07/23/2020 06/25/2020, 05/28/2020 [facility]-Influenza Vaccine (#1) 12/17/202402/22, 01/18/2018, 01/16/2018, Additional history exists [facility]-RSV Vaccine: 60+ Years or (1 - 1-dose 75+ series) 2024 [facility]-Depression Screening 09/25/2025 09/25/2024 [facility]-Obesity Intervention Completed [...] on patient's age to complete this [place] [address] ANTHE[employer] Care Teams Sewing Machine Repairer Relationship Specialty Start Date End Date Rosita Jordan APRN [address] [place] [address] PCP - General 01/01/21 Tyler Sanchez MD [address] [place] [address] Referring Physician 12/11/20
--- OUTSIDE RECORDS SUMMARY | 2025-01-21 09:18 | XMS_ITS | Referral Summary ---
Author Organization [employer] ([place], [place], [place], [place]) Address [address] [place] [address] Care Team Providers Care Paediatrician Name Role Phone Unavailable Primary Care Provider [...] Date Cali rded Speak language other than Niuean at home Not on file 05/06/2023 Want [...] on file Medical Devices Implanted Type Area Deputy K 9 Device Identifier Shelf Expiration Date Model / Serial / Lot Cage T/Plif 10mm [id number] - [id number] Implanted:Qty: 1 on 10/22/2022 by Tyler Gill MD at [facility] IMPLANTS N/A: Spine Lumbar J &J:DEPUY:DEPUY SPINE [id number] / / [id number] Bone Vivigen Frmble Cell 10 Bl-1600-003 - [id number] Implanted:Qty: 1 on 10/22/2022 by Tyler Gill MD at [facility] IMPLANTS N/A: Spine Lumbar LIFENET:LIFENET TRANSPLANT SRV 09/17/2023 BL-1600-0 [id number] / Scr Spne Radhames Fix Fen 5x50mm -550 - [id number] Implanted:Qty: 2 on 10/22/2022 by Tyler Gill MD at [facility] IMPLANTS N/A: Spine Lumbar J &J:DEPUY:DEPUY SPINE 50 / 50 / Jordin Conn Expedium 200mm Ti 1797-76-555 - [id number] Implanted:Qty: 1 on 10/22/2022 by Tyler Gill MD at [facility] IMPLANTS N/A: Spine Lumbar J &J:DEPUY:DEPUY SPINE 1797-76-5 55 / [id number] / Mis Ambar Ply Scrw Set Ti 1867-15-000 - [id number] Implanted:Qty: 4 on 10/22/2022 by Tyler Gill MD at [facility] IMPLANTS N/A: Spine Lumbar J &J:DEPUY:DEPUY SPINE -0 00 / -0 00 / Cement Spinal Confidence 2839-10-000 - [id number] Implanted:Qty: 1 on 10/22/2022 by Tyler Gill MD at [facility] IMPLANTS N/A: Spine Lumbar J &J:DEPUY:DEPUY SPINE 07/16/2024 2839-10-0 00 / / [id number] Bone Putty Stimulan 5cc 620-005 - [id number] Implanted:Qty: 1 on 10/22/2022 by Tyler Gill MD at [facility] IMPLANTS N/A: Spine Lumbar BIOCOMPOSITES 09/15/2025 620-005 / / [id number] Connector End 5.5x5.5 1797-77-555 - [id number] Implanted:Qty: 1 on 10/22/2022 by Tyler Gill MD at [facility] IMPLANTS N/A: Spine Lumbar J &J:DEPUY:DEPUY SPINE 77-5 55 / [id number] / Insurance MEDICARE PART A B [facility] SUPP Advance Directives For more information, please contact: [phone] * Full Code (Latest Code Status on File) Date Activated Date Inactivated Comments 10/22/2022 11:49 AM 10/27/2022 6:34 PM
--- OUTSIDE RECORDS SUMMARY | 2025-01-21 09:18 | XMS_ITS | Encounter Summary ---
Author Organization Healthcare Address [address] [place] [address] Care Team Providers Care Wind Turbine Installer Name Role Phone Yair Donahue MD Primary Care Provider [phone] Tyler Sanchez MD Unavailable [phone] Rosita Jordan APRN Primary Care Provider [phone] Encounter Details Date Type Department Care Team (Late st Contact Info) Description 12/01/2020 Community [facility] [address] [place] [address] Rosita Jordan, AGRISCIENCE TECHNOLOGY INSTRUCTOR [address] [place] [address] Bilateral carotid artery stenosis (Primary Dx) Social [...] EST Appointment [facility] [address] [facility] [address] [place] [address] 02/27/2025 2:30 PM EST Office Visit [facility]i Dewy Rose [address] [facility] [place] [address] Feroz Elliott MD [address] [place] [address] documented as of this encounter Visit Diagnoses Diagnosis Bilateral carotid artery stenosis- Primary Occlusion and stenosis of carotid artery without mention of cerebral infarction documented in this encounter Care Teams Wind Turbine Installer Relationship Specialty Start Date End Date Yair Donahue MD [address] [place] [address] PCP - General 08/29/20 12/31/20 Rosita Jordan APRN [address] [place] [address] PCP - General 01/01/21 Tyler Sanchez MD [address] [address] Referring Physician 12/11/20 documented as of this encounter
--- OUTSIDE RECORDS SUMMARY | 2025-01-21 09:18 | XMS_ITS | Encounter Summary ---
Author Organization Healthcare Address [address] [place] [address] Care Team Providers Care Oven Drier Tender Name Role Phone Tyler Sanchez MD Unavailable [phone] Rosita Jordan APRN Primary Care Provider [phone] Encounter Details Date Type Department Care Team (Late st Contact Info) Description 09/11/2024 [facility] [address] [place] [address] Skyler Fallon MD [address] [place] [address] Malignant melanoma of nail bed (CMS/HCC) (Primary [...] EST Appointment [facility] V[facility] Lab 800 [facility] [address] [place] [address] 02/27/2025 2:30 PM EST Office Visit [facility] [place] [facility] [address] [place] [address] Feroz Elliott MD [address] [place] [address] documented as of this encounter Visit Diagnoses [...] documented as of this encounter Care Teams Oven Drier Tender Relationship Specialty Start Date End Date Rosita Jordan APRN [address] [place] [address] PCP - General 01/01/21 Tyler Sanchez MD [address] [address] Referring Physician 12/11/20 documented as of this encounter
== END 2025-01-21 23:59 | disposition home or self-care (01) ==
LOC: RAD 09:10
PROVIDERS: PCP Internal Medicine; Visit Provider Internal Medicine
DX: J32.9 Chronic sinusitis, unspecified (principal); R20.2 Paresthesia of skin; R29.898 Other symptoms and signs involving the musculoskeletal system
CPT/HCPCS: 70450

== ENCOUNTER 2025-01-23 13:12 | Outpatient (CLI) | payer MEDICARE, BC, SELFPAY | END 2025-01-23 23:59 | disposition home or self-care (01) | LOC: LAB 13:17 | PROVIDERS: PCP Nurse Practitioner Family; Visit Provider Urology | DX: N39.0 Urinary tract infection, site not specified (principal) | CPT/HCPCS: 87086 ==

== ENCOUNTER 2025-02-07 15:30 | Emergency (ER) | payer MEDICARE, BC, SELFPAY ==
[2025-02-07] VITALS (9 sets, daily range): BP systolic 120–199; BP diastolic 64–89; PULSE 68–94; RESP 10–18; TEMP 36.7; O2SAT 96–100; BMI 25.7
--- NOTE | 2025-02-07 15:35 | ED_ITS ---
<Statement entered by Rebecca Levy DO - 02/09/25 00:27> I was consulted by the CHEY, and we discussed the complexity of problems being addressed. I approve the treatment and management plan for this patient's care in the emergency department, thus performing a substantial portion of the medical decision making. Rebecca Levy DO Discharge Plan Disposition Patient Disposition: Home, Self-Care Condition: Good Prescriptions Prescriptions: No Action mupirocin 2 % ointment kit 1 applic topical BID terbinafine-hydroxypr.chitosan 250-1 mg-% kit 1 ea miscellaneous BID Mounjaro 2.5 mg/0.5 mL pen injector 2.5 mg SQ WEEKLY 30 Days Qty: 2.5 0RF Rx Instructions: for 4 weeks fluconazole 150 mg tablet 150 mg PO Q3D Qty: 2 0RF hydrocodone-acetaminophen 5-325 mg tablet 1 tab PO Q8H PRN (Reason: pain) Qty: 60 0RF ofloxacin 0.3 % drops 10 drp otic (ear) DAILY 7 Days Qty: 10 1RF clonazepam 0.5 mg tablet 0.25 mg PO HS Qty: 30 1RF Rx Instructions: administer 30 minutes before bedtime (DME) pen needle, diabetic [BD Shweta 2nd Gen Pen Needle] 32 gauge x 5/32 needle See Rx Instructions .ROUTE .MEDSUPPLY Qty: 1200 0RF Rx Instructions: As directed (DME) pen needle, diabetic [TechLITE Pen Needle] 31 gauge x 3/16 needle See Rx Instructions .ROUTE .MEDSUPPLY Qty: 1200 0RF Rx Instructions: As directed magnesium oxide 400 mg magnesium tablet 400 mg PO DAILY Qty: 90 3RF clopidogrel 75 mg tablet See Rx Instructions .ROUTE .COMPLEX Qty: 90 0RF Dose Instruction: TAKE 1 TABLET BY MOUTH DAILY Rx Instructions: TAKE 1 TABLET BY MOUTH DAILY metformin 1,000 mg tablet 1,000 mg PO BID Qty: 180 3RF insulin aspart U-100 [Novolog FlexPen U-100 Insulin] 100 unit/mL (3 mL) insulin pen 10 unit SQ TID Qty: 30 2RF amlodipine 5 mg tablet See Rx Instructions .ROUTE .COMPLEX Qty: 90 0RF Dose Instruction: TAKE 1 TABLET BY MOUTH DAILY Rx Instructions: TAKE 1 TABLET BY MOUTH DAILY atorvastatin 80 mg tablet See Rx Instructions .ROUTE .COMPLEX Qty: 90 0RF Dose Instruction: TAKE 1 TABLET BY MOUTH DAILY Rx Instructions: TAKE 1 TABLET BY MOUTH DAILY insulin glargine [Basaglar KwikPen U-100 Insulin] 100 unit/mL (3 mL) insulin pen 20 unit SQ DAILY 90 Days Qty: 18 1RF baclofen 5 mg tablet 5 mg PO TID Qty: 90 0RF Referrals Follow up/Referrals: Rosita Jordan APRN [Primary Care Provider, Medical] - See instructions Activity Restrictions/Add. Instructions Additional Instructions/Restrictions: You were evaluated on an emergency basis. It is very important that you follow- up with your primary care provider and any specialist who we discussed within the next 2 days in order to better assess your health more comprehensively. For example, incidental findings on imaging or laboratory results that were performed today may be discovered, which do not require immediate medical care, but may impact your health in the future. If your symptoms worsen or persist, please return to the emergency department immediately for reassessment. Take all medications as prescribed. In queue for allowing me to participate in your health care, and I hope you feel better soon. Clinical Impressions Clinical Impression: Dysuria, Hypomagnesemia, Acute exacerbation of chronic low back pain Instructions Patient Instructions: Managing Chronic Low Back Pain Print Language Print Language: Argentine Discharge ED Provider: Rebecca Levy General Adult HPI General Chief complaint: Fever Stated complaint: back pain, chills, poss fever, pain when radiating Time Seen by Provider: 02/07/25 15:35 History of Present Illness HPI narrative: 74-year-old female dents emergency department complaints of back pain, body aches, chills, burning with urination. Reports that she has history of chronic back pain. Denies any recent injury to the area. States that the pain is like her usual pain only more intense. She reports taking hydrocodone for pain control. Patient reports that she had her bladder stretch by urology at [facility] on Tuesday. She has not contacted her urologist to inform him of her symptoms. Related Data Home Medications ?Medication ?Instructions ?Recorded ?Confirmed mupirocin 2 % ointment topical kit 1 applic topical BI D 10/17/24 01/28/25 terbinafine 250 mg oral 1 ea miscellaneous BID 10/1701/28/25 tablet-hydroxypropyl chitosan 1 % topical kit Previous Rx's ?Medication ?Instructions ?Recorded pen needle, diabetic 31 gauge x #1,200 ea 04/24/24/ (TechLITE Pen Needle) pen needle, diabetic 32 gauge x #1,200 ea 04/24/24 (BD Shweta 2nd Gen Pen Needle) magnesium oxide 400 mg PO DAILY #90 tabs clopidogrel 75 mg tablet See Rx Instructions .Route 0 09/12/24 .COMPLEX #90 tabs tirzepatide 2.5 mg/0.5 mL 2.5 mg (0.5 mL) SQ WEEKLY 30 days 10/26/24 subcutaneous pen injector #2.5 mL (Mounjaro) insulin aspart U-100 100 unit/mL 10 unit (0.1 mL) SQ T ID #30 mL 10/29/24 (3 mL) subcutaneous pen (Novolog FlexPen U-100 Insulin aspart) metformin 1,000 mg tablet 1,000 mg PO BID #180 tabs amlodipine 5 mg tablet See Rx Instructions .Route 0 12/07/24 .COMPLEX #90 tabs atorvastatin 80 mg tablet See Rx Instructions .Route 0 12/07/24 .COMPLEX #90 tabs insulin glargine 100 unit/mL (3 20 unit (0.2 mL) SQ DA BESSIE 90 days 12/07/24 mL) subcutaneous pen (Basaglar #18 mL KwikPen U-100 Insulin) baclofen 5 mg tablet 5 mg PO TID #90 tabs 5 fluconazole 150 mg tablet 150 mg PO Q3D 2 doses #2 tab s 01/17/25 hydrocodone 5 mg-acetaminophen 325 1 tab PO Q8H PRN pa in #60 tabs 01/17/25 mg tablet clonazepam 0.5 mg tablet 0.25 mg (1/2 x 0.5 mg) PO HS #30 01/28/25 tabs ofloxacin 0.3 % ear drops 10 drp otic (ear) DAILY 7 da ys #10 01/28/25 mL Allergies Allergy/AdvReac Type Severity Reaction Status Date / Time Sulfa (Sulfonamide Allergy Mild NA-NAUSEA/V Verified 01/17/25 15:02 Antibiotics) (SULFA OMITING (SULFONAMIDE ANTIBIOTICS)) [facility] Disclaimer: The information contained in this section may have been updated after the patient was seen, as this information can be updated by other users. Medical History Abdominal bloating Groin pain Flank pain Abdominal pain Patient left without being seen Acute bronchitis Acute pharyngitis Abscess of sternal region Nausea Dysuria Urinary tract infection Scalp lesion Postoperative abscess Dermatitis of left foot BOM (bilateral otitis media) Left flank pain Acute maxillary sinusitis Chronic sinusitis Allergies Dizziness Hearing loss Ear pain Right hip pain CAD (coronary artery disease) Type II diabetes mellitus HLD (hyperlipidemia) HTN (hypertension) Abnormal electrocardiography Dizziness Dyspnea Chest pain Surgical History History of back surgery 10/22/202201/2018 Family History Other Unknown family medical history Social History Smoking Status: Never smoker years smoked: 5 smoking status stop date: 10/2022 second hand exposure: No alcohol intake: never substance use type: denies use current occupational status: retired Travel in the last 8 weeks?: None household members: none housing: house current occupational exposures/hazards: No caffeine: Yes Have you lived/traveled outside US in past 30 days?: No Contact w/someone who lives/traveled outside US past 30 days?: No Exposure to someone with infectious disease in past 14 days?: No Do you have a fever (greater than 100.4 F or 38 C)?: No Have you tested positive for COVID-19?: No Exposed to someone with COVID-19 in past 14 days?: No Do you have a sore throat?: No Do you have a cough?: No Do you have any weakness?: Yes Do you have any diarrhea?: No Are you experiencing any unusual bleeding?: No Do you have any muscle aches/pain?: Yes Do you have any abdominal pain?: No Are you experiencing loss of taste or smell?: No Other Medical History Have you received the Flu Vaccine for this season: Yes Have you received the Pneumonia Vaccine: No ROS Obtained: Yes other Gastrointestinal Gastrointestingal: Reports abdominal pain Genitourinary Female Genitourinary: Reports dysuria Musculoskeletal Musculoskeletal: Reports back pain Physical Exam Narrative Physical exam: General: Awake, aware, in no acute distress HEENT: Normocephalic, no evidence of trauma CV: RRR, no murmurs, rubs, or gallops Pulm: CTA bilaterally with no rhonchi, rales, wheezes ABD: Patient with normal active bowel sounds. Mild tenderness on palpation of all quadrants. Psych, appropriate mood and affect General General appearance: alert Respiratory Respiratory exam: Present normal lung sounds bilaterally Cardiovascular Cardiovascular exam: Present regular rate Neurological Exam Neurological exam: Present alert Medical Decision Making Medical Records Screening: Per USPSTF and CDC recommendations, given the prevalence of disease in our region, it is our hospital?s policy to screen for HIV and viral Hepatitis for all patients aged 18 and over and those with ongoing risk factors. Bart Inquiry Pt receiving controlled substance: No Vital Signs: 02/07/25 15:42 02/07/25 15:45 02/07/25 15:50 Temperature 98.1 F Temperature Source Oral Pulse Rate 94 H 91 H Pulse Rate [Right Radial] 83 Respiratory Rate 12 16 18 Blood Pressure 174/85 H 152/89 H Blood Pressure [Right Arm] 174/85 H Blood Pressure Mean [Right Arm] 114 Blood Pressure Source [Right Arm] Automatic Cuff Blood Pressure Position [Right Arm] Supine 02 Sat by Pulse Oximetry 96 96 97 Oxygen Delivery Method Room Air Room Air Room Air 02/07/25 15:54 02/07/25 16:00 02/07/25 16:30 Temperature Temperature Source Oral Pulse Rate 72 77 Pulse Rate [Right Radial] Respiratory Rate 14 17 Blood Pressure 163/74 H 199/74 H Blood Pressure [Right Arm] Blood Pressure Mean [Right Arm] Blood Pressure Source [Right Arm] Blood Pressure Position [Right Arm] 02 Sat by Pulse Oximetry 97 97 Oxygen Delivery Method Room Air Room Air 02/07/25 17:01 02/07/25 17:12 02/07/25 17:30 Temperature Temperature Source Pulse Rate 74 68 69 Pulse Rate [Right Radial] Respiratory Rate 10 L 13 15 Blood Pressure 192/76 H 188/75 H 171/64 H Blood Pressure [Right Arm] Blood Pressure Mean [Right Arm] Blood Pressure Source [Right Arm] Blood Pressure Position [Right Arm] 02 Sat by Pulse Oximetry 98 96 100 Oxygen Delivery Method Room Air Room Air Room Air Lab Data Lab Results 02/07/25 15:35: Urine Color Yellow, Urine Appearance Clear, Urine pH 5.5, Ur Specific [place] 1.010, Urine Protein Negative, Urine Glucose (UA) Negative, Urine Ketones Negative, Urine Blood Negative, Urine Nitrate Negative, Urine Bilirubin Negative, Urine Urobilinogen 0.2, Ur Leukocyte Esterase Negative, Urine RBC 3-5, Urine WBC 3-5, Ur Squamous Epith Cells 5-10, Urine Bacteria Trace 02/07/25 16:07: WBC 9.7, RBC 4.69, Hgb 13.8, Hct 41.0, MCV 87.4, MCH 29.4, MCHC 33.7, RDW 12.9, Plt Count 236, MPV 9.5, Neut % (Auto) 59.2, Lymph % (Auto) 31.0, [place] % (Auto) 4.8, Eos % (Auto) 4.0, Baso % (Auto) 0.8, Neut # (Auto) 5.8, Lymph # (Auto) 3.0, [place] # (Auto) 0.5, Eos # (Auto) 0.4, Baso # (Auto) 0.1, Sodium 138, Potassium 3.9, Chloride 105, Carbon Dioxide 24, Anion Gap 12.9, BUN 9, Creatinine 0.60, Estimated Creat Clear 52, Estimated GFR 97, Est GFR ( Amer) 118, Glucose 92, Lactate 2.2 H, Calcium 9.3, Magnesium 1.2 L, Total Bilirubin 1.1, AST 31, ALT 26, Alkaline Phosphatase 149 H, Total Protein 6.9, Albumin 3.9, Globulin 3.0, Albumin/Globulin Ratio 1.3 02/07/25 16:07 02/07/25 16:07 Orders (Tests/Meds): ED MEDICATIONS Discontinued Medications Generic Name Dose Route Start Last Admin Trade Name Freq PRN Reason Stop Dose Admin Sodium Chloride 1,000 mls @ 999 mls/hr 02/07/25 16:02 02/07/25 17:36 Sod Chlor 0.9% 1000ml Bag IV 02/07/25 17:02 Infused .Q1H1M ONE Infusion Ketorolac Tromethamine 15 mg 02/07/25 16:02 02/07/25 16:16 Ketorolac 15mg/Ml Vial IV 02/07/25 16:03 15 mg ONCE ONE Administration ORDERS Category Date Time Status CBC w/Auto Diff [Complete Blood Count Auto Diff] Stat Lab 02/07/25 16:07 Completed CMP [Comprehensive Metabolic Panel] Stat Lab 02/07/25 16:07 Completed HIV Combo Stat Lab 02/07/25 16:07 Received Hepatitis C Ab Qual. W/ RFX Stat Lab 02/07/25 16:07 Received Lactic Acid Stat Lab 02/07/25 16:07 Completed Magnesium Stat Lab 02/07/25 16:07 Completed Urinalysis and Microscopic Stat Lab 02/07/25 15:35 Completed Medical Decision Narrative: Initial impression of presenting illness: 74-year-old female presents emergency department with complaints of bodyaches, chills, back pain, painful urination for the past few days. She reports that she had a bladder stretching procedure done by urology at [place] on Tuesday. She states she has not contacted him to let them know of the symptoms she is having. She also reports that she has chronic back pain. She reports that this pain is similar to her normal pain only more intense. She reports taking hydrocodone for her chronic pain. She denies any new injury to the area. Differential diagnosis includes but is not limited to: Urinary tract infection, acute exacerbation of chronic back pain, pyelonephritis, viral illness Patient arrives hemodynamically stable, afebrile, without respiratory distress with vital signs interpreted by myself. Initial physical exam reveals mild tenderness on palpation of abdomen with normal active bowel sounds. Rest of exam is unremarkable Initial diagnostic plan: Laboratory studies including urinalysis, normal saline bolus hydration, Toradol for pain control Results from initial plan were reviewed and interpreted by myself, pertinent positives include: Magnesium was 1.2, rest of laboratory studies were nonactionable. Interventions in the ED: Patient was given normal saline bolus for hydration as well as Toradol for pain control. She was also given oral magnesium for supplementation. Patient was made aware of the results and the findings, upon reevaluation patient has remained stable throughout stay, symptoms remained stable. Upon reevaluation patient is resting comfortably in bed with no signs of acute distress. Disposition: Reviewed findings today's workup with patient informed no acute abnormalities were noted other than her magnesium being slightly low. Recommended she continue with her previously prescribed pain medication for her chronic back pain. Also recommended that she speak with her urologist about the burning with urination as it does not appear that she has a urinary tract infection at this time. Directed her to return to the emergency department any new or worsening symptoms otherwise she can follow with her primary care provider or pain management for further treatment of her chronic pain. Patient was agreeable to plan of care. Patient made aware of findings and had a detailed discussion with symptomatic care and return precautions, patient voiced understanding. Critical Care Critical Care Time Critical Care Time: No
--- OUTSIDE RECORDS SUMMARY | 2025-02-07 15:49 | XMS_ITS | Encounter Summary ---
Author Organization Healthcare Address [address] [place] [address] Care Team Providers Care Assistant Professor Of Religion Name Role Phone Tyler Sanchez MD Unavailable [phone] Rosita Jordan APRN Primary Care Provider [phone] Encounter Details Date Type Department Care Team (Late st Contact Info) Description 09/11/2024 [facility] [address] [place] [address] Skyler Fallon MD [address] [place] [address] Malignant melanoma of nail bed (CMS/HCC) (Primary [...] EST Appointment [facility] Lab 800 [facility] [address] [place] [address] 02/27/2025 2:30 PM EST Office Visit [facility] [address] [place] [address] Feroz Elliott MD [address] [place] [address] documented as of this encounter Visit Diagnoses [...] documented as of this encounter Care Teams Assistant Professor Of Religion Relationship Specialty Start Date End Date Rosita Jordan APRN [address] [place] [address] PCP - General 01/01/21 Tyler Sanchez MD [address] [address] Referring Physician 12/11/20 documented as of this encounter
--- OUTSIDE RECORDS SUMMARY | 2025-02-07 15:50 | XMS_ITS | Encounter Summary ---
Author Organization Healthcare Address [address] [place] [address] Care Team Providers Care Veneer Stock Grader Name Role Phone Yair Donahue MD Primary Care Provider [phone] Tyler Sanchez MD Unavailable [phone] Rosita Jordan APRN Primary Care Provider [phone]- [phone] Encounter Details Date Type Department Care Team (Late st Contact Info) Description 12/01/2020 [facility] [address] [place] [address] Rosita Jordan, BRICK KILN WORKER [address] [place] [address] Bilateral carotid artery stenosis (Primary Dx) Social [...] EST Appointment [facility] 800 [facility] [address] [place] [address] 02/27/2025 2:30 PM EST Office Visit [facility] [place] [address] [facility] [place] [address] Feroz Elliott MD [address] [place] [address] documented as of this encounter Visit Diagnoses Diagnosis Bilateral carotid artery stenosis- Primary Occlusion and stenosis of carotid artery without mention of cerebral infarction documented in this encounter Care Teams Veneer Stock Grader Relationship Specialty Start Date End Date Yair Donahue MD [address] [place] [address] PCP - General 08/29/20 12/31/20 Rosita Jordan APRN [address] [place] [address] PCP - General 01/01/21 Tyler Sanchez MD [address] [address] Referring Physician 12/11/20 documented as of this encounter
--- OUTSIDE RECORDS SUMMARY | 2025-02-07 15:50 | XMS_ITS | Referral Summary ---
Author Organization [facility] ([place], [place], [place], [place]) Address [address] [place] [address] Care Team Providers Care Security Infrastructure Engineer Name Role Phone Unavailable Primary Care Provider [...] Date Cali rded Speak language other than South African at home Not on file 05/06/2023 Want [...] on file Medical Devices Implanted Type Area Hearing Therapy Teacher Device Identifier Shelf Expiration Date Model / Serial / Lot Cage T/Plif 10mm [id number] - [id number] Implanted:Qty: 1 on 10/22/2022 by Tyler Gill MD at [facility] IMPLANTS N/A: Spine Lumbar J &J:DEPUY:DEPUY SPINE [id number] / / [id number] Bone Vivigen Frmble Cell 10 Bl-1600-003 - [id number] Implanted:Qty: 1 on 10/22/2022 by Tyler Gill MD at [facility] IMPLANTS N/A: Spine Lumbar LIFENET:LIFENET TRANSPLANT SRV 09/17/2023 BL-1600-0 [id number] / Scr Spne Radhames Fix Fen 5x50mm -550 - [id number] Implanted:Qty: 2 on 10/22/2022 by Tyler Gill MD at [facility] IMPLANTS N/A: Spine Lumbar J &J:DEPUY:DEPUY SPINE 50 / 50 / Jordin Conn Expedium 200mm Ti 1797-76-555 - [id number] Implanted:Qty: 1 on 10/22/2022 by Tyler iGll MD at [facility] IMPLANTS N/A: Spine Lumbar J &J:DEPUY:DEPUY SPINE 1797-76-5 55 / [id number] / Mis Ambar Ply Scrw Set Ti 1867-15-000 - [id number] Implanted:Qty: 4 on 10/22/2022 by Tyler Gill MD at [facility] IMPLANTS N/A: Spine Lumbar J &J:DEPUY:DEPUY SPINE -0 00 / -0 00 / Cement Spinal Confidence 2839-10-000 - [id number] Implanted:Qty: 1 on 10/22/2022 by Tyler Gill MD at [facility] IMPLANTS N/A: Spine Lumbar J &J:DEPUY:DEPUY SPINE 07/16/2024 2839-10-0 00 / / [id number] Bone Putty Stimulan 5cc 620-005 - [id number] Implanted:Qty: 1 on 10/22/2022 by Tyler Gill MD at [facility] IMPLANTS N/A: Spine Lumbar BIOCOMPOSITES 09/15/2025 620-005 / / [id number] Connector End 5.5x5.5 1797-77-555 - [id number] Implanted:Qty: 1 on 10/22/2022 by Tyler Gill MD at [facility] IMPLANTS N/A: Spine Lumbar J &J:DEPUY:DEPUY SPINE 77-5 55 / [id number] / Insurance MEDICARE PART A B [facility] SUPP Advance Directives For more information, please contact: [phone] * Full Code (Latest Code Status on File) Date Activated Date Inactivated Comments 10/22/2022 11:49 AM 10/27/2022 6:34 PM
--- OUTSIDE RECORDS SUMMARY | 2025-02-07 15:50 | XMS_ITS | Continuity of Care Document ---
Author Organization [facility] Laury roblero [facility] Address [address] [place] [address] Care Team Providers Care Kiln Hand Name Role Phone ROMANA TOLEDO Primary Care Provider Assessment No assessment recorded. Plan of Treatment Reminders Order Date Submit Date Provider Last Modified By Organization Details Last Modified Time Details Appointments RECHECK 2024 03:00P M HOLLEY AGUILAR MD Not available Not available Not available PROCEDURE 2024 02:00P M HOLLEY AGUILAR MD Not available Not available Not available Lab urinalysi s panel, auto 2024 025 [email or web address] [facility], [address], [place], [address], 01/05/2025 18:33:54 Referral None recorded. Procedures None recorded. Surgeries None recorded. Imaging None recorded. Medication Orders None recorded. Patient TargetsNo targets recorded. Patient InstructionsNo instructions recorded. Reason for Referral None Reported. Results Created Date Observation Date Name Description Value Unit Range Abnormal Flag Note LastModifiedBy Organization Detail LastModifiedTime 12/27/1912/26/2024 urina lysis panel , auto Unknown Analyte Clean Catch Not Available [facility] [address], [place], [address], 12/26/2024 13:13:02 12/27/1912/26/2024 urina lysis panel , auto Unknown Analyte Straw Not Available Pending sale to [facility] [address], [place], [address], 12/26/2024 13:13:02 12/27/1912/26/2024 urina lysis panel , auto Unknown Analyte Clear Not Available [facility] [address], [place], [address], 12/26/2024 13:13:02 12/27/1912/26/2024 urina lysis panel , auto Unknown Analyte 1.025 Not Available [facility] [address], [place], [address], 12/26/2024 13:13:02 12/27/1912/26/2024 urina lysis panel , auto Unknown Analyte 1.003 - 1.030 Not Available [facility] [address], [place], [address], 12/26/2024 13:13:02 12/27/1912/26/2024 urina lysis panel , auto Unknown Analyte 5.0 Not Available [facility] [address], [place], [address], 12/26/2024 13:13:02 12/27/1912/26/2024 urina lysis panel , auto Unknown Analyte 5.0 - 8.0 Not Available [facility] [address], [place], [address], 12/26/2024 13:13:02 12/27/1912/26/2024 urina lysis panel , auto Unknown Analyte 75 Alejandro/uL Not Available [facility] [address], [place], [address], 12/26/2024 13:13:02 12/27/1912/26/2024 urina lysis panel , auto Unknown Analyte Negati ve Not Available [facility] [address], [place], [address], 12/26/2024 13:13:02 12/27/1912/26/2024 urina lysis panel , auto Unknown Analyte Negati ve Not Available [facility] [address], [place], [address], 12/26/2024 13:13:02 12/27/1912/26/2024 urina lysis panel , auto Unknown Analyte Negati ve Not Available [facility] [address], [place], [address], 12/26/2024 13:13:02 12/27/1912/26/2024 urina lysis panel , auto Unknown Analyte 30 mg/dL Not Available [facility] [address], [place], [address], 12/26/2024 13:13:02 12/27/1912/26/2024 urina lysis panel , auto Unknown Analyte Negati ve Not Available [facility] [address], [place], [address], 12/26/2024 13:13:02 12/27/19 25 12/26/2024 urina lysis panel , auto Unknown Analyte Normal Not Available [facility] [address], [place], [address], 12/26/2024 13:13:02 12/27/19 25 12/26/2024 urina lysis panel , auto Unknown Analyte Normal Not Available [facility] [address], [place], [address], 12/26/2024 13:13:02 12/27/19 25 12/26/2024 urina lysis panel , auto Unknown Analyte 15 mg/dL Not Available [facility] [address], [place], [address], 12/26/2024 13:13:02 12/27/19 25 12/26/2024 urina lysis panel , auto Unknown Analyte Negati ve Not Available [facility] [address], [place], [address], 12/26/2024 13:13:02 12/27/19 25 12/26/2024 urina lysis panel , auto Unknown Analyte 1 mg/dL Not Available [facility] [address], [place], [address], 12/26/2024 13:13:02 12/27/1912/26/2024 urina lysis panel , auto Unknown Analyte Normal Not Available [facility] [address], [place], [address], 12/26/2024 13:13:02 12/27/19 25 12/26/2024 urina lysis panel , auto Unknown Analyte 1 mg/dL Not Available [facility] [address], [place], [address], 12/26/2024 13:13:02 12/27/1912/26/2024 urina lysis panel , auto Unknown Analyte Negati ve Not Available [facility] [address], [place], [address], 12/26/2024 13:13:02 12/27/1912/26/2024 urina lysis panel , auto Unknown Analyte 50 Tal/uL Not Available [facility] [address], [place], [address], 12/26/2024 13:13:02 12/27/1912/26/2024 urina lysis panel , auto Unknown Analyte Negati ve Not Available [facility] [address], [place], [address], 12/26/2024 13:13:02 Result Notes None recorded. 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 Please review this document and add these problems to the patient's chart manually as needed. Problem Notes None recorded. Procedures Surgical History Date Name Laterality Status Provider Name and Address Organization Details Recorded Time 5 Urethral Dilation, Female completed HOLLEY AGUILAR MD [address] [place], [address], [facility] 02/03/2025 09:04:39 8 POSTERIOR LUMBAR INTERBODY FUSION, ADDITIONAL INTERSPACE (SURG) completed Rebecca Aditi [facility] 01/19/2018 11:15:41 Other completed Huong Lavell [facility] 02/10/2017 15:08:32 Wrist arthroscopy/ricardo addie completed [facility] 02/10/2017 15:09:05 Back Surgery completed [facility] 02/10/2017 15:09:16 section completed Krista Vaughan [facility] 11/19/2024 14:49:13 Imaging Results None recorded. Procedure Notes None recorded. Medical Equipment None Reported. Allergies Allergen ID Allergen Name Allergen Category Reaction Reaction Severity Criticality Documentation Date Start Date Code Code System Note Provider Name and Address Organization Details Recorded Time 060974 Substance with sulfonami de structure and antibacte rial mechanism of action (substanc e) medicatio n Not available Not available Not available 03/12/20162012 21503 8003 SNOMED Comme nt: Creat ed By: Clement dukesCre ated Date: 2012 2:37: 08 PM; Not Available [facility] 6 08:30:10 761404 shrimp allergeni c extract food Not available Not available Not available 10/28/20222022 70106 2 RxNorm Other react ions and sever ities : 'Naus ea And Vomit ing'. [facility] 08:02:39 Medications Name Sig [...] 0 Not Available Not Available Not Available Pyridium 200 mg tablet Take 1 tablet 3 times a day by oral route. 2024 active Not Available Not Available Not Avai lable Lantus U-100 Insulin 100 unit/mL subcutane ous [...] 0 Not Available Not Available Not Available [place] 10 mg-325 mg tablet Take 1 tablet 3 times a day by oral route as needed. 2022 active Not Available Not Available Not Avai lable cefuroxim e axetil 500 mg tablet Take 1 tablet every 12 hours by oral route. 2024 active Not Available Not Available Not Avai lable [place] 7.5 mg-325 mg tablet Three times a [...] oral route as directed . 2022 active ND: 0904-588 0-61 Not Available Not Available Not Available Kemp-3 active Medicati on Descript ion: omega-3 polyunsa turated fatty acids; Route:or al; refills: 0 Not Available Not Available Not Available Vitals Date Recorded Body height Body mass index (BMI) Body weight Provider Name and Address Organization Details Last Updated DateTime 12/26/2024 162.56 cm 26.6 kg/m2 04824.82 g Krista Clement [facility] 12/26/2024 13:15:35 Social History Question Answer Notes LastModified by Organizat ion Details LastModified Time Tobacco Smoking Status [facility] 15:08:22 When Did You Quit Smoking? 1-5yearssince lastcigaryenni [email or web address] Information not available 11/19/2024 What Was The Date Of Your Most Recent Tobacco Screening? 11/19/2024 [email or web address] Information not available 11/19/2024 What Is Your Current Pack Years? 10packyears [email or web address] Information not available 11/19/2024 What Is Your Relationship Status? [email or web address] Information not available 11/19/2024 At What Age Did You Start Smoking Tobacco? 34 [email or web address] Information not available 11/19/2024 Has Tobacco Cessation Counseling Been Provided? No [email or web address] Information not available 11/19/2024 How Many Years Have You Smoked Tobacco? 20 [email or web address] Information not available 11/19/2024 Sex: Unknown Functional Status Question Answer Note LastModified by Organizat ion Details LastModified Time Do you use any illicit or recreational drugs? No [email or web address] Information not available 11/19/2024 Do you or [...] Not available 07/2024 13:43:56 Brother Diabetes mellitus Not available 2024 14:49:28 Brother Type 2 [...] high-dose, trivalent, PF 6 completed Not Available [facility] 02/01/2025 11:07:32 pneumococcal polysaccharide PPV23 6 completed Not Available [facility] 02/01/2025 11:07:32 Influenza, split virus, quadrivalent, PF 8 completed [facility] 02/01/2025 11:07:32 COVID-19, mRNA, LNP-S, PF, 100 mcg/0.5mL dose or 50 mcg/0.25mL dose 1 completed Not Available [facility] 02/01/2025 11:07:32 COVID-19, mRNA, LNP-S, PF, 100 mcg/0.5mL dose or 50 mcg/0.25mL dose 1 completed Not Available [facility] 02/01/2025 11:07:32 Influenza, high-dose, quadrivalent, PF 3 completed Not Available [facility] 02/01/2025 11:07:32 Past Encounters Encounter ID Performer Location Encounter Start Date Encounter Closed Date Diagnosis/Indication Diagnosis SNOMED-CT Code Diagnosis ICD10 Code Diagnosis IMO Codes Diagnosis Note [id number] HOLLEY AGUILAR MD [facility] [address] [place] [address] 12/26/2024 12:58:55 12/26/2024 13:53:00 Chronic cystitis 39137210 N30.20 55652 Plan as above follow-up 2 months, earlier if necessary Health Concerns Section Related Observation LastModified by Organization Detai ls LastModified Time None Recorded Concern Status LastModified by Organization Details LastModified Time None Recorded Payers Encounter Date Sequence Insurance Name Policy Number Policy Loco Covered Member ID Loco Member ID Guarantor Name 12/26/2024 1 [place] Marie Henry [id number] Marie Henry 12/26/2024 2 [place] [id number] Marie Henry [id number] Marie Henry Notes Date Note Type [...] follow-up in 2 months. HOLLEY AGUILAR MD [facility] [place], [address], [facility] 01/05/2025 18:34:30 OBGyn Episode No OBEpisode recorded.
--- OUTSIDE RECORDS SUMMARY | 2025-02-07 15:50 | XMS_ITS | Continuity of Care Document ---
Author Organization [facility] Laury roblero [facility] Address [address] [place] [address] Care Team Providers Care Film Casting Operator Name Role Phone ROMANA TOLEDO Primary Care Provider Assessment No assessment recorded. Plan of Treatment Reminders Order Date Submit Date Provider Last Modified By Organization Details Last Modified Time Details Appointments RECHECK 2024 03:00P M HOLLEY AGUILAR MD Not available Not available Not available PROCEDURE 2024 02:00P M HOLLEY AGUILAR MD Not available Not available Not available Lab None recorded. Referral None recorded. Procedures None recorded. Surgeries None recorded. Imaging None recorded. Medication Orders None recorded. Patient TargetsNo targets recorded. Patient InstructionsNo instructions recorded. Reason for Referral None Reported. Results Created Date Observation Date Name Description Value Unit Range Abnormal Flag Note LastModifiedBy Organization Detail LastModifiedTime Result Notes None recorded. Problems Name Problem SNOMED Code Status Onset Date Resolution Date Notes Provider Name and Address Organization Details Recorded Time Greater trochante nevin pain syndrome 7975380 Active 2015 From Automated Load;Provi basilio: Susana Crawford;Statu s: Active Lien Maloney [facility] 3 08:02:40 Low back pain 788058275 Active 2015 From Automated Load;Provi basilio: Tyler Gill; atus: Active Lien Maloney [facility] 3 08:02:40 Lumbosacr al radiculop athy 9355623 Active 2015 From Automated Load;Provi basilio: Francisco J Gill atus: Active Not Available [facility] 6 03:15:57 Notes:Some problems listed i n Document: #[id number] could not be added to this patient's chart. Please review this document and add these problems to the patient's chart manually as needed. Problem Notes None recorded. Procedures Surgical History Date Name Laterality Status Provider Name and Address Organization Details Recorded Time 5 Urethral Dilation, Female completed HOLLEY AGUILAR MD [address] [place] [address], [address] 02/03/2025 09:04:39 8 POSTERIOR LUMBAR INTERBODY FUSION, ADDITIONAL INTERSPACE (SURG) completed Rebecca Pennington [facility] 01/19/2018 11:15:41 [facility] 15:08:32 Wrist arthroscopy/ricardo addie completed [facility] 02/10/2017 15:09:05 Back Surgery completed [facility] 02/10/2017 15:09:16 section completed Krista Vaughan [facility] 11/19/2024 14:49:13 Imaging Results None recorded. Procedure Notes None recorded. Medical Equipment None Reported. Allergies Allergen ID Allergen Name Allergen Category Reaction Reaction Severity Criticality Documentation Date Start Date Code Code System Note Provider Name and Address Organization Details Recorded Time 288133 Substance with sulfonami de structure and antibacte rial mechanism of action (substanc e) medicatio n Not available Not available Not available 03/12/20162012 10807 8003 SNOMED Comme nt: Creat ed By: Clement dukesCre ated Date: 2012 2:37: 08 PM; Not Available [facility] 6 08:30:10 071233 shrimp allergeni c extract food Not available Not available Not available 10/28/20222022 66329 2 RxNorm Other react ions and sever ities : 'Naus ea And Vomit ing'. [facility] 08:02:39 Medications Name Sig Start Date [...] 0 Not Available Not Available Not Available [place] 10 mg-325 mg tablet Take 1 tablet 3 times a day by oral route as needed. 2022 active Not Available Not Available Not Avai lable cefuroxim e axetil 500 mg tablet Take 1 tablet every 12 hours by oral route. 2024 active Not Available Not Available Not Avai lable [place] 7.5 mg-325 mg tablet Three times a [...] oral route as directed . 2022 active [facility]: 0904-588 0-61 Not Available Not Available Not Available Trinity-3 active Medicati on Descript ion: omega-3 polyunsa turated fatty acids; Route:or al; refills: 0 Not Available Not Available Not Available Vitals Date Recorded Body height Body mass index (BMI) Body weight Provider Name and Address Organization Details Last Updated DateTime 02/01/2025 162.56 cm 26.6 kg/m2 74446.82 g Krista Clement [facility] 02/01/2025 11:42:27 Social History Question Answer Notes LastModified by Organizat ion Details LastModified Time Tobacco Smoking Status Former Smoker Huong Lavell [facility] 02/10/2017 15:08:22 When Did You Quit Smoking? 1-5yearssince lastcigarette [email or web address] Information not available 11/19/2024 What Was The Date Of Your Most Recent Tobacco Screening? 11/19/2024 [email or web address] Information not available 11/19/2024 What Is Your Current Pack Years? 10packyears [email or web address] Information not available 11/19/2024 What Is Your Relationship Status? [email or web address] Information not available 11/19/2024 At What Age Did You Start Smoking Tobacco? 34 [email or web address] Information not available 11/19/2024 Has Tobacco Cessation Counseling Been Provided? No [email or web address] Information not available 11/19/2024 How Many Years Have You Smoked Tobacco? 20 [email or web address] Information not available 11/19/2024 Sex: Unknown Functional Status Question Answer Note LastModified by Organizat ion Details LastModified Time Do you use any illicit or recreational drugs? No [email or web address] Information not available 11/19/2024 Do you or [...] Not available 07/2024 13:43:56 Brother Diabetes mellitus [email or web address] Not available 2024 14:49:28 Brother Type 2 diabetes mellitus [email or web address] Not available 2024 13:43:56 Brother Kidney stone [email or web address] Not availa ble 11/19/2024 13:43:56 Father Kidney stone [email or web address] Not availab le 11/19/2024 13:43:56 Medical History Condition Response Kidney Stones N Arthritis Y Kidney Disease Y If you get up at night to urinate, how m any times? N Do you get up at night to urinate? N Urinary Tract Infection N High Cholesterol Y Diabetes Y Hypertension Y Gynecological History Statement/Question Response # of Pregnancies 2 # of Births 2 Obstetrics History GPAL:G 0 P 0 0 0 0 Immunizations Vaccine Type Date Status Note Provider Nam e and Address Organization Details Recorded Time Influenza, high-dose, trivalent, PF 6 completed Not Available [facility] 02/01/2025 11:07:32 pneumococcal polysaccharide PPV23 6 completed Not Available [facility] 02/01/2025 11:07:32 Influenza, split virus, quadrivalent, PF 8 completed Not Available [facility] 02/01/2025 11:07:32 COVID-19, mRNA, LNP-S, PF, 100 mcg/0.5mL dose or 50 mcg/0.25mL dose 1 completed Not Available [facility] 02/01/2025 11:07:32 COVID-19, mRNA, LNP-S, PF, 100 mcg/0.5mL dose or 50 mcg/0.25mL dose 1 completed Not Available [facility] 02/01/2025 11:07:32 Influenza, high-dose, quadrivalent, PF 3 completed Not Available [facility] 02/01/2025 11:07:32 Past Encounters Encounter ID Performer Location Encounter Start Date Encounter Closed Date Diagnosis/Indication Diagnosis SNOMED-CT Code Diagnosis ICD10 Code Diagnosis IMO Codes Diagnosis Note [id number] HOLLEY AGUILAR MD [facility] [address] [place] [address] 02/01/2025 11:06:39 02/01/2025 12:23:07 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 If her frequency does not significan tly improved I have given her Gemtesa samples as a trial. She will start that in 1 week if her symptoms are no better. Chronic cystitis 4271974 2 N30.20 39347 Plan as above follow-up 2 months, earlier if necessary Increased frequency of urination 437309977 R35.0 50964 Health Concerns Section Related Observation LastModified by Organization Detai ls LastModified Time None Recorded Concern Status LastModified by Organization Details LastModified Time None Recorded Payers Encounter Date Sequence Insurance Name Policy Number Policy Loco Covered Member ID Loco Member ID Guarantor Name 02/01/2025 1 [place] Marie Henry [id number] Marie Henry 02/01/2025 2 [place] [id number] Marie Henry [id number] Marie Henry Notes Date Note Type Note Provider Name and Address Organization Details Recorded Time 02/01/2025 text/html Patient is here for 1 month follow-up regarding previous history of chronic urethritis urethral stenosis and frequency. He recently completed a prolonged course of antibiotics which improved her symptoms but did not resolve them. She still has considerable urinary frequency. She feels that her urethra needs dilation. This was performed. She did have some significant restriction at [address] [place] but subsequent sounds passed easily up to 24 HOLLEY AGUILAR MD [address] [place], [address], [facility] 02/03/2025 09:06:39 OBGyn Episode No OBEpisode recorded.
--- OUTSIDE RECORDS SUMMARY | 2025-02-07 15:50 | XMS_ITS | Clinical Summary ---
Author Organization [facility] Address [address] [place] [address] Care Team Providers Care Negative Developer Name Role Phone Tyler Sanchez MD Unavailable [phone] Rosita Jordan APRN Primary Care Provider [phone] Allergies Active Allergy Reactions Criticality Noted Date [...] EST Appointment [facility] [address] [place] [id number] 02/27/2025 2:30 PM EST Office Visit [facility] [place] [address] [place] [address] Feroz Elliott MD [address] [place] [id number] Health Maintenance Due Date Last Done Comments [...] (2 of 2 - PCV) 01/20/2017 01/21/2016 [id number] Vaccine (3 - Moderna risk series) 07/23/2020 [...] age to complete this topic [place] [id number] ANTHEM Care Teams Negative Developer Relationship Specialty Start Date End Date Rosita Jordan APRN [address] [place] [address] PCP - General 01/01/21 Tyler Sanchez MD [address] [place] [address] Referring Physician 12/11/20
--- OUTSIDE RECORDS SUMMARY | 2025-02-07 15:50 | XMS_ITS | Clinical Summary ---
Author Organization [facility] Address [address] [place] [address] Care Team Providers Care Belt Maker Name Role Phone Rosita Jordan APRN Primary Care Provider [phone] Social History Tobacco Use Types Packs/Day Years [...] & B [facility] Care Teams Belt Maker Relationship Specialty Start Date End Date Rosita Jordan APRN PCP - General Internal Medicine 08/27/21
--- OUTSIDE RECORDS SUMMARY | 2025-02-07 15:50 | XMS_ITS | Clinical Summary ---
Author Organization [facility] ([place], [place], [place], [place]) Address [address] [place] [address] Care Team Providers Care Senior It Architect Name Role Phone Unavailable Primary Care Provider [...] Date Cali rded Speak language other than Bengali at home Not on file 05/06/2023 Want [...] series) 2024 Medical Devices Implanted Type Area Casing Trimmer Device Identifier Shelf Expiration Date Model / Serial / Lot Cage T/Plif 10mm [id number] - [id number] Implanted:Qty: 1 on 10/22/2022 by Tyler Gill MD at [facility] IMPLANTS N/A: Spine Lumbar J &J:DEPUY:DEPUY SPINE [id number] / / [id number] Bone Vivigen Frmble Cell 10cc -1600-003 - [id number] Implanted:Qty: 1 on 10/22/2022 by Tyler Gill MD at [facility] IMPLANTS N/A: Spine Lumbar LIFENET:LIFENET TRANSPLANT SRV 09/17/2023 BL-1600-0 03 / [id number] / Scr Spne Radhames Fix Fen 5x50mm 550 - [id number] Implanted:Qty: 2 on 10/22/2022 by Tyler Gill MD at [facility] IMPLANTS N/A: Spine Lumbar J &J:DEPUY:DEPUY SPINE 50 / 50 / Jordin Conn Expedium 200mm Ti 1796-76-555 - [id number] Implanted:Qty: 1 on 10/22/2022 by Tyler Gill MD at [facility] IMPLANTS N/A: Spine Lumbar J &J:DEPUY:DEPUY SPINE -5 55 / 5 55 / Mis Ambar Ply Scrw Set Ti - - [id number] Implanted:Qty: 4 on 10/22/2022 by Tyler Gill MD at [facility] IMPLANTS N/A: Spine Lumbar J &J:DEPUY:DEPUY SPINE -0 00 / 0 00 / Cement Spinal Confidence 2839-10-000 - [id number] Implanted:Qty: 1 on 10/22/2022 by Tyler Gill MD at [facility] IMPLANTS N/A: Spine Lumbar J &J:DEPUY:DEPUY SPINE 07/16/2024 2839-10-0 00 / / [id number] Bone Putty Stimulan [facility] 620-005 - [id number] Implanted:Qty: 1 on 10/22/2022 by Tyler Gill MD at [facility] IMPLANTS N/A: Spine Lumbar [employer] 09/15/2025 620-005 / / [id number] Connector End 5.5x5.5 1797-77-555 - [id number] Implanted:Qty: 1 on 10/22/2022 by Tyler Gill MD at [facility] IMPLANTS N/A: Spine Lumbar J &J:DEPUY:DEPUY SPINE 17977-5 55 / [id number] / Insurance MEDICARE PART A B [facility] Advance Directives For more information, please contact: [phone] * Full Code (Latest Code Status on File) Date Activated Date Inactivated Comments 10/22/2022 11:49 AM 10/27/2022 6:34 PM
--- OUTSIDE RECORDS SUMMARY | 2025-02-07 15:50 | XMS_ITS | Data Portability ---
Author Organization [facility] SL[facility] [place] [facility] Address [address] [place] [address] Care Team Providers Care Corporate Logistics Manager Name Role Phone ROMANA TOLEDO Primary Care Provider [phone] Assessment Encounter Date Assessment Date Assessment LastModified by Organization Details LastModified Time 11/29/2022 11/29/2022 Mrs. Henry is a 71-year-old [...] her postop pain medication to [facility] in [place]. Not available 11/29/2022 13:31:19 03/07/2023 03/07/2023 ASSESSMENT: [...] like to have the imaging completed at [facility] as this is more convenient for her and she will bring a copy of the CD to our office for us to review the images. [email or web address] Not available 03/07/2023 16:24:14 Plan of Treatment Reminders Order Date Submit Date Provider Last Modified By Organization Details Last Modified Time Details Appointments RECHECK 2024 03:00P M HOLLEY AGUILAR MD Not available Not available Not available PROCEDURE 2024 02:00P M HOLLEY AGUILAR MD Not available Not available Not available Lab urinalysi s panel, auto [email or web address] [facility], [address], [address], [address], 01/05/2025 18:33:54 urinalysi s panel, auto 2024 025 [facility], [address], [address], [place], [address], 11/19/2024 15:43:56 Referral None recorded. Procedures None recorded. Surgeries None recorded. Imaging None recorded. Medication Orders cefuroxim e axetil 500 mg tablet 2024 025 [facility], [address], [address], 11/19/2024 15:44:34 Medrol (Will) 4 mg tablets in a dose pack 2022 023 [id number], [address] [address] [address], [place], [place], [id number], 03/07/2023 13:38:12 Patient TargetsNo targets recorded. Patient InstructionsNo instructions recorded. Reason for Referral None Reported. Results Created Date Observation Date Name Description Value Unit Range Abnormal Flag Note LastModifiedBy Organization Detail LastModifiedTime 11/20/1911/19/2024 urina lysis panel , auto Unknown Analyte Clean Catch Not Available [facility] [address], [place], [address], 11/19/2024 14:49:13 11/20/1911/19/2024 urina lysis panel , auto Unknown Analyte Straw Not Available [facility] [address], [place], [address], 11/19/2024 14:49:13 11/20/1911/19/2024 urina lysis panel , auto Unknown Analyte Clear Not Available [facility] [address], [place], [address], 11/19/2024 14:49:13 11/20/19 25 11/19/2024 urina lysis panel , auto Unknown Analyte 1.030 Not Available [facility] [address], [place], [address], 11/19/2024 14:49:13 11/20/19 25 11/19/2024 urina lysis panel , auto Unknown Analyte 1.003 - 1.030 Not Available [facility] [address], [place], [address], 11/19/2024 14:49:13 11/20/19 11/19/2024 urina lysis panel , auto Unknown Analyte 5.0 Not Available [facility] [address], [place], [address], 11/19/2024 14:49:13 11/20/19 25 11/19/2024 urina lysis panel , auto Unknown Analyte 5.0 - 8.0 Not Available [facility] [address], [place], [address], 11/19/2024 14:49:13 11/20/1911/19/2024 urina lysis panel , auto Unknown Analyte 75 Alejandro/uL Not Available [facility] [address], [place], [address], 11/19/2024 14:49:13 11/20/1911/19/2024 urina lysis panel , auto Unknown Analyte Negati ve Not Available [facility] [address], [place], [address], 11/19/2024 14:49:13 11/20/19 25 11/19/2024 urina lysis panel , auto Unknown Analyte Negati ve Not Available [facility] [address], [place], [address], 11/19/2024 14:49:13 11/20/1911/19/2024 urina lysis panel , auto Unknown Analyte Negati ve Not Available [facility] [address], [place], [address], 11/19/2024 14:49:13 11/20/19 11/19/2024 urina lysis panel , auto Unknown Analyte 30 mg/dL Not Available [facility] [address], [place], [address], 11/19/2024 14:49:13 11/20/19 25 11/19/2024 urina lysis panel , auto Unknown Analyte Negati ve Not Available [facility] [address], [place], [address], 11/19/2024 14:49:13 11/20/1911/19/2024 urina lysis panel , auto Unknown Analyte Normal Not Available [facility] [address], [place], [address], 11/19/2024 14:49:13 11/20/1911/19/2024 urina lysis panel , auto Unknown Analyte Normal Not Available [facility] [address], [place], [address], 11/19/2024 14:49:13 11/20/1911/19/2024 urina lysis panel , auto Unknown Analyte 15 mg/dL Not Available [facility] [address], [place], [address], 11/19/2024 14:49:13 11/20/1911/19/2024 urina lysis panel , auto Unknown Analyte Negati ve Not Available [facility] [address], [place], [address], 11/19/2024 14:49:13 11/20/19 25 11/19/2024 urina lysis panel , auto Unknown Analyte 1 mg/dL Not Available [facility] [address], [place], [address], 11/19/2024 14:49:13 11/20/19 25 11/19/2024 urina lysis panel , auto Unknown Analyte Normal Not Available [facility] [address], [place], [address], 11/19/2024 14:49:13 11/20/19 25 11/19/2024 urina lysis panel , auto Unknown Analyte 1 mg/dL Not Available [facility] [address], [place], [address], 11/19/2024 14:49:13 11/20/19 25 11/19/2024 urina lysis panel , auto Unknown Analyte Negati ve Not Available [facility] [address], [place], [address], 11/19/2024 14:49:13 11/20/19 25 11/19/2024 urina lysis panel , auto Unknown Analyte Negati ve Not Available [facility] [address], [place], [address], 11/19/2024 14:49:13 11/20/19 25 11/19/2024 urina lysis panel , auto Unknown Analyte Negati ve Not Available [facility] [address], [place], [address], 11/19/2024 14:49:13 12/27/19 25 12/26/2024 urina lysis panel , auto Unknown Analyte Clean Catch Not Available [facility] [address], [place], [address], 12/26/2024 13:13:02 12/27/19 25 12/26/2024 urina lysis panel , auto Unknown Analyte Straw Not Available [facility] [address], [place], [address], 12/26/2024 13:13:02 12/27/1912/26/2024 urina lysis panel , auto Unknown Analyte Clear Not Available [facility] [address], [place], [address], 12/26/2024 13:13:02 12/27/1912/26/2024 urina lysis panel , auto Unknown Analyte 1.025 Not Available [facility] [address], [place], [address], 12/26/2024 13:13:02 12/27/1912/26/2024 urina lysis panel , auto Unknown Analyte 1.003 - 1.030 Not Available [facility] [address], [place], [address], 12/26/2024 13:13:02 12/27/19 25 12/26/2024 urina lysis panel , auto Unknown Analyte 5.[address] [facility] [address], [place], [address], 12/26/2024 13:13:02 12/27/19 25 12/26/2024 urina lysis panel , auto Unknown Analyte 5.0 - 8.0 Not Available [facility] [address], [place], [address], 12/26/2024 13:13:02 12/27/1912/26/2024 urina lysis panel , auto Unknown Analyte 75 Alejandro/uL Not Available [facility] [address], [place], [address], 12/26/2024 13:13:02 12/27/1912/26/2024 urina lysis panel , auto Unknown Analyte Negati ve Not Available [facility] [address], [place], [address], 12/26/2024 13:13:02 12/27/1912/26/2024 urina lysis panel , auto Unknown Analyte Negati ve Not Available [facility] [address], [place], [address], 12/26/2024 13:13:02 12/27/1912/26/2024 urina lysis panel , auto Unknown Analyte Negati ve Not Available [facility] [address], [place], [address], 12/26/2024 13:13:02 12/27/1912/26/2024 urina lysis panel , auto Unknown Analyte 30 mg/dL Not Available [facility] [address], [place], [address], 12/26/2024 13:13:02 12/27/1912/26/2024 urina lysis panel , auto Unknown Analyte Negati ve Not Available [facility] [address], [place], [address], 12/26/2024 13:13:02 12/27/19 25 12/26/2024 urina lysis panel , auto Unknown Analyte Normal Not Available [facility] [address], [place], [address], 12/26/2024 13:13:02 12/27/1912/26/2024 urina lysis panel , auto Unknown Analyte Normal Not Available [facility] [address], [place], [address], 12/26/2024 13:13:02 12/27/19 25 12/26/2024 urina lysis panel , auto Unknown Analyte 15 mg/dL Not Available [facility] [address], [place], [address], 12/26/2024 13:13:02 12/27/1912/26/2024 urina lysis panel , auto Unknown Analyte Negati ve Not Available [facility] [address], [place], [address], 12/26/2024 13:13:02 12/27/1912/26/2024 urina lysis panel , auto Unknown Analyte 1 mg/dL Not Available [facility] [address], [place], [address], 12/26/2024 13:13:02 12/27/1912/26/2024 urina lysis panel , auto Unknown Analyte Normal Not Available [facility] [address], [place], [address], 12/26/2024 13:13:02 12/27/19 25 12/26/2024 urina lysis panel , auto Unknown Analyte 1 mg/dL Not Available [facility] [address] [facility] [address], [place], [address], 12/26/2024 13:13:02 12/27/19 25 12/26/2024 urina lysis panel , auto Unknown Analyte Negati ve Not Available [facility] [address] [facility] [address], [place], [address], 12/26/2024 13:13:02 12/27/19 25 12/26/2024 urina lysis panel , auto Unknown Analyte 50 Judy/uL Not Available [facility] [address] [facility] [address], [place], [address], 12/26/2024 13:13:02 12/27/1912/26/2024 urina lysis panel , auto Unknown Analyte Negati ve Not Available [facility] [address] [facility] [address], [place], [address], 12/26/2024 13:13:02 11/30/19 23 11/29/2022 XR, lumbo sacra l spine , 2 or 3 view [facility] [address] [place] [address] Patigertrude t Name: GAYLA HENRY Michelle chirinos : [birth year] 49 Michelle chirinos Orderi ng Provid er: GREY GILL [...] Lanny Leary MD on 023 1:56 PM [email or web address] [facility] Radiology [address], [address], 12/16/2022 08:01:55 03/07/20 23 03/07/2023 XR, lumbo sacra l spine , compl ete [facility] [address] [place] [address] Patigertrude chirinos Name: GAYLA chirinos : [birth year] 49 Michelle chirinos Orderi ng Provid er: GREY GILL EXAM DATE: 2022 EXAM: XR LUMBAR COMPLE [...] Lanny Leary MD on 2022 1:29 PM [email or web address] [facility] Radiology [facility] [address] [place], [address], 03/28/2023 08:05:33 03/23/20 23 03/23/2023 CT, lumba r spine , w/o contr ast No observ ation record ed. [email or web address] [facility] (X-Ray) [address], [place], [address], 04/01/2023 16:59:23 05/30/19 24 05/26/2022 MRI, lumba r spine , w/o contr ast No observ ation record ed. [email or web address] [facility] (Scheduling) [address], [place], [address], 06/23/2023 09:50:03 08/17/19 25 07/12/2024 MRI, lumba r spine , w/o contr ast No observ ation record ed. BARCODE Not Available 2024 10:30:41 Result Notes Documentation Provider Name and Address Organization Details Recorded Time Xr, Lumbosacral Spine, 2 Or 3 View : [address] [address] Patient Name: JENNIFER HENRY Patient : 1950 [...] Interpreted By: Corey Leary MD Char Bain [facility] 12/16/2022 08:01:55 Xr, Lumbosacral Spine, Complete : [address] [address] Patient Name: JENNIFER HENRY Patient : 1950 [...] obvious aneurysm. 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 Please review this document and add these problems to the patient's chart manually as needed. Problem Notes None recorded. Procedures Surgical History Date Name Laterality Status Provider Name and Address Organization Details Recorded Time 5 Urethral Dilation, Female completed HOLLEY AGUILAR MD [facility] [place], [address], [facility] 02/03/2025 09:04:39 8 POSTERIOR LUMBAR INTERBODY FUSION, ADDITIONAL INTERSPACE (SURG) completed Rebecca Pennington [facility] 01/19/2018 11:15:41 Other completed Huong Monte [facility] 02/10/2017 15:08:32 Wrist arthroscopy/ricardo addie completed Huong Monte [facility] 02/10/2017 15:09:05 Back Surgery completed Huong Monte [facility] 02/10/2017 15:09:16 section completed Krista Tuttle [facility] 11/19/2024 14:49:13 Imaging Results None recorded. Procedure Notes None recorded. Medical Equipment None Reported. Allergies Allergen ID Allergen Name Allergen Category Reaction Reaction Severity Criticality Documentation Date Start Date Code Code System Note Provider Name and Address Organization Details Recorded Time 701120 Substance with sulfonami de structure and antibacte rial mechanism of action (substanc e) medicatio n Not available Not available Not available 03/12/20162012 30570 8003 SNOMED Comme nt: Creat ed By: Clement castro Date: 2012 2:37: 08 PM; Not Available [facility] 6 08:30:10 731303 shrimp allergeni c extract food Not available Not available Not available 10/28/20222022 63198 2 RxNorm Other react ions and sever ities : 'Naus ea And Vomit ing'. [facility] 08:02:39 Medications Name Sig Start Date [...] 0 Not Available Not Available Not Available [place] 10 mg-325 mg tablet Take 1 tablet 3 times a day by oral route as needed. 2022 active Not Available Not Available Not Avai lable cefuroxim e axetil 500 mg tablet Take 1 tablet every 12 hours by oral route. 2024 active Not Available Not Available Not Avai lable [place] 7.5 mg-325 mg tablet Three times a [...] oral route as directed . 2022 active [facility]: [phone] 0-61 Not Available Not Available Not Available [place]-3 active Medicati on Descript ion: omega-3 polyunsa turated fatty acids; Route:or al; refills: 0 Not Available Not Available Not Available Vitals Date Recorded Body height Body mass index (BMI) Body weight Provider Name and Address Organization Details Last Updated DateTime 11/19/2024 162.56 cm 26.6 kg/m2 61381.82 g Krista Tuttle [facility] 11/19/2024 14:48:53 Date Recorded Body height Body mass index (BMI) Body weight Systolic And Diastolic Provider Name and Address Organization Details Last Updated DateTime 11/29/2022 162.56 cm 27.3 kg/m2 17035.19 g 132/72 mm[Hg] Huong Monte [facility] 11/29/2022 13:17:10 Date Recorded Body height Body mass index (BMI) Body weight Provider Name and Address Organization Details Last Updated DateTime 12/26/2024 162.56 cm 26.6 kg/m2 89661.82 g Krista Tuttle [facility] 12/26/2024 13:15:35 Date Recorded Body height Body mass index (BMI) Body weight Provider Name and Address Organization Details Last Updated DateTime 02/01/2025 162.56 cm 26.6 kg/m2 24616.82 g Krista Clement [facility] 02/01/2025 11:42:27 Date Recorded Body height Body mass index (BMI) Body weight Provider Name and Address Organization Details Last Updated DateTime 03/07/2023 162.56 cm 27.3 kg/m2 51494.19 g Jasiel Arteaga [facility] 03/07/2023 12:13:56 Social History Question Answer Notes LastModified by [employer] Details LastModified Time Tobacco Smoking Status Former Smoker Huong Monte [facility] 02/10/2017 15:08:22 When Did You Quit Smoking? 1-5yearssince lastcigarette [email or web address] Information not available 11/19/2024 What Was The Date Of Your Most Recent Tobacco Screening? 11/19/2024 [email or web address] Information not available 11/19/2024 What Is Your Current Pack Years? 10packyears [email or web address] Information not available 11/19/2024 What Is Your Relationship Status? [email or web address] Information not available 11/19/2024 At What Age Did You Start Smoking Tobacco? 34 [email or web address] Information not available 11/19/2024 Has Tobacco Cessation Counseling Been Provided? No [email or web address] Information not available 11/19/2024 How Many Years Have You Smoked Tobacco? 20 [email or web address] Information not available 11/19/2024 Sex: Unknown Functional Status Question Answer Note LastModified by Organizat ion Details LastModified Time Do you use any illicit or recreational drugs? No [email or web address] Information not available 11/19/2024 Do you or [...] Not available 07/2024 13:43:56 Brother Diabetes mellitus [email or web address] Not available 2024 14:49:28 Brother Type 2 diabetes mellitus [email or web address] Not available 2024 13:43:56 Brother Kidney stone [email or web address] Not availa ble 11/19/2024 13:43:56 Father Kidney stone [email or web address] Not availab le 11/19/2024 13:43:56 Medical History Condition Response Kidney Stones N If you get up at night to urinate, how m any times? N Do you get up at night to urinate? N Diabetes Y Arthritis Y Urinary Tract Infection N High Cholesterol Y Hypertension Y Kidney Disease Y Gynecological History Statement/Question Response # of Pregnancies 2 # of Births 2 Obstetrics History GPAL:G 0 P 0 0 0 0 Immunizations Vaccine Type Date Status Note Provider Nam e and Address Organization Details Recorded Time Influenza, high-dose, trivalent, PF 6 completed Not Available [facility] 02/01/2025 11:07:32 pneumococcal polysaccharide PPV23 6 completed Not Available [facility] 02/01/2025 11:07:32 Influenza, split virus, quadrivalent, PF 8 completed Not Available [facility] 02/01/2025 11:07:32 COVID-19, mRNA, LNP-S, PF, 100 mcg/0.5mL dose or 50 mcg/0.25mL dose 1 completed Not Available [facility] 02/01/2025 11:07:32 COVID-19, mRNA, LNP-S, PF, 100 mcg/0.5mL dose or 50 mcg/0.25mL dose 1 completed Not Available [facility] 02/01/2025 11:07:32 Influenza, high-dose, quadrivalent, PF 3 completed Not Available [facility] 02/01/2025 11:07:32 Past Encounters Encounter ID Performer Location Encounter Start Date Encounter Closed Date Diagnosis/Indication Diagnosis SNOMED-CT Code Diagnosis ICD10 Code Diagnosis IMO Codes Diagnosis Note [id number] OLGA GILL MD [facility] [address] [place] [id number] 02/10/2017 14:52:36 02/14/2017 09:07:33 Spinal stenosis of lumbar region 71322554 M48.183 [id number] SHENA ANTONIO PA-C [facility] [address] [place] [address] 10/20/2017 13:08:19 10/24/2017 15:24:00 Spondylosis without myelopathy 60999366 M47.9 [id number] OLGA GILL MD [facility]UROS[facility]G [facility] [address] [place] [address] 11/28/2017 14:49:44 12/13/2017 20:36:03 Spondylolisthesis [id number] M43.10 Minutes spent reviewing images, discussing the diagnosis and coordinati ng care: 25 min [id number] OLGA GILL MD NEUROSURG [facility] [address] [place] [address] 01/30/2018 08:57:05 02/02/2018 13:11:45 [id number] OLGA GILL MD NEUROSURG [facility]Y [facility] [address] [place] [address] 02/20/2018 10:24:33 02/20/2018 14:12:19 Postoperative care [id number] Z48.89 [id number] GORDY PEARSON PA-C NEUROSURG [facility] [address] [place] [address] 08/14/2018 13:03:59 08/15/2018 14:58:33 Postoperative care [id number] Z48.89 Mrs. Henry follows up from a [...] agrees with the plan as stated above. [id number] ALESIA TUTTLE PA-C NEUROSURG [facility] [address] [place] [address] 05/27/2022 14:23:25 05/29/2022 04:33:18 Sacral back pain [id number] M54.50 [id number] OLGA GILL MD SURGERY SCHEDULE [address] [place] [address] 10/29/2022 13:45:08 11/01/2022 14:32:41 [id number] OLGA GILL MD NEUROSURG [facility] [address] [place] [address] 11/29/2022 13:07:32 11/30/2022 04:17:18 Postoperative care [id number] Z48.89 [id number] MICHAEL PENN, [place] NEUROSURG [facility] [address] [place] [address] 03/07/2023 11:37:16 03/08/2023 05:09:10 Lumbar radiculopathy [id number] M54.16 Lumbar spondylosis 65391 0009 M47.896 History of lumbar fusion [id number] Z98.1 [id number] HOLLEY AGUILAR MD [facility] S [address] [place] [address] 11/19/2024 13:43:55 11/19/2024 15:46:50 Chronic cystitis [id number] N30.20 07641 Plan as above follow-up 3 weeks [id number] HOLLEY AGUILAR MD [facility] [address] [place] [address] 12/26/2024 12:58:55 12/26/2024 13:53:00 Chronic cystitis 60451029 N30.20 60007 Plan as above follow-up 2 months, earlier if necessary [id number] HOLLEY AGUILAR MD [facility] [address] [place] [address] 02/01/2025 11:06:39 02/01/2025 12:23:07 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 If her frequency does not significan tly improved I have given her Gemtesa samples as a trial. She will start that in 1 week if her symptoms are no better. Chronic cystitis [id number] 2 N30.20 [id number] Plan as above follow-up 2 months, earlier if necessary Increased frequency of urination [id number] R35.0 28094 Health Concerns Section Related Observation LastModified by Organization Detai ls LastModified Time None Recorded Concern Status LastModified by Organization Details LastModified Time None Recorded Advance Directives Directive None Recorded Payers Insurance Date Sequence Insurance Name Policy Number Policy Loco Covered Member ID Loco Member ID Guarantor Name 05/27/2022 2 [place] [id number] Jennifer Henry [id number] Jennifer Henry 05/27/2022 2 [place] [id number] Jennifer Henry [id number] Jennifer Henry 02/01/2025 1 [place] Jennifer Henry [id number] Jennifer Henry 02/04/2025 2 [place] [id number] Jennifer Henry [id number] Jennifer Henry Notes Date Note Type Note Provider Name and Address Organization Details Recorded Time 11/29/2022 text/html ROS as noted in the HPI Mrs. Henry is a 71-year-old female status post extension of fusion to L2-3. She presents today for first postoperative visit. She has been doing well with expected incisional pain. She has been using her brace as instructed. She has been walking with the assistance of a walker. OLGA GILL MD [address] [place] [address], [address], [facility] 11/29/2022 13:34:19 03/07/2023 text/html ROS as noted in the HPI Ms. Henry is a 72-year-old female who returns to the office in follow-up of her fusion extension to L2-[address] Gill on 10/22/2022. MICHAEL PENN APRN [address] [place] [address], [phone], [facility] 03/07/2023 16:25:15 11/19/2024 text/html Patient has not been seen by me for several years. She has previous history of urethral stenosis responding to urethral dilation. She states that about 3 weeks ago she had increased frequency and urgency and then on October 18 had gross hematuria with urinary frequency for about 24 hours. She did not knowingly passed a stone but was seen in the walk-in clinic and originally placed on antibiotics. This improved her symptoms but did not resolve them. She continues to have some mild interruption of stream as well as slightly pink urine intermittently. Her urine today is nitrite negative with trace leukocytes. Due to persistence of symptoms I suggest we treat her for chronic urethritis prior to any urethral dilation. She is placed on cefuroxime twice daily for 1 month. She will follow-up in 3 weeks and if not significantly improved we will consider dilation of the urethra here in the office under local anesthesia. HOLLEY AGUILAR MD [address] [place] [address] [place], [address], [facility] 11/20/2024 19:46:16 12/26/2024 text/html Patient is here to follow-up [...] follow-up in 2 months. HOLLEY AGUILAR MD [address] [place] [address] [place], [address], [facility] 01/05/2025 18:34:30 02/01/2025 text/html Patient is here for 1 month follow-up regarding previous history of chronic urethritis urethral stenosis and frequency. He recently completed a prolonged course of antibiotics which improved her symptoms but did not resolve them. She still has considerable urinary frequency. She feels that her urethra needs dilation. This was performed. She did have some significant restriction at 16 Malay but subsequent sounds passed easily up to 24 HOLLEY AGUILAR MD [address] [place] [address] [place], [address], [facility] 02/03/2025 09:06:39 OBGyn Episode No OBEpisode recorded.
[2025-02-07 15:56] LABS: Microscopic, Urine URINE MICROSCOPIC (MICROSCOPIC)
[2025-02-07 16:00] LABS: Bilirubin,Urine Negative (Negative); Color,Urine YELLOW (Yellow); Glucose,Urine (UA) Negative (Negative); Ketones,Urine Negative (Negative); Leukocyte Esterase,Urine Negative (Negative); PH,Urine 5.5 (5.0-8.5); Protein,Urine Negative (Negative); Specific Gravity, Urine 1.010 (1.005-1.030); Urobilinogen,Urine 0.2 EU/dl (0.2)
[2025-02-07 16:15] LABS: Hematocrit 41.0 % (37.0-47.0); Hemoglobin 13.8 g/dL (12.2-16.2); Immature Granulocytes % 0.2 %; Mean Corpuscular HGB Conc 33.7 g/dL (31.8-35.4); Mean Corpuscular Hemoglobin 29.4 pg (27.0-31.2); Mean Corpuscular Volume 87.4 fl (81-99); Nucleated Red Blood Cells % 0 %; Platelet Count 236 K/mm3 (142-424); Red Blood Count 4.69 M/mm3 (4.20-5.40); Red Cell Distribution Width-SD 41.0 fL; White Blood Count 9.7 K/mm3 (4.8-10.8)
[2025-02-07] MEDS: 0.9 % SODIUM CHLORIDE 1000ML 1,000 ML 999 ML IV (16:15)
[2025-02-07] MEDS: KETOROLAC 15MG/ML VIAL 15 MG IV (16:16)
[2025-02-07 16:48] LABS: Bacteria,Urine Trace /lpf
[2025-02-07 17:29] LABS: Alanine Aminotransferase 26 U/L (12-78); Albumin Level 3.9 g/dl (3.5-5.0); Albumin/Globulin Ratio 1.3 (1.1-1.8); Alkaline Phosphatase 149 U/L (38-126); Aspartate Amino Transferase 31 U/L (14-36); Bilirubin,Total 1.1 mg/dl (0.2-1.3); Blood Urea Nitrogen 9 mg/dl (7-17); Calcium 9.3 mg/dl (8.4-10.2); Carbon Dioxide 24 mmol/L (22.0-30.0); Chloride 105 mmol/L (98-107); Creatinine Clearance Estimated 52 mL/min (50-200); Creatinine,Serum 0.60 mg/dl (0.52-1.04); Estimated Glomerular Filt Rate 97 ml/min (>60); GFR (African American) 118 ML/MIN (>60); Globulin 3.0 g/dL (1.3-3.2); Glucose 92 mg/dl (74-100); Sodium 138 mmol/L (136-145); Total Protein,Serum 6.9 g/dl (6.3-8.2)
[2025-02-07 17:37] LABS: Anion Gap 12.9 mEq/L (5-15); Magnesium 1.2 mg/dl (1.6-2.3); Potassium 3.9 mmoL/L (3.5-5.1)
[2025-02-07] MEDS: MAGNESIUM OXIDE 400MG TABLET 400 MG PO (17:49)
[2025-02-07 19:13] LABS: Hepatitis C Ab Qual. W/ RFX NEGATIVE (Negative)
[2025-02-07 20:12] LABS: Reflex Lactic Add Lactic Reflex
== END 2025-02-07 17:57 | disposition home or self-care (01) ==
PROVIDERS: Nurse Practitioner Family; Emergency Provider Student in an Organized Health Care Education/Training Program; PCP Nurse Practitioner Family
DX: R10.817 Generalized abdominal tenderness (principal); R30.0 Dysuria; E83.42 Hypomagnesemia; M54.50 Low back pain, unspecified
CPT/HCPCS: 80053; 81001; 83605; 83735; 85025; 86803; 87389; 96361; 96374; 99284; 99285; J1885; J7030

== ENCOUNTER 2025-03-12 15:23 | Outpatient (CLI) | payer MEDICARE, BC, SELFPAY ==
--- OUTSIDE RECORDS SUMMARY | 2025-02-27 13:00 | XMS_ITS | Encounter Summary ---
Author Organization Healthcare Address [address] [place] [address] Care Team Providers Care [employer] Operator Name Role Phone Tyler Sanchez MD Unavailable [phone] Rosita Jordan APRN Primary Care Provider [phone] Reason for Referral * Imaging (Routine) - Closed Specialty Diagnoses / Procedures Referred By Arthur chirinos Referred To Contact Cardiology Diagnoses Bilateral carotid artery stenosis Procedures VAS US Carotid Duplex Bilateral Charles Savage APRN [address] [place] [address] Phone: tel: fax: Referral ID Status Reason Start Date Expiration Date V isits Requested Visits Authorized [id number] Closed Perform Procedure 02/22/2024 08/23/2025 1 1 Reason for Visit * Imaging (Routine) - Closed Specialty Diagnoses / Procedures Referred By Contac candis Referred To Contact Cardiology Diagnoses Bilateral carotid artery stenosis Procedures VAS US Carotid Duplex Bilateral Charles Savage APRN [address] [place] [address] Phone: tel: fax: Referral ID Status Reason Start Date Expiration Date V isits Requested Visits Authorized [id number] Closed Perform Procedure 02/22/2024 08/23/2025 1 1 Encounter Details Date Type Department Care Team (Latest Contact Info) Description 02/27/2025 1:00 PM EST - 02/27/2025 11:59 PM EST Hospital Encounter [facility] [address] [place] [address] Bilateral carotid artery stenosis Discharge Disposition: Home or Self Care Social History Tobacco Use Types Packs/Day Years Used Date Smoking Tobacco: Former Cigarettes 0.3 20 Smokeless Tobacco: Never Comments:Has quit smoking fo r about 1.5 years Alcohol Use Standard Drinks/Week Comments Not Currently 0 (1 standard drink = 0.6 oz pure alcohol) rarely 3 drinks or less per year PHQ-2 Answer Date Recorded Patient Health Questionnaire-2 Score 0 02/27/2025 PHQ-9 Answer Date Recorded Patient Health Questionnaire-9 Score 0 02/27/2025 Comments No Sex and Gender Information Value [...] pleasure in doing things Not at all 02/27/2025 2:43 PM Marvel Richards Feeling down, depressed, or hopeless Not at all 02/27/2025 2:43 PM Marvel Richards Patient Health Questionnaire -2 Score 0 02/27/2025 2:43 PM Marvel Richards * Question Answer Date of Assessment Author Trouble falling or staying asleep, or sleeping too much Not at all 02/27/2025 2:43 PM Laurie Bustos ams Feeling tired or having jomar le energy Not at all 02/27/2025 2:43 PM Marvel Richards Poor appetite or overeating Not at all 02/27/2025 2: 43 PM Laurie Richards Feeling bad about yourself - or that you are a failure or have let yourself or your family down Not at all 02/27/2025 2:43 PM Marvel Richards Trouble concentrating on things, such as reading the newspaper or watching television Not at all 02/27/2025 2:43 PM Marvel Richards Moving or speaking so slowly that other people could have noticed? Or the opposite - being so fidgety or restless that you have been moving around a lot more than usual. Not at all 02/27/2025 2:43 PM Laurie Sewell Thoughts that you would be better off or hurting yourself in some way Not at all 02/27/2025 2:43 PM Manuela Richards ndjeffrey Patient Health Questionnaire -9 Score 0 02/27/2025 2:43 PM Marvel Richards * How difficult have these problems made it for you to do your work, take care of things at home, or get along with other people? Answer Date of Assessment Author Not difficult at all 02/27/2025 2:43 PM Laurie Murphy documented as of this encounter Medications at Time of Discharge amLODIPine (Norvasc) 5 MG tablet Take by mouth 1 (one) time each day. aspirin 81 MG EC tablet Take 1 tablet (81 mg) by mouth 1 (one) time each day. atorvastatin (Lipitor) 80 MG tablet 1 tablet (80 mg) 1 (one) time each day. 12/11/2020 Baclofen 5 MG tablet Take 1 tablet (5 mg) by mouth 3 (three) times a day. 02/02/2024 clobetasol (Temovate) 0.05 % ointment APPLY OINTMENT TOPICALLY TO THE AFFECTED AREAS ON BOTH FEET TWICE DAILY FOR 3 WEEKS. THEN TAKE A ONE WEEK BREAK. ALTERNATE WITH TACROLIMUS 02/23/2025 clonazePAM (KlonoPIN) 0.5 MG tablet Take 1 tablet (0.5 mg) by mouth 2 (two) times a day. Once at bedtime. clopidogrel (Plavix) 75 MG tablet 1 tablet (75 mg) 1 (one) time each day. 12/11/2020 HYDROcodone-marina taminophen (Oxford) 5-325 MG tablet Take 1 tablet by mouth every 8 hours as needed. 02/09/2025 insulin glargine (Basaglar KwikPen) 100 UNIT/ML injection pen INJECT 20 UNITS UNDER THE SKIN ONCE DAILY. MAXIMUM DAILY DOSE IS 50 UNITS 15 mL 5 01/10/2024 lisinopril-hydr oCHLOROthiazide 20-12.5 MG tablet lisinopril 20 mg-hydrochlorothiaz olimpia 12.5 mg tablet Two times a day metFORMIN (Glucophage) 1000 MG tablet Take 1 tablet by mouth 2 times a day. 11/15/2024 methocarbamol (Robaxin) 500 MG tablet Take 1 tablet (500 mg) by mouth 3 (three) times a day. 11/10/2022 NovoLOG FLEXPEN 100 UNIT/ML injection pen INJECT 10 UNITS SUBCUTANEOUSLY THREE TIMES DAILY 02/11/2025 tacrolimus (Protopic) 0.1 % ointment APPLY OINTMENT TOPICALLY TO THE AFFECTED AREA(S) TWICE DAILY FOR 7 DAYS AND ALTERNATING WITH TOPICAL STERIODS 02/21/2025 traMADol (Ultram) 50 MG tablet Take 1 tablet (50 mg) by mouth every 6 (six) hours if needed for severe pain. Fiasp FlexTouch 100 UNIT/ML injectionIndica tions:Type 2 diabetes mellitus with hyperglycemia, with long-term current use of insulin Inject 7 units before meals plus correction scale 1:50>150 three times daily before meals, MDD 50 units 15 mL 5 09/21/2023 FLUoxetine (PROzac) 40 MG capsule Take 0.5 capsules by mouth 1 (one) time each day. 09/18/2020 gabapentin (Neurontin) 300 MG capsule Take 1 capsule (300 mg) by mouth if needed. 04/22/2023 pen needle, diabetic (B-D UF III MINI PEN NEEDLES) 31G X 5 MM miscIndications :Type 2 diabetes mellitus with hyperglycemia, with long-term current use of insulin Inject 1-4x daily 200 each 11 09/21/2023 documented as of this encounter Plan of Treatment Upcoming Encounters Date Type Department Care Team (Late st Contact Info) Description 03/20/2025 12:45 PM EST Office Visit [facility] [place] [address] [facility] [place] [address] Feroz Elliott MD [address] [place] [address] documented as of this encounter Procedures Procedure Name Priority Date/Time Associated Diagnosis Comments VAS US CAROTID DUPLEX BILATERAL Routine 02/27/2025 2:18 PM EST Bilateral carotid artery stenosis documented in this encounter Results * VAS US Carotid Duplex Bilateral (02/27/2025 2:18 PM EST) Anatomical Region Laterality Modality Head, Neck, Vascular Ultrasound Impressions 02/28/2025 12:32 PM EST Right: Severe, irregular, calcific plaque is demonstrated at the carotid bifurcation and proximal ICA. Flow is present in the CCA, ICA, and ECA. Spectral Doppler demonstrates elevated flow velocities at the carotid bifurcation with post stenotic turbulence in the ECA and ICA. Findings consistent with a hemodynamically significant stenosis at the level of the bifurcation (>70%). Left: Severe, irregular, calcific plaque is demonstrated is demonstrated at the carotid bifurcation and proximal ICA. Flow is present in the CCA, ICA, and ECA. Spectral Doppler demonstrates elevated flow velocities at the carotid bifurcation with post stenotic turbulence in the ECA and ICA. Findings consistent with a hemodynamically significant stenosis at the level of the bifurcation (>70%) Vertebral artery flow is antegrade, bilaterally. Subclavian artery flow is multiphasic, bilaterally. Elevated and turbulent velocities are bilaterally, suggestive of a more proximal stenosis outside field of view. This is a change as compared to previous exam. COMMUNICATION: Per this written report. Preliminary report signed by ROGELIO Robles on 02/27/2025 2:29 PM By electronically signing this report, I, the attending physician, attest that I have personally reviewed the images/data for the above examination(s) and I agree with the final edited report. Drafted by ROGELIO Robles on 02/27/2025 2:22 PM Final report signed by Artemio Bennett on 02/28/2025 12:32 PM Narrative 02/28/2025 12:32 PM EST CLINICAL INDICATION: Surveillance for carotid artery stenosis TECHNIQUE: Non-invasive, real time duplex exam of the extracranial carotid circulation with Doppler ultrasonic waveform and spectral analysis was performed. COMPARISON: Carotid duplex performed on 02/22/2024 -hemodynamically significant stenosis at the level of the bifurcation, bilaterally. FINDINGS: Right: CCA: 47 cm/sec. ECA: 304 cm/sec. Bifurcation:253/64 cm/s Velocity ratio: 5.3 ICA: 484 cm/sec. ICA/CCA ratio:10.2 Vertebral A: 47 cm/sec. Subclavian A: 329 cm/sec. Left: CCA: 60 cm/sec. ECA: 391 cm/sec. Bifurcation:296 cm/s ICA: 409/64 cm/sec. ICA/CCA ratio: 6.6 Vertebral A: 55 cm/sec. Subclavian A: 206 cm/sec. Procedure Note Artemio Bennett MD - 02/28/2025 CLINICAL INDICATION: Surveillance for carotid artery stenosis TECHNIQUE: Non-invasive, real time duplex exam of the extracranial carotidcirculation with Doppler ultrasonic waveform and spectral analysis wasperformed. COMPARISON: Carotid duplex performed on 02/22/2024 -hemodynamically significantstenosis at the level of the bifurcation, bilaterally. FINDINGS: Right: CCA: 47 cm/sec. ECA: 304 cm/sec. Bifurcation:253/64 cm/s Velocity ratio: 5.3 ICA: 484 cm/sec. ICA/CCA ratio:10.2 Vertebral A: 47 cm/sec. Subclavian A: 329 cm/sec. Left: CCA: 60 cm/sec. ECA: 391 cm/sec. Bifurcation:296 cm/s ICA: 409/64 cm/sec. ICA/CCA ratio: 6.6 Vertebral A: 55 cm/sec. Subclavian A: 206 cm/sec. IMPRESSION: Right: Severe, irregular, calcific plaque is demonstrated at the carotidbifurcation and proximal ICA. Flow is present in the CCA, ICA, and ECA.Spectral Doppler demonstrates elevated flow velocities at the carotidbifurcation with post stenotic turbulence in the ECA and ICA. Findingsconsistent with a hemodynamically significant stenosis at the level of thebifurcation (>70%). Left: Severe, irregular, calcific plaque is demonstrated is demonstratedat the carotid bifurcation and proximal ICA. Flow is present in the CCA,ICA, and ECA. Spectral Doppler demonstrates elevated flow velocities atthe carotid bifurcation with post stenotic turbulence in the ECA and ICA.Findings consistent with a hemodynamically significant stenosis at thelevel of the bifurcation (>70%) Vertebral artery flow is antegrade, bilaterally. Subclavian artery flow is multiphasic, bilaterally. Elevated and turbulentvelocities are bilaterally, suggestive of a more proximal stenosis outsidefield of view. This is a change as compared to previous exam. COMMUNICATION: Per this written report. Preliminary report signed by ROGELIO Robles on 02/27/2025 2:29PM By electronically signing this report, I, the attending physician, lalitaat I have personally reviewed the images/data for the aboveexamination(s) and I agree with the final edited report. Drafted by ROGELIO Robles on 02/27/2025 2:22 PM Final report signed by Artemio Bennett on 02/28/2025 12:32 PM us Charles Savage FORM MAKER CV VASCULAR PROCEDURE S Final Result documented in this encounter Visit Diagnoses Diagnosis Bilateral carotid artery stenosis Occlusion and stenosis of carotid artery without mention of cerebral infarction documented in this encounter Additional Health Concerns Assessment Noted Time PHQ-9 Depression Total Score: 0 02/28/20 2:43 PM EST A fall risk assessment has been complete d for the patient 02/27/2025 2:43 PM EST A Body Mass Index follow-up plan has been documented for the patient 02/27/2025 3:58 PM EST documented as of this encounter 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
--- OUTSIDE RECORDS SUMMARY | 2025-02-27 14:30 | XMS_ITS | Encounter Summary ---
Author Organization [facility] [place] [facility] [place] [address] Care Team Providers Care Wheat Buyer Name Role Phone Tyler Sanchez MD Unavailable [phone] Rosita Jordan APRN Primary Care Provider [phone] Reason for Referral * Consultation (Routine) - Authorized Specialty Diagnoses / Procedures Referred By Contac t Referred To Contact Diagnoses Bilateral carotid artery stenosis Dizziness Abnormal carotid duplex scan Ira Parker APRN [address] [place] [address] Phone: tel: fax: Referral ID Status Reason Start Date Expiration Date V isits Requested Visits Authorized [id number] Authorized 02/27/2025 08/29/2026 1 1 * Imaging (Routine) - Closed Specialty Diagnoses / Procedures Referred By Contac t Referred To Contact Radiology Diagnoses Bilateral carotid artery stenosis Dizziness Abnormal carotid duplex scan Procedures CT Angio Neck Ira Parker APRN [address] [place] [address] Phone: tel: fax: Referral ID Status Reason Start Date Expiration Date Visits Re quested Visits Authorized [id number] Closed 02/27/2025 08/29/2026 1 1 * Imaging (Routine) - Closed Specialty Diagnoses / Procedures Referred By Contac t Referred To Contact Radiology Diagnoses Dizziness Abnormal carotid duplex scan Procedures CT Angio Chest Ira Parker APRN [address] [place] [address] Phone: tel: fax: Referral ID Status Reason Start Date Expiration Date Visits Re quested Visits Authorized [id number] Closed 02/27/2025 08/29/2026 1 1 Reason for Visit * Reason Comments Follow-up Encounter Details Date Type Department Care Team (Latest Contact Info) Description 02/27/2025 2:30 PM EST Office Visit [facility] [place] [address] [facility]. [address] [place] [address] Feroz Elliott MD [address] [place] [address] Bilateral carotid artery stenosis (Primary Dx); ASCVD (arteriosclerotic cardiovascular disease); Dizziness; Abnormal carotid duplex scan Social History Tobacco Use Types Packs/Day Years [...] Sign Reading Time Taken Comments Blood Pressure 131/81 02/27/2025 2:44 PM EST Pulse 69 02/27/2025 2:44 PM EST Temperature - - Respiratory Rate 16 02/27/2025 2:44 PM EST Oxygen Saturation 96% 02/27/2025 2:44 PM EST Inhaled Oxygen Concentration - - Weight 69.6 kg (153 lb 7 oz) 02/27/2025 2:44 PM EST Height 162.6 cm (5' 4 ) 02/27/2025 2:44 PM EST Body Mass Index 26.34 02/27/2025 2:44 PM EST documented in this encounter Functional Status * Over the past 2 weeks, how often have you been bothered by any of the following problems? Question Answer Date of Assessment Author Little interest or pleasure in doing things Not at all 02/27/2025 2:43 PM EST Marvel Epstein Feeling down, depressed, or hopeless Not at all 02/27/2025 2:43 PM EST Marvel Epstein Patient Health Questionnaire -2 Score 0 02/27/2025 2:43 PM EST Marvel Epstein * Question Answer Date of Assessment Author Trouble falling or staying asleep, or sleeping too much Not at all 02/27/2025 2:43 PM EST Laurie Tavera ams Feeling tired or having jomar le energy Not at all 02/27/2025 2:43 PM EST Marvel Epstein Poor appetite or overeating Not at all 02/27/2025 2: 43 PM EST Laurie Epstein Feeling bad about yourself - or that you are a failure or have let yourself or your family down Not at all 02/27/2025 2:43 PM Marvel Richards Trouble concentrating on things, such as reading the newspaper or watching television Not at all 02/27/2025 2:43 PM EST Marvel Epstein Moving or speaking so slowly that other people could have noticed? Or the opposite - being so fidgety or restless that you have been moving around a lot more than usual. Not at all 02/27/2025 2:43 PM EST Laurie Hinojosa Thoughts that you would be better off or hurting yourself in some way Not at all 02/27/2025 2:43 PM EST Manuela Epstein Patient Health Questionnaire -9 Score 0 02/27/2025 2:43 PM Marvel Richards * How difficult have these problems made it for you to do your work, take care of things at home, or get along with other people? Answer Date of Assessment Author Not difficult at all 02/27/2025 2:43 PM EST Ang Laurie Vallejo documented as of this encounter Miscellaneous Notes * Progress Notes - Ira Parker APRN - 02/27/2025 2:30 PM EST Images from the original note were not included. Cardiology Clinic Note Date of Visit 02/27/25 Patient Marie Henry [address] [facility] [address] PCP Rosita Jordan, SHAHANA SUBJECTIVE History of Present Illness Today Dr. Elliott and I saw Marie Henry, a 74 y.o. female at the [facility] [place] for follow up. She had a carotid duplex prior to today's visit. PMH includes: carotid stenosis, DM, HTN and HLD. She was previously seen by Dr. Stewart for evaluation of persistent dizziness and occasional presyncope. Prior to her visit with Dr. Stewart, she underwent cardiac catheterization and carotid angiogram with Dr. Sanchez on 12/11/20. Her coronary arteries have mild disease. History of Present Illness The patient is a 74-year-old female who presents today for follow-up regarding carotid stenosis. She had a carotid duplex prior to today's visit. Since her last visit a year ago, she reports experiencing significant ear and throat issues, along with intermittent episodes of weakness in her right arm and hand. She manages these episodes by manually stimulating movement as advised by her local nurse practitioner. A head scan was conducted due to suspicions of a mild stroke, but the results were normal. She does not experience unilateral facial weakness or visual disturbances. She has ongoing episodes of dizziness which have at times been so severe that she is apprehensive about driving. She recalls frequent episodes of dizziness with near syncope about once monthly, described a going down but without LOC. She everett not experience any associated symptoms such as sweatingor nausea during her episodes of dizziness. She experiences similar episodes approximately once a month, during which she remains conscious but feels as though everything is spinning. She also reports frequent episodes of tachycardia. She has a history of diabetes and is uncertain about the cause of her symptoms. She has quit smoking but continues to be exposed to secondhand smoke from her son and [id number]. PAST SURGICAL HISTORY: She has a ruptured disk in her back. SOCIAL HISTORY Tobacco: The patient quit smoking but is still around some smokers, including her son and his . TESTING: CTA neck on 01/01/21 was read as severe stenosis of the distal RCCA with 71% stenosis at the carotidbulb. There is moderate stenosis of the left distal CCA with mild stenosis at the left carotid bulb. Carotid duplex 02/2024: Right: Severe, irregular, calcific plaque is demonstrated at the carotid bifurcation and proximal ICA. Moderate, irregular, calcific plaque is demonstrated is demonstrated at the carotid bifurcation and proximal ICA. Findings consistent with a hemodynamically significant stenosis at the level of the bifurcation (<70%) bilaterally. Problem List[1] Past Medical History Past Medical History[2] Past Surgical History Surgical History[3] Family History Family History[4] Social History Social History[5] Current Medications Current Medications[6] Allergies Allergies[7] The following portions of the chart were reviewed this encounter and updated as appropriate: Tobacco Allergies Meds Problems Med Hx Surg Hx Fam Hx Review of Systems 14 Point ROS reviewed and is otherwise negative except as per HPI. OBJECTIVE Vitals Visit Vitals BP 131/81 Pulse 69 Ht 1.626 m (5' 4 ) Wt 69.6 kg (153 lb 7 oz) SpO2 96% BMI 26.34 kg/m?? Physical Exam Physical Exam Vitals reviewed. Constitutional: General: She is not in acute distress. HENT: Head: Normocephalic. Neck: Vascular: No carotid bruit. Cardiovascular: Rate and Rhythm: Normal rate and regular rhythm. Pulses: Normal pulses. Carotid pulses are on the left side with bruit. Heart sounds: S1 normal and S2 normal. No murmur heard. No gallop. Pulmonary: Effort: Pulmonary effort is normal. No respiratory distress. Breath sounds: Normal breath sounds. Musculoskeletal: Right lower leg: No edema. Left lower leg: No edema. Skin: General: Skin is warm and dry. Neurological: Mental Status: She is alert and oriented to person, place, and time. Psychiatric: Mood and Affect: Mood normal. Behavior: Behavior normal. Diagnostics No echocardiogram results found for the past 12 months Lab Review No results found for: WBC , RBC , HGB , HCT , LABPLAT No results found for: GLUCOSE , BUN , CREATININE , NA , K , CL , HCO3 No results found for: AST , ALT , ALKPHOS No results found for: CHOL , LDL , LDLCALC , HDL , TRIG No results found for: HGBA1C No results found for: TSH , FREET4 ASSESSMENT AND PLAN Visit Diagnoses and Orders 1. Bilateral carotid artery stenosis 2. ASCVD (arteriosclerotic cardiovascular disease) Discussion Summary The patient's cardiac evaluation was discussed with Dr. Elliott who agrees with the plan. #Bilateral carotid artery stenosis #Dizziness --Dr. Elliott reviewed today's carotid duplex which demonstrated further increases in velocities on right carotid as well as increased velocities and turbulent flow in subclavian area concerning for proximal subclavian artery stenosis --Patient denies stroke-like symptoms --Continue DAPT and statin therapy --Will obtain CTA neck and chest for better quantification of carotid stenosis as well as evaluation of possible subclavian stenosis which may explain ongoing episodes of dizzinesss #History of tobacco use: --Encouraged ongoing abstinence from tobacco products Proceed with CTA neck/chest and follow up same day. Brittney Parker APRN Verbal consent was obtained to use ambient listening technology to assist in the documentation of the encounter: yes I personally spent a total of 35 minutes on this encounter. This time includes face to face with patient, counseling, discussion and/or coordination of care, and documentation. [1] Patient Active Problem List Diagnosis Bilateral carotid artery disease Hypertension Hyperlipidemia Diabetes Pulmonary artery hypertension ASCVD (arteriosclerotic cardiovascular disease) Nail lesion [2] Past Medical History: Diagnosis Date Carotid stenosis Chest tightness Diabetes mellitus Dizziness Hyperlipidemia Hypertension SOB (shortness of breath) on exertion [3] Past Surgical History: Procedure Laterality Date BACK SURGERY x3 CARDIAC CATHETERIZATION 12/12/2019 [facility] SECTION, CLASSIC HYSTERECTOMY [4] Family History Problem Relation Name Age of Onset Dementia Mother Heart failure Father [5] Social History Tobacco Use Smoking status: Former Current packs/day: 0.25 Average packs/day: 0.3 packs/day for 20.0 years (5.0 ttl pk-yrs) Types: Cigarettes Smokeless tobacco: Never Tobacco comments: Has quit smoking for about 1.5 years Substance Use Topics Alcohol use: Not Currently Comment: rarely 3 drinks or less per year Drug use: Never [6] Current Outpatient Medications: amLODIPine (Norvasc) 5 MG tablet, Take by mouth 1 (one) time each day., Disp: , Rfl: aspirin 81 MG EC tablet, Take 1 tablet (81 mg) by mouth 1 (one) time each day., Disp: , Rfl: atorvastatin (Lipitor) 80 MG tablet, 1 tablet (80 mg) 1 (one) time each day., Disp: , Rfl: Baclofen 5 MG tablet, Take 1 tablet (5 mg) by mouth 3 (three) times a day., Disp: , Rfl: clobetasol (Temovate) 0.05 % ointment, APPLY OINTMENT TOPICALLY TO THE AFFECTED AREAS ON BOTH FEET TWICE DAILY FOR 3 WEEKS. THEN TAKE A ONE WEEK BREAK. ALTERNATE WITH TACROLIMUS, Disp: , Rfl: clonazePAM (KlonoPIN) 0.5 MG tablet, Take 1 tablet (0.5 mg) by mouth 2 (two) times a day. Once at bedtime., Disp: , Rfl: clopidogrel (Plavix) 75 MG tablet, 1 tablet (75 mg) 1 (one) time each day., Disp: , Rfl: HYDROcodone-acetaminophen ([place]) 5-325 MG tablet, Take 1 tablet by mouth every 8 hours as needed.,Disp: , Rfl: insulin glargine (Basaglar KwikPen) 100 UNIT/ML injection pen, INJECT 20 UNITS UNDER THE SKIN ONCE DAILY. MAXIMUM DAILY DOSE IS 50 UNITS, Disp: 15 mL, Rfl: 5 lisinopril-hydroCHLOROthiazide 20-12.5 MG tablet, lisinopril 20 mg- hydrochlorothiazide 12.5 mg tablet Two times a day, Disp: , Rfl: metFORMIN (Glucophage) 1000 MG tablet, Take 1 tablet by mouth 2 times a day., Disp: , Rfl: methocarbamol (Robaxin) 500 MG tablet, Take 1 tablet (500 mg) by mouth 3 (three) times a day., Disp: , Rfl: NovoLOG FLEXPEN 100 UNIT/ML injection pen, INJECT 10 UNITS SUBCUTANEOUSLY THREE TIMES DAILY, Disp: , Rfl: tacrolimus (Protopic) 0.1 % ointment, APPLY OINTMENT TOPICALLY TO THE AFFECTED AREA(S) TWICE DAILY FOR 7 DAYS AND ALTERNATING WITH TOPICAL STERIODS, Disp: , Rfl: traMADol (Ultram) 50 MG tablet, Take 1 tablet (50 mg) by mouth every 6 (six) hours if needed for severe pain., Disp: , Rfl: Fiasp FlexTouch 100 UNIT/ML injection, Inject 7 units before meals plus correction scale 1:50>150 three times daily before meals, MDD 50 units, Disp: 15 mL, Rfl: 5 FLUoxetine (PROzac) 40 MG capsule, Take 0.5 capsules by mouth 1 (one) time each day. (Patient not taking: Reported on 02/27/2025), Disp: , Rfl: gabapentin (Neurontin) 300 MG capsule, Take 1 capsule (300 mg) by mouth if needed. (Patient not taking: Reported on 02/27/2025), Disp: , Rfl: metFORMIN (Glucophage) 500 MG tablet, Take 1 tablet (500 mg) by mouth 2 (two) times a day with meals. (Patient not taking: Reported on 02/27/2025), Disp: 180 tablet, Rfl: 3 pen needle, diabetic (B-D UF III MINI PEN NEEDLES) 31G X 5 MM misc, Inject 1-4x daily, Disp: 200 each, Rfl: 11 [7] Allergies Allergen Reactions Shrimp Extract Itching shrimp allergenic extract Sulfamethoxazole-Trimethoprim Itching Sulfa Drugs Rash documented in this encounter Plan of Treatment Upcoming Encounters Date Type Department Care Team (Late st Contact Info) Description 03/20/2025 12:45 PM EST Office Visit [facility] [place] [address] [facility]. [address] [place] [address] Feroz Elliott MD [address] [place] [address] Scheduled Referrals Name Type Priority Associated Diagnoses Order Schedule Follow Up Cardiology Outpatient Referral Routine Bilateral carotid artery stenosis Dizziness Abnormal carotid duplex scan 1 Occurrences starting 02/27/2025 until 08/27/2026 documented as of this encounter Results * CT Angio Neck (03/01/2025 10:20 AM EST) Anatomical Region Laterality Modality Carotid Artery Computed Tomogra phy Impressions 03/01/2025 4:29 PM EST Near complete occlusion of the right carotid bifurcation from calcified and noncalcified atherosclerotic plaque. Entire plaque length measures 1 cm long including some extension of the proximal cervical ICA segment on the left. At least 70% stenosis at the left carotid bifurcation with plaque extending into the proximal cervical ICA segment. Moderate atherosclerosis and luminal stenosis is suspected along the mid to distal V4 segment left vertebral artery where there is luminal narrowing. There also appear to be components of atherosclerosis extending in the proximal to mid left posterior inferior cerebellar artery region. Right vertebral artery appears patent. At least 50% stenosis along the proximal right subclavian artery from calcified atherosclerotic disease at that site. Subtle mass not excluded in the left palatine tonsil and glossotonsillar sulcus area. Please correlate with direct visual inspection. Case finalized on 03/01/25 16:29 EDT Slim Polk MD This report has been electronically signed and verified by the Radiologist whose name is printed above. This report contains privileged and confidential information and is intended solely for the use of the individual or entity to which it is addressed. If you are not the intended recipient of this report, you are hereby notified that any copying, distribution, dissemination or action taken in relation to the contents of this report is strictly prohibited and may be unlawful. If you have received this report in error, please notify the sender immediately at [phone] and permanently delete the original report and destroy any copies or printouts. Narrative 03/01/2025 4:29 PM [employer] - Phone Outpatient NAME: Marie Henry DATE OF EXAM: 03/01/2025 Patient No: [id number] Physician: Raina Date of : 1950 Examination: CT angiogram of the neck Symptoms/Reason For Exam (entered by technologist): Carotid artery stenosis; evaluate degree of stenosis; increased velocities on recent carotid duplex Bilateral carotid artery stenosis; Dizziness; Abnormal carotid duplex scan Technique: Axial CT angiography of the neck was performed with multiplanar reformats generated and reviewed. 3D MIP reconstructions generated and reviewed were clinically appropriate. Eros criteria utilized to assess degree of vascular stenosis. Contrast Agent and Dose: 60 cc Omnipaque 350 Automated exposure control was used for radiation dose reduction. Total DLP 804 mGycm Comparison: CTA neck from 01/01/21. FINDINGS: Near complete obliteration of the lumen of the carotid bifurcation on the right with essentially a barely perceptible string of contrast across a calcified and noncalcified plaque image 57, series 603 measuring about 1 cm long. Remainder of the cervical ICA segment of the right otherwise unremarkable. Around 70% stenosis at the carotid bifurcation on the left from calcified at the splenic disease at that site. This plaque does extend into the proximal cervical ICA segment on the left. It measures about 1 cm long. Remainder of the cervical ICA segment on left otherwise unremarkable. Trace atherosclerosis along the common carotid artery proximal to midportions on the right and left. The proximal subclavian artery on the right image 299, series 4 has a focal stenosis around 50%. This is from calcified atherosclerotic disease at least to 0.9 cm long. Right vertebral artery appears widely patent. Left vertebral artery appears patent from its origin through the V3 segment. There is some moderate narrowing of the mid to distal V4 segment left vertebral artery from noncalcified atherosclerotic disease in that area. Also portions of the proximal left posterior inferior cerebellar artery appears small and with areas of at least moderate stenosis. More distal component appears unremarkable. Subtle asymmetric fullness and enhancement along the left palatine tonsil image 81, series 4 as compared to the right. Small mass at this site not excluded. Area of concern about 1.1 x 1.4 cm. Similar asymmetry seen in the glossotonsillar sulcus image 102, series 4. Please correlate these findings with direct visual inspection. 0.4 cm calcification right thyroid lobe. At least moderate degenerative change mid cervical spine. Procedure Note Slim Polk MD - 03/01/2025 [facility] - Phone Outpatient NAME: Marie Henry DATE OF EXAM: 03/01/2025 Patient No: [id number] Physician: Raina Date of : 1950 Examination: CT angiogram of the neck Symptoms/Reason For Exam (entered by technologist): Carotid arterystenosis; evaluate degree of stenosis; increased velocities on recentcarotid duplex Bilateral carotid artery stenosis; Dizziness; Abnormal carotid duplexscan Technique: Axial CT angiography of the neck was performed with multiplanarreformats generated and reviewed. 3D MIP reconstructions generated and reviewed were clinically appropriate.Eros criteria utilized to assess degree of vascular stenosis. Contrast Agent and Dose: 60 cc Omnipaque 350 Automated exposure control was used for radiation dose reduction. TotalDLP 804 mGycm Comparison: CTA neck from 01/01/21. FINDINGS: Near complete obliteration of the lumen of the carotidbifurcation on the right with essentially a barely perceptible string ofcontrast across a calcified and noncalcified plaque image 57, series 603measuring about 1 cm long. Remainder of the cervical ICA segment of theright otherwise unremarkable. Around 70% stenosis at the carotid bifurcation on the left from calcifiedat the splenic disease at that site. This plaque does extend into theproximal cervical ICA segment on the left. It measures about 1 cm long.Remainder of the cervical ICA segment on left otherwise unremarkable. Trace atherosclerosis along the common carotid artery proximal tomidportions on the right and left. The proximal subclavian artery on the right image 299, series 4 has afocal stenosis around 50%. This is from calcified atherosclerotic diseaseat least to 0.9 cm long. Right vertebral artery appears widely patent. Left vertebral arteryappears patent from its origin through the V3 segment. There is somemoderate narrowing of the mid to distal V4 segment left vertebral arteryfrom noncalcified atherosclerotic disease in that area. Also portions ofthe proximal left posterior inferior cerebellar artery appears small andwith areas of at least moderate stenosis. More distal component appearsunremarkable. Subtle asymmetric fullness and enhancement along the left palatine tonsilimage 81, series 4 as compared to the right. Small mass at this site notexcluded. Area of concern about 1.1 x 1.4 cm. Similar asymmetry seen inthe glossotonsillar sulcus image 102, series 4. Please correlate thesefindings with direct visual inspection. 0.4 cm calcification right thyroid lobe. At least moderate degenerative change mid cervical spine. IMPRESSION: Near complete occlusion of the right carotid bifurcation from calcifiedand noncalcified atherosclerotic plaque. Entire plaque length measures 1cm long including some extension of the proximal cervical ICA segment onthe left. At least 70% stenosis at the left carotid bifurcation with plaqueextending into the proximal cervical ICA segment. Moderate atherosclerosis and luminal stenosis is suspected along the midto distal V4 segment left vertebral artery where there is luminalnarrowing. There also appear to be components of atherosclerosisextending in the proximal to mid left posterior inferior cerebellar arteryregion. Right vertebral artery appears patent. At least 50% stenosis along the proximal right subclavian artery fromcalcified atherosclerotic disease at that site. Subtle mass not excluded in the left palatine tonsil and glossotonsillarsulcus area. Please correlate with direct visual inspection. Case finalized on 03/01/25 16:29 EDT Slim Polk MD This report has been electronically signed and verified by the Radiologistwhose name is printed above. This report contains privileged and confidential information and isintended solely for the use of the individual or entity to which it isaddressed. If you are not the intended recipient of this report, you arehereby notified that any copying, distribution, dissemination or actiontaken in relation to the contents of this report is strictly prohibitedand may be unlawful. If you have received this report in error, pleasenotify the sender immediately at [phone] and permanently delete theoriginal report and destroy any copies or printouts. us Ira Parker APRN IMG CT PROCEDURES Final Resul t * CT Angio Chest (03/01/2025 10:20 AM EST) Anatomical Region Laterality Modality Chest Computed Tomogra phy Impressions 03/03/2025 2:20 PM EST Moderate right subclavian artery stenosis as described above. Dilated right pulmonary artery. Recommend correlation with echocardiogram. Nonspecific left adrenal gland thickening is partially imaged. Recommend further evaluation dedicated abdominal CT with contrast (adrenal protocol). CRITICAL RESULT: No COMMUNICATION: Per this written report. By electronically signing this report, I, the attending physician, attest that I have personally reviewed the images/data for the above examination(s) and agree with the final edited report. Drafted by Geraldo Raymond MD on 03/01/2025 10:41 AM Final report signed by Rylan Humphries MD on 03/03/2025 2:20 PM Narrative 03/03/2025 2:20 PM EST CLINICAL INDICATION: increased subclavian artery velocities concerning for subclavian stenosis; new finding on carotid duplex TECHNIQUE: A CT angiogram of the chest was performed in arterial phase. A total of 80 mL of Omnipaque 350 was administered during the examination. Advanced 3D workstation manipulation and review of the data set was performed by the interpreting physician to further define anatomy and possible pathology. Images of areas of interest were created utilizing various techniques. These images were saved and transferred to PACS if significant. The imaging protocol used in this examination was optimized to achieve diagnostic quality with the lowest possible radiation dose in accordance with the principles of ALARA (As Low As Reasonably Achievable). COMPARISON: January 01, 2021 CTA of the neck. Thoracic Aorta: Qualitative Description Of The Aorta: Normal caliber with no dissection or intramural hematoma. Sinus: L 28 mm, R 26 mm, N 27 mm Sinotubular Junction: 25 mm Mid Ascending Aorta: 28 mm Proximal Transverse Aorta (just proximal to the great vessels): 27 mm Mid Transverse Aortic Arch (Between the Origins of the Left Carotid and Left Subclavian artery): 23 mm Dista Transverse Aorta (at the isthmus): 23 mm Proximal Descending Thoracic Aorta: 22 mm Distal Descending Thoracic Aorta: 18 mm Coronary arteries: Normal coronary origins with left-sided dominance. Arterial atherosclerotic disease. Great vessels: Moderate right subclavian artery stenosis visualized in measuring 6 x 4 mm (series 3, image 101; series 215). Right brachiocephalic artery, left subclavian artery, and visualized portions of the bilateral common carotid and vertebral arteries are patent. No pulmonary artery filling defects. Right main pulmonary artery measures up to 29 x 28 mm. Left main pulmonary artery measures up to 24 x 22 mm. ANCILLARY FINDINGS: Central airways are patent. No bronchial wall thickening or bronchiectasis. No airspace consolidation or suspicious pulmonary nodule. Right lower lobe calcified granuloma. Nonspecific left adrenal. No suspicious osseous lesion. Degenerative changes of the spine. Procedure Note Rylan Humphries MD - 03/03/2025 CLINICAL INDICATION: increased subclavian artery velocities concerning for subclavian stenosis;new finding on carotid duplex TECHNIQUE: A CT angiogram of the chest was performed in arterial phase. A total of80 mL of Omnipaque 350 was administered during the examination. [id number] workstation manipulation and review of the data set was performed bythe interpreting physician to further define anatomy and possiblepathology. Images of areas of interest were created utilizing varioustechniques. These images were saved and transferred to PACS ifsignificant. The imaging protocol used in this examination was optimized to achievediagnostic quality with the lowest possible radiation dose in accordancewith the principles of ALARA (As Low As Reasonably Achievable). COMPARISON: January 01, 2021 CTA of the neck. Thoracic Aorta: Qualitative Description Of The Aorta: Normal caliber with no dissection orintramural hematoma. Sinus: L 28 mm, R 26 mm, N 27 mm Sinotubular Junction: 25 mm Mid Ascending Aorta: 28 mm Proximal Transverse Aorta (just proximal to the great vessels): 27 mm Mid Transverse Aortic Arch (Between the Origins of the Left Carotid andLeft Subclavian artery): 23 mm Dista Transverse Aorta (at the isthmus): 23 mm Proximal Descending Thoracic Aorta: 22 mm Distal Descending Thoracic Aorta: 18 mm Coronary arteries: Normal coronary origins with left-sided dominance.Arterial atherosclerotic disease. Great vessels: Moderate right subclavian artery stenosis visualized inmeasuring 6 x 4 mm (series 3, image 101; series 215). Rightbrachiocephalic artery, left subclavian artery, and visualized portions ofthe bilateral common carotid and vertebral arteries are patent. No pulmonary artery filling defects. Right main pulmonary artery measuresup to 29 x 28 mm. Left main pulmonary artery measures up to 24 x 22 mm. ANCILLARY FINDINGS: Central airways are patent. No bronchial wall thickening orbronchiectasis. No airspace consolidation or suspicious pulmonary nodule.Right lower lobe calcified granuloma. Nonspecific left adrenal. Nosuspicious osseous lesion. Degenerative changes of the spine. IMPRESSION: Moderate right subclavian artery stenosis as described above. Dilated right pulmonary artery. Recommend correlation withechocardiogram. Nonspecific left adrenal gland thickening is partially imaged. Recommendfurther evaluation dedicated abdominal CT with contrast (adrenalprotocol). CRITICAL RESULT: No COMMUNICATION: Per this written report. By electronically signing this report, I, the attending physician, lalitaat I have personally reviewed the images/data for the aboveexamination(s) and agree with the final edited report. Drafted by Geraldo Raymond MD on 03/01/2025 10:41 AM Final report signed by Rylan Humphries MD on 03/03/2025 2:20 PM us Ira Parker [facility] CORPORATE ACCOUNT DIRECTOR IMG CT PROCEDURES Final Resul t documented in this encounter Visit Diagnoses Diagnosis Bilateral carotid artery stenosis- Primary Occlusion and stenosis of carotid artery without mention of cerebral infarction ASCVD (arteriosclerotic cardiovascular disease) Unspecified cardiovascular disease Dizziness Dizziness and giddiness Abnormal carotid duplex scan Dizziness Dizziness and giddiness Abnormal carotid duplex scan Bilateral carotid artery stenosis Occlusion and stenosis of carotid artery without mention of cerebral infarction documented in this encounter Additional Health Concerns Assessment Noted Time PHQ-9 Depression Total Score: 0 02/28/20 25 2:43 PM EST A fall risk assessment has been complete d for the patient 02/27/2025 2:43 PM EST A Body Mass Index follow-up plan has been documented for the patient 02/27/2025 3:58 PM EST documented as of this encounter Care Teams Wheat Buyer Relationship Specialty Start Date End Date Rosita Jordan APRN [address] [place] [address] PCP - General 01/01/21 Tyler Sanchez MD [address] [address] Referring Physician 12/11/20 documented as of this encounter
--- OUTSIDE RECORDS SUMMARY | 2025-03-01 09:46 | XMS_ITS | Encounter Summary ---
Author Organization [facility] Address [address] [place] [address] Care Team Providers Care Mower Sharpener Name Role Phone Tyler Sanchez MD Unavailable [phone] Rosita Jordan APRN Primary Care Provider [phone] Reason for Referral * Imaging (Routine) - Closed Specialty Diagnoses / Procedures Referred By Rockyac t Referred To Contact Radiology Diagnoses Bilateral carotid artery stenosis Dizziness Abnormal carotid duplex scan Procedures CT Angio Neck Ira Parker APRN [address] [place] [address] Phone: tel: fax: Referral ID Status Reason Start Date Expiration Date Visits Re quested Visits Authorized [id number] Closed 02/27/2025 08/29/2026 1 1 * Imaging (Routine) - Closed Specialty Diagnoses / Procedures Referred By Contac t Referred To Contact Radiology Diagnoses Dizziness Abnormal carotid duplex scan Procedures CT Angio Chest Ira Parker APRN [address] [place] [address] Phone: tel: fax: Referral ID Status Reason Start Date Expiration Date Visits Re quested Visits Authorized [id number] Closed 02/27/2025 08/29/2026 1 1 Reason for Visit * Imaging (Routine) - Closed Specialty Diagnoses / Procedures Referred By Contac t Referred To Contact Radiology Diagnoses Dizziness Abnormal carotid duplex scan Procedures CT Angio Chest Ira Parker APRN [address] [place] [address] Phone: tel: fax: Referral ID Status Reason Start Date Expiration Date Visits Re quested Visits Authorized [id number] Closed 02/27/2025 08/29/2026 1 1 Encounter Details Date Type Department Care Team (Latest Contact Info) Description 03/01/2025 9:46 AM EST - 03/01/2025 11:59 PM [facility] Encounter [facility] [address] [place] [address] Dizziness; Abnormal carotid duplex scan; Bilateral carotid artery stenosis Discharge Disposition: Home [...] on file documented as of this encounter Medications at [...] (one) time each day. 12/11/2020 HYDROcodone-marina taminophen ([place]) 5-325 MG tablet Take 1 tablet by [...] 11 09/21/2023 documented as of this encounter Miscellaneous Notes * Cynthia Evans - Lien Camargo - 03/01/2025 9:48 AM EST Images from the original note were not included. 1634 Caring for Yourself after Contrast Imaging If you had ORAL contrast: ? You can go back to your normal diet and activities as tolerated. ? Drink plenty of fluids, unless told otherwise. If you had IV contrast: ? You can go back to your normal diet and activities as tolerated. ? Drink plenty of fluids, unless told otherwise. ? Leave a bandage on the site for 30 minutes (where the IV was inserted or blood was drawn). If you had Intravesical (bladder) contrast: ? Return to normal diet and activity. What you need to know about delayed reaction to IV contrast What is IV Contrast? ? Contrast is a dye that is put into your body through an IV. ? It is used for imaging scans such as CT scans and MRIs. ? The contrast makes blood vessels, organs and other parts of your body show up better on the scan. What do I need to do after IV contrast? ? Drink lots of fluids. This will help flush the contrast out of your system. ? Drink 2-3 extra glasses or bottles of water within 4 hours of your scan. What is a contrast reaction? ? A contrast reaction is a bad side effect from the contrast dye. ? It is rare but it does happen. ? They can be mild - such as sneezing, itching, or hives. ? They can be severe - such as trouble breathing, throat swelling, and irregular heart beat. When do these reactions happen? ? They often happen right after the contrast is injected. ? Some happen hours after going home. Go to the nearest Emergency Department right away if you have any of these symptoms after you leavethe clinic or hospital. ? Sneezing ? Itching in your mouth, throat, eyes, ears, or skin ? Rash or hives ? Throwing up or stomach sickness ? High heart rate or ?racing? of your heart ? Feeling dizzy or woozy ? Feeling short of breath or like you can?t take a deep breath ? Feeling very anxious for no other reason It is very important that these reactions be treated. Tell the doctor or nurse that you are having a reaction to IV contrast dye. Do not ignore any sign of a reaction! All reactions must be assessed by a doctor. Call 911 if you are alone and your reaction is more than mild sneezing or itching. If you have a mild reaction, call to speak with a Radiologist, explain that you havehad a contrast reaction, as this needs to be added to your medical record. documented in this encounter Plan of Treatment Upcoming Encounters Date Type Department Care Team (Late st Contact Info) Description 03/20/2025 12:45 PM EST Office Visit [facility] [place] [address] [place] [address] Feroz Elliott MD [address] [place] [address] documented as of this encounter Procedures Procedure Name Priority Date/Time Associated Diagnosis Comments CT ANGIO CHEST Routine 03/01/2025 10:20 AM EST Dizziness Abnormal carotid duplex scan CT ANGIO NECK Routine 03/01/2025 10:20 AM EST Bilateral carotid artery stenosis Dizziness Abnormal carotid duplex scan documented in this encounter Results * CT Angio Neck [...] error, please notify the sender immediately at [phone] and permanently delete the original report and destroy any copies or printouts. Narrative 03/01/2025 4:29 PM [facility] - Phone Outpatient NAME: Marie Henry DATE OF EXAM: 03/01/2025 Patient No: [id number] Physician: Raina Date of : 1950 Examination: [...] Procedure Note Slim Polk MD - 03/01/2025 [facility] - Phone Outpatient NAME: Marie Henry DATE OF EXAM: 03/01/2025 Patient No: [id number] Physician: Raina Date of : 1950 Examination: [...] in error, pleasenotify the sender immediately at [phone] and permanently delete theoriginal report and destroy any copies or printouts. us Ira Parker HOUSE WRECKER IMG CT PROCEDURES Final Resul t * [...] Omnipaque 350 was administered during the examination. [id number] workstation manipulation and review of the data [...] signing this report, I, the attending physician, attestthat I have personally reviewed the images/data for the aboveexamination(s) and agree with the final edited report. Drafted by Geraldo Raymond MD on 03/01/2025 10:41 AM Final report signed by Rylan Humphries MD on 03/03/2025 2:20 PM Ira Parker HOUSE WRECKER IMG CT PROCEDURES Final Resul t documented in this encounter Visit Diagnoses Diagnosis Dizziness Dizziness and giddiness Abnormal carotid duplex scan Bilateral carotid artery stenosis Occlusion and stenosis of carotid artery without mention of cerebral infarction documented in this encounter Administered Medications Inactive Administered Medications - up to 3 most recent administrations Medication Order MAR Action Action Date Dose Rate Site iohexol (OMNIPaque) 350 MG/ML injection 60 mL 60 mL, Intravenous, Once in imaging, 1 dose, Starting on Tue03/01/25 at 0948, Until Tue03/01/25 at 1009, Routine, Imaging Protocol Orders Given 03/01/2025 10:09 AM EST 80 mL documented in this encounter Additional Health Concerns Assessment Noted Time PHQ-9 Depression Total Score: 0 02/28/20 2:43 PM EST A fall risk assessment has been complete d for the patient 02/27/2025 2:43 PM EST A Body Mass Index follow-up plan has been documented for the patient 02/27/2025 3:58 PM EST documented as of this encounter Care Teams Mower Sharpener Relationship Specialty Start Date End Date Rosita Jordan APRN [address] [place] [address] PCP - General 01/01/21 Tyler Sanchez MD [address] [address] Referring Physician 12/11/20 documented as of this encounter
--- OUTSIDE RECORDS SUMMARY | 2025-03-12 15:31 | XMS_ITS | Encounter Summary ---
Author Organization Healthcare Address [address] [place] [address] Care Team Providers Care Dimmer Board Operator Name Role Phone Tyler Sanchez MD Unavailable [phone] Rosita Jordan APRN Primary Care Provider [phone] Encounter Details Date Type Department Care Team (Latest Contact Info) Description 02/27/2025 Travel Social History Tobacco Use Types Packs/Day [...] Laurie Murphy documented as of this encounter Plan of Treatment Upcoming Encounters Date Type Department Care Team (Late st Contact Info) Description 03/20/2025 12:45 PM EST Office Visit [facility] [place] [address] [facility] [place] [address] Feroz Elliott MD [address] [place] [address] documented as of this encounter Visit Diagnoses Not on filedocumented in this encounter Additional Health Concerns Assessment Noted Time PHQ-9 Depression Total Score: 0 02/28/20 25 2:43 PM EST [facility] fall risk assessment has been complete d for the patient 02/27/2025 2:43 PM EST A Body Mass Index follow-up plan has been documented for the patient 02/27/2025 3:58 PM EST documented as of this encounter Care Teams Dimmer Board Operator Relationship Specialty Start Date End Date Rosita Jordan APRN [address] [place] [address] PCP - General 01/01/21 Tyler Sanchez MD [address] [address] Referring Physician 12/11/20 documented as of this encounter
--- OUTSIDE RECORDS SUMMARY | 2025-03-12 15:31 | XMS_ITS | Encounter Summary ---
Author Organization Healthcare Address [address] [id number] Care Team Providers Care Marketing Financial Analyst Name Role Phone Tyler Sanchez MD Unavailable [phone] Rosita Jordan APRN Primary Care Provider [phone] Encounter Details Date Type Department Care Team (Latest Contact Info) Description 03/01/2025 Travel Social History Tobacco Use Types Packs/Day [...] Description 03/20/2025 12:45 PM EST Office Visit [facility] [place] [address] [facility] [place] [address] Feroz Elliott MD [address] [place] [address] documented as of this encounter Visit Diagnoses [...] documented as of this encounter Care Teams Marketing Financial Analyst Relationship Specialty Start Date End Date Rosita Jordan APRN [address] [place] [address] PCP - General 01/01/21 Tyler Sanchez MD [address] [address] Referring Physician 12/11/20 documented as of this encounter
--- OUTSIDE RECORDS SUMMARY | 2025-03-12 15:31 | XMS_ITS | Clinical Summary ---
Author Organization [facility] Address [facility] [place] [address] Care Team Providers Care Naturalization Examiner Name Role Phone Tyler Sanchez MD Unavailable [phone] Rosita Jordan APRN Primary Care Provider [phone] Allergies Active Allergy Reactions Criticality Noted Date Comments Shrimp Extract Itching Medium 10/11/2022 shrimp allergenic extract Sulfa Drugs Rash Low 12/16/2020 Sulfamethoxazole-Trimetho prim Itching Medium 02/27/2025 Medications FLUoxetine (PROzac) 40 MG capsule Take 0.5 capsules by mouth 1 (one) time each day. 1 Active lisinopril-hyd roCHLOROthiazi de 20-12.5 MG tablet lisinopril 20 mg-hydrochlorothia zide 12.5 mg tablet Two times a [...] needed. 4 Active metFORMIN (Glucophage) 500 MG tabletIndicati ons:Type 2 diabetes mellitus with hyperglycemia, with long-term current use of insulin Take 1 tablet (500 mg) by mouth 2 (two) times a day with meals. 180 tablet 3 4 Active Additional Information Patient not taking.Reported on 02/27/2025 Fiasp FlexTouch 100 UNIT/ML injectionIndic ations:Type 2 diabetes mellitus with hyperglycemia, with long-term current use of insulin Inject 7 units before meals plus correction scale 1:50>150 three times daily before meals, MDD 50 units 15 mL 5 4 Active pen needle, diabetic (B-D UF III MINI PEN NEEDLES) 31G X 5 MM miscIndication s:Type 2 diabetes mellitus with hyperglycemia, with long-term [...] 3 (three) times a day. 4 Active clobetasol (Temovate) 0.05 % ointment APPLY OINTMENT TOPICALLY TO THE AFFECTED AREAS ON BOTH FEET TWICE DAILY FOR 3 WEEKS. THEN TAKE A ONE WEEK BREAK. ALTERNATE WITH TACROLIMUS 5 Active HYDROcodone-ac etaminophen ([place]) 5-325 MG tablet Take 1 tablet by mouth every 8 hours as needed. 5 Active NovoLOG FLEXPEN 100 UNIT/ML injection pen INJECT 10 UNITS SUBCUTANEOUSLY THREE TIMES DAILY 5 Active tacrolimus (Protopic) 0.1 % ointment APPLY OINTMENT TOPICALLY TO THE AFFECTED AREA(S) TWICE DAILY FOR 7 DAYS AND ALTERNATING WITH TOPICAL STERIODS 5 Active metFORMIN (Glucophage) 1000 MG tablet Take 1 tablet by mouth 2 times a day. 5 Active Active Problems Problem Noted Date Diagnosed Date Nail lesion 09/28/2024 ASCVD (arteriosclerotic cardiovascular disease) 02/22/2024 Bilateral carotid artery disease 12/16/2020 Hypertension 12/16/2020 Hyperlipidemia 12/16/2020 Diabetes 12/16/2020 Pulmonary artery hypertension 12/16/2020 Resolved Problems Problem Noted Date Diagnosed Date Resolved Date Overweight (BMI 25.0-29.9) 12/18/2020 0 01/06/2025 Biatrial enlargement 12/16/2020 025 Encounters Date Type Department Care Team Description 03/01/2025 9:46 AM EST - 03/01/2025 11:59 PM EST Hospital Encounter [facility] [address] [place] [address] Dizziness; Abnormal carotid duplex scan; Bilateral carotid artery stenosis Discharge Disposition: Home or Self Care 03/01/2025 Travel 02/27/2025 2:30 PM EST Office Visit [facility] [place] [address] [place] [address] Feroz Elliott MD Bilateral carotid artery stenosis (Primary Dx); ASCVD (arteriosclerotic cardiovascular disease); Dizziness; Abnormal carotid duplex scan 02/27/2025 1:00 PM EST - 02/27/2025 11:59 PM EST Hospital Encounter [facility] [address] [place] [address] Bilateral carotid artery stenosis Discharge Disposition: Home or Self Care 02/27/2025 Travel from Last 3 Months Immunizations Immunization Administration Dates Next Due Influenza, High-dose, Split Virus, Trivalent, Injectable, preservative free 01/21/2016 Influenza, high-dose, quadrivalent 02/22/2023,,01/21/2016 Influenza, injectable, quadr ivalent, preservative free 01/18/2018 Pneumococcal Polysaccharide PPV23 01/21/2016 Family [...] Pulse 69 02/27/2025 2:44 PM EST Temperature 36.3 C (97.4 F) 09/25/2024 3:35 PM EDT Respiratory Rate 16 02/27/2025 2:44 PM EST Oxygen Saturation 96% 02/27/2025 2:44 PM EST Inhaled Oxygen Concentration - - Weight 69.6 kg (153 lb 7 oz) 02/27/2025 2:44 PM EST Height 162.6 cm (5' 4 ) 02/27/2025 2:44 PM EST Body Mass Index 26.34 02/27/2025 2:44 PM EST Plan of Treatment Upcoming Encounters Date Type Department Care Team (Late st Contact Info) Description 03/20/2025 12:45 PM EST Office Visit [facility] [place] [address] [facility]. [address] [place] [address] Feroz Elliott MD [address] [place] [address] Health Maintenance Due Date Last Done Comments [...] (2 of 2 - PCV) 01/20/2017 01/21/2016 [id number] Vaccine (3 - Moderna risk series) 07/23/2020 06/25/2020, 05/28/2020 [facility]-Influenza Vaccine (#1) 12/17/202402/22, 01/18/2018, 01/16/2018, Additional history exists [facility]-RSV Vaccine: 60+ Years or (1 - 1-dose 75+ series) 2024 [facility]-Depression Screening 02/27/2026 02/27/2025, 02/16 [facility]-Obesity Intervention Completed 025, 09/25/2024, 02/22/2024, Additional history exists HPV Vaccines Aged Out [...] Priority Date/Time Associated Diagnosis Comments CT ANGIO NECK Routine 03/01/2025 10:20 AM EST Bilateral carotid artery stenosis Dizziness Abnormal carotid duplex scan CT ANGIO CHEST Routine 03/01/2025 10:20 AM EST Dizziness Abnormal carotid duplex scan VAS US CAROTID DUPLEX BILATERAL Routine 02/27/2025 2:18 PM EST Bilateral carotid artery stenosis from Last 3 Months Results * CT Angio Chest (03/01/2025 10:20 AM [...] Omnipaque 350 was administered during the examination. [id number] workstation manipulation and review of the data [...] Humphries MD on 03/03/2025 2:20 PM Ira W Keith HELPER/DRIVER IMG CT PROCEDURES Final Resul t * CT Angio Neck (03/01/2025 10:20 AM [...] visual inspection. Case finalized on 03/01/25 16:29 HENNY Polk MD This report has been electronically [...] error, please notify the sender immediately at [phone] and permanently delete the original report and destroy any copies or printouts. Narrative 03/01/2025 4:29 PM [facility] - Phone Outpatient NAME: Marie Henry DATE OF EXAM: 03/01/2025 Patient No: [id number] Physician: Raina Date of : 1950 Examination: [...] Radiology - Phone Outpatient NAME: Marie Henry Soumya DATE OF EXAM: 03/01/2025 Patient No: [id number] Physician: Raina Date of : 1950 Examination: [...] in error, pleasenotify the sender immediately at [phone] and permanently delete theoriginal report and destroy any copies or printouts. us Ira Parker HELPER/DRIVER IMG CT PROCEDURES Final Resul t * VAS US Carotid Duplex Bilateral (02/27/2025 [...] by Artemio Bennett on 02/28/2025 12:32 PM Charles Savage APRN CV VASCULAR PROCEDURE S Final Result from Last 3 Months Insurance MEDICARE [facility] Care Teams Naturalization Examiner Relationship Specialty Start Date End Date Rosita Jordan APRN [address] [place] [address] PCP - General 01/01/21 Tyler Sanchez MD [address] [address] Referring Physician 12/11/20
--- OUTSIDE RECORDS SUMMARY | 2025-03-12 15:31 | XMS_ITS | Encounter Summary ---
Author Organization Healthcare Address [address] [place] [address] Care Team Providers Care Flight Engineer Inspector Name Role Phone Tyler Sanchez MD Unavailable [phone] Rosita Jordan APRN Primary Care Provider [phone] Encounter Details Date Type Department Care Team (Late st Contact Info) Description 09/11/2024 Community [facility] [address] [place] [address] Skyler Fallon MD [address] [place] [address] Malignant melanoma of nail bed (CMS/HCC) (Primary [...] Description 03/20/2025 12:45 PM EST Office Visit [facility] [place] [address] [facility]. [address] [place] [address] Feroz Elliott MD [address] [place] [address] documented as of this encounter Visit Diagnoses [...] documented as of this encounter Care Teams Flight Engineer Inspector Relationship Specialty Start Date End Date Rosita Jordan APRN [address] [place] [address] PCP - General 01/01/21 Tyler Sanchez MD [address] [address] Referring Physician 12/11/20 documented as of this encounter
--- OUTSIDE RECORDS SUMMARY | 2025-03-12 15:31 | XMS_ITS | Clinical Summary ---
Author Organization [employer] ([place], [place], [place], [place], [place]) Address [address] [place] [address] Care Team Providers Care Binder Operator Name Role Phone Unavailable Primary Care [...] Date Cali rded Speak language other than Moldovan at home Not on file 05/06/2023 Want [...] series) 2024 Medical Devices Implanted Type Area Golf Cart Assembler Device Identifier Shelf Expiration Date Model / Serial / Lot Cage T/Plif 10mm [id number] - [id number] Implanted:Qty: 1 on 10/22/2022 by Tyler Gill MD at [facility] IMPLANTS N/A: Spine Lumbar J &J:DEPUY:DEPUY SPINE [id number] / / [id number] Bone Vivigen Frmble Cell [facility] [place]-1600-003 - [id number] Implanted:Qty: 1 on 10/22/2022 by Tyler Gill MD at [facility] IMPLANTS N/A: Spine Lumbar LIFENET:LIFENET TRANSPLANT SRV 09/17/2023 BL-1600-0 03 / [id number] / Scr Spne Radhames Fix Fen 5x50mm -550 - [id number] Implanted:Qty: 2 on 10/22/2022 by Tyler Gill MD at [facility] IMPLANTS N/A: Spine Lumbar J &J:DEPUY:DEPUY SPINE 5 50 / 50 / Jordin Conn Expedium 200mm Ti 1796-76-555 - [id number] Implanted:Qty: 1 on 10/22/2022 by Tyler Gill MD at [facility] IMPLANTS N/A: Spine Lumbar J &J:DEPUY:DEPUY SPINE - 55 / 5 55 / Mis Ambar Ply Scrw Set Ti - - [id number] Implanted:Qty: 4 on 10/22/2022 by Tyler Gill MD at [facility] IMPLANTS N/A: Spine Lumbar J &J:DEPUY:DEPUY SPINE -0 00 / -0 00 / Cement Spinal Confidence 2839-10-000 - [id number] Implanted:Qty: 1 on 10/22/2022 by Tyler Gill MD at [facility] IMPLANTS N/A: Spine Lumbar J &J:DEPUY:DEPUY SPINE 07/16/2024 2839-10-0 00 / / [id number] Bone Putty Stimulan [facility] 620-005 - [id number] Implanted:Qty: 1 on 10/22/2022 by Tyler Gill MD at [facility] IMPLANTS N/A: Spine Lumbar BIOCOMPOSITES 09/15/2025 620-005 / / [id number] Connector End 5.5x5.5 1797-77-555 - [id number] Implanted:Qty: 1 on 10/22/2022 by Tyler Gill MD at [facility] IMPLANTS N/A: Spine Lumbar J &J:DEPUY:DEPUY SPINE 17977-5 55 / -5 55 / Insurance MEDICARE PART A B [facility] Advance Directives For more information, please contact: [phone] * Full Code (Latest Code Status on File) Date Activated Date Inactivated Comments 10/22/2022 11:49 AM 10/27/2022 6:34 PM
--- OUTSIDE RECORDS SUMMARY | 2025-03-12 15:31 | XMS_ITS | Clinical Summary ---
[facility] Address [address] [place] [address] Care Team Providers Care Semiconductor Equipment Technician Name Role Phone Rosita Jordan APRN Primary Care Provider [phone] Social History Tobacco Use Types Packs/Day Years [...] series) 5 Insurance MEDICARE A & B [facility] Care Teams Semiconductor Equipment Technician Relationship Specialty Start Date End Date Rosita Jordan APRN PCP - General Internal Medicine 08/27/21
--- OUTSIDE RECORDS SUMMARY | 2025-03-12 15:31 | XMS_ITS | Referral Summary ---
Author Organization [facility] ([place], [place], [place], [place], [place]) Address [address] [place] [address] Care Team Providers Care Melt Superintendant Name Role Phone Unavailable Primary Care Provider [...] Date Cali rded Speak language other than Turkish at home Not on file 05/06/2023 Want [...] on file Medical Devices Implanted Type Area Fixing Machine Operator Device Identifier Shelf Expiration Date Model / Serial / Lot Cage T/Plif 10mm [id number] - [id number] Implanted:Qty: 1 on 10/22/2022 by Tyler Gill MD at [facility] IMPLANTS N/A: Spine Lumbar J &J:DEPUY:DEPUY SPINE [id number] / / [id number] Bone Vivigen Frmble Cell 10cc Bl-1600-003 - [id number] Implanted:Qty: 1 on 10/22/2022 by Tyler Gill MD at [facility] IMPLANTS N/A: Spine Lumbar LIFENET:LIFENET TRANSPLANT SRV 09/17/2023 BL-1600-0 03 / [id number] / Scr Spne Radhames Fix Fen 5x50mm -550 - [id number] Implanted:Qty: 2 on 10/22/2022 by Tyler Gill MD at [facility] IMPLANTS N/A: Spine Lumbar J &J:DEPUY:DEPUY SPINE 50 / 50 / Jordin Conn Expedium 200mm Ti 1797-76-555 - [id number] Implanted:Qty: 1 on 10/22/2022 by Tyler Gill MD at [facility] IMPLANTS N/A: Spine Lumbar J &J:DEPUY:DEPUY SPINE 179776-5 55 / 17976-5 55 / Mis Ambar Ply Scrw Set Ti 1867-15-000 - [id number] Implanted:Qty: 4 on 10/22/2022 by Tyler Gill MD at [facility] IMPLANTS N/A: Spine Lumbar J &J:DEPUY:DEPUY SPINE -0 00 / 0 00 / Cement Spinal Confidence 2839-10-000 - [id number] Implanted:Qty: 1 on 10/22/2022 by Tyler Gill MD at [facility] IMPLANTS N/A: Spine Lumbar J &J:DEPUY:DEPUY SPINE 07/16/2024 2839-10-0 00 / / [id number] Bone Putty Stimulan 5cc 620-005 - [id number] Implanted:Qty: 1 on 10/22/2022 by Tyler Gill MD at [facility] IMPLANTS N/A: Spine Lumbar BIOCOMPOSITES 09/15/2025 620-005 / / [id number] Connector End 5.5x5.5 1797-77-555 - [id number] Implanted:Qty: 1 on 10/22/2022 by Tyler Gill MD at [facility] IMPLANTS N/A: Spine Lumbar J &J:DEPUY:DEPUY SPINE 77-5 55 / -5 55 / Insurance MEDICARE PART A B [facility] [place] [id number] Advance Directives For more information, please contact: [phone] * Full Code (Latest Code Status on File) Date Activated Date Inactivated Comments 10/22/2022 11:49 AM 10/27/2022 6:34 PM
--- OUTSIDE RECORDS SUMMARY | 2025-03-12 15:31 | XMS_ITS | Encounter Summary ---
Author Organization [facility] Address [address] [id number] Care Team Providers Care Telecom Assistant Name Role Phone Yair Donahue MD Primary Care Provider [phone] Tyler Sanchez MD Unavailable [phone] Rosita Jordan APRN Primary Care Provider [phone] Encounter Details Date Type Department Care Team (Late st Contact Info) Description 12/01/2020 Community [facility] [address] [place] [address] Rosita Jordan, MONUMENT MASON [address], [place] [id number] Bilateral carotid artery stenosis (Primary Dx) Social [...] Description 03/20/2025 12:45 PM EST Office Visit [facility] [place] [address] [facility] [place] [phone] Feroz Elliott MD [address] [place] [phone] documented as of this encounter Visit Diagnoses Diagnosis Bilateral carotid artery stenosis- Primary Occlusion and stenosis of carotid artery without mention of cerebral infarction documented in this encounter Care Teams Telecom Assistant Relationship Specialty Start Date End Date Yair Donahue MD [address] [place] [id number] PCP - General 08/29/20 12/31/20 Rosita Jordan APRN [address], [place] [id number] PCP - General 01/01/21 Tyler Sanchez MD [address] [address] Referring Physician 12/11/20 documented as of this encounter
--- NOTE | 2025-03-12 15:45 | MM_ITS ---
PROCEDURE INFORMATION: Exam: MG Bilateral Screening 3D Mammography Exam date and time: 03/12/2025 3:24 PM Age: 74 years old Clinical indication: Screening examination. TECHNIQUE: Imaging protocol: Bilateral Screening tomosynthesis and 2D mammography including computer-aided detection (CAD) when performed. COMPARISON: 1. MG MM DIG SCREENING MAMM BI W/CAD 03/04/2021 1:01 PM 2. MG MM DIG SCREENING MAMM BI W/CAD 01/11/2020 10:33 AM FINDINGS: MAMMOGRAPHY: Breast composition: There are scattered areas of fibroglandular density. Mass: None. Architectural distortion: None. Calcifications: No suspicious calcifications. Asymmetric density: None. Skin thickening: None. Axillary adenopathy: None. IMPRESSION: No mammographic evidence of malignancy. Annual screening is recommended unless otherwise clinically indicated. ASSESSMENT: BI-RADS Category 1: Negative.
== END 2025-03-12 23:59 | disposition home or self-care (01) ==
LOC: RAD 15:25
PROVIDERS: PCP Nurse Practitioner Family; Visit Provider Nurse Practitioner Family
DX: Z12.31 Encounter for screening mammogram for malignant neoplasm of breast (principal); R92.323 Mammographic fibroglandular density, bilateral breasts
CPT/HCPCS: 77063; 77067

== ENCOUNTER 2025-03-26 15:53 | Outpatient (CLI) | payer MEDICARE, BC, SELFPAY ==
[2025-03-26 17:06] LABS: Alanine Aminotransferase 26 U/L (12-78); Albumin Level 4.2 g/dl (3.5-5.0); Albumin/Globulin Ratio 1.6 (1.1-1.8); Alkaline Phosphatase 127 U/L (38-126); Anion Gap 16.2 mEq/L (5-15); Aspartate Amino Transferase 36 U/L (14-36); Bilirubin,Total 0.7 mg/dl (0.2-1.3); Blood Urea Nitrogen 8 mg/dl (7-17); Calcium 10.3 mg/dl (8.4-10.2); Carbon Dioxide 26 mmol/L (22.0-30.0); Chloride 101 mmol/L (98-107); Creatinine,Serum 0.70 mg/dl (0.52-1.04); Estimated Glomerular Filt Rate 82 ml/min (>60); GFR (African American) 99 ML/MIN (>60); Globulin 2.6 g/dL (1.3-3.2); Glucose 202 mg/dl (74-100); Magnesium 1.6 mg/dl (1.6-2.3); Potassium 4.2 mmoL/L (3.5-5.1); Sodium 139 mmol/L (136-145); Total Protein,Serum 6.8 g/dl (6.3-8.2)
[2025-03-26 17:24] LABS: Hemoglobin A1C 8.8 % (4.0-6.0)
== END 2025-03-26 23:59 | disposition home or self-care (01) ==
LOC: LAB 15:54
PROVIDERS: PCP Nurse Practitioner Family; Visit Provider Nurse Practitioner Family
DX: E11.69 Type 2 diabetes mellitus with other specified complication (principal); Z79.4 Long term (current) use of insulin; E83.42 Hypomagnesemia
CPT/HCPCS: 36415; 80053; 83036; 83735